=== PATIENT | male | born 1940 | race Asian ===

== ENCOUNTER 2016-03-17 10:21 | Outpatient (RCR) | payer OTHER ==
--- OUTSIDE RECORDS SUMMARY | 2015-12-19 08:51 | XMS REPORT | Continuity of Care Document ---
Author Author [facility] Organization [facility] Address Unknown Phone Unavailable Care Team Providers Care Senior Salesforce Developer Name Role Phone LYNDA BLANTON MD PCP Insurance Providers Payer Name Policy Number Subscriber Name Relationship [employer] [id number] Deonte Rangel 20 Self / Same As Patient Advance Directives Directive Response Recorded Date/Time Advance Directives No 06/22/14 11:30am Organ Donor No 06/22/14 11:30am Resuscitation Status Full Code 06/22/14 11:30am Problems No known problems or medical conditions. Medications Medication Dose Route Sig Days/Qty Instructions Order Date Discontinued Date Status Levothyroxine Sodium 1 Each PO DAILY 06/22/14 Active Fluconazole 100 Mg PO DAILY 31 Qty 06/22/14 Active Pantoprazole Sodium 40 Mg PO TWICE A DAY 90 Qty 06/22/14 Active Social History Social History Problem Response Recorded Date/Time Recent Foreign Travel No 06/22/2014 11:30am Smoking Status Former Smoker 06/22/2014 11:30am Query Response Start Date Stop Date Smoking Status Former Smoker Hospital Discharge Instructions No hospital discharge instructions. Plan of Care No plan of care. Functional Status No functional status results. Allergies, Adverse Reactions, Alerts Allergen Type Severity Reaction Status Last Updated No Known Drug Allergies Active 06/22/14 Immunizations No immunization records. Vital Signs Acute Vital Signs Vital Response Date/Time Temperature (Fahrenheit) 97.0 degrees F (97.6 - 99.5) Temperature (Calculated Celsius) 36.45343 degrees C (36.4 - 37.5) Temperature Source Tympanic Pulse Rate (adult) 69 bpm (60 - 90) Respiratory Rate 18 bpm (12 - 24) O2 Sat by Pulse Oximetry 96 % (88 - 100) Blood Pressure 102/70 mm Hg Pain Pain Intensity 0 Height (Feet) 5 feet Height (Inches) 10.00 inches Height (Calculated Centimeters) 177.197762 cm Weight (Pounds) 122 pounds Weight (Calculated Grams) 57840.270 gm Weight (Calculated Kilograms) 55.369149 kilograms Height 5 ft 10 in Weight 122 lb Body Mass Index 17.5 kg/m^2 Results Laboratory Results Test Name Result Units Flags Reference Collection Date/Time Result Date/ Time Comments White Blood Count 7.0 10^3/uL 4.3-11.0 06/11/2014 9:52am 06/11/2014 9: 57am Red Blood Count 4.45 10^6/uL 4.35-5.85 06/11/2014 9:52am 06/11/2014 9: 57am Hemoglobin 12.3 G/DL L 13.3-17.7 06/11/2014 9:52am 06/11/2014 9:57am Hematocrit 37 % L 40-54 06/11/2014 9:52am 06/11/2014 9:57am Mean Corpuscular Volume 83 FL 80-99 06/11/2014 9:52am 06/11/2014 9: 57am Mean Corpuscular Hemoglobin 28 PG 25-34 06/11/2014 9:52am 06/11/2014 9: 57am Mean Corpuscular Hemoglobin Concent 33 G/DL 32-36 06/11/2014 9:52am 9:57am Red Cell Distribution Width 13.9 % 10.0-14.5 06/11/2014 9:52am 2014 9:57am Platelet Count 298 10^3/uL 130-400 06/11/2014 9:52am 06/11/2014 9:57am Mean Platelet Volume 9.8 FL 7.4-10.4 06/11/2014 9:52am 06/11/2014 9: 57am Neutrophils (%) (Auto) 83 % H 42-75 06/11/2014 9:52am 06/11/2014 9:57am Lymphocytes (%) (Auto) 5 % L 12-44 06/11/2014 9:5206/11/2014 9:57am Monocytes (%) (Auto) 7 % 0-12 06/11/2014 9:5206/11/2014 9:57am Eosinophils (%) (Auto) 4 % 0-10 06/11/2014 9:52am 06/11/2014 9:57am Basophils (%) (Auto) 0 % 0-10 06/11/2014 9:5206/11/2014 9:57am Neutrophils # (Auto) 5.8 X 10^3 1.8-7.8 06/11/2014 9:5206/11/2014 9: 57am Lymphocytes # (Auto) 0.4 X 10^3 L 1.0-4.0 06/11/2014 9:5206/11/2014 9: 57am Monocytes # (Auto) 0.5 X 10^3 0.0-1.0 06/11/2014 9:5206/11/2014 9: 57am Eosinophils # (Auto) 0.3 10^3/uL 0.0-0.3 06/11/2014 9:5206/11/2014 9 :57am Basophils # (Auto) 0.0 10^3/uL 0.0-0.1 06/11/2014 9:5206/11/2014 9: 57am Sodium Level 133 MMOL/L L 135-145 06/11/2014 9:5206/11/2014 10:23am Potassium Level 4.6 MMOL/L 3.6-5.0 06/11/2014 9:5206/11/2014 10: 23am Chloride Level 95 MMOL/L L 98-107 06/11/2014 9:5206/11/2014 10:23am Carbon Dioxide Level 28 MMOL/L 21-32 06/11/2014 9:5206/11/2014 10: 23am Blood Urea Nitrogen 8 MG/DL 7-18 06/11/2014 9:5206/11/2014 10:23am Creatinine 0.70 MG/DL 0.60-1.30 06/11/2014 9:5206/11/2014 10:23am BUN/Creatinine Ratio 11 06/11/2014 9:52am 06/11/2014 10:23am Estimat Glomerular Filtration Rate > 60 06/11/2014 9:52am 2014 10:23am GFR INTERPRETIVE DATA UNITS FOR ESTIMATED GFR (eGFR): mL/min/1.73 M2 REFERENCE RANGE FOR ESTIMATED GFR (eGFR) eGFR NORMAL eGFR >60 MODERATELY DECREASED eGFR 30-59 SEVERLY DECREASED eGFR 15-29 KIDNEY FAILURE <15 (OR DIALYSIS) Glucose Level 97 MG/DL 70-105 06/11/2014 9:52am 06/11/2014 10:23am Calcium Level 9.8 MG/DL 8.5-10.1 06/11/2014 9:52am 06/11/2014 10:23am Total Bilirubin 0.7 MG/DL 0.1-1.0 06/11/2014 9:52am 06/11/2014 10:23am Alkaline Phosphatase 73 U/L 40-136 06/11/2014 9:52am 06/11/2014 10: 23am Aspartate Amino Transf (AST/SGOT) 15 U/L 5-34 06/11/2014 9:52am 2014 10:23am Alanine Aminotransferase (ALT/SGPT) 8 U/L 0-55 06/11/2014 9:52am 2014 10:23am Total Protein 6.8 G/DL 6.4-8.2 06/11/2014 9:52am 06/11/2014 10:23am Albumin 3.8 G/DL 3.2-4.5 06/11/2014 9:52am 06/11/2014 10:23am Thyroid Stimulating Hormone (TSH) 2.65 UIU/ML 0.35-4.94 06/11/2014 9: 52am 06/11/2014 10:44am Ferritin 209 NG/ML 25-300 06/11/2014 7:52am 06/12/2014 6:58am Iron Level 28 L UG/DL 40-180 06/11/2014 7:52am 06/12/2014 6:58am Transferrin % Saturation 11 L % 15-50 06/11/2014 7:52am 06/12/2014 6: 58am Total Iron Binding Capacity 249 L UG/DL 280-380 06/11/2014 7:52am 6:58am TESTING PERFORMED BY: [facility] [id number] [place] [address] Procedures Procedure Status Date Provider(s) Esophagogastroduodenoscopy (EGD) with dilation completed 06/22/14 GARRETT JOHNSON MD Encounters Encounter Location Date/Time Registered Surgical Day Care [facility] 06/22/14 11:17am Registered Clinic [facility] 06/20/14 6:08am Registered Clinic [facility] 06/11/14 9:27am Registered Recurring [facility] 06/01/14 1:00pm
[2015-12-19 08:58] LABS: BASOPHILS % (AUTO) 1 % (0-10); EOSINOPHILS # (AUTO) 0.1 10^3/uL (0.0-0.3); EOSINOPHILS % (AUTO) 2 % (0-10); LYMPHOCYTES # (AUTO) 0.6 X 10^3 (1.0-4.0); LYMPHOCYTES % (AUTO) 10 % (12-44); MEAN CORPUSCULAR HEMOGLOBIN 29 PG (25-34); MEAN CORPUSCULAR HGB CONC 34 G/DL (32-36); MEAN CORPUSCULAR VOLUME 86 FL (80-99); MONOCYTES # (AUTO) 0.7 X 10^3 (0.0-1.0); MONOCYTES % (AUTO) 10 % (0-12); NEUTROPHILS # (AUTO) 5.2 X 10^3 (1.8-7.8); NEUTROPHILS % (AUTO) 78 % (42-75); PLATELET COUNT 216 10^3/uL (130-400); RED BLOOD COUNT 4.09 10^6/uL (4.35-5.85); RED CELL DISTRIBUTION WIDTH 13.8 % (10.0-14.5); WHITE BLOOD COUNT 6.6 10^3/uL (4.3-11.0)
[2015-12-19 09:46] LABS: ALANINE AMINOTRANSFERASE 12 U/L (0-55); ALBUMIN 3.9 G/DL (3.2-4.5); ANION GAP 12 MMOL/L (5-14); ASPARTATE AMINO TRANSFERASE 16 U/L (5-34); BILIRUBIN,TOTAL 0.4 MG/DL (0.1-1.0); BLOOD UREA NITROGEN 24 MG/DL (7-18); BUN/CREATININE RATIO 30; CALCIUM 9.3 MG/DL (8.5-10.1); CARBON DIOXIDE 22 MMOL/L (21-32); CHLORIDE 99 MMOL/L (98-107); GFR ESTIMATED > 60; GLUCOSE 86 MG/DL (70-105); PHOSPHORUS 4.1 MG/DL (2.3-4.7); POTASSIUM 4.9 MMOL/L (3.6-5.0); SODIUM 133 MMOL/L (135-145); TOTAL PROTEIN 6.6 G/DL (6.4-8.2); TRIGLYCERIDES 37 MG/DL (<150)
[2016-01-02 10:12] LABS: BASOPHILS # (AUTO) 0.1 10^3/uL (0.0-0.1); BASOPHILS % (AUTO) 1 % (0-10); EOSINOPHILS # (AUTO) 0.3 10^3/uL (0.0-0.3); EOSINOPHILS % (AUTO) 5 % (0-10); LYMPHOCYTES # (AUTO) 0.6 X 10^3 (1.0-4.0); LYMPHOCYTES % (AUTO) 11 % (12-44); MEAN CORPUSCULAR HEMOGLOBIN 30 PG (25-34); MEAN CORPUSCULAR HGB CONC 34 G/DL (32-36); MEAN CORPUSCULAR VOLUME 87 FL (80-99); MEAN PLATELET VOLUME 11.7 FL (7.4-10.4); MONOCYTES # (AUTO) 0.7 X 10^3 (0.0-1.0); MONOCYTES % (AUTO) 12 % (0-12); NEUTROPHILS % (AUTO) 71 % (42-75); PLATELET COUNT 187 10^3/uL (130-400); RED BLOOD COUNT 4.07 10^6/uL (4.35-5.85); RED CELL DISTRIBUTION WIDTH 13.9 % (10.0-14.5); WHITE BLOOD COUNT 5.6 10^3/uL (4.3-11.0)
[2016-01-02 10:35] LABS: ALANINE AMINOTRANSFERASE 21 U/L (0-55); ANION GAP 9 MMOL/L (5-14); ASPARTATE AMINO TRANSFERASE 23 U/L (5-34); BILIRUBIN,TOTAL 0.5 MG/DL (0.1-1.0); BLOOD UREA NITROGEN 29 MG/DL (7-18); BUN/CREATININE RATIO 41; CALCIUM 9.4 MG/DL (8.5-10.1); CARBON DIOXIDE 30 MMOL/L (21-32); CHLORIDE 96 MMOL/L (98-107); GFR ESTIMATED > 60; GLUCOSE 99 MG/DL (70-105); MAGNESIUM 2.3 MG/DL (1.8-2.4); POTASSIUM 4.7 MMOL/L (3.6-5.0); SODIUM 135 MMOL/L (135-145); TOTAL PROTEIN 6.8 G/DL (6.4-8.2); TRIGLYCERIDES 40 MG/DL (<150)
[2016-01-02 10:55] LABS: THYROID STIMULATING HORMONE 2.14 UIU/ML (0.35-4.94)
[2016-01-02 23:54] LABS: CALCIUM IONIZED 1.18 mmol/L (1.16-1.32); CORRECTED IONIZED CALCIUM 1.12 mmol/L (1.16-1.32)
[2016-01-03 07:00] LABS: CALCIUM PH 7.31
[2016-01-15 10:01] LABS: BASOPHILS % (AUTO) 1 % (0-10); EOSINOPHILS # (AUTO) 0.3 10^3/uL (0.0-0.3); EOSINOPHILS % (AUTO) 5 % (0-10); LYMPHOCYTES # (AUTO) 0.7 X 10^3 (1.0-4.0); LYMPHOCYTES % (AUTO) 12 % (12-44); MEAN CORPUSCULAR HEMOGLOBIN 30 PG (25-34); MEAN CORPUSCULAR HGB CONC 34 G/DL (32-36); MEAN CORPUSCULAR VOLUME 87 FL (80-99); MONOCYTES # (AUTO) 0.7 X 10^3 (0.0-1.0); MONOCYTES % (AUTO) 12 % (0-12); NEUTROPHILS # (AUTO) 4.3 X 10^3 (1.8-7.8); NEUTROPHILS % (AUTO) 70 % (42-75); PLATELET COUNT 151 10^3/uL (130-400); RED CELL DISTRIBUTION WIDTH 14.3 % (10.0-14.5); WHITE BLOOD COUNT 6.1 10^3/uL (4.3-11.0)
[2016-01-15 10:41] LABS: ALANINE AMINOTRANSFERASE 36 U/L (0-55); ALBUMIN 4.1 G/DL (3.2-4.5); ANION GAP 6 MMOL/L (5-14); ASPARTATE AMINO TRANSFERASE 34 U/L (5-34); BILIRUBIN,TOTAL 0.7 MG/DL (0.1-1.0); BLOOD UREA NITROGEN 28 MG/DL (7-18); BUN/CREATININE RATIO 39; CALCIUM 9.1 MG/DL (8.5-10.1); CARBON DIOXIDE 30 MMOL/L (21-32); CHLORIDE 100 MMOL/L (98-107); CREATININE SERUM 0.71 MG/DL (0.60-1.30); GFR ESTIMATED > 60; GLUCOSE 100 MG/DL (70-105); MAGNESIUM 2.1 MG/DL (1.8-2.4); POTASSIUM 5.2 MMOL/L (3.6-5.0); SODIUM 136 MMOL/L (135-145); TOTAL PROTEIN 6.9 G/DL (6.4-8.2); TRIGLYCERIDES 41 MG/DL (<150)
[2016-01-16 02:06] LABS: CALCIUM IONIZED 1.14 mmol/L (1.16-1.32); CORRECTED IONIZED CALCIUM 1.17 mmol/L (1.16-1.32)
[2016-01-16 07:52] LABS: CALCIUM PH 7.44
[2016-02-04 09:50] LABS: BASOPHILS % (AUTO) 1 % (0-10); EOSINOPHILS # (AUTO) 0.2 10^3/uL (0.0-0.3); EOSINOPHILS % (AUTO) 4 % (0-10); LYMPHOCYTES # (AUTO) 0.7 X 10^3 (1.0-4.0); LYMPHOCYTES % (AUTO) 14 % (12-44); MEAN CORPUSCULAR HEMOGLOBIN 29 PG (25-34); MEAN CORPUSCULAR HGB CONC 34 G/DL (32-36); MEAN CORPUSCULAR VOLUME 87 FL (80-99); MEAN PLATELET VOLUME 12.3 FL (7.4-10.4); MONOCYTES # (AUTO) 0.6 X 10^3 (0.0-1.0); MONOCYTES % (AUTO) 12 % (0-12); NEUTROPHILS # (AUTO) 3.8 X 10^3 (1.8-7.8); NEUTROPHILS % (AUTO) 70 % (42-75); PLATELET COUNT 153 10^3/uL (130-400); RED BLOOD COUNT 3.94 10^6/uL (4.35-5.85); RED CELL DISTRIBUTION WIDTH 14.3 % (10.0-14.5); WHITE BLOOD COUNT 5.3 10^3/uL (4.3-11.0)
[2016-02-04 10:22] LABS: ALANINE AMINOTRANSFERASE 21 U/L (0-55); ANION GAP 9 MMOL/L (5-14); ASPARTATE AMINO TRANSFERASE 25 U/L (5-34); BILIRUBIN,TOTAL 0.7 MG/DL (0.1-1.0); BLOOD UREA NITROGEN 28 MG/DL (7-18); BUN/CREATININE RATIO 36; CALCIUM 9.3 MG/DL (8.5-10.1); CARBON DIOXIDE 26 MMOL/L (21-32); CHLORIDE 102 MMOL/L (98-107); CREATININE SERUM 0.78 MG/DL (0.60-1.30); GFR ESTIMATED > 60; GLUCOSE 95 MG/DL (70-105); PHOSPHORUS 3.9 MG/DL (2.3-4.7); POTASSIUM 4.7 MMOL/L (3.6-5.0); SODIUM 137 MMOL/L (135-145); TOTAL PROTEIN 6.4 G/DL (6.4-8.2); TRIGLYCERIDES 32 MG/DL (<150)
[2016-02-04 10:41] LABS: THYROID STIMULATING HORMONE 1.75 UIU/ML (0.35-4.94)
[2016-02-05 02:13] LABS: CALCIUM IONIZED 1.19 mmol/L (1.16-1.32); CORRECTED IONIZED CALCIUM 1.16 mmol/L (1.16-1.32)
[2016-02-05 06:46] LABS: CALCIUM PH 7.35
[2016-02-18 09:42] LABS: BASOPHILS % (AUTO) 0 % (0-10); EOSINOPHILS # (AUTO) 0.2 10^3/uL (0.0-0.3); EOSINOPHILS % (AUTO) 4 % (0-10); LYMPHOCYTES # (AUTO) 0.6 X 10^3 (1.0-4.0); LYMPHOCYTES % (AUTO) 11 % (12-44); MEAN CORPUSCULAR HEMOGLOBIN 29 PG (25-34); MEAN CORPUSCULAR HGB CONC 34 G/DL (32-36); MEAN CORPUSCULAR VOLUME 88 FL (80-99); MEAN PLATELET VOLUME 11.5 FL (7.4-10.4); MONOCYTES # (AUTO) 0.5 X 10^3 (0.0-1.0); MONOCYTES % (AUTO) 10 % (0-12); NEUTROPHILS % (AUTO) 75 % (42-75); PLATELET COUNT 152 10^3/uL (130-400); RED BLOOD COUNT 3.75 10^6/uL (4.35-5.85); RED CELL DISTRIBUTION WIDTH 14.9 % (10.0-14.5); WHITE BLOOD COUNT 5.3 10^3/uL (4.3-11.0)
[2016-02-18 10:50] LABS: ALANINE AMINOTRANSFERASE 21 U/L (0-55); ALBUMIN 3.9 G/DL (3.2-4.5); ANION GAP 8 MMOL/L (5-14); ASPARTATE AMINO TRANSFERASE 23 U/L (5-34); BILIRUBIN,TOTAL 0.6 MG/DL (0.1-1.0); BLOOD UREA NITROGEN 27 MG/DL (7-18); BUN/CREATININE RATIO 35; CARBON DIOXIDE 27 MMOL/L (21-32); CHLORIDE 103 MMOL/L (98-107); CREATININE SERUM 0.77 MG/DL (0.60-1.30); GFR ESTIMATED > 60; GLUCOSE 96 MG/DL (70-105); PHOSPHORUS 4.1 MG/DL (2.3-4.7); SODIUM 138 MMOL/L (135-145); TOTAL PROTEIN 6.4 G/DL (6.4-8.2); TRIGLYCERIDES 29 MG/DL (<150)
[2016-02-19 02:03] LABS: CALCIUM IONIZED 1.19 mmol/L (1.16-1.32); CORRECTED IONIZED CALCIUM 1.15 mmol/L (1.16-1.32)
[2016-02-19 08:30] LABS: CALCIUM PH 7.34
[2016-03-03 10:22] LABS: BASOPHILS % (AUTO) 1 % (0-10); EOSINOPHILS # (AUTO) 0.2 10^3/uL (0.0-0.3); EOSINOPHILS % (AUTO) 4 % (0-10); LYMPHOCYTES # (AUTO) 0.7 X 10^3 (1.0-4.0); LYMPHOCYTES % (AUTO) 12 % (12-44); MEAN CORPUSCULAR HEMOGLOBIN 29 PG (25-34); MEAN CORPUSCULAR HGB CONC 33 G/DL (32-36); MEAN CORPUSCULAR VOLUME 87 FL (80-99); MEAN PLATELET VOLUME 11.7 FL (7.4-10.4); MONOCYTES # (AUTO) 0.7 X 10^3 (0.0-1.0); MONOCYTES % (AUTO) 11 % (0-12); NEUTROPHILS # (AUTO) 4.5 X 10^3 (1.8-7.8); NEUTROPHILS % (AUTO) 73 % (42-75); PLATELET COUNT 173 10^3/uL (130-400); RED BLOOD COUNT 4.06 10^6/uL (4.35-5.85); RED CELL DISTRIBUTION WIDTH 14.8 % (10.0-14.5); WHITE BLOOD COUNT 6.2 10^3/uL (4.3-11.0)
[2016-03-03 11:32] LABS: ALANINE AMINOTRANSFERASE 23 U/L (0-55); ALBUMIN 4.3 G/DL (3.2-4.5); ANION GAP 8 MMOL/L (5-14); ASPARTATE AMINO TRANSFERASE 28 U/L (5-34); BILIRUBIN,TOTAL 0.6 MG/DL (0.1-1.0); BLOOD UREA NITROGEN 34 MG/DL (7-18); BUN/CREATININE RATIO 39; CALCIUM 9.5 MG/DL (8.5-10.1); CARBON DIOXIDE 27 MMOL/L (21-32); CHLORIDE 102 MMOL/L (98-107); CREATININE SERUM 0.88 MG/DL (0.60-1.30); GFR ESTIMATED > 60; GLUCOSE 99 MG/DL (70-105); MAGNESIUM 2.1 MG/DL (1.8-2.4); PHOSPHORUS 3.9 MG/DL (2.3-4.7); POTASSIUM 4.9 MMOL/L (3.6-5.0); SODIUM 137 MMOL/L (135-145); TRIGLYCERIDES 38 MG/DL (<150)
[2016-03-03 11:57] LABS: THYROID STIMULATING HORMONE 2.64 UIU/ML (0.35-4.94)
[2016-03-04 00:27] LABS: CALCIUM IONIZED 1.18 mmol/L (1.16-1.32); CORRECTED IONIZED CALCIUM 1.14 mmol/L (1.16-1.32)
[2016-03-04 08:37] LABS: CALCIUM PH 7.34
[~2016-03-17 10:21] MED LIST: FLUC100T PO; HYOS0.1217 PO; LEVO75TA57 PO; PANT20TA2 PO; [UNRECOGNIZED DRUG - OTHER] IV
[2016-03-17 10:57] LABS: BASOPHILS % (AUTO) 0 % (0-10); EOSINOPHILS % (AUTO) 0 % (0-10); LYMPHOCYTES # (AUTO) 0.6 X 10^3 (1.0-4.0); LYMPHOCYTES % (AUTO) 6 % (12-44); MEAN CORPUSCULAR HEMOGLOBIN 29 PG (25-34); MEAN CORPUSCULAR HGB CONC 33 G/DL (32-36); MEAN CORPUSCULAR VOLUME 87 FL (80-99); MEAN PLATELET VOLUME 11.7 FL (7.4-10.4); MONOCYTES # (AUTO) 0.7 X 10^3 (0.0-1.0); MONOCYTES % (AUTO) 7 % (0-12); NEUTROPHILS # (AUTO) 8.6 X 10^3 (1.8-7.8); NEUTROPHILS % (AUTO) 87 % (42-75); PLATELET COUNT 109 10^3/uL (130-400); RED BLOOD COUNT 3.83 10^6/uL (4.35-5.85); RED CELL DISTRIBUTION WIDTH 14.7 % (10.0-14.5); WHITE BLOOD COUNT 9.9 10^3/uL (4.3-11.0)
[2016-03-17 11:43] LABS: ALANINE AMINOTRANSFERASE 39 U/L (0-55); ALBUMIN 3.9 G/DL (3.2-4.5); ANION GAP 11 MMOL/L (5-14); ASPARTATE AMINO TRANSFERASE 48 U/L (5-34); BILIRUBIN,TOTAL 0.6 MG/DL (0.1-1.0); BLOOD UREA NITROGEN 33 MG/DL (7-18); BUN/CREATININE RATIO 43; CALCIUM 8.8 MG/DL (8.5-10.1); CARBON DIOXIDE 23 MMOL/L (21-32); CHLORIDE 101 MMOL/L (98-107); CREATININE SERUM 0.76 MG/DL (0.60-1.30); GFR ESTIMATED > 60; GLUCOSE 95 MG/DL (70-105); PHOSPHORUS 3.4 MG/DL (2.3-4.7); POTASSIUM 4.8 MMOL/L (3.6-5.0); SODIUM 135 MMOL/L (135-145); TOTAL PROTEIN 6.5 G/DL (6.4-8.2); TRIGLYCERIDES 39 MG/DL (<150)
[2016-03-18 00:19] LABS: CALCIUM IONIZED 1.18 mmol/L (1.16-1.32); CORRECTED IONIZED CALCIUM 1.15 mmol/L (1.16-1.32)
[2016-03-18 08:03] LABS: CALCIUM PH 7.35
== END 2016-03-18 | disposition home or self-care (01) ==
LOC: ONC 10:21
PROVIDERS: ATTEND Internal Medicine Hematology & Oncology
DX: K22.0 Achalasia of cardia (principal); R13.10 Dysphagia, unspecified; K21.9 Gastro-esophageal reflux disease without esophagitis; R63.4 Abnormal weight loss; Z85.72 Personal history of non-Hodgkin lymphomas; Z92.21 Personal history of antineoplastic chemotherapy; Z92.3 Personal history of irradiation
CPT/HCPCS: 36415; 80053; 82330; 83735; 84100; 84443; 84478; 85025; 87070; 87077; 87186; 87205

== ENCOUNTER → 2016-05-12 | Outpatient (CLI) | payer OTHER ==
--- OUTSIDE RECORDS SUMMARY | 2016-05-12 09:29 | XMS REPORT | Continuity of Care Document ---
Author Author [facility] Organization [facility] Address Unknown Phone Unavailable Care Team Providers Care Sales Project Engineer Name Role Phone LYNDA BLANTON MD PCP Insurance Providers Payer Name Policy Number Subscriber Name Relationship [employer] [id number] Deonte Rangel 20 Self / Same As [...] F (97.6 - 99.5) Temperature (Calculated Celsius) 36.24288 degrees C (36.4 - 37.5) Temperature Source Tympanic Pulse Rate (adult) 69 bpm (60 - 90) Respiratory Rate 18 bpm (12 - 24) O2 Sat by Pulse Oximetry 96 % (88 - 100) Blood Pressure 102/70 mm Hg Pain Pain Intensity 0 Height (Feet) 5 feet Height (Inches) 10.00 inches Height (Calculated Centimeters) 177.995350 cm Weight (Pounds) 122 pounds Weight (Calculated Grams) 22171.270 gm Weight (Calculated Kilograms) 55.480578 kilograms Height 5 ft 10 in Weight [...] 280-380 06/11/2014 7:52am 6:58am TESTING PERFORMED BY: [facility] [id number] [place] [address] Procedures Procedure Status Date Provider(s) Esophagogastroduodenoscopy (EGD) with dilation completed 06/22/14 GARRETT JOHSNON MD Encounters Encounter Location Date/Time Registered Surgical Day Care [facility] 06/22/14 11:17am Registered Clinic [facility] 06/20/14 6:08am Registered Clinic [facility] 06/11/14 9:27am Registered Recurring [facility] 06/01/14 1:00pm
--- NOTE | 2016-05-12 11:15 | Diagnostic Imaging Report ---
EXAMINATION: PA and lateral chest views of the chest. INDICATION: Cough. FINDINGS: There is thickening in the interstitial markings and elevation of the left hemidiaphragm similar to 04/15/2015. These findings appear to be chronic with no significant focal consolidation. The heart size is normal. No effusion or pneumothorax. The mediastinum and ninfa appear unremarkable. IMPRESSION: Chronic appearing interstitial thickening and elevation of the left hemidiaphragm. No focal consolidation. Dictated by: Dictated on workstation # [id number]
== END ==
LOC: RAD 09:26
PROVIDERS: ATTEND Internal Medicine Hematology & Oncology
DX: J18.9 Pneumonia, unspecified organism (principal)
CPT/HCPCS: 71020

== ENCOUNTER → 2016-06-12 | Outpatient (CLI) | payer OTHER ==
[~2016-06-12] VITALS: Ht 177.8 cm; Wt 53.5 kg
--- NOTE | 2016-06-12 10:18 | Diagnostic Imaging Report ---
Portable upright radiograph of the chest. COMPARISON: 05/12/2016. INDICATION: PICC line placement. FINDINGS: There is a PICC line placed with the tip in the mid SVC. The heart size is normal. There is elevation of the left hemidiaphragm similar to the prior exam with no focal airspace consolidation. There is, however, mild chronic-appearing interstitial prominence. No effusion or pneumothorax. IMPRESSION: Left PICC line placed with the tip at the SVC level. Unchanged prominent interstitial markings and elevation of the left hemidiaphragm. Dictated by: Dictated on workstation # [id number]
[2016-06-12 11:58] VITALS: BP 143/100
== END ==
LOC: SDC 08:54
PROVIDERS: ATTEND Internal Medicine Hematology & Oncology
DX: Z45.2 Encounter for adjustment and management of vascular access device (principal)
CPT/HCPCS: 36569; 71010; 76937

== ENCOUNTER 2016-06-23 09:23 | Outpatient (RCR) | payer OTHER ==
--- OUTSIDE RECORDS SUMMARY | 2016-03-26 09:02 | XMS REPORT | Continuity of Care Document ---
Author Author [facility] Organization [facility] Address Unknown Phone Unavailable Care Team Providers Care Vat Cleaner Name Role Phone LYNDA BLANTON MD PCP Insurance Providers Payer Name Policy Number Subscriber Name Relationship [employer] [id number] Deonte Rangel 20 Self / Same As [...] F (97.6 - 99.5) Temperature (Calculated Celsius) 36.66153 degrees C (36.4 - 37.5) Temperature Source Tympanic Pulse Rate (adult) 69 bpm (60 - 90) Respiratory Rate 18 bpm (12 - 24) O2 Sat by Pulse Oximetry 96 % (88 - 100) Blood Pressure 102/70 mm Hg Pain Pain Intensity 0 Height (Feet) 5 feet Height (Inches) 10.00 inches Height (Calculated Centimeters) 177.492867 cm Weight (Pounds) 122 pounds Weight (Calculated Grams) 72237.270 gm Weight (Calculated Kilograms) 55.740798 kilograms Height 5 ft 10 in Weight [...] 280-380 06/11/2014 7:52am 6:58am TESTING PERFORMED BY: [facility] [id number] [place] [address] Procedures Procedure Status Date Provider(s) Esophagogastroduodenoscopy (EGD) with dilation completed 06/22/14 GARRETT JOHNSON MD Encounters Encounter Location Date/Time Registered Surgical Day Care [facility] 06/22/14 11:17am Registered Clinic [facility] 06/20/14 6:08am Registered Clinic [facility] 06/11/14 9:27am Registered Recurring [facility] 06/01/14 1:00pm
[2016-03-30 09:59] LABS: BASOPHILS % (AUTO) 0 % (0-10); EOSINOPHILS # (AUTO) 0.2 10^3/uL (0.0-0.3); EOSINOPHILS % (AUTO) 2 % (0-10); LYMPHOCYTES # (AUTO) 0.7 X 10^3 (1.0-4.0); LYMPHOCYTES % (AUTO) 7 % (12-44); MEAN CORPUSCULAR HEMOGLOBIN 28 PG (25-34); MEAN CORPUSCULAR HGB CONC 33 G/DL (32-36); MEAN CORPUSCULAR VOLUME 87 FL (80-99); MEAN PLATELET VOLUME 11.6 FL (7.4-10.4); MONOCYTES % (AUTO) 10 % (0-12); NEUTROPHILS % (AUTO) 81 % (42-75); PLATELET COUNT 220 10^3/uL (130-400); RED BLOOD COUNT 3.85 10^6/uL (4.35-5.85); RED CELL DISTRIBUTION WIDTH 14.1 % (10.0-14.5); WHITE BLOOD COUNT 9.9 10^3/uL (4.3-11.0)
[2016-03-30 10:26] LABS: ALANINE AMINOTRANSFERASE 30 U/L (0-55); ALBUMIN 3.8 G/DL (3.2-4.5); ANION GAP 9 MMOL/L (5-14); ASPARTATE AMINO TRANSFERASE 31 U/L (5-34); BILIRUBIN,TOTAL 0.8 MG/DL (0.1-1.0); BLOOD UREA NITROGEN 31 MG/DL (7-18); BUN/CREATININE RATIO 40; CALCIUM 9.4 MG/DL (8.5-10.1); CARBON DIOXIDE 26 MMOL/L (21-32); CHLORIDE 104 MMOL/L (98-107); CHOLESTEROL 137 MG/DL (< 200); CREATININE SERUM 0.77 MG/DL (0.60-1.30); DIRECT LDL 85 MG/DL (1-129); GFR ESTIMATED > 60; GLUCOSE 101 MG/DL (70-105); SODIUM 139 MMOL/L (135-145); TOTAL PROTEIN 6.8 G/DL (6.4-8.2); TRIGLYCERIDES 47 MG/DL (<150); VLDL CHOLESTEROL 9 MG/DL (5-40)
[2016-03-30 10:36] LABS: RETICULOCYTE % 0.45 % (0.50-2.40)
[2016-03-30 10:47] LABS: THYROID STIMULATING HORMONE 3.12 UIU/ML (0.35-4.94)
[2016-03-30 11:43] LABS: %SAT TOTAL IRON BINDING CAPIC 11 % (15-50); TIBC 257 ug/dL (280-380)
[2016-03-30 15:36] LABS: UIBC 229 ug/dL (55-450)
[2016-03-31 09:04] LABS: FERRITIN 563 ng/mL (25-300)
[2016-04-07 10:50] LABS: BASOPHILS % (AUTO) 1 % (0-10); EOSINOPHILS # (AUTO) 0.1 10^3/uL (0.0-0.3); EOSINOPHILS % (AUTO) 2 % (0-10); LYMPHOCYTES # (AUTO) 0.6 X 10^3 (1.0-4.0); LYMPHOCYTES % (AUTO) 11 % (12-44); MEAN CORPUSCULAR HEMOGLOBIN 29 PG (25-34); MEAN CORPUSCULAR HGB CONC 33 G/DL (32-36); MEAN CORPUSCULAR VOLUME 87 FL (80-99); MEAN PLATELET VOLUME 12.7 FL (7.4-10.4); MONOCYTES # (AUTO) 0.6 X 10^3 (0.0-1.0); MONOCYTES % (AUTO) 11 % (0-12); NEUTROPHILS # (AUTO) 4.1 X 10^3 (1.8-7.8); NEUTROPHILS % (AUTO) 76 % (42-75); PLATELET COUNT 139 10^3/uL (130-400); RED BLOOD COUNT 3.81 10^6/uL (4.35-5.85); RED CELL DISTRIBUTION WIDTH 14.5 % (10.0-14.5); WHITE BLOOD COUNT 5.4 10^3/uL (4.3-11.0)
[2016-04-07 11:14] LABS: ALANINE AMINOTRANSFERASE 192 U/L (0-55); ALBUMIN 3.7 G/DL (3.2-4.5); ANION GAP 8 MMOL/L (5-14); ASPARTATE AMINO TRANSFERASE 116 U/L (5-34); BILIRUBIN,TOTAL 2.4 MG/DL (0.1-1.0); BLOOD UREA NITROGEN 26 MG/DL (7-18); BUN/CREATININE RATIO 37; CALCIUM 8.9 MG/DL (8.5-10.1); CARBON DIOXIDE 28 MMOL/L (21-32); CHLORIDE 103 MMOL/L (98-107); CHOLESTEROL 133 MG/DL (< 200); CREATININE SERUM 0.71 MG/DL (0.60-1.30); DIRECT LDL 94 MG/DL (1-129); GFR ESTIMATED > 60; GLUCOSE 93 MG/DL (70-105); MAGNESIUM 1.9 MG/DL (1.8-2.4); PHOSPHORUS 2.5 MG/DL (2.3-4.7); SODIUM 139 MMOL/L (135-145); TOTAL PROTEIN 6.3 G/DL (6.4-8.2); TRIGLYCERIDES 58 MG/DL (<150); VLDL CHOLESTEROL 12 MG/DL (5-40)
[2016-04-14 09:35] LABS: BASOPHILS % (AUTO) 0 % (0-10); EOSINOPHILS # (AUTO) 0.4 10^3/uL (0.0-0.3); EOSINOPHILS % (AUTO) 6 % (0-10); LYMPHOCYTES # (AUTO) 0.6 X 10^3 (1.0-4.0); LYMPHOCYTES % (AUTO) 9 % (12-44); MEAN CORPUSCULAR HEMOGLOBIN 30 PG (25-34); MEAN CORPUSCULAR HGB CONC 34 G/DL (32-36); MEAN CORPUSCULAR VOLUME 88 FL (80-99); MONOCYTES # (AUTO) 0.7 X 10^3 (0.0-1.0); MONOCYTES % (AUTO) 10 % (0-12); NEUTROPHILS # (AUTO) 5.1 X 10^3 (1.8-7.8); NEUTROPHILS % (AUTO) 75 % (42-75); PLATELET COUNT 112 10^3/uL (130-400); RED BLOOD COUNT 3.71 10^6/uL (4.35-5.85); RED CELL DISTRIBUTION WIDTH 15.5 % (10.0-14.5); WHITE BLOOD COUNT 6.8 10^3/uL (4.3-11.0)
[2016-04-14 10:25] LABS: ALANINE AMINOTRANSFERASE 222 U/L (0-55); ALBUMIN 3.7 G/DL (3.2-4.5); ANION GAP 10 MMOL/L (5-14); ASPARTATE AMINO TRANSFERASE 101 U/L (5-34); BILIRUBIN,TOTAL 2.2 MG/DL (0.1-1.0); BLOOD UREA NITROGEN 18 MG/DL (7-18); BUN/CREATININE RATIO 25; CALCIUM 9.1 MG/DL (8.5-10.1); CARBON DIOXIDE 30 MMOL/L (21-32); CHLORIDE 100 MMOL/L (98-107); CREATININE SERUM 0.71 MG/DL (0.60-1.30); GFR ESTIMATED > 60; GLUCOSE 90 MG/DL (70-105); MAGNESIUM 1.9 MG/DL (1.8-2.4); PHOSPHORUS 2.5 MG/DL (2.3-4.7); POTASSIUM 3.9 MMOL/L (3.6-5.0); SODIUM 140 MMOL/L (135-145); TOTAL PROTEIN 6.5 G/DL (6.4-8.2); TRIGLYCERIDES 73 MG/DL (<150)
[2016-04-14 23:51] LABS: CALCIUM IONIZED 1.14 mmol/L (1.16-1.32); CORRECTED IONIZED CALCIUM 1.15 mmol/L (1.16-1.32)
[2016-04-15 07:40] LABS: CALCIUM PH 7.42
[2016-04-21 09:14] LABS: BASOPHILS % (AUTO) 0 % (0-10); EOSINOPHILS # (AUTO) 0.4 10^3/uL (0.0-0.3); EOSINOPHILS % (AUTO) 4 % (0-10); LYMPHOCYTES # (AUTO) 0.7 X 10^3 (1.0-4.0); LYMPHOCYTES % (AUTO) 9 % (12-44); MEAN CORPUSCULAR HEMOGLOBIN 30 PG (25-34); MEAN CORPUSCULAR HGB CONC 33 G/DL (32-36); MEAN CORPUSCULAR VOLUME 90 FL (80-99); MONOCYTES # (AUTO) 0.8 X 10^3 (0.0-1.0); MONOCYTES % (AUTO) 10 % (0-12); NEUTROPHILS # (AUTO) 6.3 X 10^3 (1.8-7.8); NEUTROPHILS % (AUTO) 77 % (42-75); PLATELET COUNT 160 10^3/uL (130-400); RED BLOOD COUNT 3.56 10^6/uL (4.35-5.85); WHITE BLOOD COUNT 8.2 10^3/uL (4.3-11.0)
[2016-04-21 09:46] LABS: ALANINE AMINOTRANSFERASE 49 U/L (0-55); ALBUMIN 3.7 G/DL (3.2-4.5); ANION GAP 9 MMOL/L (5-14); ASPARTATE AMINO TRANSFERASE 24 U/L (5-34); BILIRUBIN,TOTAL 1.1 MG/DL (0.1-1.0); BLOOD UREA NITROGEN 35 MG/DL (7-18); BUN/CREATININE RATIO 47; CALCIUM 9.2 MG/DL (8.5-10.1); CARBON DIOXIDE 27 MMOL/L (21-32); CHLORIDE 102 MMOL/L (98-107); CHOLESTEROL 137 MG/DL (< 200); CREATININE SERUM 0.74 MG/DL (0.60-1.30); DIRECT LDL 82 MG/DL (1-129); GFR ESTIMATED > 60; GLUCOSE 90 MG/DL (70-105); MAGNESIUM 1.6 MG/DL (1.8-2.4); PHOSPHORUS 3.5 MG/DL (2.3-4.7); POTASSIUM 4.7 MMOL/L (3.6-5.0); SODIUM 138 MMOL/L (135-145); TOTAL PROTEIN 6.5 G/DL (6.4-8.2); TRIGLYCERIDES 63 MG/DL (<150); VLDL CHOLESTEROL 13 MG/DL (5-40)
[2016-04-22 00:20] LABS: CALCIUM IONIZED 1.19 mmol/L (1.16-1.32); CORRECTED IONIZED CALCIUM 1.16 mmol/L (1.16-1.32)
[2016-04-22 06:45] LABS: CALCIUM PH 7.35
[2016-04-28 09:40] LABS: BASOPHILS % (AUTO) 1 % (0-10); EOSINOPHILS # (AUTO) 0.3 10^3/uL (0.0-0.3); EOSINOPHILS % (AUTO) 4 % (0-10); LYMPHOCYTES # (AUTO) 0.7 X 10^3 (1.0-4.0); LYMPHOCYTES % (AUTO) 10 % (12-44); MEAN CORPUSCULAR HEMOGLOBIN 30 PG (25-34); MEAN CORPUSCULAR HGB CONC 34 G/DL (32-36); MEAN CORPUSCULAR VOLUME 88 FL (80-99); MEAN PLATELET VOLUME 12.5 FL (7.4-10.4); MONOCYTES # (AUTO) 0.9 X 10^3 (0.0-1.0); MONOCYTES % (AUTO) 13 % (0-12); NEUTROPHILS # (AUTO) 4.9 X 10^3 (1.8-7.8); NEUTROPHILS % (AUTO) 72 % (42-75); PLATELET COUNT 180 10^3/uL (130-400); RED BLOOD COUNT 3.87 10^6/uL (4.35-5.85); RED CELL DISTRIBUTION WIDTH 14.3 % (10.0-14.5); WHITE BLOOD COUNT 6.8 10^3/uL (4.3-11.0)
[2016-04-28 10:16] LABS: ALANINE AMINOTRANSFERASE 59 U/L (0-55); ALBUMIN 3.9 G/DL (3.2-4.5); ANION GAP 11 MMOL/L (5-14); ASPARTATE AMINO TRANSFERASE 33 U/L (5-34); BILIRUBIN,TOTAL 0.8 MG/DL (0.1-1.0); BLOOD UREA NITROGEN 32 MG/DL (7-18); BUN/CREATININE RATIO 44; CALCIUM 9.1 MG/DL (8.5-10.1); CARBON DIOXIDE 27 MMOL/L (21-32); CHLORIDE 102 MMOL/L (98-107); CREATININE SERUM 0.72 MG/DL (0.60-1.30); GFR ESTIMATED > 60; GLUCOSE 83 MG/DL (70-105); MAGNESIUM 1.9 MG/DL (1.8-2.4); PHOSPHORUS 3.3 MG/DL (2.3-4.7); POTASSIUM 3.8 MMOL/L (3.6-5.0); SODIUM 140 MMOL/L (135-145); TOTAL PROTEIN 6.9 G/DL (6.4-8.2); TRIGLYCERIDES 39 MG/DL (<150)
[2016-04-28 10:36] LABS: THYROID STIMULATING HORMONE 6.33 UIU/ML (0.35-4.94)
[2016-04-29 00:49] LABS: CALCIUM IONIZED 1.15 mmol/L (1.16-1.32); CORRECTED IONIZED CALCIUM 1.13 mmol/L (1.16-1.32)
[2016-04-29 06:55] LABS: CALCIUM PH 7.36
[2016-05-12 09:46] LABS: BASOPHILS % (AUTO) 1 % (0-10); EOSINOPHILS # (AUTO) 0.3 10^3/uL (0.0-0.3); EOSINOPHILS % (AUTO) 5 % (0-10); LYMPHOCYTES # (AUTO) 0.7 X 10^3 (1.0-4.0); LYMPHOCYTES % (AUTO) 14 % (12-44); MEAN CORPUSCULAR HEMOGLOBIN 29 PG (25-34); MEAN CORPUSCULAR HGB CONC 33 G/DL (32-36); MEAN CORPUSCULAR VOLUME 89 FL (80-99); MEAN PLATELET VOLUME 11.9 FL (7.4-10.4); MONOCYTES # (AUTO) 0.6 X 10^3 (0.0-1.0); MONOCYTES % (AUTO) 12 % (0-12); NEUTROPHILS # (AUTO) 3.8 X 10^3 (1.8-7.8); NEUTROPHILS % (AUTO) 69 % (42-75); PLATELET COUNT 160 10^3/uL (130-400); RED CELL DISTRIBUTION WIDTH 14.8 % (10.0-14.5); WHITE BLOOD COUNT 5.4 10^3/uL (4.3-11.0)
[2016-05-12 10:22] LABS: ALANINE AMINOTRANSFERASE 45 U/L (0-55); ANION GAP 11 MMOL/L (5-14); ASPARTATE AMINO TRANSFERASE 30 U/L (5-34); BILIRUBIN,TOTAL 0.7 MG/DL (0.1-1.0); BLOOD UREA NITROGEN 34 MG/DL (7-18); BUN/CREATININE RATIO 47; CALCIUM 9.2 MG/DL (8.5-10.1); CARBON DIOXIDE 28 MMOL/L (21-32); CHLORIDE 101 MMOL/L (98-107); CREATININE SERUM 0.72 MG/DL (0.60-1.30); GFR ESTIMATED > 60; GLUCOSE 84 MG/DL (70-105); MAGNESIUM 2.1 MG/DL (1.8-2.4); PHOSPHORUS 3.4 MG/DL (2.3-4.7); SODIUM 140 MMOL/L (135-145); TOTAL PROTEIN 6.8 G/DL (6.4-8.2); TRIGLYCERIDES 43 MG/DL (<150)
[2016-05-13 00:27] LABS: CALCIUM IONIZED 1.18 mmol/L (1.16-1.32); CORRECTED IONIZED CALCIUM 1.16 mmol/L (1.16-1.32)
[2016-05-13 07:05] LABS: CALCIUM PH 7.37
[2016-05-19 09:01] LABS: BASOPHILS % (AUTO) 1 % (0-10); EOSINOPHILS # (AUTO) 0.3 10^3/uL (0.0-0.3); EOSINOPHILS % (AUTO) 5 % (0-10); LYMPHOCYTES # (AUTO) 0.7 X 10^3 (1.0-4.0); LYMPHOCYTES % (AUTO) 12 % (12-44); MEAN CORPUSCULAR HEMOGLOBIN 29 PG (25-34); MEAN CORPUSCULAR HGB CONC 32 G/DL (32-36); MEAN CORPUSCULAR VOLUME 90 FL (80-99); MEAN PLATELET VOLUME 11.6 FL (7.4-10.4); MONOCYTES # (AUTO) 0.5 X 10^3 (0.0-1.0); MONOCYTES % (AUTO) 8 % (0-12); NEUTROPHILS # (AUTO) 4.6 X 10^3 (1.8-7.8); NEUTROPHILS % (AUTO) 74 % (42-75); PLATELET COUNT 151 10^3/uL (130-400); RED BLOOD COUNT 3.79 10^6/uL (4.35-5.85); RED CELL DISTRIBUTION WIDTH 14.9 % (10.0-14.5); WHITE BLOOD COUNT 6.2 10^3/uL (4.3-11.0)
[2016-05-19 09:30] LABS: ALANINE AMINOTRANSFERASE 34 U/L (0-55); ALBUMIN 3.7 G/DL (3.2-4.5); ANION GAP 9 MMOL/L (5-14); ASPARTATE AMINO TRANSFERASE 22 U/L (5-34); BILIRUBIN,TOTAL 0.7 MG/DL (0.1-1.0); BLOOD UREA NITROGEN 36 MG/DL (7-18); BUN/CREATININE RATIO 49; CALCIUM 9.1 MG/DL (8.5-10.1); CARBON DIOXIDE 30 MMOL/L (21-32); CHLORIDE 104 MMOL/L (98-107); CHOLESTEROL 115 MG/DL (< 200); CREATININE SERUM 0.74 MG/DL (0.60-1.30); DIRECT LDL 61 MG/DL (1-129); GFR ESTIMATED > 60; GLUCOSE 81 MG/DL (70-105); PHOSPHORUS 3.2 MG/DL (2.3-4.7); POTASSIUM 3.8 MMOL/L (3.6-5.0); SODIUM 143 MMOL/L (135-145); TOTAL PROTEIN 6.6 G/DL (6.4-8.2); TRIGLYCERIDES 33 MG/DL (<150); VLDL CHOLESTEROL 7 MG/DL (5-40)
[2016-05-20 00:45] LABS: CALCIUM IONIZED 1.17 mmol/L (1.16-1.32); CORRECTED IONIZED CALCIUM 1.15 mmol/L (1.16-1.32)
[2016-05-20 07:30] LABS: CALCIUM PH 7.36
[2016-05-27 09:13] LABS: BASOPHILS % (AUTO) 0 % (0-10); EOSINOPHILS # (AUTO) 0.2 10^3/uL (0.0-0.3); EOSINOPHILS % (AUTO) 4 % (0-10); LYMPHOCYTES # (AUTO) 0.6 X 10^3 (1.0-4.0); LYMPHOCYTES % (AUTO) 11 % (12-44); MEAN CORPUSCULAR HEMOGLOBIN 29 PG (25-34); MEAN CORPUSCULAR HGB CONC 33 G/DL (32-36); MEAN CORPUSCULAR VOLUME 90 FL (80-99); MEAN PLATELET VOLUME 12.1 FL (7.4-10.4); MONOCYTES # (AUTO) 0.5 X 10^3 (0.0-1.0); MONOCYTES % (AUTO) 9 % (0-12); NEUTROPHILS # (AUTO) 4.3 X 10^3 (1.8-7.8); NEUTROPHILS % (AUTO) 76 % (42-75); PLATELET COUNT 157 10^3/uL (130-400); RED BLOOD COUNT 3.94 10^6/uL (4.35-5.85); RED CELL DISTRIBUTION WIDTH 14.9 % (10.0-14.5); WHITE BLOOD COUNT 5.7 10^3/uL (4.3-11.0)
[2016-05-27 09:43] LABS: ALANINE AMINOTRANSFERASE 40 U/L (0-55); ALBUMIN 3.8 G/DL (3.2-4.5); ANION GAP 10 MMOL/L (5-14); ASPARTATE AMINO TRANSFERASE 27 U/L (5-34); BILIRUBIN,TOTAL 0.7 MG/DL (0.1-1.0); CALCIUM 9.2 MG/DL (8.5-10.1); CARBON DIOXIDE 29 MMOL/L (21-32); CHLORIDE 104 MMOL/L (98-107); CHOLESTEROL 122 MG/DL (< 200); CREATININE SERUM 0.78 MG/DL (0.60-1.30); DIRECT LDL 70 MG/DL (1-129); GFR ESTIMATED > 60; GLUCOSE 91 MG/DL (70-105); MAGNESIUM 2.1 MG/DL (1.8-2.4); PHOSPHORUS 3.4 MG/DL (2.3-4.7); POTASSIUM 4.3 MMOL/L (3.6-5.0); SODIUM 143 MMOL/L (135-145); TOTAL PROTEIN 6.7 G/DL (6.4-8.2); TRIGLYCERIDES 43 MG/DL (<150); VLDL CHOLESTEROL 9 MG/DL (5-40)
[2016-05-27 11:04] LABS: BLOOD UREA NITROGEN 43 MG/DL (7-18); BUN/CREATININE RATIO 55
[2016-05-28 00:19] LABS: CALCIUM IONIZED 1.19 mmol/L (1.16-1.32); CORRECTED IONIZED CALCIUM 1.14 mmol/L (1.16-1.32)
[2016-05-28 07:40] LABS: CALCIUM PH 7.32
[2016-06-09 09:41] LABS: BASOPHILS % (AUTO) 1 % (0-10); EOSINOPHILS # (AUTO) 0.2 10^3/uL (0.0-0.3); EOSINOPHILS % (AUTO) 5 % (0-10); LYMPHOCYTES # (AUTO) 0.7 X 10^3 (1.0-4.0); LYMPHOCYTES % (AUTO) 15 % (12-44); MEAN CORPUSCULAR HEMOGLOBIN 29 PG (25-34); MEAN CORPUSCULAR HGB CONC 32 G/DL (32-36); MEAN CORPUSCULAR VOLUME 91 FL (80-99); MEAN PLATELET VOLUME 11.7 FL (7.4-10.4); MONOCYTES # (AUTO) 0.5 X 10^3 (0.0-1.0); MONOCYTES % (AUTO) 10 % (0-12); NEUTROPHILS # (AUTO) 3.2 X 10^3 (1.8-7.8); NEUTROPHILS % (AUTO) 69 % (42-75); PLATELET COUNT 132 10^3/uL (130-400); RED CELL DISTRIBUTION WIDTH 14.9 % (10.0-14.5); WHITE BLOOD COUNT 4.7 10^3/uL (4.3-11.0)
[2016-06-09 10:22] LABS: ALANINE AMINOTRANSFERASE 30 U/L (0-55); ALBUMIN 3.5 G/DL (3.2-4.5); ANION GAP 10 MMOL/L (5-14); ASPARTATE AMINO TRANSFERASE 21 U/L (5-34); BILIRUBIN,TOTAL 0.8 MG/DL (0.1-1.0); BLOOD UREA NITROGEN 35 MG/DL (7-18); BUN/CREATININE RATIO 51; CALCIUM 8.9 MG/DL (8.5-10.1); CARBON DIOXIDE 30 MMOL/L (21-32); CHLORIDE 103 MMOL/L (98-107); CREATININE SERUM 0.68 MG/DL (0.60-1.30); GFR ESTIMATED > 60; GLUCOSE 75 MG/DL (70-105); MAGNESIUM 1.9 MG/DL (1.8-2.4); PHOSPHORUS 2.9 MG/DL (2.3-4.7); POTASSIUM 3.8 MMOL/L (3.6-5.0); SODIUM 143 MMOL/L (135-145); TOTAL PROTEIN 6.2 G/DL (6.4-8.2); TRIGLYCERIDES 42 MG/DL (<150)
[2016-06-09 23:43] LABS: CALCIUM IONIZED 1.14 mmol/L (1.16-1.32); CORRECTED IONIZED CALCIUM 1.13 mmol/L (1.16-1.32)
[2016-06-10 07:48] LABS: CALCIUM PH 7.38
[2016-06-23 10:19] LABS: BASOPHILS % (AUTO) 0 % (0-10); EOSINOPHILS # (AUTO) 0.2 10^3/uL (0.0-0.3); EOSINOPHILS % (AUTO) 2 % (0-10); LYMPHOCYTES # (AUTO) 0.8 X 10^3 (1.0-4.0); LYMPHOCYTES % (AUTO) 12 % (12-44); MEAN CORPUSCULAR HEMOGLOBIN 29 PG (25-34); MEAN CORPUSCULAR HGB CONC 32 G/DL (32-36); MEAN CORPUSCULAR VOLUME 91 FL (80-99); MEAN PLATELET VOLUME 11.8 FL (7.4-10.4); MONOCYTES # (AUTO) 0.5 X 10^3 (0.0-1.0); MONOCYTES % (AUTO) 7 % (0-12); NEUTROPHILS # (AUTO) 5.6 X 10^3 (1.8-7.8); NEUTROPHILS % (AUTO) 79 % (42-75); PLATELET COUNT 171 10^3/uL (130-400); RED BLOOD COUNT 3.62 10^6/uL (4.35-5.85); RED CELL DISTRIBUTION WIDTH 14.9 % (10.0-14.5); WHITE BLOOD COUNT 7.1 10^3/uL (4.3-11.0)
[2016-06-23 11:03] LABS: ALANINE AMINOTRANSFERASE 38 U/L (0-55); ALBUMIN 3.7 G/DL (3.2-4.5); ANION GAP 10 MMOL/L (5-14); ASPARTATE AMINO TRANSFERASE 27 U/L (5-34); BILIRUBIN,TOTAL 0.7 MG/DL (0.1-1.0); BLOOD UREA NITROGEN 39 MG/DL (7-18); BUN/CREATININE RATIO 51; CALCIUM 9.1 MG/DL (8.5-10.1); CARBON DIOXIDE 27 MMOL/L (21-32); CHLORIDE 103 MMOL/L (98-107); CREATININE SERUM 0.77 MG/DL (0.60-1.30); GFR ESTIMATED > 60; GLUCOSE 104 MG/DL (70-105); MAGNESIUM 2.1 MG/DL (1.8-2.4); PHOSPHORUS 3.6 MG/DL (2.3-4.7); POTASSIUM 4.9 MMOL/L (3.6-5.0); SODIUM 140 MMOL/L (135-145); TOTAL PROTEIN 6.5 G/DL (6.4-8.2); TRIGLYCERIDES 44 MG/DL (<150)
== END 2016-06-24 | disposition home or self-care (01) ==
LOC: ONC 09:23
PROVIDERS: ATTEND Internal Medicine Hematology & Oncology
DX: K22.0 Achalasia of cardia (principal); R13.10 Dysphagia, unspecified; K21.9 Gastro-esophageal reflux disease without esophagitis; R63.4 Abnormal weight loss; Z85.72 Personal history of non-Hodgkin lymphomas; Z92.21 Personal history of antineoplastic chemotherapy; Z92.3 Personal history of irradiation
CPT/HCPCS: 36415; 80053; 80061; 82330; 82728; 83540; 83735; 84100; 84134; 84443; 84478; 85025; 85045; 87070; 87077; 87186; 87205; 99213

== ENCOUNTER 2016-08-01 07:40 | Emergency (ER) | payer OTHER ==
[~2016-08-01] VITALS: Ht 177.8 cm; Wt 56.7 kg
[2016-08-01] MEDS ORDERED: PANT40TA3 (07:51)
[2016-08-01 08:06] LABS: BASOPHILS % (AUTO) 0 % (0-10); EOSINOPHILS # (AUTO) 0.4 10^3/uL (0.0-0.3); EOSINOPHILS % (AUTO) 3 % (0-10); LYMPHOCYTES # (AUTO) 0.9 X 10^3 (1.0-4.0); LYMPHOCYTES % (AUTO) 9 % (12-44); MEAN CORPUSCULAR HEMOGLOBIN 30 PG (25-34); MEAN CORPUSCULAR HGB CONC 33 G/DL (32-36); MEAN CORPUSCULAR VOLUME 90 FL (80-99); MEAN PLATELET VOLUME 12.8 FL (7.4-10.4); MONOCYTES # (AUTO) 0.8 X 10^3 (0.0-1.0); MONOCYTES % (AUTO) 8 % (0-12); NEUTROPHILS # (AUTO) 8.7 X 10^3 (1.8-7.8); NEUTROPHILS % (AUTO) 80 % (42-75); PLATELET COUNT 121 10^3/uL (130-400); RED BLOOD COUNT 3.83 10^6/uL (4.35-5.85); RED CELL DISTRIBUTION WIDTH 14.3 % (10.0-14.5); WHITE BLOOD COUNT 10.8 10^3/uL (4.3-11.0)
[2016-08-01] MEDS ORDERED: LORazepam 0.5 MG (ATIVAN) TABLET PO ONE (08:15)
[2016-08-01 08:25] LABS: ALANINE AMINOTRANSFERASE 58 U/L (0-55); ALBUMIN 3.8 G/DL (3.2-4.5); ANION GAP 12 MMOL/L (5-14); ASPARTATE AMINO TRANSFERASE 32 U/L (5-34); BILIRUBIN,TOTAL 0.5 MG/DL (0.1-1.0); BLOOD UREA NITROGEN 51 MG/DL (7-18); BUN/CREATININE RATIO 70; CALCIUM 9.4 MG/DL (8.5-10.1); CARBON DIOXIDE 24 MMOL/L (21-32); CHLORIDE 106 MMOL/L (98-107); CREATININE SERUM 0.73 MG/DL (0.60-1.30); GFR ESTIMATED > 60; GLUCOSE 130 MG/DL (70-105); POTASSIUM 3.2 MMOL/L (3.6-5.0); SODIUM 142 MMOL/L (135-145); TOTAL PROTEIN 6.8 G/DL (6.4-8.2)
--- NOTE | 2016-08-01 08:36 | Diagnostic Imaging Report ---
INDICATION: Shortness of air. TECHNIQUE: Single view chest 8:07 AM. CORRELATION STUDY: 06/12/2016 FINDINGS: Heart size borderline. Mediastinum is mildly prominent, somewhat accentuated by patient rotation. Vasculature is a mildly prominent. Asymmetric elevation of the left hemidiaphragm. No significant infiltrate with mildly prominent interstitial markings. IMPRESSION: 1. Vasculature slightly increased from prior study but without evidence for overt failure at this time. Dictated by: Dictated on workstation # [id number]
--- NOTE | 2016-08-01 08:48 | ED Respiratory ---
General Chief Complaint: Respiratory Problems Stated Complaint: SOB Nursing Triage Note: AMBULATED TO ROOM 03 WITH COMPLAINTS OF SORETHROAT LAST NIGHT ET WOKE UP WITH SOA. STATES HE FEELS LIKE HIS THROAT IS CONSTRICTING. Source: patient, family Exam Limitations: no limitations History of Present Illness Time seen by provider: 07:50 Initial Comments The patient is brought to the emergency room by his Dr. Blanton. He has exhibited increasing respiratory difficulty over the past 24 hours. He is a previous smoker but stopped 45 years ago. He has a past history of lymphoma and had radiation to the neck and chest as part of his treatment. He has had difficulty in swallowing for over a year. In addition he has had rather significant weight loss from his previous slender habitus. He had been exhibiting some hoarseness and is clearly more so at this time. Cosleep Allergies and Home Medications Allergies Coded Allergies: No Known Drug Allergies (Unverified , 06/22/14) Home Medications Levothyroxine Sodium 75 Mcg Tablet, 1 EACH PO DAILY, (Reported) Pantoprazole Sodium 20 Mg Tablet., 40 MG PO BID, #90 Prescribed by: GARRETT JOHNSON on 06/22/14 1234 Pantoprazole Sodium 40 Mg Tablet., #30 (Reported) Constitutional: see HPI EENTM: hoarseness, other (dysphagia) Respiratory: short of breath Cardiovascular: no symptoms reported Gastrointestinal: other (dysphagia and significant weight loss over the past year) Genitourinary: no symptoms reported Musculoskeletal: muscle weakness Skin: no symptoms reported Psychiatric/Neurological: No Symptoms Reported Hematologic/Lymphatic: No Symptoms Reported Immunological/Allergic: no symptoms reported Past Ugrwwss-Ywvfjy-Oosiel Hx Patient Social History Alcohol Use: Denies Use Recreational Drug Use: No Smoking Status: Former Smoker Former Smoker/When Quit: August 08, 1984 Recent Foreign Travel: No Contact w/Someone Who Travel: No Recent Infectious Disease Expo: No Recent Hopitalizations: No Immunizations Up To Date Date of Pneumonia Vaccine: August 08, 2009 Surgeries Surgeries: Appendectomy Respiratory Hx Respiratory Disorders: No Cardiovascular Hx Cardiac Disorders: Yes (IRREGULAR ) Neurological Hx Neurological Disorders: No Gastrointestinal Hx Gastrointestinal Disorders: Yes Musculoskeletal Hx Musculoskeletal Disorders: No Endocrine Hx Endocrine Disorders: No Cancer Cancer: Lymphoma Psychosocial Behavioral Health Disorders: Anxiety Physical Exam Vital Signs Vital Sign - Last 12Hours 08/01/16 08/01/16 07:43 07:56 Temp 97.9 Pulse 104 Resp 20 B/P (MAP) 182/107 Pulse Ox 98 O2 Delivery Venturi Mask O2 Flow Rate 2.00 Capillary Refill : Less Than 3 Seconds General Appearance: mild distress Eyes: Bilateral Eye Normal Inspection HEENT: normal ENT inspection Neck: other (very thin. There is a platelike induration from the mandible to the lower third of the neck on the right. 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, no motor/sensory deficits, alert, normal mood/affect, oriented x 3 Skin: normal color, warm/dry, cyanosis, cool, diaphoresis, damp Lymphatic: no adenopathy Progress/Results/Core Measures Results/Orders Lab Results Laboratory Tests Test 08/01/16 07:53 Range/Units White Blood Count 10.8 4.3-11.0 10^3/uL Red Blood Count 3.83 L 4.35-5.85 10^6/uL Hemoglobin 11.3 L 13.3-17.7 G/DL Hematocrit 34 L 40-54 % Mean Corpuscular Volume 90 80-99 FL Mean Corpuscular Hemoglobin 30 25-34 PG Mean Corpuscular Hemoglobin Concent 33 32-36 G/DL Red Cell Distribution Width 14.3 10.0-14.5 % Platelet Count 121 L 130-400 10^3/uL Mean Platelet Volume 12.8 H 7.4-10.4 FL Neutrophils (%) (Auto) 80 H 42-75 % Lymphocytes (%) (Auto) 9 L 12-44 % Monocytes (%) (Auto) 8 0-12 % Eosinophils (%) (Auto) 3 0-10 % Basophils (%) (Auto) 0 0-10 % Neutrophils # (Auto) 8.7 H 1.8-7.8 X 10^3 Lymphocytes # (Auto) 0.9 L 1.0-4.0 X 10^3 Monocytes # (Auto) 0.8 0.0-1.0 X 10^3 Eosinophils # (Auto) 0.4 H 0.0-0.3 10^3/uL Basophils # (Auto) 0.0 0.0-0.1 10^3/uL Sodium Level 142 135-145 MMOL/L Potassium Level 3.2 L 3.6-5.0 MMOL/L Chloride Level 106 98-107 MMOL/L Carbon Dioxide Level 24 21-32 MMOL/L Anion Gap 12 5-14 MMOL/L Blood Urea Nitrogen 51 H 7-18 MG/DL Creatinine 0.73 0.60-1.30 MG/DL Estimat Glomerular Filtration Rate > 60 BUN/Creatinine Ratio 70 Glucose Level 130 H 70-105 MG/DL Calcium Level 9.4 8.5-10.1 MG/DL Total Bilirubin 0.5 0.1-1.0 MG/DL Aspartate Amino Transf (AST/SGOT) 32 5-34 U/L Alanine Aminotransferase (ALT/SGPT) 58 H 0-55 U/L Alkaline Phosphatase 146 H 40-136 U/L Total Protein 6.8 6.4-8.2 G/DL Albumin 3.8 3.2-4.5 G/DL My Orders Orders - GINO ALVARADO MD Cbc With Automated Diff (08/01/16 07:57) Comprehensive Metabolic Panel (08/01/16 07:57) Chest 1 View, Ap/Pa Only (08/01/16 07:57) Ct Chest Wo (08/01/16 08:19) Ct Neck (Soft Tissue) Wo (08/01/16 08:19) Ns Iv 1000 Ml (Sodium Chloride 0.9%) (08/01/16 10:00) Methylprednisolone Sod Succ (Solu-Medrol (08/01/16 10:00) Medications Given in ED Current Medications Medications Dose Ordered Sig/Dalia Route Start Time Stop Time Status Last Admin Dose Admin Methylprednisolone Sodium Succinate 62.5 mg ONCE ONCE IVP 08/01/16 10:00 08/01/16 10:01 DC 08/01/16 09:54 62.5 MG Vital Signs/I&O Vital Sign - Last 12Hours 08/01/16 08/01/16 07:43 07:56 Temp 97.9 Pulse 104 Resp 20 B/P (MAP) 182/107 Pulse Ox 98 O2 Delivery Venturi Mask O2 Flow Rate 2.00 Blood Pressure Mean: 132 Departure Communication Progress Notes CT scan showed some degree of narrowing at the level of the cords. He previously had radiation targeted at the right neck and is known to have a right cord paralysis. It does not appear that there is imminent obstruction. In discussion with Dr. Pedersen it was agreed that we would give him a dose of steroids and a liter of IV fluids. She would like to get to Wednesday in order to have Dr. Osorio perform laryngoscopy as he has previously done so and would have records as to the relative degree of change. This appears to be reasonable Impression Impression: Primary Impression: focal cord dysfunction Disposition: HOME, SELF-CARE Condition: Improved Departure-Patient Inst. Decision time for Depature: 10:56 Referrals: LYNDA BLANTON MD (PCP) Primary Care Physician Add. Discharge Instructions: All discharge instructions reviewed with patient and/or family. Voiced understanding. Take prednisone 20 mg twice daily beginning this evening. Use a spoon to crush your 10 mg tablets and mix with a tablespoon of applesauce in order to aid swallowing. If stridor and therefore increasing respiratory difficulty or apparent return to the emergency room If you make it to Wednesday please see GINO Oleary MD August 01, 2016 08:48
--- NOTE | 2016-08-01 09:15 | Diagnostic Imaging Report ---
PROCEDURE: CT chest without contrast. TECHNIQUE: Multiple contiguous axial images were obtained through the chest without the use of intravenous contrast. INDICATION: Shortness of air. CORRELATION STUDY: CT chest 08/15/2014 FINDINGS: Evaluation of the mediastinum is limited given lack of intravenous contrast. A left-sided central line is present with tip over the high SVC. There is prominent appearance about the ascending aorta at 4.5 cm but generally stable. Heart size relatively stable with mild coronary artery calcification. A few mildly prominent mediastinal lymph nodes suggested. EG junction relatively unremarkable. There is rather pronounced asymmetric elevation of the left hemidiaphragm. This does result in some crowding of the left lung base. There is suggestion of minimal airspace disease of the right middle lobe as well as the bilateral lung bases. A few scattered micronodules are present bilaterally. The visualized portion of the upper abdomen appearing relatively unremarkable. IMPRESSION: Emphysematous changes about the lung parenchyma. Few areas of airspace disease are present, may reflect superimposed atypical type pneumonitis. However, findings are less severe than on the prior study. A few scattered micronodules present. Dictated by: Dictated on workstation # [id number]
--- NOTE | 2016-08-01 09:18 | Diagnostic Imaging Report ---
PROCEDURE: CT neck soft tissue without contrast. TECHNIQUE: Multiple contiguous axial images were obtained through the neck without the use of intravenous contrast. INDICATION: Woke up with sore throat. Feels like throat is constricting. Shortness of air. CORRELATION STUDY: 08/15/2014. FINDINGS: Biapical scarring appears to be present and unchanged. Oropharynx and hypopharynx are somewhat hyperinflated. Vallecula appears unremarkable. There is the suggestion of asymmetric soft tissue density at the level of the vocal cords, greatest on the left. This area and contour deformity measures approximately 16 x 10 mm. Additionally, there is distortion of the cord. Slight circumferential thickening is present. Subglottic airway appears to be hyperinflated, as well, but otherwise unremarkable/ There is the absence of a significant amount of fat within the neck. Parapharyngeal fat planes are not well-defined. Mild calcification of the carotid bifurcations. Definitive pathologically enlarged lymph nodes are not present. Thyroid gland is small. Submandibular glands appear to be atrophic, as well. Parotid glands are small. Visualized paranasal sinuses are relatively clear. IMPRESSION: Distortion at the level of the vocal cords. There is questionable soft tissue density just at or above the level of the vocal cords on the left. The possibility of a mass lesion is not completely excluded. Also, there appears to be circumferential narrowing at the level of the cords with distorted narrowing of the airway. Otherwise, the airway is somewhat hyperinflated. If further assessment is desired, direct visualization would be recommended. Dictated by: Dictated on workstation # [id number]
[2016-08-01] MEDS ORDERED: methylPREDNISolone 125 MG (Solu-MEDROL) VIAL IVP ONE (10:00)
[2016-08-01] MEDS ORDERED: NS IV 1000 ML 1,000 ML IV SCH (10:00)
[2016-08-01 11:11] VITALS: BP 153/110
== END 2016-08-01 11:11 | disposition home or self-care (01) ==
LOC: EDUNIT# 07:40 → ER 07:41
DX: J38.00 Paralysis of vocal cords and larynx, unspecified (principal); Z85.72 Personal history of non-Hodgkin lymphomas; Z92.3 Personal history of irradiation; Z87.891 Personal history of nicotine dependence
CPT/HCPCS: 36415; 70490; 71010; 71250; 80053; 85025; 96361; 96374

== ENCOUNTER 2016-09-22 08:41 | Outpatient (RCR) | payer OTHER ==
[2016-07-07 11:09] LABS: BASOPHILS % (AUTO) 0 % (0-10); EOSINOPHILS # (AUTO) 0.3 10^3/uL (0.0-0.3); EOSINOPHILS % (AUTO) 3 % (0-10); LYMPHOCYTES # (AUTO) 0.8 X 10^3 (1.0-4.0); LYMPHOCYTES % (AUTO) 9 % (12-44); MEAN CORPUSCULAR HEMOGLOBIN 30 PG (25-34); MEAN CORPUSCULAR HGB CONC 33 G/DL (32-36); MEAN CORPUSCULAR VOLUME 91 FL (80-99); MEAN PLATELET VOLUME 11.9 FL (7.4-10.4); MONOCYTES # (AUTO) 0.6 X 10^3 (0.0-1.0); MONOCYTES % (AUTO) 7 % (0-12); NEUTROPHILS # (AUTO) 7.3 X 10^3 (1.8-7.8); NEUTROPHILS % (AUTO) 80 % (42-75); PLATELET COUNT 150 10^3/uL (130-400); RED BLOOD COUNT 3.74 10^6/uL (4.35-5.85); RED CELL DISTRIBUTION WIDTH 14.6 % (10.0-14.5); WHITE BLOOD COUNT 9.1 10^3/uL (4.3-11.0)
[2016-07-07 11:29] LABS: ALANINE AMINOTRANSFERASE 43 U/L (0-55); ALBUMIN 3.9 G/DL (3.2-4.5); ANION GAP 10 MMOL/L (5-14); ASPARTATE AMINO TRANSFERASE 28 U/L (5-34); BILIRUBIN,TOTAL 0.7 MG/DL (0.1-1.0); BLOOD UREA NITROGEN 44 MG/DL (7-18); BUN/CREATININE RATIO 56; CALCIUM 9.4 MG/DL (8.5-10.1); CARBON DIOXIDE 29 MMOL/L (21-32); CHLORIDE 103 MMOL/L (98-107); CHOLESTEROL 123 MG/DL (< 200); CREATININE SERUM 0.78 MG/DL (0.60-1.30); DIRECT LDL 58 MG/DL (1-129); GFR ESTIMATED > 60; GLUCOSE 104 MG/DL (70-105); POTASSIUM 3.9 MMOL/L (3.6-5.0); SODIUM 142 MMOL/L (135-145); TRIGLYCERIDES 47 MG/DL (<150); VLDL CHOLESTEROL 9 MG/DL (5-40)
[2016-07-22 09:20] LABS: BASOPHILS % (AUTO) 0 % (0-10); EOSINOPHILS # (AUTO) 0.3 10^3/uL (0.0-0.3); EOSINOPHILS % (AUTO) 5 % (0-10); LYMPHOCYTES # (AUTO) 0.8 X 10^3 (1.0-4.0); LYMPHOCYTES % (AUTO) 12 % (12-44); MEAN CORPUSCULAR HEMOGLOBIN 29 PG (25-34); MEAN CORPUSCULAR HGB CONC 33 G/DL (32-36); MEAN CORPUSCULAR VOLUME 90 FL (80-99); MEAN PLATELET VOLUME 12.5 FL (7.4-10.4); MONOCYTES # (AUTO) 0.6 X 10^3 (0.0-1.0); MONOCYTES % (AUTO) 8 % (0-12); NEUTROPHILS # (AUTO) 5.1 X 10^3 (1.8-7.8); NEUTROPHILS % (AUTO) 75 % (42-75); PLATELET COUNT 162 10^3/uL (130-400); RED BLOOD COUNT 4.01 10^6/uL (4.35-5.85); RED CELL DISTRIBUTION WIDTH 14.2 % (10.0-14.5); WHITE BLOOD COUNT 6.8 10^3/uL (4.3-11.0)
[2016-07-22 09:46] LABS: ALANINE AMINOTRANSFERASE 32 U/L (0-55); ANION GAP 14 MMOL/L (5-14); ASPARTATE AMINO TRANSFERASE 22 U/L (5-34); BILIRUBIN,TOTAL 0.5 MG/DL (0.1-1.0); BLOOD UREA NITROGEN 50 MG/DL (7-18); BUN/CREATININE RATIO 57; CALCIUM 9.6 MG/DL (8.5-10.1); CARBON DIOXIDE 30 MMOL/L (21-32); CHLORIDE 103 MMOL/L (98-107); CHOLESTEROL 138 MG/DL (< 200); CREATININE SERUM 0.87 MG/DL (0.60-1.30); DIRECT LDL 68 MG/DL (1-129); GFR ESTIMATED > 60; GLUCOSE 73 MG/DL (70-105); MAGNESIUM 2.1 MG/DL (1.8-2.4); PHOSPHORUS 3.4 MG/DL (2.3-4.7); POTASSIUM 3.6 MMOL/L (3.6-5.0); SODIUM 147 MMOL/L (135-145); TOTAL PROTEIN 7.2 G/DL (6.4-8.2); TRIGLYCERIDES 51 MG/DL (<150); VLDL CHOLESTEROL 10 MG/DL (5-40)
[2016-08-11 09:48] LABS: BASOPHILS % (AUTO) 0 % (0-10); EOSINOPHILS # (AUTO) 0.3 10^3/uL (0.0-0.3); EOSINOPHILS % (AUTO) 5 % (0-10); LYMPHOCYTES # (AUTO) 0.7 X 10^3 (1.0-4.0); LYMPHOCYTES % (AUTO) 10 % (12-44); MEAN CORPUSCULAR HEMOGLOBIN 29 PG (25-34); MEAN CORPUSCULAR HGB CONC 33 G/DL (32-36); MEAN CORPUSCULAR VOLUME 89 FL (80-99); MEAN PLATELET VOLUME 12.2 FL (7.4-10.4); MONOCYTES # (AUTO) 0.7 X 10^3 (0.0-1.0); MONOCYTES % (AUTO) 10 % (0-12); NEUTROPHILS % (AUTO) 74 % (42-75); PLATELET COUNT 152 10^3/uL (130-400); RED BLOOD COUNT 3.72 10^6/uL (4.35-5.85); RED CELL DISTRIBUTION WIDTH 14.6 % (10.0-14.5); WHITE BLOOD COUNT 6.8 10^3/uL (4.3-11.0)
[2016-08-11 10:20] LABS: ALANINE AMINOTRANSFERASE 41 U/L (0-55); ALBUMIN 3.5 G/DL (3.2-4.5); ANION GAP 10 MMOL/L (5-14); ASPARTATE AMINO TRANSFERASE 30 U/L (5-34); BILIRUBIN,TOTAL 0.6 MG/DL (0.1-1.0); BLOOD UREA NITROGEN 46 MG/DL (7-18); BUN/CREATININE RATIO 61; CALCIUM 9.4 MG/DL (8.5-10.1); CARBON DIOXIDE 28 MMOL/L (21-32); CHLORIDE 100 MMOL/L (98-107); CREATININE SERUM 0.76 MG/DL (0.60-1.30); GFR ESTIMATED > 60; GLUCOSE 88 MG/DL (70-105); MAGNESIUM 1.9 MG/DL (1.8-2.4); PHOSPHORUS 3.5 MG/DL (2.3-4.7); POTASSIUM 4.3 MMOL/L (3.6-5.0); SODIUM 138 MMOL/L (135-145); TOTAL PROTEIN 6.6 G/DL (6.4-8.2)
[2016-08-26 09:25] LABS: BASOPHILS % (AUTO) 1 % (0-10); EOSINOPHILS # (AUTO) 0.2 10^3/uL (0.0-0.3); EOSINOPHILS % (AUTO) 3 % (0-10); LYMPHOCYTES # (AUTO) 0.7 X 10^3 (1.0-4.0); LYMPHOCYTES % (AUTO) 11 % (12-44); MEAN CORPUSCULAR HEMOGLOBIN 29 PG (25-34); MEAN CORPUSCULAR HGB CONC 32 G/DL (32-36); MEAN CORPUSCULAR VOLUME 90 FL (80-99); MEAN PLATELET VOLUME 12.8 FL (7.4-10.4); MONOCYTES # (AUTO) 0.7 X 10^3 (0.0-1.0); MONOCYTES % (AUTO) 11 % (0-12); NEUTROPHILS % (AUTO) 75 % (42-75); PLATELET COUNT 172 10^3/uL (130-400); RED BLOOD COUNT 3.86 10^6/uL (4.35-5.85); RED CELL DISTRIBUTION WIDTH 14.3 % (10.0-14.5); WHITE BLOOD COUNT 6.7 10^3/uL (4.3-11.0)
[2016-08-26 09:38] LABS: ALANINE AMINOTRANSFERASE 41 U/L (0-55); ALBUMIN 3.8 GM/DL (3.2-4.5); ANION GAP 12 MMOL/L (5-14); ASPARTATE AMINO TRANSFERASE 29 U/L (5-34); BILIRUBIN,TOTAL 0.6 MG/DL (0.1-1.0); BLOOD UREA NITROGEN 50 MG/DL (7-18); BUN/CREATININE RATIO 61 (0-20); CALCIUM 9.5 MG/DL (8.5-10.1); CARBON DIOXIDE 28 MMOL/L (21-32); CHLORIDE 99 MMOL/L (98-107); CHOLESTEROL 133 MG/DL (< 200); CREATININE SERUM 0.82 MG/DL (0.60-1.30); DIRECT LDL 64 MG/DL (1-129); GFR ESTIMATED > 60; GLUCOSE 72 MG/DL (70-105); MAGNESIUM 2.1 MG/DL (1.8-2.4); POTASSIUM 3.4 MMOL/L (3.6-5.0); SODIUM 139 MMOL/L (135-145); TOTAL PROTEIN 7.2 GM/DL (6.4-8.2); TRIGLYCERIDES 45 MG/DL (<150); VLDL CHOLESTEROL 9 MG/DL (5-40)
[2016-09-08 10:57] LABS: BASOPHILS % (AUTO) 1 % (0-10); EOSINOPHILS # (AUTO) 0.3 10^3/uL (0.0-0.3); EOSINOPHILS % (AUTO) 5 % (0-10); LYMPHOCYTES # (AUTO) 0.7 X 10^3 (1.0-4.0); LYMPHOCYTES % (AUTO) 12 % (12-44); MEAN CORPUSCULAR HEMOGLOBIN 29 PG (25-34); MEAN CORPUSCULAR HGB CONC 33 G/DL (32-36); MEAN CORPUSCULAR VOLUME 90 FL (80-99); MEAN PLATELET VOLUME 11.6 FL (7.4-10.4); MONOCYTES # (AUTO) 0.6 X 10^3 (0.0-1.0); MONOCYTES % (AUTO) 12 % (0-12); NEUTROPHILS # (AUTO) 3.8 X 10^3 (1.8-7.8); NEUTROPHILS % (AUTO) 71 % (42-75); PLATELET COUNT 166 10^3/uL (130-400); RED BLOOD COUNT 3.68 10^6/uL (4.35-5.85); RED CELL DISTRIBUTION WIDTH 14.8 % (10.0-14.5); RETICULOCYTE % 0.61 % (0.50-2.40); WHITE BLOOD COUNT 5.4 10^3/uL (4.3-11.0)
[2016-09-08 11:42] LABS: ALANINE AMINOTRANSFERASE 34 U/L (0-55); ALBUMIN 3.6 GM/DL (3.2-4.5); ANION GAP 12 MMOL/L (5-14); ASPARTATE AMINO TRANSFERASE 23 U/L (5-34); BILIRUBIN,TOTAL 0.6 MG/DL (0.1-1.0); BLOOD UREA NITROGEN 47 MG/DL (7-18); BUN/CREATININE RATIO 63; CALCIUM 9.3 MG/DL (8.5-10.1); CARBON DIOXIDE 27 MMOL/L (21-32); CHLORIDE 100 MMOL/L (98-107); CHOLESTEROL 124 MG/DL (< 200); CREATININE SERUM 0.75 MG/DL (0.60-1.30); DIRECT LDL 54 MG/DL (1-129); GFR ESTIMATED > 60; GLUCOSE 84 MG/DL (70-105); HEMOLYSIS 3 (-100-29); ICTERUS 0.5 (-100-1.9); LIPEMIA -4 (-100-49); SODIUM 139 MMOL/L (135-145); TOTAL PROTEIN 6.5 GM/DL (6.4-8.2); TRIGLYCERIDES 42 MG/DL (<150); VLDL CHOLESTEROL 8 MG/DL (5-40)
[2016-09-08 12:02] LABS: THYROID STIMULATING HORMONE 3.91 UIU/ML (0.35-4.94)
[~2016-09-22 08:41] MED LIST changes: +PANT40TA3
[2016-09-22 09:08] LABS: BASOPHILS % (AUTO) 1 % (0-10); EOSINOPHILS # (AUTO) 0.3 10^3/uL (0.0-0.3); EOSINOPHILS % (AUTO) 4 % (0-10); LYMPHOCYTES # (AUTO) 0.7 X 10^3 (1.0-4.0); LYMPHOCYTES % (AUTO) 10 % (12-44); MEAN CORPUSCULAR HEMOGLOBIN 29 PG (25-34); MEAN CORPUSCULAR HGB CONC 33 G/DL (32-36); MEAN CORPUSCULAR VOLUME 89 FL (80-99); MEAN PLATELET VOLUME 11.6 FL (7.4-10.4); MONOCYTES # (AUTO) 0.7 X 10^3 (0.0-1.0); MONOCYTES % (AUTO) 11 % (0-12); NEUTROPHILS # (AUTO) 4.9 X 10^3 (1.8-7.8); NEUTROPHILS % (AUTO) 74 % (42-75); PLATELET COUNT 193 10^3/uL (130-400); RED BLOOD COUNT 3.73 10^6/uL (4.35-5.85); RED CELL DISTRIBUTION WIDTH 14.7 % (10.0-14.5); WHITE BLOOD COUNT 6.7 10^3/uL (4.3-11.0)
[2016-09-22 09:38] LABS: ALANINE AMINOTRANSFERASE 88 U/L (0-55); ALBUMIN 3.7 GM/DL (3.2-4.5); ANION GAP 9 MMOL/L (5-14); ASPARTATE AMINO TRANSFERASE 64 U/L (5-34); BILIRUBIN,TOTAL 0.7 MG/DL (0.1-1.0); BLOOD UREA NITROGEN 55 MG/DL (7-18); BUN/CREATININE RATIO 69; CALCIUM 9.7 MG/DL (8.5-10.1); CARBON DIOXIDE 29 MMOL/L (21-32); CHLORIDE 99 MMOL/L (98-107); GFR ESTIMATED > 60; GLUCOSE 94 MG/DL (70-105); MAGNESIUM 2.3 MG/DL (1.8-2.4); PHOSPHORUS 2.3 MG/DL (2.3-4.7); SODIUM 137 MMOL/L (135-145); TOTAL PROTEIN 6.9 GM/DL (6.4-8.2); TRIGLYCERIDES 66 MG/DL (<150)
[2016-09-22 23:23] LABS: CALCIUM IONIZED 1.22 mmol/L (1.16-1.32); CORRECTED IONIZED CALCIUM 1.2 mmol/L (1.16-1.32)
[2016-09-23 08:18] LABS: CALCIUM PH 7.36
== END 2016-10-05 | disposition home or self-care (01) ==
LOC: ONC 08:41
PROVIDERS: ATTEND Internal Medicine Hematology & Oncology
DX: K22.0 Achalasia of cardia (principal); R13.10 Dysphagia, unspecified; K21.9 Gastro-esophageal reflux disease without esophagitis; R63.4 Abnormal weight loss; Z85.72 Personal history of non-Hodgkin lymphomas; Z92.21 Personal history of antineoplastic chemotherapy; Z92.3 Personal history of irradiation; Z79.899 Other long term (current) drug therapy
CPT/HCPCS: 36415; 80053; 80061; 82330; 83735; 84100; 84134; 84443; 84466; 84478; 84630; 85025; 85045; 87070; 87077; 87186; 87205

== ENCOUNTER → 2016-10-28 | Outpatient (CLI) | payer OTHER | LOC: LAB 12:49 | PROVIDERS: ATTEND Internal Medicine Hematology & Oncology | DX: Z53.9 Procedure and treatment not carried out, unspecified reason (principal) ==

== ENCOUNTER → 2016-11-19 | Outpatient (CLI) | payer OTHER | LOC: WOUNDCARE 09:36 | PROVIDERS: ATTEND Internal Medicine | DX: C85.91 Non-Hodgkin lymphoma, unspecified, lymph nodes of head, face, and neck (principal); K00.6 Disturbances in tooth eruption; K02.9 Dental caries, unspecified; R11.0 Nausea; I95.9 Hypotension, unspecified | CPT/HCPCS: 82962; 99213 ==

== ENCOUNTER → 2016-11-21 | Outpatient (CLI) | payer OTHER ==
--- NOTE | 2016-11-21 12:59 | Diagnostic Imaging Report ---
EXAM: CHEST PA/LAT (2 VIEW) INDICATION: SHORTNESS OF BREATH AND ABD PAIN COMPARISON: CT chest without contrast 08/01/2016. FINDINGS: Stable elevation of left hemidiaphragm. Normal heart size and pulmonary vascularity. No focal pulmonary opacity, pleural effusion or pneumothorax. Left PICC tip upper SVC. No acute osseous findings. IMPRESSION: No acute cardiopulmonary findings. Dictated by: Dictated on workstation # [id number]
--- NOTE | 2016-11-21 13:00 | Diagnostic Imaging Report ---
INDICATION: Abdominal pain. COMPARISON: None available. FINDINGS: Nonobstructive bowel gas pattern. No free intraperitoneal air, though evaluation is limited on supine imaging. No abnormal soft tissue mineralizations. Scattered pelvic phleboliths. Mild degenerative changes of right SI joint. IMPRESSION: 1. Nonobstructive bowel gas pattern. Dictated by: Dictated on workstation # [id number]
== END ==
LOC: RAD 12:27
PROVIDERS: ATTEND Internal Medicine Hematology & Oncology
DX: R10.9 Unspecified abdominal pain (principal); R06.02 Shortness of breath
CPT/HCPCS: 71020; 74000

== ENCOUNTER 2016-12-11 10:30 | Outpatient (RCR) | payer OTHER ==
[2016-10-06 08:57] LABS: BASOPHILS % (AUTO) 0 % (0-10); EOSINOPHILS # (AUTO) 0.2 10^3/uL (0.0-0.3); EOSINOPHILS % (AUTO) 3 % (0-10); LYMPHOCYTES # (AUTO) 0.9 X 10^3 (1.0-4.0); LYMPHOCYTES % (AUTO) 13 % (12-44); MEAN CORPUSCULAR HEMOGLOBIN 29 PG (25-34); MEAN CORPUSCULAR HGB CONC 33 G/DL (32-36); MEAN CORPUSCULAR VOLUME 89 FL (80-99); MONOCYTES # (AUTO) 0.8 X 10^3 (0.0-1.0); MONOCYTES % (AUTO) 11 % (0-12); NEUTROPHILS # (AUTO) 5.3 X 10^3 (1.8-7.8); NEUTROPHILS % (AUTO) 73 % (42-75); PLATELET COUNT 175 10^3/uL (130-400); RED CELL DISTRIBUTION WIDTH 14.6 % (10.0-14.5); WHITE BLOOD COUNT 7.3 10^3/uL (4.3-11.0)
[2016-10-06 09:27] LABS: RETICULOCYTE % 0.74 % (0.50-2.40)
[2016-10-06 09:43] LABS: ALANINE AMINOTRANSFERASE 95 U/L (0-55); ALBUMIN 3.8 GM/DL (3.2-4.5); ANION GAP 12 MMOL/L (5-14); ASPARTATE AMINO TRANSFERASE 45 U/L (5-34); BILIRUBIN,TOTAL 0.8 MG/DL (0.1-1.0); BLOOD UREA NITROGEN 58 MG/DL (7-18); BUN/CREATININE RATIO 70; CALCIUM 9.8 MG/DL (8.5-10.1); CARBON DIOXIDE 27 MMOL/L (21-32); CHLORIDE 97 MMOL/L (98-107); CREATININE SERUM 0.83 MG/DL (0.60-1.30); GFR ESTIMATED > 60; GLUCOSE 91 MG/DL (70-105); PHOSPHORUS 3.5 MG/DL (2.3-4.7); POTASSIUM 4.5 MMOL/L (3.6-5.0); SODIUM 136 MMOL/L (135-145); TRIGLYCERIDES 46 MG/DL (<150)
[2016-10-06 10:03] LABS: THYROID STIMULATING HORMONE 2.39 UIU/ML (0.35-4.94)
[2016-10-07 00:12] LABS: CALCIUM IONIZED 1.25 mmol/L (1.16-1.32); CORRECTED IONIZED CALCIUM 1.22 mmol/L (1.16-1.32)
[2016-10-07 07:31] LABS: CALCIUM PH 7.35
[2016-10-19 09:07] LABS: BASOPHILS % (AUTO) 0 % (0-10); EOSINOPHILS # (AUTO) 0.2 10^3/uL (0.0-0.3); EOSINOPHILS % (AUTO) 2 % (0-10); LYMPHOCYTES # (AUTO) 0.9 X 10^3 (1.0-4.0); LYMPHOCYTES % (AUTO) 10 % (12-44); MEAN CORPUSCULAR HGB CONC 33 G/DL (32-36); MEAN CORPUSCULAR VOLUME 90 FL (80-99); MEAN PLATELET VOLUME 11.5 FL (7.4-10.4); MONOCYTES # (AUTO) 0.7 X 10^3 (0.0-1.0); MONOCYTES % (AUTO) 7 % (0-12); NEUTROPHILS # (AUTO) 7.3 X 10^3 (1.8-7.8); NEUTROPHILS % (AUTO) 80 % (42-75); PLATELET COUNT 199 10^3/uL (130-400); RED BLOOD COUNT 3.73 10^6/uL (4.35-5.85); RED CELL DISTRIBUTION WIDTH 14.6 % (10.0-14.5); RETICULOCYTE % 0.76 % (0.50-2.40); WHITE BLOOD COUNT 9.1 10^3/uL (4.3-11.0)
[2016-10-19 09:16] LABS: MEAN CORPUSCULAR HEMOGLOBIN 29 PG (25-34)
[2016-10-19 09:41] LABS: ALANINE AMINOTRANSFERASE 66 U/L (0-55); ALBUMIN 3.8 GM/DL (3.2-4.5); ANION GAP 13 MMOL/L (5-14); ASPARTATE AMINO TRANSFERASE 51 U/L (5-34); BILIRUBIN,TOTAL 0.5 MG/DL (0.1-1.0); BLOOD UREA NITROGEN 37 MG/DL (7-18); BUN/CREATININE RATIO 43; CALCIUM 10.1 MG/DL (8.5-10.1); CARBON DIOXIDE 28 MMOL/L (21-32); CHLORIDE 98 MMOL/L (98-107); CREATININE SERUM 0.86 MG/DL (0.60-1.30); GFR ESTIMATED > 60; GLUCOSE 61 MG/DL (70-105); MAGNESIUM 2.2 MG/DL (1.8-2.4); PHOSPHORUS 3.7 MG/DL (2.3-4.7); POTASSIUM 3.6 MMOL/L (3.6-5.0); SODIUM 139 MMOL/L (135-145); TOTAL PROTEIN 7.1 GM/DL (6.4-8.2); TRIGLYCERIDES 50 MG/DL (<150)
[2016-10-19 23:41] LABS: CALCIUM IONIZED 1.24 mmol/L (1.16-1.32); CORRECTED IONIZED CALCIUM 1.22 mmol/L (1.16-1.32)
[2016-10-20 07:23] LABS: CALCIUM PH 7.37
[2016-10-28 13:14] LABS: BASOPHILS % (AUTO) 1 % (0-10); EOSINOPHILS # (AUTO) 0.1 10^3/uL (0.0-0.3); EOSINOPHILS % (AUTO) 2 % (0-10); LYMPHOCYTES # (AUTO) 0.8 X 10^3 (1.0-4.0); LYMPHOCYTES % (AUTO) 13 % (12-44); MEAN CORPUSCULAR HEMOGLOBIN 29 PG (25-34); MEAN CORPUSCULAR HGB CONC 32 G/DL (32-36); MEAN CORPUSCULAR VOLUME 90 FL (80-99); MEAN PLATELET VOLUME 11.6 FL (7.4-10.4); MONOCYTES # (AUTO) 0.7 X 10^3 (0.0-1.0); MONOCYTES % (AUTO) 12 % (0-12); NEUTROPHILS # (AUTO) 4.6 X 10^3 (1.8-7.8); NEUTROPHILS % (AUTO) 73 % (42-75); PLATELET COUNT 203 10^3/uL (130-400); RED BLOOD COUNT 3.75 10^6/uL (4.35-5.85); RED CELL DISTRIBUTION WIDTH 14.7 % (10.0-14.5); RETICULOCYTE % 0.64 % (0.50-2.40); WHITE BLOOD COUNT 6.2 10^3/uL (4.3-11.0)
[2016-10-28 13:41] LABS: ALANINE AMINOTRANSFERASE 125 U/L (0-55); ALBUMIN 3.9 GM/DL (3.2-4.5); ANION GAP 8 MMOL/L (5-14); ASPARTATE AMINO TRANSFERASE 96 U/L (5-34); BILIRUBIN,TOTAL 0.7 MG/DL (0.1-1.0); BLOOD UREA NITROGEN 34 MG/DL (7-18); BUN/CREATININE RATIO 41; CALCIUM 9.9 MG/DL (8.5-10.1); CARBON DIOXIDE 29 MMOL/L (21-32); CHLORIDE 100 MMOL/L (98-107); CREATININE SERUM 0.82 MG/DL (0.60-1.30); GFR ESTIMATED > 60; GLUCOSE 104 MG/DL (70-105); MAGNESIUM 1.8 MG/DL (1.8-2.4); PHOSPHORUS 3.5 MG/DL (2.3-4.7); POTASSIUM 5.1 MMOL/L (3.6-5.0); SODIUM 137 MMOL/L (135-145); TOTAL PROTEIN 7.1 GM/DL (6.4-8.2); TRIGLYCERIDES 51 MG/DL (<150)
[2016-10-28 21:51] LABS: CALCIUM IONIZED 1.24 mmol/L (1.16-1.32); CORRECTED IONIZED CALCIUM 1.19 mmol/L (1.16-1.32)
[2016-10-29 07:27] LABS: CALCIUM PH 7.32
[2016-11-02 09:46] LABS: BASOPHILS % (AUTO) 0 % (0-10); EOSINOPHILS # (AUTO) 0.2 10^3/uL (0.0-0.3); EOSINOPHILS % (AUTO) 2 % (0-10); LYMPHOCYTES # (AUTO) 0.7 X 10^3 (1.0-4.0); LYMPHOCYTES % (AUTO) 8 % (12-44); MEAN CORPUSCULAR HEMOGLOBIN 29 PG (25-34); MEAN CORPUSCULAR HGB CONC 33 G/DL (32-36); MEAN CORPUSCULAR VOLUME 90 FL (80-99); MEAN PLATELET VOLUME 12.1 FL (7.4-10.4); MONOCYTES # (AUTO) 0.6 X 10^3 (0.0-1.0); MONOCYTES % (AUTO) 6 % (0-12); NEUTROPHILS # (AUTO) 7.7 X 10^3 (1.8-7.8); NEUTROPHILS % (AUTO) 84 % (42-75); PLATELET COUNT 209 10^3/uL (130-400); RED CELL DISTRIBUTION WIDTH 14.5 % (10.0-14.5); RETICULOCYTE % 0.75 % (0.50-2.40); WHITE BLOOD COUNT 9.2 10^3/uL (4.3-11.0)
[2016-11-02 10:40] LABS: ALANINE AMINOTRANSFERASE 78 U/L (0-55); ALBUMIN 3.6 GM/DL (3.2-4.5); ANION GAP 7 MMOL/L (5-14); ASPARTATE AMINO TRANSFERASE 62 U/L (5-34); BILIRUBIN,TOTAL 0.6 MG/DL (0.1-1.0); BLOOD UREA NITROGEN 36 MG/DL (7-18); BUN/CREATININE RATIO 40; CALCIUM 9.5 MG/DL (8.5-10.1); CARBON DIOXIDE 31 MMOL/L (21-32); CHLORIDE 98 MMOL/L (98-107); GFR ESTIMATED > 60; GLUCOSE 100 MG/DL (70-105); MAGNESIUM 2.2 MG/DL (1.8-2.4); PHOSPHORUS 3.9 MG/DL (2.3-4.7); POTASSIUM 4.7 MMOL/L (3.6-5.0); SODIUM 136 MMOL/L (135-145); TOTAL PROTEIN 6.6 GM/DL (6.4-8.2); TRIGLYCERIDES 50 MG/DL (<150)
[2016-11-02 23:16] LABS: CALCIUM IONIZED 1.18 mmol/L (1.16-1.32); CORRECTED IONIZED CALCIUM 1.14 mmol/L (1.16-1.32)
[2016-11-03 10:44] LABS: CALCIUM PH 7.34
[2016-11-09 09:29] LABS: BASOPHILS % (AUTO) 0 % (0-10); EOSINOPHILS # (AUTO) 0.3 10^3/uL (0.0-0.3); EOSINOPHILS % (AUTO) 3 % (0-10); LYMPHOCYTES # (AUTO) 0.7 X 10^3 (1.0-4.0); LYMPHOCYTES % (AUTO) 7 % (12-44); MEAN CORPUSCULAR HEMOGLOBIN 30 PG (25-34); MEAN CORPUSCULAR HGB CONC 33 G/DL (32-36); MEAN CORPUSCULAR VOLUME 90 FL (80-99); MONOCYTES # (AUTO) 0.9 X 10^3 (0.0-1.0); MONOCYTES % (AUTO) 9 % (0-12); NEUTROPHILS # (AUTO) 7.5 X 10^3 (1.8-7.8); NEUTROPHILS % (AUTO) 80 % (42-75); PLATELET COUNT 180 10^3/uL (130-400); RED BLOOD COUNT 3.65 10^6/uL (4.35-5.85); WHITE BLOOD COUNT 9.4 10^3/uL (4.3-11.0)
[2016-11-09 09:51] LABS: ALANINE AMINOTRANSFERASE 149 U/L (0-55); ALBUMIN 3.6 GM/DL (3.2-4.5); ANION GAP 11 MMOL/L (5-14); ASPARTATE AMINO TRANSFERASE 106 U/L (5-34); BILIRUBIN,TOTAL 0.4 MG/DL (0.1-1.0); BLOOD UREA NITROGEN 39 MG/DL (7-18); BUN/CREATININE RATIO 45; CALCIUM 9.6 MG/DL (8.5-10.1); CARBON DIOXIDE 25 MMOL/L (21-32); CHLORIDE 99 MMOL/L (98-107); CHOLESTEROL 138 MG/DL (< 200); CREATININE SERUM 0.87 MG/DL (0.60-1.30); DIRECT LDL 67 MG/DL (1-129); GFR ESTIMATED > 60; GLUCOSE 80 MG/DL (70-105); POTASSIUM 4.2 MMOL/L (3.6-5.0); SODIUM 135 MMOL/L (135-145); TOTAL PROTEIN 6.8 GM/DL (6.4-8.2); TRIGLYCERIDES 37 MG/DL (<150); VLDL CHOLESTEROL 7 MG/DL (5-40)
[2016-11-11 09:19] LABS: BASOPHILS % (AUTO) 0 % (0-10); EOSINOPHILS # (AUTO) 0.3 10^3/uL (0.0-0.3); EOSINOPHILS % (AUTO) 3 % (0-10); LYMPHOCYTES # (AUTO) 0.9 X 10^3 (1.0-4.0); LYMPHOCYTES % (AUTO) 8 % (12-44); MEAN CORPUSCULAR HEMOGLOBIN 30 PG (25-34); MEAN CORPUSCULAR HGB CONC 33 G/DL (32-36); MEAN CORPUSCULAR VOLUME 91 FL (80-99); MEAN PLATELET VOLUME 12.1 FL (7.4-10.4); MONOCYTES # (AUTO) 1.2 X 10^3 (0.0-1.0); MONOCYTES % (AUTO) 11 % (0-12); NEUTROPHILS # (AUTO) 8.9 X 10^3 (1.8-7.8); NEUTROPHILS % (AUTO) 79 % (42-75); PLATELET COUNT 177 10^3/uL (130-400); RED BLOOD COUNT 3.62 10^6/uL (4.35-5.85); RED CELL DISTRIBUTION WIDTH 14.1 % (10.0-14.5); WHITE BLOOD COUNT 11.3 10^3/uL (4.3-11.0)
[2016-11-11 09:36] LABS: ALANINE AMINOTRANSFERASE 140 U/L (0-55); ALBUMIN 3.7 GM/DL (3.2-4.5); ANION GAP 8 MMOL/L (5-14); ASPARTATE AMINO TRANSFERASE 97 U/L (5-34); BILIRUBIN,TOTAL 0.5 MG/DL (0.1-1.0); BLOOD UREA NITROGEN 44 MG/DL (7-18); BUN/CREATININE RATIO 51; CALCIUM 9.6 MG/DL (8.5-10.1); CARBON DIOXIDE 26 MMOL/L (21-32); CHLORIDE 100 MMOL/L (98-107); CREATININE SERUM 0.87 MG/DL (0.60-1.30); GFR ESTIMATED > 60; GLUCOSE 117 MG/DL (70-105); POTASSIUM 4.8 MMOL/L (3.6-5.0); SODIUM 134 MMOL/L (135-145)
[2016-11-17 09:53] LABS: BASOPHILS % (AUTO) 1 % (0-10); EOSINOPHILS # (AUTO) 0.2 10^3/uL (0.0-0.3); EOSINOPHILS % (AUTO) 2 % (0-10); LYMPHOCYTES # (AUTO) 0.5 X 10^3 (1.0-4.0); LYMPHOCYTES % (AUTO) 6 % (12-44); MEAN CORPUSCULAR HEMOGLOBIN 30 PG (25-34); MEAN CORPUSCULAR HGB CONC 33 G/DL (32-36); MEAN CORPUSCULAR VOLUME 91 FL (80-99); MEAN PLATELET VOLUME 12.3 FL (7.4-10.4); MONOCYTES % (AUTO) 12 % (0-12); NEUTROPHILS # (AUTO) 7.1 X 10^3 (1.8-7.8); NEUTROPHILS % (AUTO) 80 % (42-75); PLATELET COUNT 151 10^3/uL (130-400); RED BLOOD COUNT 3.48 10^6/uL (4.35-5.85); RED CELL DISTRIBUTION WIDTH 13.9 % (10.0-14.5); WHITE BLOOD COUNT 8.8 10^3/uL (4.3-11.0)
[2016-11-17 10:14] LABS: ALBUMIN 3.6 GM/DL (3.2-4.5); BILIRUBIN,TOTAL 0.5 MG/DL (0.1-1.0); CREATININE SERUM 1.96 MG/DL (0.60-1.30); MAGNESIUM 2.9 MG/DL (1.8-2.4); PHOSPHORUS 2.9 MG/DL (2.3-4.7); POTASSIUM 3.9 MMOL/L (3.6-5.0); TOTAL PROTEIN 6.9 GM/DL (6.4-8.2)
[2016-11-19 11:14] LABS: BASOPHILS % (AUTO) 0 % (0-10); EOSINOPHILS % (AUTO) 0 % (0-10); LYMPHOCYTES # (AUTO) 0.6 X 10^3 (1.0-4.0); LYMPHOCYTES % (AUTO) 3 % (12-44); MEAN CORPUSCULAR HEMOGLOBIN 30 PG (25-34); MEAN CORPUSCULAR HGB CONC 34 G/DL (32-36); MEAN CORPUSCULAR VOLUME 88 FL (80-99); MEAN PLATELET VOLUME 12.5 FL (7.4-10.4); MONOCYTES # (AUTO) 2.3 X 10^3 (0.0-1.0); MONOCYTES % (AUTO) 9 % (0-12); NEUTROPHILS # (AUTO) 21.9 X 10^3 (1.8-7.8); NEUTROPHILS % (AUTO) 88 % (42-75); PLATELET COUNT 161 10^3/uL (130-400); RED BLOOD COUNT 3.41 10^6/uL (4.35-5.85); RED CELL DISTRIBUTION WIDTH 13.5 % (10.0-14.5); WHITE BLOOD COUNT 24.8 10^3/uL (4.3-11.0)
[2016-11-19 11:30] LABS: POTASSIUM 3.2 MMOL/L (3.6-5.0)
[2016-11-19 11:31] LABS: ALBUMIN 3.6 GM/DL (3.2-4.5); BILIRUBIN,TOTAL 0.5 MG/DL (0.1-1.0); CALCIUM 11.3 MG/DL (8.5-10.1); CREATININE SERUM 4.2 MG/DL (0.60-1.30); MAGNESIUM 3.5 MG/DL (1.8-2.4); PHOSPHORUS 3.6 MG/DL (2.3-4.7); TOTAL PROTEIN 6.8 GM/DL (6.4-8.2)
[2016-11-20 09:51] LABS: BASOPHILS % (AUTO) 0 % (0-10); EOSINOPHILS % (AUTO) 0 % (0-10); LYMPHOCYTES # (AUTO) 0.7 X 10^3 (1.0-4.0); LYMPHOCYTES % (AUTO) 3 % (12-44); MEAN CORPUSCULAR HEMOGLOBIN 30 PG (25-34); MEAN CORPUSCULAR HGB CONC 34 G/DL (32-36); MEAN CORPUSCULAR VOLUME 88 FL (80-99); MEAN PLATELET VOLUME 12.4 FL (7.4-10.4); MONOCYTES # (AUTO) 1.9 X 10^3 (0.0-1.0); MONOCYTES % (AUTO) 9 % (0-12); NEUTROPHILS # (AUTO) 19.4 X 10^3 (1.8-7.8); NEUTROPHILS % (AUTO) 89 % (42-75); PLATELET COUNT 138 10^3/uL (130-400); RED BLOOD COUNT 3.39 10^6/uL (4.35-5.85); RED CELL DISTRIBUTION WIDTH 13.6 % (10.0-14.5); WHITE BLOOD COUNT 21.9 10^3/uL (4.3-11.0)
[2016-11-20 10:22] LABS: ALBUMIN 3.4 GM/DL (3.2-4.5); BILIRUBIN,TOTAL 0.4 MG/DL (0.1-1.0); CALCIUM 10.4 MG/DL (8.5-10.1); CREATININE SERUM 5.07 MG/DL (0.60-1.30); MAGNESIUM 3.6 MG/DL (1.8-2.4); POTASSIUM 3.7 MMOL/L (3.6-5.0); TOTAL PROTEIN 6.6 GM/DL (6.4-8.2)
[2016-11-21 11:48] LABS: BASOPHILS % (AUTO) 0 % (0-10); EOSINOPHILS % (AUTO) 0 % (0-10); LYMPHOCYTES # (AUTO) 0.6 X 10^3 (1.0-4.0); LYMPHOCYTES % (AUTO) 3 % (12-44); MEAN CORPUSCULAR HEMOGLOBIN 30 PG (25-34); MEAN CORPUSCULAR HGB CONC 34 G/DL (32-36); MEAN CORPUSCULAR VOLUME 88 FL (80-99); MEAN PLATELET VOLUME 12.9 FL (7.4-10.4); MONOCYTES # (AUTO) 1.2 X 10^3 (0.0-1.0); MONOCYTES % (AUTO) 6 % (0-12); NEUTROPHILS # (AUTO) 16.7 X 10^3 (1.8-7.8); NEUTROPHILS % (AUTO) 91 % (42-75); PLATELET COUNT 172 10^3/uL (130-400); RED BLOOD COUNT 3.82 10^6/uL (4.35-5.85); RED CELL DISTRIBUTION WIDTH 13.8 % (10.0-14.5); WHITE BLOOD COUNT 18.4 10^3/uL (4.3-11.0)
[2016-11-21 12:15] LABS: BILIRUBIN,TOTAL 0.7 MG/DL (0.1-1.0); CALCIUM 9.2 MG/DL (8.5-10.1); CREATININE SERUM 6.39 MG/DL (0.60-1.30); POTASSIUM 3.9 MMOL/L (3.6-5.0); TOTAL PROTEIN 5.6 GM/DL (6.4-8.2)
[2016-11-22 10:24] LABS: BASOPHILS % (AUTO) 0 % (0-10); EOSINOPHILS % (AUTO) 0 % (0-10); LYMPHOCYTES # (AUTO) 0.4 X 10^3 (1.0-4.0); LYMPHOCYTES % (AUTO) 3 % (12-44); MEAN CORPUSCULAR HEMOGLOBIN 30 PG (25-34); MEAN CORPUSCULAR HGB CONC 34 G/DL (32-36); MEAN CORPUSCULAR VOLUME 89 FL (80-99); MEAN PLATELET VOLUME 13.2 FL (7.4-10.4); MONOCYTES % (AUTO) 7 % (0-12); NEUTROPHILS # (AUTO) 12.4 X 10^3 (1.8-7.8); NEUTROPHILS % (AUTO) 90 % (42-75); PLATELET COUNT 121 10^3/uL (130-400); RED BLOOD COUNT 3.25 10^6/uL (4.35-5.85); RED CELL DISTRIBUTION WIDTH 13.5 % (10.0-14.5); WHITE BLOOD COUNT 13.8 10^3/uL (4.3-11.0)
[2016-11-22 10:51] LABS: BILIRUBIN,TOTAL 0.4 MG/DL (0.1-1.0); CALCIUM 8.8 MG/DL (8.5-10.1); CREATININE SERUM 6.73 MG/DL (0.60-1.30); POTASSIUM 4.7 MMOL/L (3.6-5.0); TOTAL PROTEIN 5.6 GM/DL (6.4-8.2)
[2016-12-07 09:15] LABS: BASOPHILS % (AUTO) 1 % (0-10); EOSINOPHILS # (AUTO) 0.1 10^3/uL (0.0-0.3); EOSINOPHILS % (AUTO) 2 % (0-10); LYMPHOCYTES # (AUTO) 0.4 X 10^3 (1.0-4.0); LYMPHOCYTES % (AUTO) 7 % (12-44); MEAN CORPUSCULAR HEMOGLOBIN 32 PG (25-34); MEAN CORPUSCULAR HGB CONC 32 G/DL (32-36); MEAN CORPUSCULAR VOLUME 101 FL (80-99); MEAN PLATELET VOLUME 12.7 FL (7.4-10.4); MONOCYTES # (AUTO) 0.6 X 10^3 (0.0-1.0); MONOCYTES % (AUTO) 10 % (0-12); NEUTROPHILS # (AUTO) 5.1 X 10^3 (1.8-7.8); NEUTROPHILS % (AUTO) 80 % (42-75); PLATELET COUNT 117 10^3/uL (130-400); RED BLOOD COUNT 2.87 10^6/uL (4.35-5.85); RED CELL DISTRIBUTION WIDTH 15.9 % (10.0-14.5); WHITE BLOOD COUNT 6.3 10^3/uL (4.3-11.0)
[2016-12-07 09:39] LABS: ALBUMIN 3.5 GM/DL (3.2-4.5); ANION GAP 12 MMOL/L (5-14); BILIRUBIN,TOTAL 0.8 MG/DL (0.1-1.0); BLOOD UREA NITROGEN 30 MG/DL (7-18); BUN/CREATININE RATIO 9; CALCIUM 8.8 MG/DL (8.5-10.1); CARBON DIOXIDE 22 MMOL/L (21-32); CHLORIDE 90 MMOL/L (98-107); CREATININE SERUM 3.52 MG/DL (0.60-1.30); GFR ESTIMATED 17; MAGNESIUM 4.3 MG/DL (1.8-2.4); PHOSPHORUS 3.3 MG/DL (2.3-4.7); TOTAL PROTEIN 8.3 GM/DL (6.4-8.2)
[2016-12-07 10:24] LABS: SODIUM 124 MMOL/L (135-145)
[2016-12-07 10:26] LABS: ALANINE AMINOTRANSFERASE 12 U/L (0-55); ASPARTATE AMINO TRANSFERASE 26 U/L (5-34)
[2016-12-07 10:30] LABS: CHOLESTEROL 101 MG/DL (< 200); DIRECT LDL 45 MG/DL (1-129); TRIGLYCERIDES 1398 MG/DL (<150)
[2016-12-07 13:46] LABS: BASOPHILS % (AUTO) 0 % (0-10); EOSINOPHILS # (AUTO) 0.1 10^3/uL (0.0-0.3); EOSINOPHILS % (AUTO) 2 % (0-10); LYMPHOCYTES # (AUTO) 0.6 X 10^3 (1.0-4.0); LYMPHOCYTES % (AUTO) 8 % (12-44); MEAN CORPUSCULAR HEMOGLOBIN 29 PG (25-34); MEAN CORPUSCULAR HGB CONC 32 G/DL (32-36); MEAN CORPUSCULAR VOLUME 90 FL (80-99); MONOCYTES # (AUTO) 0.7 X 10^3 (0.0-1.0); MONOCYTES % (AUTO) 11 % (0-12); NEUTROPHILS # (AUTO) 5.4 X 10^3 (1.8-7.8); NEUTROPHILS % (AUTO) 79 % (42-75); PLATELET COUNT 136 10^3/uL (130-400); RED BLOOD COUNT 3.41 10^6/uL (4.35-5.85); RED CELL DISTRIBUTION WIDTH 14.9 % (10.0-14.5); WHITE BLOOD COUNT 6.8 10^3/uL (4.3-11.0)
[2016-12-07 14:11] LABS: ALBUMIN 4.3 GM/DL (3.2-4.5); BILIRUBIN,TOTAL 0.9 MG/DL (0.1-1.0); CALCIUM 8.9 MG/DL (8.5-10.1); CREATININE SERUM 3.34 MG/DL (0.60-1.30); MAGNESIUM 2.3 MG/DL (1.8-2.4); PHOSPHORUS 3.1 MG/DL (2.3-4.7); POTASSIUM 2.8 MMOL/L (3.6-5.0); TOTAL PROTEIN 6.9 GM/DL (6.4-8.2)
[2016-12-08 08:54] LABS: BASOPHILS % (AUTO) 0 % (0-10); EOSINOPHILS % (AUTO) 3 % (0-10); LYMPHOCYTES % (AUTO) 5 % (12-44); MEAN CORPUSCULAR HEMOGLOBIN 29 PG (25-34); MEAN CORPUSCULAR HGB CONC 32 G/DL (32-36); MEAN CORPUSCULAR VOLUME 91 FL (80-99); MEAN PLATELET VOLUME 12.1 FL (7.4-10.4); MONOCYTES % (AUTO) 9 % (0-12); NEUTROPHILS # (AUTO) 6.6 X 10^3 (1.8-7.8); NEUTROPHILS % (AUTO) 83 % (42-75); PLATELET COUNT 136 10^3/uL (130-400); RED BLOOD COUNT 3.16 10^6/uL (4.35-5.85); RED CELL DISTRIBUTION WIDTH 14.7 % (10.0-14.5)
[2016-12-08 08:55] LABS: EOSINOPHILS # (AUTO) 0.2 10^3/uL (0.0-0.3); LYMPHOCYTES # (AUTO) 0.4 X 10^3 (1.0-4.0); MONOCYTES # (AUTO) 0.7 X 10^3 (0.0-1.0)
[2016-12-08 09:11] LABS: CALCIUM 8.6 MG/DL (8.5-10.1); CREATININE SERUM 3.16 MG/DL (0.60-1.30)
[2016-12-08 09:16] LABS: POTASSIUM 2.5 MMOL/L (3.6-5.0)
[2016-12-09 11:33] LABS: BASOPHILS % (AUTO) 0 % (0-10); EOSINOPHILS # (AUTO) 0.2 10^3/uL (0.0-0.3); EOSINOPHILS % (AUTO) 2 % (0-10); LYMPHOCYTES # (AUTO) 0.5 X 10^3 (1.0-4.0); LYMPHOCYTES % (AUTO) 5 % (12-44); MEAN CORPUSCULAR HEMOGLOBIN 29 PG (25-34); MEAN CORPUSCULAR HGB CONC 32 G/DL (32-36); MEAN CORPUSCULAR VOLUME 91 FL (80-99); MEAN PLATELET VOLUME 11.8 FL (7.4-10.4); MONOCYTES # (AUTO) 0.6 X 10^3 (0.0-1.0); MONOCYTES % (AUTO) 7 % (0-12); NEUTROPHILS # (AUTO) 8.1 X 10^3 (1.8-7.8); NEUTROPHILS % (AUTO) 86 % (42-75); PLATELET COUNT 151 10^3/uL (130-400); RED BLOOD COUNT 3.44 10^6/uL (4.35-5.85); RED CELL DISTRIBUTION WIDTH 15.1 % (10.0-14.5); WHITE BLOOD COUNT 9.4 10^3/uL (4.3-11.0)
[2016-12-09 11:49] LABS: ALBUMIN 4.3 GM/DL (3.2-4.5); BILIRUBIN,TOTAL 0.9 MG/DL (0.1-1.0); CREATININE SERUM 2.83 MG/DL (0.60-1.30); MAGNESIUM 2.3 MG/DL (1.8-2.4); PHOSPHORUS 2.9 MG/DL (2.3-4.7); POTASSIUM 3.2 MMOL/L (3.6-5.0); TOTAL PROTEIN 6.9 GM/DL (6.4-8.2)
[~2016-12-11 10:30] MED LIST changes: +D5W IV SCH; +DEXAMETHASONE IV ONE; +FAMOTIDINE 20MG/2ML IV (CANCER CTR) IV ONE; +NS IV 500 ML (CANCER CENTER) 500 ML ONE; +ONDANSETRON IV ONE; +POTASSIUM CHL IV SCH; +[UNRECOGNIZED DRUG - OTHER] IV ONE
[2016-12-11] MEDS ORDERED: DARBEPOETIN 60 MCG/ML ARANESP (CANCER CTR) INJ NR (12:30)
== END 2016-12-12 | disposition home or self-care (01) ==
LOC: ONC 10:30
PROVIDERS: ATTEND Internal Medicine Hematology & Oncology
DX: K22.0 Achalasia of cardia (principal); R13.10 Dysphagia, unspecified; E03.9 Hypothyroidism, unspecified; K21.9 Gastro-esophageal reflux disease without esophagitis; R63.4 Abnormal weight loss; Z85.72 Personal history of non-Hodgkin lymphomas; Z92.21 Personal history of antineoplastic chemotherapy; Z92.3 Personal history of irradiation; Z79.899 Other long term (current) drug therapy
CPT/HCPCS: 36415; 80048; 80053; 80061; 80170; 82330; 82728; 83540; 83735; 84100; 84134; 84443; 84478; 85025; 85045; 87070; 87186; 87205; 96361; 96365; 96366; 96372; 96374; 96375

== ENCOUNTER → 2016-12-11 | Outpatient (CLI) | payer OTHER ==
[2016-12-11 09:29] LABS: MEAN PLATELET VOLUME 11.7 FL (7.4-10.4); RED BLOOD COUNT 3.27 10^6/uL (4.35-5.85); RED CELL DISTRIBUTION WIDTH 14.9 % (10.0-14.5); WHITE BLOOD COUNT 5.6 10^3/uL (4.3-11.0)
[2016-12-11 09:44] LABS: CALCIUM 9.2 MG/DL (8.5-10.1); CREATININE SERUM 2.39 MG/DL (0.60-1.30); PHOSPHORUS 3.2 MG/DL (2.3-4.7); POTASSIUM 3.3 MMOL/L (3.6-5.0)
== END ==
LOC: LAB 09:20
PROVIDERS: ATTEND Internal Medicine Nephrology
DX: R94.5 Abnormal results of liver function studies (principal); R13.10 Dysphagia, unspecified; R74.8 Abnormal levels of other serum enzymes; N17.9 Acute kidney failure, unspecified; C85.90 Non-Hodgkin lymphoma, unspecified, unspecified site
CPT/HCPCS: 36415; 80069; 85027

== ENCOUNTER 2016-12-30 22:15 | Inpatient (IN) | payer OTHER, MEDICARE ==
[~2016-12-30] VITALS: Ht 177.8 cm; Wt 58.2 kg
[~2016-12-30 22:15] MED LIST changes: -D5W IV SCH; -DEXAMETHASONE IV ONE; -FAMOTIDINE 20MG/2ML IV (CANCER CTR) IV ONE; -NS IV 500 ML (CANCER CENTER) 500 ML ONE; -ONDANSETRON IV ONE; -PANT40TA3; +PANT40TA3 PO; -POTASSIUM CHL IV SCH; -[UNRECOGNIZED DRUG - OTHER] IV ONE
[2016-12-30] MEDS ORDERED: HEParin (CENTRAL IV FLUSH) 500 UNIT/5 ML SYR ONE (22:24)
[2016-12-30 22:30] VITALS: BP 104/73
[2016-12-30] MEDS ORDERED: ADENOSINE 6 MG/2 ML (ADENOCARD) VIAL IV ONE (22:30)
[2016-12-30 22:42] LABS: BASOPHILS % (AUTO) 0 % (0-10); EOSINOPHILS # (AUTO) 0.1 10^3/uL (0.0-0.3); EOSINOPHILS % (AUTO) 1 % (0-10); LYMPHOCYTES # (AUTO) 0.7 X 10^3 (1.0-4.0); LYMPHOCYTES % (AUTO) 7 % (12-44); MEAN CORPUSCULAR HEMOGLOBIN 28 PG (25-34); MEAN CORPUSCULAR HGB CONC 32 G/DL (32-36); MEAN CORPUSCULAR VOLUME 89 FL (80-99); MEAN PLATELET VOLUME 12.7 FL (7.4-10.4); MONOCYTES % (AUTO) 11 % (0-12); NEUTROPHILS # (AUTO) 7.3 X 10^3 (1.8-7.8); NEUTROPHILS % (AUTO) 80 % (42-75); PLATELET COUNT 121 10^3/uL (130-400); RED BLOOD COUNT 3.44 10^6/uL (4.35-5.85); RED CELL DISTRIBUTION WIDTH 15.4 % (10.0-14.5); WHITE BLOOD COUNT 9.1 10^3/uL (4.3-11.0)
[2016-12-30] MEDS ORDERED: NS IV 1000 ML 1,000 ML ONE (22:49)
[2016-12-30 22:53] LABS: INR 1.1 (0.8-1.4); PROTHROMBIN TIME PATIENT 14.4 SEC (12.2-14.7)
[2016-12-30 22:59] LABS: ALANINE AMINOTRANSFERASE 232 U/L (0-55); ALBUMIN 3.5 GM/DL (3.2-4.5); ANION GAP 14 MMOL/L (5-14); ASPARTATE AMINO TRANSFERASE 120 U/L (5-34); BILIRUBIN,TOTAL 3.3 MG/DL (0.1-1.0); BLOOD UREA NITROGEN 27 MG/DL (7-18); BUN/CREATININE RATIO 23; CALCIUM 9.2 MG/DL (8.5-10.1); CARBON DIOXIDE 17 MMOL/L (21-32); CHLORIDE 106 MMOL/L (98-107); CREATININE SERUM 1.16 MG/DL (0.60-1.30); GFR ESTIMATED > 60; GLUCOSE 86 MG/DL (70-105); MAGNESIUM 1.4 MG/DL (1.8-2.4); POTASSIUM 3.4 MMOL/L (3.6-5.0); SODIUM 137 MMOL/L (135-145); TOTAL PROTEIN 6.1 GM/DL (6.4-8.2)
[2016-12-30] MEDS ORDERED: LIDOCAINE 2% VISCOUS 15 ML UDC PO ONE (23:00)
[2016-12-30] MEDS ORDERED: ANTACID SUSP 30 ML UDC (MYLANTA) PO ONE (23:00)
[2016-12-30 23:06] LABS: BAND NEUTROPHILS 0 %; BASOPHILS % (MANUAL) 1 %; EOSINOPHILS % (MANUAL) 0 %; LYMPHOCYTES % (MANUAL) 10 %; NEUTROPHILS % (MANUAL) 86 %
[2016-12-30 23:10] LABS: MYOGLOBIN SERUM 60.9 NG/ML (10.0-92.0)
[2016-12-30] MEDS ORDERED: LACTATED RINGERS 1,000 ML IV ONE (23:10)
[2016-12-30] MEDS ORDERED: MAGNESIUM 1 GM/100 ML IVPB 100 ML IV ONE ×2 (23:15)
[2016-12-30] MEDS ORDERED: PIPERACILLIN SODIUM/TAZOBACTAM 4.5 GM in NS (IVPB) 100 ML IV ONE (23:30)
[2016-12-30] MEDS ORDERED: DOPamine DRIP 250 ML IV SCH (23:30)
[2016-12-30] MEDS ORDERED: POTASSIUM CL 10MEQ/50ML IVPB 50 ML IV ONE ×2 (23:30)
--- NOTE | 2016-12-30 23:34 | ED Cardiac General ---
History of Present Illness General Chief Complaint: Dizziness/Syncope Stated Complaint: LOC Nursing Triage Note: PT BROUGHT IN BY [facility] EMS WITH C/O SYNCOPAL EPISODE. PT HAS HX OF HYPOTENSION. PT IS A&O X 4 UPON ARRIVAL TO ED. HE IS VERY PALE AND CLAMMY. IS AT BEDSIDE. Source: patient, family, old records Exam Limitations: no limitations History of Present Illness Time seen by provider: 22:17 Initial Comments This 76-year-old gentleman presents to the emergency room via EMS with hypotension and a brief syncopal episode at home. He has associated chest pain. He has no history of arrhythmia but appears to be in atrial fibrillation with RVR on the monitor and according to EMS. His reports that he had a recent admission to [facility] where he was treated for aspiration pneumonia and sepsis. He has a history of non-Hodgkin's lymphoma and has severe esophageal problems related to his lymphoma treatment. He has therefore had recurrent problems with aspiration pneumonia and dysphasia. He was treated for acute renal failure associated with gentamicin use as well. He cannot tolerate oral or tube feedings and is TPN dependent. Patient is receiving IV fluids as initiated by EMS. He remains hypotensive despite fluid resuscitation. He still complains of chest pain and lightheadedness. He is afebrile. Allergies and Home Medications Allergies Coded Allergies: No Known Drug Allergies (Unverified , 06/22/14) Home Medications Levothyroxine Sodium 75 Mcg Tablet, 1 EACH PO DAILY, (Reported) Pantoprazole Sodium 20 Mg Tablet., 40 MG PO BID, #90 Prescribed by: GARRETT JOHNSON on 06/22/14 1234 Pantoprazole Sodium 40 Mg Tablet., #30 (Reported) Review of Systems Constitutional: no symptoms reported EENTM: No Symptoms Reported Respiratory: See HPI Cardiovascular: See HPI Gastrointestinal: See HPI Genitourinary: No Symptoms Reported Musculoskeletal: no symptoms reported Skin: no symptoms reported Psychiatric/Neurological: No Symptoms Reported Endocrine: No Symptoms Reported Hematologic/Lymphatic: No Symptoms Reported Past Czokfdt-Eknjfs-Moctyj Hx Patient Social History Alcohol Use: Denies Use Recreational Drug Use: No Smoking Status: Never a Smoker 2nd Hand Smoke Exposure: No Recent Foreign Travel: No Contact w/Someone Who Travel: No Recent Infectious Disease Expo: No Recent Hopitalizations: No Physical Abuse: No Sexual Abuse: No Immunizations Up To Date Date of Pneumonia Vaccine: August 08, 2009 Seasonal Allergies Seasonal Allergies: No Surgeries History of Surgeries: Yes (PICC LINE, TRACH) Surgeries: Appendectomy Respiratory History of Respiratory Disorde: Yes (ASPIRATION PNEUMONIA) Respiratory Disorders: Pneumonia, COPD (diagnosed by imaging only) Cardiovascular History of Cardiac Disorders: Yes Neurological History of Neurological Disord: No Genitourinary History of Genitourinary Disor: Yes Genitourinary Disorders: Renal Failure (history of acute gentamicin-induced renal failure) Gastrointestinal History of Gastrointestinal Di: Yes (severe dysphagia and acid reflux. Does not tolerate oral or tube feeds) Gastrointestinal Disorders: Gastroesophageal Reflux Musculoskeletal History of Musculoskeletal Dis: No Endocrine History of Endocrine Disorders: No Cancer History of Cancer: Yes Cancer: Lymphoma (non-Hodgkin's) Psychosocial History of Psychiatric Problem: Yes Behavioral Health Disorders: Anxiety Suicide Risk Score: 0 Integumentary History of Skin or Integumenta: No Physical Exam Vital Signs Vital Sign - Last 12Hours 12/30/16 12/30/16 22:15 22:35 Temp 95.6 Pulse 134 Resp 27 B/P (MAP) 118/93 Pulse Ox 96 O2 Delivery Room Air O2 Flow Rate 2.00 Capillary Refill : Less Than 3 Seconds General Appearance: WD/WN, Thin, Other (pale, diaphoretic) HEENT: PERRL/EOMI, Normal ENT Inspection Neck: Normal Inspection Respiratory: Lungs Clear, Normal Breath Sounds, No Accessory Muscle Use, No Respiratory Distress Cardiovascular: No Edema, Systolic Murmur, Irregularly Irregular, Tachycardia Gastrointestinal: Normal Bowel Sounds, Non Tender, Soft Extremity: Normal Inspection, No Pedal Edema Neurologic/Psychiatric: Alert, Oriented x3, wool buyer II-XII Norm as Tested Skin: Warm/Dry, Diaphoresis, Pallor Focused Exam Evaluation Sepsis Stage: Septic Shock (presumptive but no source of infection identified) Possible Source: Unknown Lactate Level Laboratory Tests 12/30/16 22:38: Lactic Acid Level 0.87 Time of Focused Exam: 23:55 Respiratory: Normal Breath Sounds, No Respiratory Distress Cardiovascular: No Edema, Irregularly Irregular, Tachycardia Capillary Refill: Less Than 3 Seconds Skin: normal color, warm/dry Lactic Acid Level Laboratory Tests Test 12/30/16 22:38 Lactic Acid Level 0.87 MMOL/L (0.50-2.00) Progress/Results/Core Measures Results/Orders Lab Results Laboratory Tests Test 12/30/16 22:35 12/30/16 22:38 12/31/16 00:20 Range/Units White Blood Count 9.1 4.3-11.0 10^3/uL Red Blood Count 3.44 L 4.35-5.85 10^6/uL Hemoglobin 9.7 L 13.3-17.7 G/DL Hematocrit 31 L 40-54 % Mean Corpuscular Volume 89 80-99 FL Mean Corpuscular Hemoglobin 28 25-34 PG Mean Corpuscular Hemoglobin Concent 32 32-36 G/DL Red Cell Distribution Width 15.4 H 10.0-14.5 % Platelet Count 121 L 130-400 10^3/uL Mean Platelet Volume 12.7 H 7.4-10.4 FL Neutrophils (%) (Auto) 80 H 42-75 % Lymphocytes (%) (Auto) 7 L 12-44 % Monocytes (%) (Auto) 11 0-12 % Eosinophils (%) (Auto) 1 0-10 % Basophils (%) (Auto) 0 0-10 % Neutrophils # (Auto) 7.3 1.8-7.8 X 10^3 Lymphocytes # (Auto) 0.7 L 1.0-4.0 X 10^3 Monocytes # (Auto) 1.0 0.0-1.0 X 10^3 Eosinophils # (Auto) 0.1 0.0-0.3 10^3/uL Basophils # (Auto) 0.0 0.0-0.1 10^3/uL Neutrophils % (Manual) 86 % Lymphocytes % (Manual) 10 % Monocytes % (Manual) 3 % Eosinophils % (Manual) 0 % Basophils % (Manual) 1 % Band Neutrophils 0 % Blood Morphology Comment NORMAL Prothrombin Time 14.4 12.2-14.7 SEC INR Comment 1.1 0.8-1.4 Activated Partial Thromboplast Time 34 24-35 SEC Sodium Level 137 135-145 MMOL/L Potassium Level 3.4 L 3.6-5.0 MMOL/L Chloride Level 106 98-107 MMOL/L Carbon Dioxide Level 17 L 21-32 MMOL/L Anion Gap 14 5-14 MMOL/L Blood Urea Nitrogen 27 H 7-18 MG/DL Creatinine 1.16 0.60-1.30 MG/DL Estimat Glomerular Filtration Rate > 60 BUN/Creatinine Ratio 23 Glucose Level 86 70-105 MG/DL Calcium Level 9.2 8.5-10.1 MG/DL Magnesium Level 1.4 L 1.8-2.4 MG/DL Total Bilirubin 3.3 H 0.1-1.0 MG/DL Aspartate Amino Transf (AST/SGOT) 120 H 5-34 U/L Alanine Aminotransferase (ALT/SGPT) 232 H 0-55 U/L Alkaline Phosphatase 522 H 40-136 U/L Myoglobin 60.9 10.0-92.0 NG/ML Troponin I < 0.30 <0.30 NG/ML C-Reactive Protein High Sensitivity 2.16 H 0.00-0.50 MG/DL Total Protein 6.1 L 6.4-8.2 GM/DL Albumin 3.5 3.2-4.5 GM/DL Free Thyroxine 1.14 0.70-1.48 NG/DL TSH [place] Testing 3.05 0.35-4.94 UIU/ML Lactic Acid Level 0.87 0.50-2.00 MMOL/L Urine Color YELLOW Urine Clarity CLEAR Urine pH 7 5-9 Urine Specific [place] 1.005 L 1.016-1.022 Urine Protein NEGATIVE NEGATIVE Urine Glucose (UA) NEGATIVE NEGATIVE Urine Ketones NEGATIVE NEGATIVE Urine Nitrite NEGATIVE NEGATIVE Urine Bilirubin NEGATIVE NEGATIVE Urine Urobilinogen NORMAL NORMAL MG/DL Urine Leukocyte Esterase NEGATIVE NEGATIVE Urine RBC (Auto) NEGATIVE NEGATIVE Urine RBC NONE /HPF Urine WBC RARE /HPF Urine Squamous Epithelial Cells RARE /HPF Urine Crystals NONE /LPF Urine Bacteria TRACE /HPF Urine Casts PRESENT /LPF Urine Hyaline Casts 0-2 H /LPF Urine Mucus NEGATIVE /LPF Urine Culture Indicated NO My Orders Orders - MIKE JANE MD Cbc With Automated Diff (12/30/16 22:) Magnesium (12/30/16 22:27) Chest 1 View, Ap/Pa Only (12/30/16:) Ekg Tracing (12/30/16:) Cardiac Profile 1 (12/30/16:) Comprehensive Metabolic Panel (12/30/16:) Myoglobin Serum (12/30/16:) Protime With Inr (12/30/16:) Partial Thromboplastin Time (12/30/16:) O2 (12/30/16 22:27) Monitor-Rhythm Ecg Trace Only (12/30/16 22:27) Lipid Panel (12/31/16 06:00) Saline Lock/Iv-Start (12/30/16:27) Adenosine Injection (Adenocard Injection (12/30/16 22:30) Thyroid Analyzer (12/30/16 22:27) Heparin (Central Iv Flush) (Heparin (Richelle (12/30/16 22:24) Manual Differential (12/30/16 22:35) Ns Iv 1000 Ml (Sodium Chloride 0.9%) (12/30/16 22:49) Lidocaine 2% Viscous 15 Ml (Xylocaine Vi (12/30/16 23:00) Antacid Suspension (Mylanta Suspension (12/30/16 23:00) Free T4 (Free Thyroxine) (12/30/16 22:59) Ekg Tracing (12/30/16 23:00) Blood Culture (12/30/16 23:10) Lactic Acid Analyzer (12/30/16 23:10) Magnesium 1 Gm/100 Ml Ivpb (Magnesium Rose (12/30/16 23:15) Magnesium 1 Gm/100 Ml Ivpb (Magnesium Rose (12/30/16 23:15) Lactated Ringers (Lr 1000 Ml Iv Solution (12/30/16 23:10) Hs C Reactive Protein (12/30/16:17) Potassium Cl 10meq/50ml Ivpb (Kcl 10 Meq (12/30/16 23:30) Potassium Cl 10meq/50ml Ivpb (Kcl 10 Meq (12/30/16 23:30) Dopamine Drip (Dopamine Drip) (12/30/16 23:30) Piperacillin Sodium/Tazobactam (Zosyn Vi (12/30/16 23:30) Ua Culture If Indicated (12/30/16 23:30) Digoxin Injection (Lanoxin Injection) (12/30/16 23:45) Amiodarone Injection (Cordarone Injectio (12/31/16 00:00) Amiodarone Injection (Cordarone Injectio (12/31/16 00:00) Enoxaparin Injection (Lovenox Injection) (12/31/16 00:00) Cefepime Injection (Maxipime Injection) (12/31/16 00:15) Echo W Doppler/Color Flow (12/31/16 00:08) Medications Given in ED Current Medications Medications Dose Ordered Sig/Dalia Route Start Time Stop Time Status Last Admin Dose Admin Al Hydrox/Mg Hydrox/Simethicone 30 ml ONCE ONCE PO 12/30/16 23:00 12/30/16 23:01 DC 12/30/16 23:00 30 ML Digoxin 0.25 mg ONCE ONCE IV 12/30/16 23:45 12/30/16 23:46 DC 12/31/16 00:20 0.25 MG Heparin Sodium (Porcine) 500 unit STK-MED ONCE .ROUTE 12/30/16 22:24 12/30/16 22:32 DC 12/30/16 22:30 500 UNIT Lactated Ringer's 1,000 ml @ 0 mls/hr Q0M ONCE IV 12/30/16 23:10 12/30/16 23:12 DC 12/30/16 23:31 1,000 MLS/HR Lidocaine HCl 15 ml ONCE ONCE PO 12/30/16 23:00 12/30/16 23:01 DC 12/30/16 23:30 15 ML Magnesium Sulfate/ Dextrose 100 ml @ 100 mls/hr ONCE ONCE IV 12/30/16 23:15 12/31/16 00:14 DC 12/30/16 23:34 100 MLS/HR Potassium Chloride 50 ml @ 50 mls/hr ONCE ONCE IV 12/30/16 23:30 12/31/16 00:29 DC 12/31/16 00:36 50 MLS/HR Sodium Chloride 1,000 ml @ ud STK-MED ONCE .ROUTE 12/30/16 22:49 12/30/16 22:58 DC 12/30/16 22:50 0 MLS/HR Vital Signs/I&O Vital Sign - Last 12Hours 12/30/16 12/30/16 12/30/16 22:15 22:35 23:47 Temp 95.6 95.6 Pulse 134 123 Resp 27 25 B/P (MAP) 118/93 59/33 Pulse Ox 96 99 99 O2 Delivery Room Air Nasal Cannula Nasal Cannula O2 Flow Rate 2.00 2.00 Blood Pressure Mean: 101 Progress Note #1: Time: 23:33 Progress Note Patient remains hypotensive after 2 L of IV fluid resuscitation. Heart rate is in the 110s to 120s. Case has been discussed multiple times with Dr. Reinoso. He believes it is reasonable at this point to start vasopressors. The exact cause of the hypotension is uncertain. Sepsis is a consideration. Progress Note #2: Time: 00:00 Progress Note Patient has been personally assessed by Dr. Reinoso. I've discussed the case in conference with Dr. Reinoso and Dr. Shepherd from [facility]. Dopamine drip was initiated to support blood pressure. Digoxin 0.25 mg will be administered to help with heart rate. Amiodarone will be administered and attempt to chemically cardiovert patient. Stat echocardiogram will be obtained. Antibiotics were selected based on prior sputum culture. Cefepime was started in the emergency room. This will be changed to Zosyn and clindamycin in the ICU. A request for records from the last admission to [facility] was placed on the bridging orders. Antibiotics may be tailored to any culture results that exist from that admission. Although patient does not have any other evidence of sepsis based on workup, his hypotension and history of aspiration pneumonia make sepsis a suspicious cause for his hypertension. Patient did receive a full 3 L of IV fluid resuscitation in the ER. Admission to [facility] ICU versus transfer back to [facility] was discussed with the patient and his . They wish to remain at [facility] if possible. I also discussed code status with patient and his . He wishes to remain full code. Patient's blood pressure did recover on the dopamine drip and digoxin. The drip was actually titrated down and eventually off with systolic blood pressure remaining above 100 prior to admission despite discontinuing the drip. Patient was feeling much better at the time of admission. ECG EKG #1: EKG Time: 22:16 Rate: 134 Rhythm: V.Fib Comment Atrial fibrillation or flutter with RVR. No acute ST changes to suggest ischemia. EKG #2: EKG Time: 22:44 Rate: 123 Rhythm: V.Fib Comment Atrial fibrillation/flutter with RVR. Repolarization abnormality. Diagnostic Imaging Diagonstic Imaging: Xray Plain Films/CT/US/NM/MRI: chest Comments Single view chest x-ray viewed by me. Report not yet available. Compared with prior. No acute changes appreciated. Critical Care Note Critical Care Start Time: 22:17 Stop Time: 00:50 Departure Communication (Admissions) Time/Spoke to Admitting Phy: 00:[address] Wallace Time/Spoke to Consulting Phy: 22:46 Communication/Consulting Dr. Reinoso Impression Impression: Primary Impression: Atrial fibrillation with RVR Additional Impressions: Hypotension Qualified Codes: I95.9 - Hypotension, unspecified Chest pain Qualified Codes: R07.9 - Chest pain, unspecified Disposition: 09 ADMITTED INPATIENT Condition: Improved Admissions Decision to Admit Reason: Admit from ER (General) Decision to Admit/Date: Dec 31, 2016 Time/Decision to Admit Time: 22:20 Departure-Patient Inst. Referrals: LYNDA BLANTON MD (PCP/Family) Primary Care Physician MIKE JANE MD Dec 30, 2016 23:34
[2016-12-30] MEDS ORDERED: DIGOXIN 0.25 MG/ML (LANOXIN) 2 ML AMP IV ONE (23:45)
[2016-12-30 23:55] VITALS: BP 105/89
[2016-12-31] VITALS (30 sets, daily range): BP systolic 89–170; BP diastolic 60–100
[2016-12-31] MEDS ORDERED: AMIODARONE INJECTION 450 MG in D5W IV SOLUTION (EXCEL) 250 ML IV ONE ×2
[2016-12-31] MEDS ORDERED: AMIODARONE INJECTION 450 MG in D5W IV SOLUTION (EXCEL) 250 ML IV SCH ×2
[2016-12-31] MEDS ORDERED: ENOXAPARIN 60 MG/0.6 ML (LOVENOX) SYR SC ONE
--- NOTE | 2016-12-31 00:13 | Consultation-Cardiology ---
HPI-Cardiology Cardiology Consultation: Date of Consultation 12/31/16 Time Seen by Provider: 00:00 Date of Admission 12/31/16 (initially seen by me at 11:15 pm on 12/30/16) Attending Physician Admitting Physician Muriel Robledo MD Consulting Physician MYRIAM WOODSON MD, MA, FACP, FACC, FSCAI, CCDS HPI: Chief Complaint: Palpitations, near-syncope, diaphoresis 76 yo gentleman who has multiple comorbidities that are outlined below. He developed palp and weakness and near-syncope in the late hours of 12/30/16 (2-3 hours prior to this note). His who is a physician noted that the pulse that was regular yesterday was irregular today. In addition, his pulse was thready and he appeared somewhat diaphoretic. He reports a vague feeling of some chest discomfort but not any specific chest pain. He has some shortness of breath. He has recently been released from [facility] where he had been admitted with aspiration pneumonia that was then complicated by acute renal failure (apparently due to gentamicin toxicity) that then required temporary dialysis Review of Systems-Cardiology Review of Systems Constitutional: malaise, tiredness, No weight gain Eyes: No vision change Ears/Nose/Throat: No ear discharge, No nasal drainage, No recent hearing loss Respiratory: As described under HPI Cardiovascular: As described under HPI Gastrointestinal: No constipation, No diarrhea, No nausea, No vomiting Genitourinary: No dysuria, No hematuria Musculoskeletal: other (gen body discomfort) Skin: No rash, No ulcerations Psychiatric/Neurological: syncope, No seizure, No focal weakness Hematologic: No bleeding abnormalities GWV-Creomq-Ulkqkx Hx Patient Social History Alcohol Use: Denies Use Recreational Drug Use: No Smoking Status: Never a Smoker Former smoker/When Quit: August 08, 1984 2nd Hand Smoke Exposure: No Recent Foreign Travel: No Recent Infectious Disease Expo: No Hospitalization with Isolation: Airborne Immunizations Up To Date Date of Pneumonia Vaccine: August 08, 2009 Past Medical History PMH As described under Assessment. Family Medical History Family Medical History: No reported fam h/o of early CAD or SCD Allergies and Home Medications Allergies Coded Allergies: No Known Drug Allergies (Unverified , 06/22/14) Home Medications Levothyroxine Sodium 75 Mcg Tablet, 1 EACH PO DAILY, (Reported) Pantoprazole Sodium 20 Mg Tablet.dr, 40 MG PO BID, #90 Prescribed by: GARRETT JOHNSON on 06/22/14 1234 Pantoprazole Sodium 40 Mg Tablet., #30 (Reported) Physical Exam-Cardiology Physical Exam Vital Signs/I&O Vital Sign - Last 12Hours 12/30/16 12/30/16 12/30/16 22:15 22:35 23:47 Temp 95.6 95.6 Pulse 134 123 Resp 27 25 B/P (MAP) 118/93 59/33 Pulse Ox 96 99 99 O2 Delivery Room Air Nasal Cannula Nasal Cannula O2 Flow Rate 2.00 2.00 Capillary Refill : Less Than 3 Seconds Constitutional: other (thin appearing; appears under-nourished) HEENT: PERRL, EOMI, hearing is well preserved, No xanthelasmas are seen Neck: carotid pulses are 2 + bilaterally, with good upstrokes Respiratory: No accessory muscle use, other (good bilat air entry) Cardiovascular: irregularly irregular, tachycardia, S1 and S2, systolic murmur (faint ISIDRO at cardiac base) Gastrointestinal: No tender, soft, No guarding, No rebound, audible bowel sounds Extremities: No clubbing, No cyanosis, No significant edema Neurologic/Psychiatric: grossly intact (generally weak, but does not appear to have focal weakness) Skin: No rash, No ulcerations Data Review Labs Laboratory Tests 12/30/16 22:35: White Blood Count 9.1, Red Blood Count 3.44L, Hemoglobin 9.7L, Hematocrit 31L, Mean Corpuscular Volume 89, Mean Corpuscular Hemoglobin 28, Mean Corpuscular Hemoglobin Concent 32, Red Cell Distribution Width 15.4H, Platelet Count 121L, Mean Platelet Volume 12.7H, Neutrophils (%) (Auto) 80H, Lymphocytes (%) (Auto) 7L, Monocytes (%) (Auto) 11, Eosinophils (%) (Auto) 1, Basophils (%) (Auto) 0, Neutrophils # (Auto) 7.3, Lymphocytes # (Auto) 0.7L, Monocytes # (Auto) 1.0, Eosinophils # (Auto) 0.1, Basophils # (Auto) 0.0, Neutrophils % (Manual) 86, Lymphocytes % (Manual) 10, Monocytes % (Manual) 3, Eosinophils % (Manual) 0, Basophils % (Manual) 1, Band Neutrophils 0, Blood Morphology Comment NORMAL, Prothrombin Time 14.4, INR Comment 1.1, Activated Partial Thromboplast Time 34, Sodium Level 137, Potassium Level 3.4L, Chloride Level 106, Carbon Dioxide Level 17L, Anion Gap 14, Blood Urea Nitrogen 27H, Creatinine 1.16, Estimat Glomerular Filtration Rate > 60, BUN/Creatinine Ratio 23, Glucose Level 86, Calcium Level 9.2, Magnesium Level 1.4L, Total Bilirubin 3.3H, Aspartate Amino Transf (AST/SGOT) 120H, Alanine Aminotransferase (ALT/SGPT) 232H, Alkaline Phosphatase 522H, Myoglobin 60.9, Troponin I < 0.30, C-Reactive Protein High Sensitivity 2.16H, Total Protein 6.1L, Albumin 3.5, Free Thyroxine 1.14, TSH [place] Testing 3.05 12/30/16 22:38: Lactic Acid Level 0.87 Laboratory Tests 12/30/16 22:35 A/P-Cardiology Assessment/Admission Diagnosis New onset of atrial fib (2-3 hours prior to this presentation, going by history) Hypotension, probably due to septic shock due to septicemia Echo on Nov 24, 2016 at [facility] is reported to have shown LVEF 60% without any severe valvular lesions; some pulm htn was reported Anemia and mild thrombocytopenia, apparently chronic Hosp with aspiration pneumonia and acute renal failure requiring temporary dialysis at [place], [place] in Dec 2016 H/o of non-Hodgkin's lymphoma 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 Chronically on TPN Discussion and Recomendations * Complex mangement due to multiple comorbidities * I discussed his case in detail with Dr De Anda of the ER Svce and Dr Perez of the EICU Svce * I discussed his issues with him and his (Dr Robledo) * Given low bp to which his A Fib is probably contributing, we recommend efforts at NSR gnosticism because (going by history that is reliable) the A Fib is of onset within 2-3 hours prior to presentation. Not suitable for short- acting anesthesia for elec CV. Will proceed with amiodarone * Enoxaparin for stroke prophylaxis * Dig for vent rate control * iv fluids and antibiotic management is with the ICU and Med Svces * May use pressors cautiously for bp support if bp not responsive to fluids * Repeat echo to look for any interim change in cardiac function (compared to an echo of Nov 2016 done at [facility]) * He is very ill and prognosis is guarded * I advised transfer to a tertiary care facility, but they wish to remain and be treated at at this hospital MYRIAM WOODSON MD FACP FAC CCDS Dec 31, 2016 00:13
[2016-12-31] MEDS ORDERED: CEFEPIME INJECTION 2,000 MG in NS (IVPB) 50 ML IV ONE (00:15)
[2016-12-31 00:31] LABS: BILIRUBIN,URINE NEGATIVE (NEGATIVE); KETONES,URINE NEGATIVE (NEGATIVE); LEUKOCYTE ESTERASE ,URINE NEGATIVE (NEGATIVE); NITRITE,URINE NEGATIVE (NEGATIVE); PH,URINE 7 (5-9); PROTEIN,URINE NEGATIVE (NEGATIVE); UROBILINOGEN,URINE NORMAL (NORMAL)
[2016-12-31 00:38] LABS: HYALINE CASTS, URINE 0-2 /LPF; SQUAMOUS EPITHELIAL CELL,UR RARE /HPF; WBC,URINE RARE /HPF
[2016-12-31] MEDS ORDERED: PIPERACILLIN/TAZO 4.5 GM VIAL (ZOSYN) IV ONE (01:19)
[2016-12-31] MEDS ORDERED: NS (IVPB) 100 ML ONE (01:19)
[2016-12-31] MEDS ORDERED: NS IV 1000 ML 1,000 ML ONE (01:25)
[2016-12-31] MEDS ORDERED: DOPamine DRIP 400 MG/250 ML D5W (PRE-MIX) IV PRN (01:45)
[2016-12-31] MEDS ORDERED: CATHETER FLUSH 10 ML SYR IV PRN (02:00)
[2016-12-31] MEDS: NS IV 1000 ML 1,000 ML IV SCH ×4 (02:07→14:05)
[2016-12-31] MEDS: PANTOPRAZOLE 40 MG/10 ML (PROTONIX) VIAL IV SCH ×2 (02:18→09:26)
[2016-12-31 04:53] LABS: BASOPHILS % (AUTO) 0 % (0-10); EOSINOPHILS % (AUTO) 0 % (0-10); LYMPHOCYTES # (AUTO) 0.5 X 10^3 (1.0-4.0); LYMPHOCYTES % (AUTO) 4 % (12-44); MEAN CORPUSCULAR HEMOGLOBIN 29 PG (25-34); MEAN CORPUSCULAR HGB CONC 32 G/DL (32-36); MEAN CORPUSCULAR VOLUME 90 FL (80-99); MEAN PLATELET VOLUME 12.7 FL (7.4-10.4); MONOCYTES # (AUTO) 1.1 X 10^3 (0.0-1.0); MONOCYTES % (AUTO) 7 % (0-12); NEUTROPHILS # (AUTO) 12.8 X 10^3 (1.8-7.8); NEUTROPHILS % (AUTO) 89 % (42-75); PLATELET COUNT 137 10^3/uL (130-400); RED BLOOD COUNT 3.38 10^6/uL (4.35-5.85); RED CELL DISTRIBUTION WIDTH 15.4 % (10.0-14.5); WHITE BLOOD COUNT 14.4 10^3/uL (4.3-11.0)
[2016-12-31 05:02] LABS: INR 1.1 (0.8-1.4); PROTHROMBIN TIME PATIENT 14.1 SEC (12.2-14.7)
[2016-12-31 05:13] LABS: ANISOCYTOSIS SLIGHT; BAND NEUTROPHILS 1 %; BASOPHILS % (MANUAL) 0 %; CHOLESTEROL 119 MG/DL (< 200); DIRECT LDL 66 MG/DL (1-129); EOSINOPHILS % (MANUAL) 0 %; HYPOCHROMASIA SLIGHT; LYMPHOCYTES % (MANUAL) 2 %; MICROCYTOSIS SLIGHT; NEUTROPHILS % (MANUAL) 89 %; TRIGLYCERIDES 56 MG/DL (<150); VLDL CHOLESTEROL 11 MG/DL (5-40)
[2016-12-31 05:17] LABS: ALANINE AMINOTRANSFERASE 226 U/L (0-55); ALBUMIN 3.4 GM/DL (3.2-4.5); ANION GAP 11 MMOL/L (5-14); ASPARTATE AMINO TRANSFERASE 115 U/L (5-34); BILIRUBIN,TOTAL 3.8 MG/DL (0.1-1.0); BLOOD UREA NITROGEN 24 MG/DL (7-18); BUN/CREATININE RATIO 23; CALCIUM 8.8 MG/DL (8.5-10.1); CARBON DIOXIDE 19 MMOL/L (21-32); CHLORIDE 108 MMOL/L (98-107); CREATININE SERUM 1.06 MG/DL (0.60-1.30); GFR ESTIMATED > 60; GLUCOSE 88 MG/DL (70-105); MAGNESIUM 1.8 MG/DL (1.8-2.4); POTASSIUM 3.9 MMOL/L (3.6-5.0); SODIUM 138 MMOL/L (135-145); TOTAL PROTEIN 5.9 GM/DL (6.4-8.2)
[2016-12-31 05:38] LABS: TROPONIN I 0.67 NG/ML (<0.30)
[2016-12-31] MEDS: PIPERACILLIN/TAZOBACTAM 4.5 GM/NS 100 ML IVPB IV SCH ×6 (05:49→20:54)
[2016-12-31] MEDS: CLINDAMYCIN 900 MG/NS 50 ML IVPB IV SCH ×6 (05:52→22:11)
--- NOTE | 2016-12-31 06:26 | Diagnostic Imaging Report ---
INDICATION: Decreased level of consciousness. Hypotension. COMPARISON: 11/21/2016 FINDINGS: Single frontal radiographic view of the chest was obtained and demonstrates persistent asymmetric elevation of left hemidiaphragm. Interstitium is slightly prominent on today's exam. There is no focal consolidation, large effusion, nor pneumothorax. Right upper extremity PICC line tip terminates in the high SVC. Cardiac silhouette and pulmonary vasculature are unremarkable. Bony structures show no gross acute abnormalities. IMPRESSION: 1. Slight prominence of the pulmonary interstitium, greatest in the lung bases. Findings could be on the basis of underlying interstitial edema or infiltrate. Dictated by: Dictated on workstation # [id number]
--- NOTE | 2016-12-31 06:33 | Pulmonary Consultation ---
History of Present Illness History of Present Illness Date of Consultation 12/31/16 06:28 Time Seen by Provider: 06:28 Date of Admission History of Present Illness 76 yo presented after syncope episode at home witnessed. Did not hit his head. Found to by hypotensive and Afib RVR. Chest pressure prior to admission which has resolved. Pt was on a Dopamine gtt in the ED secondary to hypotension. Pt received 4liters of IVF and hypotension resolved. Afib converted to sinus after admission to ICU. Pt was recently at [facility] in [place] secondary to pneumonia and acute renal failure. Pt did require temporary dialysis while at [facility]. Pt has been on TPN for 2 years. I am consulted for ICU management. Allergies and Home Medications Allergies Coded Allergies: No Known Drug Allergies (Unverified , 06/22/14) Home Medications Calcium Carbonate 200 Mg Tab.chew, 200 MG PO TID PRN for INDIGESTION, (Reported) Levothyroxine Sodium 75 Mcg Tablet, 75 MCG PO DAILY, (Reported) Pantoprazole Sodium 40 Mg Tablet.dr, 40 MG PO DAILY, (Reported) Past Kcgxsdm-Vksyea-Eukyuz Hx Patient Social History Alcohol Use: Denies Use Recreational Drug Use: No Smoking Status: Never a Smoker 2nd Hand Smoke Exposure: No Recent Foreign Travel: No Contact w/Someone Who Travel: No Recent Infectious Disease Expo: No Recent Hopitalizations: No Physical Abuse: No Sexual Abuse: No Immunizations Up To Date Date of Pneumonia Vaccine: August 08, 2009 Seasonal Allergies Seasonal Allergies: No Surgeries History of Surgeries: Yes (PICC LINE, TRACH) Surgeries: Appendectomy Respiratory History of Respiratory Disorde: Yes (ASPIRATION PNEUMONIA) Respiratory Disorders: Pneumonia Cardiovascular History of Cardiac Disorders: Yes Neurological History of Neurological Disord: No Genitourinary History of Genitourinary Disor: Yes Genitourinary Disorders: Renal Failure Gastrointestinal History of Gastrointestinal Di: Yes (severe dysphagia and acid reflux. Does not tolerate oral or tube feeds) Gastrointestinal Disorders: Gastroesophageal Reflux Musculoskeletal History of Musculoskeletal Dis: No Endocrine History of Endocrine Disorders: No Cancer History of Cancer: Yes Cancer: Lymphoma Psychosocial History of Psychiatric Problem: Yes Behavioral Health Disorders: Anxiety Suicide Risk Score: 0 Integumentary History of Skin or Integumenta: No Review of Systems Time Seen by Provider: 07:17 Exam Exam Vital Signs Date Time Temp Pulse Resp B/P (MAP) Pulse Ox O2 Delivery O2 Flow Rate FiO2 10/19/17 06:00 89 19 157/100 99 Nasal Cannula 2.00 12/31/16 05:00 70 23 122/81 96 Nasal Cannula 2.00 12/31/16 04:00 96 Nasal Cannula 2.00 12/31/16 04:00 97.2 12/31/16 04:00 81 17 131/85 90 Nasal Cannula 2.00 12/31/16 03:30 96 Nasal Cannula 2.00 12/31/16 03:00 87 20 128/88 99 Nasal Cannula 2.00 12/31/16 02:45 70 15 103/73 99 Nasal Cannula 2.00 12/31/16 02:30 106 14 170/99 99 Nasal Cannula 2.00 12/31/16 02:15 70 16 97/65 100 Nasal Cannula 2.00 12/31/16 02:00 77 19 89/64 99 Nasal Cannula 2.00 12/31/16 01:45 77 20 94/70 97 Nasal Cannula 2.00 12/31/16 01:18 128 12/31/16 01:10 96.6 90 21 124/88 95 Nasal Cannula 2.00 12/31/16 01:04 95.6 128 22 99 Nasal Cannula 2.00 12/30/16 23:47 95.6 123 25 59/33 99 Nasal Cannula 2.00 12/30/16 22:35 99 Nasal Cannula 2.00 12/30/16 22:15 95.6 134 27 118/93 96 Room Air General Appearance: WD/WN, Thin HEENT: PERRL/EOMI, Normal ENT Inspection Neck: Normal Inspection Respiratory: Normal Breath Sounds, No Respiratory Distress Cardiovascular: No Edema, Irregularly Irregular, Tachycardia Capillary Refill: Less Than 3 Seconds Extremity: Normal Inspection, No Pedal Edema Neurologic/Psychiatric: Alert, Oriented x3, skid adzer II-XII Norm as Tested Skin: Warm/Dry, Diaphoresis, Pallor Results Lab Laboratory Tests 12/30/16 22:35 12/31/16 04:35 Assessment/Plan Assessment/Plan Pneumonia with hx of pseudomonas - previous cultures have been reviewed -Continue Zosyn -Await ham cultures -If pt starts to spike fever or if WBC increases will add zyvox (pt recently had ARF and required HD) Hypotension secondary to dehydration vs AFib RVR - resolved with IVF -Monitor and continue IVF -Pt is on 5 liter of IVF now Elevated LFT -Check hepatitis panel -Check ammonia level, and RUQ US Metabolic acidosis -Monitor Anemia - monitor Afib RVR - now sinus -Cardiology is following Hx of fungal esophagitis, Radiation esophagitis -Will consult Dr. Tirado (he has treated pt in past) for EGD r/o fungal esophagitis -Pt has been on TPN for 2 yrs Recent ARF requiring temporary HD at [facility] -monitor Hx of COPD - pt does have oxygen at home that he uses PRN -Start SVN TID and PRN 255 Clinical Quality Measures DVT/VTE Risk/Contraindication: Risk Factor Score Per Nursin RFS Level Per Nursing on Admit: 3=High ROSA HEBERT DO Dec 31, 2016 06:33
[2016-12-31] MEDS ORDERED: PHARMACY TO DOSE IV SCH (06:45)
[2016-12-31] MEDS: POTASSIUM CL 10MEQ/50ML IVPB 50 ML IV SCH (06:48)
[2016-12-31] MEDS: CATHETER FLUSH 10 ML SYR IV SCH ×3 (06:48→22:11)
[2016-12-31] MEDS: MAGNESIUM 1 GM/100 ML IVPB 100 ML IV SCH (06:49)
[2016-12-31] MEDS: KCL 20 MEQ TAB (K-DUR) PO SCH (06:49)
[2016-12-31] MEDS ORDERED: INFLUENZA TRIvalent 2017-2018 0.5 ML/45 MCG SYR IM ONE (07:00)
[2016-12-31] MEDS ORDERED: RT-ALBUTEROL/IPRATROPIUM 3 ML (DUONEB) VIAL INH PRN (07:30)
[2016-12-31 07:47] LABS: ALBUMIN 3.1 GM/DL (3.2-4.5); BILIRUBIN,DIRECT 2.7 MG/DL (0.0-0.3); BILIRUBIN,TOTAL 3.7 MG/DL (0.1-1.0); TOTAL PROTEIN 5.3 GM/DL (6.4-8.2)
[2016-12-31] MEDS ORDERED: CALC500T7 PO (08:43)
[2016-12-31] MEDS ORDERED: LEVO75TA6 PO (08:43)
--- NOTE | 2016-12-31 09:12 | Diagnostic Imaging Report ---
INDICATION: Followup. Sepsis management. COMPARISON: 12/30/2016. FINDINGS: A single frontal radiographic view of the chest was obtained and demonstrates persistent prominence of the interstitium within the bilateral lower lung vazquez, right greater than left. Overall, aeration is largely stable. There is no large effusion or pneumothorax. The cardiac silhouette and pulmonary vasculature within normal limits. The right upper extremity PICC line tip terminates in the SVC. The bony structures show no gross acute abnormalities. IMPRESSION: Stable aeration showing findings concerning for interstitial infiltrate. Dictated by: Dictated on workstation # [id number]
[2016-12-31] MEDS: ENOXAPARIN 60 MG/0.6 ML (LOVENOX) SYR SC SCH ×2 (09:29→20:54)
[2016-12-31] MEDS: RT-ALBUTEROL/IPRATROPIUM 3 ML (DUONEB) VIAL INH SCH ×3 (09:49→20:36)
--- NOTE | 2016-12-31 09:54 | Diagnostic Imaging Report ---
PROCEDURE: US abdomen complete. TECHNIQUE: Multiple Real-time grayscale images were obtained over the abdomen in various projections. INDICATION: Elevated LFTs. FINDINGS: The visualized portions of the pancreas appear unremarkable. The liver shows slight heterogeneity in the parenchyma with hyperechogenicity, particularly around the portal triads seen. This is probably related to foci of fatty infiltration in these areas which demonstrate no mass effect on the adjacent parenchyma. The patient's CT from 2014 showed a heterogenous degree of fatty infiltration. There is hepatopetal flow in the portal vein. The gallbladder demonstrates debris and sludge mildly distending the gallbladder with no stones seen. No pericholecystic fluid or wall thickening. The sonographic Benson sign is reportedly negative. The spleen is 10 cm in length, normal. The right kidney is 9.7 and the left kidney is 9.2 cm in length. There is a small simple cyst measuring 1.3 cm in the right kidney without solid mass identified. No hydronephrosis. No ascites. The abdominal aorta demonstrates mild atherosclerotic plaque, especially distally, without aneurysm. The visualized portions of the IVC appear unremarkable. IMPRESSION: Gallbladder sludge and mild distention without evidence of stones or cholecystitis. Dictated by: Dictated on workstation # [id number]
--- NOTE | 2016-12-31 10:44 | Physical Therapy Progress Note ---
Therapy Progress Note Orders received for speech therapy for dysphagia. Speech therapist not available this date. Notified nursing to complete a bedside swallow assessment this date and plan for pt to be seen by STRAINER TENDER 01/01/17. DAVEY VALENTINE PT Dec 31, 2016 10:44
[2016-12-31] MEDS ORDERED: CALCIUM CARBONATE 500 MG (TUMS) TAB.CHEW PO PRN (10:45)
--- NOTE | 2016-12-31 11:08 | History & Physical-Hospitalist ---
HPI History of Present Illness: HPI/Chief Complaint CC: AF with RVR HPI: This is a 76 yoWM pt of oncology and Dr. Tirado's with hx of non-Hodgkin's lymphoma 1996 in remission but on TPN for 2 yrs for severe dysphasia from previous radiation treatment. Multiple episodes of aspiration pneumonia. Pt has recent hx of [facility] admission for renal failure of creat 6.0 needing temporary dialysis thought to be caused by Gentamicin. Presented to ER due to hypotension and syncope with chest pain found to have AF with RVR. Dr. 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 Pedersen's . Pt confirms living by Dr. Johnston When asked how he was feeling pt stated he can feel his fingers. Pt's heart looks to be doing better. Pt was informed that he will stay in ICU for a while longer to keep eye on his heart rhythm Labs discussed. BP and O2 are good Physical exam stable. Pt denies experiencing pain. Pt confirms seeing Dr. Begum and Dr. Reinoso Abx discussed Scribed by Amy Rivera under the direct supervision of Dr. Myers. Source: patient, RN/MD Exam Limitations: no limitations Date Seen 12/31/16 Time Seen by Provider: 11:00 Attending Physician Deja Myers DO PCP Muriel Robledo MD Referring Physician Date of Admission Dec 31, 2016 at 00:38 Home Medications & Allergies Home Medications Reviewed patient Home Medication Reconciliation Form Allergies Allergies Coded Allergies No Known Drug Allergies (Unverified06/22/14) Past Cppeusa-Enppxp-Rgaqth Hx Patient Social History Marrital Status: Employed/Student: retired Alcohol Use: Denies Use Recreational Drug Use: No Smoking Status: Never a Smoker 2nd Hand Smoke Exposure: No Physical Abuse Screen: No Sexual Abuse: No Recent Foreign Travel: No Contact w/other who traveled: No Recent Hopitalizations: No Recent Infectious Disease Expo: No Immunizations Up To Date Date of Pneumonia Vaccine: August 08, 2009 Seasonal Allergies Seasonal Allergies: No Surgeries Yes (PICC LINE, TRACH) Appendectomy Respiratory Yes (ASPIRATION PNEUMONIA) Pneumonia Cardiovascular Yes Atrial Fibrillation (this episode) Neurological No Genitourinary Yes Renal Failure Gastrointestinal Yes (severe dysphagia and acid reflux. Does not tolerate oral or tube feeds) Gastroesophageal Reflux Musculoskeletal No Endocrine History of Endocrine Disorders: Yes Endocrine Disorders: Hypothyroidsim HEENT History of HEENT Disorders: No Loss of Vision: Denies Hearing Impairment: Hard of Hearing Cancer Yes Lymphoma Psychosocial History of Psychiatric Problem: Yes Behavioral Health Disorders: Anxiety Integumentary History of Skin or Integumenta: No Review of Systems Constitutional: see HPI, dizziness, weakness EENTM: no symptoms reported Respiratory: short of breath Cardiovascular: chest pain, palpitations Gastrointestinal: no symptoms reported Genitourinary: no symptoms reported Musculoskeletal: no symptoms reported Skin: no symptoms reported Psychiatric/Neurological: Anxiety, Depressed All Other Systems Reviewed Negative Unless Noted: Yes Physical Exam Physical Exam Vital Signs Vital Sign - Last 12Hours 12/30/16 12/30/16 22:15 22:30 Temp 95.6 Pulse 134 Resp 27 B/P (MAP) 118/93 Pulse Ox 96 O2 Delivery Room Air O2 Flow Rate 2.00 Capillary Refill : Less Than 3 Seconds General Appearance: No Apparent Distress, WD/WN, Chronically ill, Cachetic, Other (difficulty speaking) Eyes: Bilateral Eye Normal Inspection, Bilateral Eye PERRL HEENT: PERRL/EOMI, Normal ENT Inspection, Pharynx Normal Neck: Full Range of Motion, Normal Inspection, Non Tender, Supple, Carotid Bruit Respiratory: Chest Non Tender, Lungs Clear, Normal Breath Sounds, No Accessory Muscle Use, No Respiratory Distress Cardiovascular: Regular Rate, Rhythm, No Edema, No Gallop, No JVD, No Murmur, Normal Peripheral Pulses Gastrointestinal: Normal Bowel Sounds, No Organomegaly, No Pulsatile Mass, Non Tender, Soft Back: Normal Inspection, No CVA Tenderness, No Vertebral Tenderness Extremity: Normal Capillary Refill, Normal Inspection, Normal Range of Motion, Non Tender, No Calf Tenderness, No Pedal Edema Neurologic/Psychiatric: Alert, Oriented x3, No Motor/Sensory Deficits, Normal Mood/Affect Skin: Normal Color, Warm/Dry Lymphatic: No Adenopathy Results Results/Procedures Lab Laboratory Tests 12/30/16 22:35 12/31/16 04:35 Assessment/Plan Admission Diagnosis Assessment: Atrial fibrillation with rapid ventricular response requiring cardiology consultation Severe volume depletion resolved after aggressive IV fluids in ER History of chronic severe dysphagia precluding nutrition by mouth requiring TPN for the past 2 years 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
[2016-12-31] MEDS: ASPIRIN 81 MG CHEW (CHILDREN'S ASA) PO SCH (12:30)
[2016-12-31 23:35] LABS: CALCIUM IONIZED 1.21 mmol/L (1.16-1.32); CORRECTED IONIZED CALCIUM 1.16 mmol/L (1.16-1.32)
[2017-01-01] VITALS (12 sets, daily range): BP systolic 94–139; BP diastolic 57–86
[2017-01-01 04:41] LABS: BASOPHILS % (AUTO) 0 % (0-10); EOSINOPHILS # (AUTO) 0.1 10^3/uL (0.0-0.3); EOSINOPHILS % (AUTO) 1 % (0-10); LYMPHOCYTES # (AUTO) 0.4 X 10^3 (1.0-4.0); LYMPHOCYTES % (AUTO) 4 % (12-44); MEAN CORPUSCULAR HEMOGLOBIN 29 PG (25-34); MEAN CORPUSCULAR HGB CONC 32 G/DL (32-36); MEAN CORPUSCULAR VOLUME 90 FL (80-99); MEAN PLATELET VOLUME 12.7 FL (7.4-10.4); MONOCYTES # (AUTO) 1.4 X 10^3 (0.0-1.0); MONOCYTES % (AUTO) 14 % (0-12); NEUTROPHILS % (AUTO) 81 % (42-75); PLATELET COUNT 124 10^3/uL (130-400); RED BLOOD COUNT 3.09 10^6/uL (4.35-5.85); RED CELL DISTRIBUTION WIDTH 15.7 % (10.0-14.5); WHITE BLOOD COUNT 9.9 10^3/uL (4.3-11.0)
[2017-01-01 04:53] LABS: INR 1.2 (0.8-1.4); PROTHROMBIN TIME PATIENT 15.4 SEC (12.2-14.7)
[2017-01-01 04:59] LABS: ALANINE AMINOTRANSFERASE 179 U/L (0-55); ALBUMIN 3.2 GM/DL (3.2-4.5); ANION GAP 11 MMOL/L (5-14); ASPARTATE AMINO TRANSFERASE 76 U/L (5-34); BILIRUBIN,TOTAL 3.8 MG/DL (0.1-1.0); BLOOD UREA NITROGEN 19 MG/DL (7-18); BUN/CREATININE RATIO 17; CALCIUM 8.4 MG/DL (8.5-10.1); CARBON DIOXIDE 20 MMOL/L (21-32); CHLORIDE 106 MMOL/L (98-107); CREATININE SERUM 1.15 MG/DL (0.60-1.30); GFR ESTIMATED > 60; GLUCOSE 72 MG/DL (70-105); MAGNESIUM 1.4 MG/DL (1.8-2.4); POTASSIUM 3.3 MMOL/L (3.6-5.0); SODIUM 137 MMOL/L (135-145); TOTAL PROTEIN 5.5 GM/DL (6.4-8.2); TRIGLYCERIDES 105 MG/DL (<150)
[2017-01-01] MEDS: PIPERACILLIN/TAZOBACTAM 4.5 GM/NS 100 ML IVPB IV SCH ×6 (05:00→20:39)
[2017-01-01 05:02] LABS: EOSINOPHILS % (MANUAL) 1 %; LYMPHOCYTES % (MANUAL) 5 %; NEUTROPHILS % (MANUAL) 84 %
[2017-01-01 05:03] LABS: HYPOCHROMASIA SLIGHT
[2017-01-01] MEDS: MAGNESIUM 1 GM/100 ML IVPB 100 ML IV SCH ×3 (05:22→07:10)
[2017-01-01] MEDS: POTASSIUM CL 10MEQ/50ML IVPB 50 ML IV SCH ×5 (05:22→09:52)
[2017-01-01] MEDS: KCL 20 MEQ TAB (K-DUR) PO SCH (05:22)
[2017-01-01] MEDS: CATHETER FLUSH 10 ML SYR IV SCH ×3 (05:44→21:55)
[2017-01-01] MEDS: CLINDAMYCIN 900 MG/NS 50 ML IVPB IV SCH ×6 (05:44→21:55)
[2017-01-01] MEDS: LEVOTHYROXINE 75 MCG (LEVOTHROID) TABLET PO SCH (06:20)
[2017-01-01] MEDS: RT-ALBUTEROL/IPRATROPIUM 3 ML (DUONEB) VIAL INH SCH ×3 (06:49→19:12)
--- NOTE | 2017-01-01 07:09 | Pulmonary Progress Note ---
Subjective Time Seen by Provider: 07:09 Subjective/Events-last exam pt feels improved. No complications noted. Exam Exam Vital Signs Date Time Temp Pulse Resp B/P (MAP) Pulse Ox O2 Delivery O2 Flow Rate FiO2 01/01/17 06:49 98 Nasal Cannula 1.00 01/01/17 06:00 80 19 133/86 97 Nasal Cannula 2.00 01/01/17 05:00 86 18 139/79 98 Nasal Cannula 2.00 01/01/17 04:00 77 18 135/82 97 Nasal Cannula 2.00 01/01/17 04:00 Nasal Cannula 2.00 01/01/17 04:00 98.4 Nasal Cannula 2.00 01/01/17 03:00 77 19 136/81 96 Nasal Cannula 2.00 01/01/17 02:00 77 12 132/82 96 Nasal Cannula 2.00 01/01/17 01:00 80 01/01/17 01:00 80 18 115/71 96 Nasal Cannula 2.00 01/01/17 00:00 Nasal Cannula 2.00 01/01/17 00:00 73 20 117/67 96 Nasal Cannula 2.00 01/01/17 00:00 98.9 Nasal Cannula 2.00 12/31/16 23:00 78 24 97/62 98 Nasal Cannula 2.00 12/31/16 22:00 82 24 108/71 96 Nasal Cannula 2.00 12/31/16 21:00 80 27 110/73 97 Nasal Cannula 2.00 12/31/16 20:36 98 Nasal Cannula 1.00 12/31/16 20:00 82 31 127/80 95 Nasal Cannula 2.00 12/31/16 20:00 Nasal Cannula 2.00 12/31/16 19:49 98.0 Nasal Cannula 2.00 12/31/16 19:00 78 16 104/69 99 Nasal Cannula 2.00 12/31/16 19:00 77 12/31/16 18:00 79 13 116/82 93 Nasal Cannula 2.00 12/31/16 17:00 71 23 131/84 100 Nasal Cannula 2.00 12/31/16 16:50 98.7 Nasal Cannula 2.00 12/31/16 16:50 Nasal Cannula 2.00 12/31/16 16:00 71 13 96/60 98 Nasal Cannula 2.00 12/31/16 15:00 80 16 114/75 100 Nasal Cannula 2.00 12/31/16 14:01 100 Nasal Cannula 2.00 12/31/16 14:00 81 22 134/80 100 Nasal Cannula 2.00 12/31/16 13:00 73 12/31/16 13:00 71 24 113/77 99 Nasal Cannula 2.00 12/31/16 12:30 98.1 Nasal Cannula 2.00 12/31/16 12:30 Nasal Cannula 2.00 12/31/16 12:00 87 19 150/87 100 Nasal Cannula 2.00 12/31/16 11:00 82 19 139/81 100 Nasal Cannula 2.00 12/31/16 10:00 72 17 125/83 100 Nasal Cannula 2.00 12/31/16 09:51 100 Nasal Cannula 2.00 12/31/16 09:00 77 18 130/82 100 Nasal Cannula 2.00 12/31/16 08:59 Nasal Cannula 2.00 12/31/16 08:00 78 23 92/61 94 Nasal Cannula 2.00 General Appearance: No Apparent Distress, WD/WN, Chronically ill, Cachetic, Other (difficulty speaking) HEENT: PERRL/EOMI, Normal ENT Inspection, Pharynx Normal Neck: Full Range of Motion, Normal Inspection, Non Tender, Supple, Carotid Bruit Respiratory: Chest Non Tender, Lungs Clear, Normal Breath Sounds, No Accessory Muscle Use, No Respiratory Distress Cardiovascular: Regular Rate, Rhythm, No Edema, No Gallop, No JVD, No Murmur, Normal Peripheral Pulses Capillary Refill: Less Than 3 Seconds Extremity: Normal Capillary Refill, Normal Inspection, Normal Range of Motion, Non Tender, No Calf Tenderness, No Pedal Edema Neurologic/Psychiatric: Alert, Oriented x3, No Motor/Sensory Deficits, Normal Mood/Affect Skin: Normal Color, Warm/Dry Lymphatic: No Adenopathy Results Lab Laboratory Tests 12/30/16 22:35 12/31/16 04:35 01/01/17 04:30 Assessment/Plan Assessment/Plan Pneumonia with hx of pseudomonas - previous cultures have been reviewed -Continue Zosyn -Await ham cultures Hypotension secondary to dehydration vs AFib RVR - resolved with IVF -Monitor and continue IVF -Pt is on 5 liter of IVF now Elevated LFT -Check hepatitis panel -Check ammonia level, and RUQ US Metabolic acidosis -Monitor Anemia - monitor Afib RVR - now sinus -Cardiology is following Hx of fungal esophagitis, Radiation esophagitis Recent ARF requiring temporary HD at [facility] -monitor Hx of COPD - pt does have oxygen at home that he uses PRN - SVN TID and PRN pt is doing better will transfer to 4th floor. 232 Clinical Quality Measures DVT/VTE Risk/Contraindication: Risk Factor Score Per Nursin RFS Level Per Nursing on Admit: 3=High ROSA HEBERT DO Jan 01, 2017 07:09
--- NOTE | 2017-01-01 07:37 | Diagnostic Imaging Report ---
INDICATION: Sepsis management. EXAM: Portable chest at 5:07 AM FINDINGS: Heart size and pulmonary vascularity are normal. The lungs are clear. There are no effusions or pneumothoraces. Right upper extremity PICC line tip projects over the SVC. IMPRESSION: No acute abnormalities of the chest. Dictated by: Dictated on workstation # [id number]
[2017-01-01 08:03] LABS: CALCIUM PH 7.32
[2017-01-01] MEDS ORDERED: POTASSIUM CL 10MEQ/50ML IVPB 50 ML IV SCH (08:45)
[2017-01-01] MEDS ORDERED: MAGNESIUM 1 GM/100 ML IVPB 100 ML IV SCH (08:45)
[2017-01-01] MEDS: ASPIRIN 81 MG CHEW (CHILDREN'S ASA) PO SCH (09:47)
[2017-01-01] MEDS: PANTOPRAZOLE 40 MG (PROTONIX) TAB PO SCH (09:48)
[2017-01-01] MEDS: ENOXAPARIN 60 MG/0.6 ML (LOVENOX) SYR SC SCH ×2 (09:51→09:54)
--- NOTE | 2017-01-01 11:51 | ST Dysphagia Evaluation ---
Speech Evaluation-General Medical Diagnosis AF with RVR, Chest Pain, Syncope Onset Date: Dec 30, 2016 Therapy Diagnosis Therapy Diagnosis: Severe Pharyngeal Dysphagia Precautions Precautions: Aspiration Precautions/Isolations: Standard Precautions Referral Referring Physician: Dr. Deja Wallace Reason for Referral: Evaluation/Treatment Clinical Bedside Swallowing Evaluation Medical History Pertinent Medical History: Atrial Fib, GERD Hypothyroidism, Non-Hodgkin's Lymphoma (treated with radiation therapy) Speech PLF/Current-Dysphagia Prior Level of Function Per patient, he has received TPN for the past two years due to his difficulty consuming adequate nutrition via PO intake. Additionally, the patient states he has experienced several occasions of aspiration pneumonia. The patient states he consumes all consistencies at home, however, denied several bolus consistencies once the swallowing evaluation begins (more information listed below). Subjective The patient was recently admitted to [facility] with a diagnosis of atrial fibrillation with RVR. The patient greeted the clinician appropriately and was agreeable to participation in the dysphagia evaluation. The patient was positioned upright in bed prior to bolus trials. CXR 01/01/2017: No acute abnormalities of the chest. Cognitive Status Patient Orientation: Person, Place, Time, Situation Oral Motor Skills Dentition: Natural Ability to Follow Directions: Good The patient is NPO pending results of clinical bedside swallowing evaluation. Oral Expression Ability: No Impairment Other Contributing Factors: Radiation Therapy Voice Voice Phonatory-Based Quality: Breathy (The patient displays moderate dysphonia (hypofunctional) throughout conversations with the clinician.), Weak Voice Pitch: Normal Voice Loudness: Moderately Soft/Quiet Face Facial Symmetry: Symmetrical Oral-Facial Assessment Oral-Facial Dentition: Normal Labial Seal Description: Normal Smile: Normal Puff Cheeks: Normal Lingual Protrusion: Normal Lingual ROM: Normal Lingual Strength: Normal Pharynx Velopharyngeal Move.: Hyponasality, reduced range of motion secondary to previous radiation therapy. Volitional Dry Swallow: Yes Voluntary Cough: Yes (Weak, unproductive.) Dysphagia Evaluation Consistencies Presented: Thin Liquid (The patient agreed to consume cup drinks of thin liquid. The patient refused teaspoon trials, stating, "I have a system down. It has to be a large amount or I can't swallow it." Regardless of requests by the clinician, the patient continued to refuse all trials of teaspoon size thin liquids or any additional trials of puree (stating the consistency was "too thick" and would need to be added to water), solid ( stating the consistency would need to be dissolved in water), or honey-thick liquid ("oh no, that will never work.")) - No oral impairments were noted throughout the evaluation with thin liquid via cup drink. Pharyngeal Phase: Multiple Swallow Attempts, Clears Throat, Reduced Laryngeal Elevation - The patient elicited multiple swallows per single bolus (cup drink) of thin liquid. Additionally, the patient displayed an intermittent throat clear, as well as, a "wet" vocal quality. Funct. Velo/Pharyngeal Symptom: Clears Throat, Wet Voice Thin Liquid (via cup drink): The patient displayed an intermittent throat clear , as well as, a "wet" vocal quality with three cup drinks of thin liquid. The patient refused all additional trials (honey-thick liquid, puree, or solid) stating all consistencies were "too thick" and would need to be "watered down." The consistencies cannot be "watered down" as they are thickened to improve swallow safety. Dietary Recommendations: NPO Liquid Recommendations: NPO Due to the patient's limited participation with the evaluation, limited PO intake throughout the past two years, and the signs/symptoms of aspiration displayed with the consistency he would consume, a modified barium swallow is recommended to rule out aspiration with PO intake. The patient should remain NPO pending results of the swallowing evaluation. Dysphagia Evaluation Summary Suspected moderate to severe pharyngeal dysphagia characterized by reduced laryngeal elevation and decreased hyo-laryngeal excursion. Speech Short Term Goals Short Term Goals Short Term Goals 1. The patient will complete a modified barium swallow evaluation to definitively rule out aspiration with PO intake. Time Frame-STG: Three Days Speech Dental Laboratory Assistant Goals Dental Laboratory Assistant Goals 1. The patient will tolerate the least restrictive diet without signs/symptoms of aspiration or laryngeal penetration. Time Frame: Two Weeks Speech-Plan Treatment Plan Speech Therapy Treatment Plan: Continue Plan of Care The patient is scheduled to undergo a modified barium swallow on Wednesday, January 04, 2017 at 11:00am. Frequency: 3 times per week Estimated Hrs Per Day: .25 hour per day Rehab Potential: Guarded Safety Risks/Education Teaching Recipient: Patient Teaching Methods: Discussion Response to Teaching: Verbalize Understanding Education Topics Provided: Results, Recommendations, Plan of Care Time Speech Therapy Time In: 10:00 Speech Therapy Time Out: 10:20 Total Billed Time: 20 Billed Treatment Time 1, CARMEN FABIAN Jan 01, 2017 11:51
--- NOTE | 2017-01-01 12:16 | Progress Note (SOAP) ---
Subjective Date Seen by Provider: Jan 01, 2017 Time Seen by Provider: 12:00 Subjective/Events-last exam doing well. still unable to tolerate much PO. Objective Exam Vital Signs Date Time Temp Pulse Resp B/P (MAP) Pulse Ox O2 Delivery O2 Flow Rate FiO2 01/01/17 07:00 82 01/01/17 06:49 98 Nasal Cannula 1.00 01/01/17 06:00 80 19 133/86 97 Nasal Cannula 2.00 01/01/17 05:00 86 18 139/79 98 Nasal Cannula 2.00 01/01/17 04:00 77 18 135/82 97 Nasal Cannula 2.00 01/01/17 04:00 Nasal Cannula 2.00 01/01/17 04:00 98.4 Nasal Cannula 2.00 01/01/17 03:00 77 19 136/81 96 Nasal Cannula 2.00 01/01/17 02:00 77 12 132/82 96 Nasal Cannula 2.00 01/01/17 01:00 80 01/01/17 01:00 80 18 115/71 96 Nasal Cannula 2.00 01/01/17 00:00 Nasal Cannula 2.00 01/01/17 00:00 73 20 117/67 96 Nasal Cannula 2.00 01/01/17 00:00 98.9 Nasal Cannula 2.00 12/31/16 23:00 78 24 97/62 98 Nasal Cannula 2.00 12/31/16 22:00 82 24 108/71 96 Nasal Cannula 2.00 12/31/16 21:00 80 27 110/73 97 Nasal Cannula 2.00 12/31/16 20:36 98 Nasal Cannula 1.00 12/31/16 20:00 82 31 127/80 95 Nasal Cannula 2.00 12/31/16 20:00 Nasal Cannula 2.00 12/31/16 19:49 98.0 Nasal Cannula 2.00 12/31/16 19:00 78 16 104/69 99 Nasal Cannula 2.00 12/31/16 19:00 77 12/31/16 18:00 79 13 116/82 93 Nasal Cannula 2.00 12/31/16 17:00 71 23 131/84 100 Nasal Cannula 2.00 12/31/16 16:50 98.7 Nasal Cannula 2.00 12/31/16 16:50 Nasal Cannula 2.00 12/31/16 16:00 71 13 96/60 98 Nasal Cannula 2.00 12/31/16 15:00 80 16 114/75 100 Nasal Cannula 2.00 12/31/16 14:01 100 Nasal Cannula 2.00 12/31/16 14:00 81 22 134/80 100 Nasal Cannula 2.00 12/31/16 13:00 73 12/31/16 13:00 71 24 113/77 99 Nasal Cannula 2.00 12/31/16 12:30 98.1 Nasal Cannula 2.00 12/31/16 12:30 Nasal Cannula 2.00 I & O 01/02/17 07:00 Intake Total 350 ml Balance 350 ml Capillary Refill : Less Than 3 Seconds General Appearance: No Apparent Distress HEENT: PERRL/EOMI Neck: Full Range of Motion, Normal Inspection Respiratory: Chest Non Tender, Lungs Clear, Normal Breath Sounds Cardiovascular: Regular Rate, Rhythm Gastrointestinal: normal bowel sounds, non tender, soft Extremity: Normal Capillary Refill Neurologic/Psychiatric: Alert, Oriented x3 Skin: Normal Color Lymphatic: No Adenopathy Results Lab Laboratory Tests 12/31/16 17:09: Troponin I 1.05*H 01/01/17 04:30: White Blood Count 9.9, Red Blood Count 3.09L, Hemoglobin 8.8L, Hematocrit 28L, Mean Corpuscular Volume 90, Mean Corpuscular Hemoglobin 29, Mean Corpuscular Hemoglobin Concent 32, Red Cell Distribution Width 15.7H, Platelet Count 124L, Mean Platelet Volume 12.7H, Neutrophils (%) (Auto) 81H, Lymphocytes (%) (Auto) 4L, Monocytes (%) (Auto) 14H, Eosinophils (%) (Auto) 1, Basophils (%) (Auto) 0, Neutrophils # (Auto) 8.0H, Lymphocytes # (Auto) 0.4L, Monocytes # (Auto) 1.4H, Eosinophils # (Auto) 0.1, Basophils # (Auto) 0.0, Neutrophils % (Manual) 84, Lymphocytes % (Manual) 5, Monocytes % (Manual) 10, Eosinophils % (Manual) 1, Hypochromasia SLIGHT, Prothrombin Time 15.4H, INR Comment 1.2, Sodium Level 137 , Potassium Level 3.3L, Chloride Level 106, Carbon Dioxide Level 20L, Anion Gap 11, Blood Urea Nitrogen 19H, Creatinine 1.15, Estimat Glomerular Filtration Rate > 60, BUN/Creatinine Ratio 17, Glucose Level 72, Lactic Acid Level 0.68, Calcium Level 8.4L, Phosphorus Level 3.0, Magnesium Level 1.4L, Total Bilirubin 3.8H, Aspartate Amino Transf (AST/SGOT) 76H, Alanine Aminotransferase (ALT/SGPT ) 179H, Alkaline Phosphatase 401H, Total Protein 5.5L, Albumin 3.2, Prealbumin 11.8L, Triglycerides Level 105 Microbiology 12/30/16 Blood Culture - Preliminary, Resulted No growth Assessment/Plan Assessment/Plan Assess & Plan/Chief Complaint upper cervical esophageal dysmotility and dysphagia. will plan for PEG wednesday. Clinical Quality Measures DVT/VTE Risk/Contraindication: Risk Factor Score Per Nursin RFS Level Per Nursing on Admit: 3=High GARRETT JOHNSNO MD Jan 01, 2017 12:16 pm
--- NOTE | 2017-01-01 12:33 | Progress Note-Hospitalist ---
Progress Note HPI/CC on Admission CC: AF with RVR HPI: This is a 76 yoWM pt of oncology and Dr. Tirado's with hx of non-Hodgkin's lymphoma 1996 in remission but on TPN for 2 yrs for severe dysphasia from previous radiation treatment. Multiple episodes of aspiration pneumonia. Pt has recent hx of [facility] admission for renal failure of creat 6.0 needing temporary dialysis thought to be caused by Gentamicin. Presented to ER due to hypotension and syncope with chest pain found to have AF with RVR. Dr. 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 Pedersen's . Pt confirms living by Dr. Johnston When asked how he was feeling pt stated he can feel his fingers. Pt's heart looks to be doing better. Pt was informed that he will stay in ICU for a while longer to keep eye on his heart rhythm Labs discussed. BP and O2 are good Physical exam stable. Pt denies experiencing pain. Pt confirms seeing Dr. Begum and Dr. Kemar Sherman discussed Scribed by Amy Rivera under the direct supervision of Dr. Myers. 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 Labs look good. Transfer to 4th floor was discussed. Pt denies experiencing pain. Pt denies having BMs and denies eating. Pt states he will have a PEG tube placed soon? Physical exam stable. Abx were discussed and will continue. 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 Hypothyroidism GERD History of fungal esophagitis Elevated troponin consistent with non-ST elevation [place] Severe debility with cachexia Hypokalemia Plan: AM labs Confer with pulmonology and cardiology Monitor pt in ICU Therapy consulted along with speech due to aspiration risk OT Continue abx PEG? Scribed by Amy Rivera under the direct supervision of Dr. Myers. MACY MYERS DO Jan 01, 2017 12:33
[2017-01-01] MEDS: D5 LR IV SOLUTION 1,000 ML IV SCH ×2 (13:02→20:39)
--- NOTE | 2017-01-01 13:31 | Physical Therapy Evaluation ---
PT Evaluation-General Medical Diagnosis Admission Date Dec 31, 2016 at 00:38 Medical Diagnosis: AF with RVR, Chest Pain, Syncope Onset Date: Dec 30, 2016 Therapy Diagnosis Therapy Diagnosis: decreased strength Height/Weight Height (Feet): 5 Height (Inches): 10.00 Weight (Pounds): 124 Weight (Ounces): 0.0 Precautions Precautions/Isolations: Standard Precautions Referral Physician: Deja Wallace DO Reason for Referral: Evaluation/Treatment Medical History Pertinent Medical History: Atrial Fib, GERD, Hypothroidism Additional Medical History renal failure, [place], lymphoma, anxiety, surg (PICC line, trach, appendectomy) Current History went to the ER with hypotension and syncope and chest pain Reviewed History: Yes Social History Current Living Status: Spouse Entry Into Home: Stairs With Railing PT Steps Into Home: 3 Prior/Core FIM Prior Level of Function Functional Vaughn Measure 0=Not Assessed/NA 4=Minimal Assistance 1=Total Assistance 5=Supervision or Setup 2=Maximal Assistance 6=Modified Vaughn 3=Moderate Assistance 7=Complete Vaughn Bed Mobility: 7 Transfers (B,C,W/C) (FIM): 7 Gait: 7 PT Evaluation-Current Subjective Patient in bed pre tx, agrees to PT, no complaints of pain. Pt/Family Goals to be independent at home Objective Patient Orientation: Normal For Age Attachments: IV ROM/Strength ROM Lower Extremities WNL Strength Lower Extremities 4+/5 gross bilateral lower extremities Neuromuscular (Tone, Coordination, Reflexes) WNL Sensory Vision: Functional Hearing: Impaired Sensation Right Lower Extremit: Intact Sensation Left Lower Extremity: Intact Sensation Lower Extremities no complaints of numbness or tingling in LE's Transfers Functional Vaughn Measure 0=Not Assessed/NA 4=Minimal Assistance 1=Total Assistance 5=Supervision or Setup 2=Maximal Assistance 6=Modified Vaughn 3=Moderate Assistance 7=Complete Vaughn Transfers (B, C, W/C) (FIM): 7 Scootin Rollin Supine to/from Sit: 7 Sit to/from Stand: 7 totally independent with bed mobility and transfers Gait Mode of Locomotion: Walk Anticipated Mode of Locomotion: Walk Gait (FIM): 7 Distance: 400' Gait Assistive Device: None Comments/Gait Description Patient ambulated 400' without an assistive device with total independence, no LOB or unsteadiness, brisk ambulation Balance Sitting Static: Normal Sitting Dynamic: Normal Standing Static: Normal Standing Dynamic: Normal Assessment/Needs Patient is totally independent with mobility, just slight strength impairments, recommended to patient that he ambulate in the ricks several times a day by himself pushing his IV pole. Rehab Potential: Good PT Plan Treatment/Plan Treatment Plan: Discontinue PT Treatment Plan: Other Treatment Duration: Jan 01, 2017 Frequency: Estimated Hrs Per Day: Other Patient and/or Family Agrees t: Yes Safety Risks/Education Patient Education: Gait Training, Transfer Techniques, Safety Issues Teaching Recipient: Patient Teaching Methods: Demonstration, Discussion Response to Teaching: Reinforcement Needed Discharge Recommendations Plan DC at this time due to patient being totally independent with mobility. Therapy D/C Recommendations: Home w/ Family Support Time/GCodes Time In: 1310 Time Out: 1325 Total Billed Treatment Time: 15 Total Billed Treatment 1 visit ANABELA Edge' RACHAEL DIALLO PT Jan 01, 2017 13:31
--- NOTE | 2017-01-01 16:13 | Occ Therapy Progress Note ---
Therapy Progress Note 1509 to 1511 Pt seen in room, with . Pt and agreed that he does not need OT at this time. He is taking himself to the bathroom and able to manage his self care needs. per PT evaluation, pt is indep with ambulation. DC OT per pt request. ANN-MARIE LOPEZ OT Jan 01, 2017 16:13
[2017-01-01] MEDS ORDERED: POTASSIUM CHLORIDE IV SCH ×9 (17:00)
[2017-01-01] MEDS ORDERED: SODIUM PHOSPHATE IV SCH ×9 (17:00)
[2017-01-01] MEDS ORDERED: SODIUM ACETATE IV SCH ×9 (17:00)
[2017-01-01] MEDS ORDERED: [UNRECOGNIZED DRUG - OTHER] IV SCH ×9 (17:00)
--- NOTE | 2017-01-01 17:26 | Progress Note-Cardiology ---
Cardiology SOAP Progress Note Subjective: No cp or palp or syncope. Feels better. Malaise has improved Objective: I&O/Vital Signs Vital Sign - Last 12Hours 01/01/17 01/01/17 01/01/17 01/01/17 06:00 06:49 07:00 08:00 Pulse 80 82 81 Resp 19 17 B/P (MAP) 133/86 128/77 Pulse Ox 97 98 97 O2 Delivery Nasal Cannula Nasal Cannula Room Air O2 Flow Rate 2.00 1.00 01/01/17 01/01/17 01/01/17 01/01/17 08:45 09:00 11:00 12:57 Temp 98.2 98.6 Pulse 76 70 89 Resp 29 20 B/P (MAP) 111/74 117/78 Pulse Ox 95 95 O2 Delivery Room Air Room Air Room Air O2 Flow Rate 2.00 01/01/17 15:50 Temp 98.7 Pulse 79 Resp 22 B/P (MAP) 112/64 Pulse Ox 98 O2 Delivery Room Air Intake and Output 01/02/17 00:00 Output Total 500 ml Balance -500 ml Weight (Pounds): 124 Weight (Ounces): 0.0 Weight (Calculated Kilograms): 56.250473 Constitutional: other (thin appearing; appears under-nourished) Respiratory: No accessory muscle use, other (good bilat air entry) Cardiovascular: irregularly irregular, tachycardia, S1 and S2, systolic murmur (faint ISIDRO at cardiac base) Gastrointestional: No tender, soft, No guarding, No rebound, audible bowel sounds Extremities: No clubbing, No cyanosis, No significant edema Neurologic/Psychiatric: grossly intact (generally weak, but does not appear to have focal weakness) Skin: normal color, warm/dry Results/Procedures: Labs Laboratory Tests 01/01/17 04:30: White Blood Count 9.9, Red Blood Count 3.09L, Hemoglobin 8.8L, Hematocrit 28L, Mean Corpuscular Volume 90, Mean Corpuscular Hemoglobin 29, Mean Corpuscular Hemoglobin Concent 32, Red Cell Distribution Width 15.7H, Platelet Count 124L, Mean Platelet Volume 12.7H, Neutrophils (%) (Auto) 81H, Lymphocytes (%) (Auto) 4L, Monocytes (%) (Auto) 14H, Eosinophils (%) (Auto) 1, Basophils (%) (Auto) 0, Neutrophils # (Auto) 8.0H, Lymphocytes # (Auto) 0.4L, Monocytes # (Auto) 1.4H, Eosinophils # (Auto) 0.1, Basophils # (Auto) 0.0, Neutrophils % (Manual) 84, Lymphocytes % (Manual) 5, Monocytes % (Manual) 10, Eosinophils % (Manual) 1, Hypochromasia SLIGHT, Prothrombin Time 15.4H, INR Comment 1.2, Sodium Level 137 , Potassium Level 3.3L, Chloride Level 106, Carbon Dioxide Level 20L, Anion Gap 11, Blood Urea Nitrogen 19H, Creatinine 1.15, Estimat Glomerular Filtration Rate > 60, BUN/Creatinine Ratio 17, Glucose Level 72, Lactic Acid Level 0.68, Calcium Level 8.4L, Phosphorus Level 3.0, Magnesium Level 1.4L, Total Bilirubin 3.8H, Aspartate Amino Transf (AST/SGOT) 76H, Alanine Aminotransferase (ALT/SGPT ) 179H, Alkaline Phosphatase 401H, Total Protein 5.5L, Albumin 3.2, Prealbumin 11.8L, Triglycerides Level 105 Microbiology 12/30/16 Blood Culture - Preliminary, Resulted No growth Laboratory Tests 12/30/16 22:35 12/31/16 04:35 01/01/17 04:30 A/P: Assessment: Hypotension, probably due to septic shock due to septicemia PAF, currently NSR Mildly elevated troponin due to a long episode of hypotension on 12/30/16. No evidence of acute coronary syndrome/NE Echo of 12/31/16: LVEF 60-65%, no pericard eff, PASP 30-35 mmHg Anemia and mild thrombocytopenia, apparently chronic Hosp with aspiration pneumonia and acute renal failure requiring temporary dialysis at [place], [place] in Dec 2016 H/o of non-Hodgkin's lymphoma 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 Chronically on TPN Plan: * Complex mangement due to multiple comorbidities * I again discussed his issues with him and his (Dr Robledo) * There is no clinical evidence of acute cor syndrome/NE. Conservative therapy appears appropriate. He and Dr Robledo concur * Correct lytes * Monitor labs MYRIAM WOODSON MD FACP FACC CCDS Jan 01, 2017 17:26
[2017-01-01] MEDS ORDERED: CALCIUM CARBONATE 500 MG (TUMS) TAB.CHEW PO PRN ×2 (17:30→17:45)
[2017-01-02] VITALS: BP 95/61
[2017-01-02 04:00] VITALS: BP 132/82
[2017-01-02] MEDS: D5 LR IV SOLUTION 1,000 ML IV SCH (04:57)
[2017-01-02] MEDS: PIPERACILLIN/TAZOBACTAM 4.5 GM/NS 100 ML IVPB IV SCH ×6 (04:57→20:24)
[2017-01-02] MEDS: CATHETER FLUSH 10 ML SYR IV SCH ×3 (05:31→21:01)
[2017-01-02] MEDS: CLINDAMYCIN 900 MG/NS 50 ML IVPB IV SCH ×6 (05:31→22:20)
[2017-01-02] MEDS: LEVOTHYROXINE 75 MCG (LEVOTHROID) TABLET PO SCH (05:31)
[2017-01-02 05:40] LABS: BASOPHILS % (AUTO) 1 % (0-10); EOSINOPHILS # (AUTO) 0.1 10^3/uL (0.0-0.3); EOSINOPHILS % (AUTO) 2 % (0-10); LYMPHOCYTES # (AUTO) 0.5 X 10^3 (1.0-4.0); LYMPHOCYTES % (AUTO) 8 % (12-44); MEAN CORPUSCULAR HEMOGLOBIN 29 PG (25-34); MEAN CORPUSCULAR HGB CONC 32 G/DL (32-36); MEAN CORPUSCULAR VOLUME 89 FL (80-99); MEAN PLATELET VOLUME 12.2 FL (7.4-10.4); MONOCYTES # (AUTO) 1.2 X 10^3 (0.0-1.0); MONOCYTES % (AUTO) 21 % (0-12); NEUTROPHILS # (AUTO) 4.1 X 10^3 (1.8-7.8); NEUTROPHILS % (AUTO) 69 % (42-75); PLATELET COUNT 118 10^3/uL (130-400); RED BLOOD COUNT 3.02 10^6/uL (4.35-5.85); RED CELL DISTRIBUTION WIDTH 15.6 % (10.0-14.5); WHITE BLOOD COUNT 5.9 10^3/uL (4.3-11.0)
[2017-01-02 05:53] LABS: INR 1.1 (0.8-1.4); PROTHROMBIN TIME PATIENT 14.7 SEC (12.2-14.7)
[2017-01-02 06:07] LABS: ALANINE AMINOTRANSFERASE 135 U/L (0-55); ALBUMIN 3.1 GM/DL (3.2-4.5); ANION GAP 7 MMOL/L (5-14); ASPARTATE AMINO TRANSFERASE 50 U/L (5-34); BILIRUBIN,TOTAL 3.3 MG/DL (0.1-1.0); BLOOD UREA NITROGEN 17 MG/DL (7-18); BUN/CREATININE RATIO 15; CALCIUM 8.2 MG/DL (8.5-10.1); CARBON DIOXIDE 30 MMOL/L (21-32); CHLORIDE 100 MMOL/L (98-107); CREATININE SERUM 1.16 MG/DL (0.60-1.30); GFR ESTIMATED > 60; GLUCOSE 90 MG/DL (70-105); MAGNESIUM 1.5 MG/DL (1.8-2.4); PHOSPHORUS 2.8 MG/DL (2.3-4.7); POTASSIUM 3.7 MMOL/L (3.6-5.0); SODIUM 137 MMOL/L (135-145); TOTAL PROTEIN 5.5 GM/DL (6.4-8.2)
[2017-01-02 06:16] LABS: BAND NEUTROPHILS 3 %; EOSINOPHILS % (MANUAL) 1 %; LYMPHOCYTES % (MANUAL) 9 %; NEUTROPHILS % (MANUAL) 75 %
[2017-01-02 06:17] LABS: ANISOCYTOSIS MARKED; MICROCYTOSIS SLIGHT
[2017-01-02 06:18] LABS: HYPOCHROMASIA SLIGHT
[2017-01-02] MEDS: RT-ALBUTEROL/IPRATROPIUM 3 ML (DUONEB) VIAL INH SCH ×3 (07:29→19:19)
[2017-01-02 08:00] VITALS: BP 126/76
[2017-01-02] MEDS: MAGNESIUM 1 GM/100 ML IVPB 100 ML IV SCH ×4 (08:46→12:25)
[2017-01-02] MEDS: LACTATED RINGERS 1,000 ML IV SCH ×3 (08:48→21:01)
[2017-01-02] MEDS: ENOXAPARIN 60 MG/0.6 ML (LOVENOX) SYR SC SCH ×2 (08:49→08:54)
[2017-01-02] MEDS: ASPIRIN 81 MG CHEW (CHILDREN'S ASA) PO SCH (08:49)
[2017-01-02] MEDS: PANTOPRAZOLE 40 MG (PROTONIX) TAB PO SCH (08:49)
--- NOTE | 2017-01-02 10:29 | Diagnostic Imaging Report ---
INDICATION: Sepsis. Dysphasia. COMPARISON: 01/01/2017 FINDINGS: Upright portable view of the chest is obtained. Right PICC line is unchanged. Heart size and pulmonary vasculature appear unremarkable. Chronic elevation of the left hemidiaphragm is unchanged. There is no pneumothorax or pleural fluid suspected. There are chronic findings of COPD and mild interstitial changes similar to the prior study. No focal pneumonia is suspected. IMPRESSION: No significant interval change or acute abnormality is seen when compared to the recent prior study. Dictated by: Dictated on workstation # [id number]
--- NOTE | 2017-01-02 11:23 | CONSULTATION REPORT ---
DATE OF SERVICE: 12/31/2016 ADMITTING PHYSICIAN: Dr. Wallace HISTORY OF PRESENT ILLNESS: The patient is a 76-year-old male known to us. We have seen him in 2014 for dysphagia. He was diagnosed with non-Hodgkin's lymphoma in 1996 and underwent chemotherapy as well as radiation. He reports taking two cycles of radiation on a daily basis for approximately several week intervals. Since his treatment, his lymphoma has seemed to be in remission; however, over the years, has had progressive obliterative small vessel arteriosclerosis and the development of soft palate and pharyngeal hardening and dysphagia. He states that the majority of the musculature of his throat has become severely atrophic. He also had developed dysphagia, which became more significant over time. On 08/08/2014, he underwent EGD with findings of an esophageal candidiasis. He was treated appropriately with antifungals and this did improve over time. His dysphagia has been progressive again and continues to be progressive. He states that for the past three years he was only able to take in very small amount of liquids including clear liquids as well as broth based soups and thickened consistency liquids. He states that he was also to able to take in very small amounts of soft foods. Due to this dysphagia, he has developed a severe malnutrition requiring long-term central IV placement and hyperalimentation with the TPN at night. Last night, he developed chest pain and he was found to be in atrial fibrillation with rapid ventricular rate, which has been controlled with Cardizem. Again, he reports the same type of symptoms with dysphagia. We are unsure if this is the recurrence of esophageal candidiasis; however, we feel that his condition will not likely improve from a swallowing perspective. The option was given to treat him empirically with antifungal versus EGD for diagnostic purposes versus placement of a gastrostomy tube. He states that he does have some mild reflux and regurgitation and that if he does want to pursue a jejunostomy tube, we can offer him an open or laparoscopic procedure; however, he wants to done percutaneously. We will refer him to gastroenterology or interventional radiology that does do this procedure. PAST MEDICAL HISTORY: Non-Hodgkin's lymphoma, hypothyroid, severe dysphagia and reflux. PAST SURGICAL HISTORY: Appendectomy. ALLERGIES: No known drug allergies. MEDICATIONS: Levothyroxine 75 mcg daily, Protonix 20 mg daily, and calcium daily. SOCIAL HISTORY: Negative smoke, negative alcohol. FAMILY HISTORY: Noncontributory. VITAL SIGNS: Temperature 98.1, blood pressure 96/60, pulse 91, respirations 30, pulse ox 98% on 2 liters nasal cannula. REVIEW OF SYSTEMS: This is a thin appearing male currently in no acute distress. He is not experiencing shortness of breath or difficulty of breathing. No chest pain, palpitations, diaphoresis. Severe dysphagia and only able to take in very small amount of liquids, at times he does have some reflux type of symptoms as well. No diarrhea, constipation, no red blood per rectum, no dark tarry stools. No fever or chills. He has progressive weight loss over the years. PHYSICAL EXAMINATION: CHEST: Clear. Good breath sounds bilaterally. HEART: Regular, no murmurs. EXTREMITIES: No lower extremity edema. Negative Homans sign. HEENT: No scleral icterus. No cervical lymphadenopathy. ABDOMEN: Soft, nontender, nondistended. ASSESSMENT AND PLAN: A 76-year-old male with severe dysphagia. Most likely, we feel that his symptoms are related to his disease process including small vessel obliterative arteriosclerosis and scarring of the soft tissue and the resultant dysphagia. He has had a history of a fungal candidiasis and has been treated successfully in the past and this may also be part of the differential. The option was given to proceed with empiric treatment for this with antifungals versus a diagnostic EGD; however, we feel that this may be unnecessary. The option for placement of a percutaneous gastrostomy tube was also given to the patient for alimentation, less hypoalimentation, as well as augmentation of water intake as well as medications as needed. It was explained to him that this can be as temporary as needed. The option for feeding jejunostomy tube was also given to the patient; however, the only modalities that I offer include laparoscopic versus an open technique. If he would like to have one done percutaneously, we will refer him to a licensed nuclear control room operator, interventional radiologist,or another institution that has these medical devices. Job ID: [id number] DocumentID: [id number] Dictated Date: 12/31/2016 17:09:00 Glass Curvature Gauger Date: 12/31/2016 19:30:59 Dictated By: GARRETT JOHNSON MD [facility]
[2017-01-02 12:00] VITALS: BP 102/60
--- NOTE | 2017-01-02 13:10 | Progress Note-Hospitalist ---
Progress Note HPI/CC on Admission CC: AF with RVR HPI: This is a 76 yoWM pt of oncology and Dr. Kabas with hx of non-Hodgkin's lymphoma 1996 in remission but on TPN for 2 yrs for severe dysphasia from previous radiation treatment. Multiple episodes of aspiration pneumonia. Pt has recent hx of [facility] admission for renal failure of creat 6.0 needing temporary dialysis thought to be caused by Gentamicin. Presented to ER due to hypotension and syncope with chest pain found to have AF with RVR. Dr. 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 Pedersen's . Pt confirms living by Dr. Johnston When asked how he was feeling pt stated he can feel his fingers. Pt's heart looks to be doing better. Pt was informed that he will stay in ICU for a while longer to keep eye on his heart rhythm Labs discussed. BP and O2 are good Physical exam stable. Pt denies experiencing pain. Pt confirms seeing Dr. Begum and Dr. Kemar Sherman discussed Scribed by Amy Rivera under the direct supervision of Dr. Myers. 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 Hypothyroidism GERD History of fungal esophagitis Elevated troponin consistent with non-ST elevation [place] Severe debility with cachexia Diagonsis/Assessment & Plan Pt doing much better No BM yet but just restarted TPN PEG tube placement next week Talked about Neb treatments AFVSS, thin, O x 3, sitting in bed RRR, CTAB No edema Assessment: Atrial fibrillation with rapid ventricular response requiring cardiology consultation Severe volume depletion resolved after aggressive IV fluids in ER now HL History of chronic severe dysphagia precluding nutrition by mouth requiring TPN for the past 2 years 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
[2017-01-02 16:00] VITALS: BP 113/63
--- NOTE | 2017-01-02 16:29 | Progress Note-Cardiology ---
Cardiology SOAP Progress Note Subjective: No cp or palp or syncope. Malaise and weakness gradually improving Objective: I&O/Vital Signs Vital Sign - Last 12Hours 01/02/17 01/02/17 01/02/17 01/02/17 07:00 07:31 08:00 08:00 Temp 99.2 Pulse 71 76 Resp 22 B/P (MAP) 126/76 Pulse Ox 95 96 O2 Delivery Room Air Room Air Room Air 01/02/17 01/02/17 01/02/17 12:00 13:00 15:02 Temp 99.0 Pulse 71 73 Resp 20 B/P (MAP) 102/60 Pulse Ox 95 95 O2 Delivery Room Air Room Air Intake and Output 01/03/17 00:00 Intake Total 256 ml Output Total 1150 ml Balance -894 ml Weight (Pounds): 127 Weight (Ounces): 1.0 Weight (Calculated Kilograms): 57.430492 Constitutional: other (thin appearing; appears under-nourished) Respiratory: No accessory muscle use, other (good bilat air entry) Cardiovascular: irregularly irregular, tachycardia, S1 and S2, systolic murmur (faint ISIDRO at cardiac base) Gastrointestional: No tender, soft, No guarding, No rebound, audible bowel sounds Extremities: No clubbing, No cyanosis, No significant edema Neurologic/Psychiatric: grossly intact (generally weak, but does not appear to have focal weakness) Skin: normal color, warm/dry Results/Procedures: Labs Laboratory Tests 01/02/17 05:25: White Blood Count 5.9, Red Blood Count 3.02L, Hemoglobin 8.6L, Hematocrit 27L, Mean Corpuscular Volume 89, Mean Corpuscular Hemoglobin 29, Mean Corpuscular Hemoglobin Concent 32, Red Cell Distribution Width 15.6H, Platelet Count 118L, Mean Platelet Volume 12.2H, Neutrophils (%) (Auto) 69, Lymphocytes (%) (Auto) 8L , Monocytes (%) (Auto) 21H, Eosinophils (%) (Auto) 2, Basophils (%) (Auto) 1, Neutrophils # (Auto) 4.1, Lymphocytes # (Auto) 0.5L, Monocytes # (Auto) 1.2H, Eosinophils # (Auto) 0.1, Basophils # (Auto) 0.0, Neutrophils % (Manual) 75, Lymphocytes % (Manual) 9, Monocytes % (Manual) 12, Eosinophils % (Manual) 1, Band Neutrophils 3, Hypochromasia SLIGHT, Anisocytosis MARKED, Microcytosis SLIGHT, Macrocytosis SLIGHT, Prothrombin Time 14.7, INR Comment 1.1, Activated Partial Thromboplast Time 29, Sodium Level 137, Potassium Level 3.7, Chloride Level 100, Carbon Dioxide Level 30, Anion Gap 7, Blood Urea Nitrogen 17, Creatinine 1.16, Estimat Glomerular Filtration Rate > 60, BUN/Creatinine Ratio 15, Glucose Level 90, Lactic Acid Level 0.90, Calcium Level 8.2L, Phosphorus Level 2.8, Magnesium Level 1.5L, Total Bilirubin 3.3H, Aspartate Amino Transf ( AST/SGOT) 50H, Alanine Aminotransferase (ALT/SGPT) 135H, Alkaline Phosphatase 368H, Total Protein 5.5L, Albumin 3.1L Microbiology 12/30/16 Blood Culture - Preliminary, Resulted No growth A/P: Assessment: Hypotension, probably due to septic shock due to septicemia PAF, currently NSR Mildly elevated troponin due to a long episode of hypotension on 12/30/16. 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 Chronically on TPN Plan: * Complex mangement due to multiple comorbidities * I had a detailed discussion with him and with his (Dr Robledo) regarding the potential etiologies of A Fib and treatment of A Fib. We also discussed that OAC is indicated for stroke prophylaxis. However, they have not agreed, given his propensity to bleed and due to his anemia. They have agreed only to low dose aspirin * Given that he has not agreed to anticoag for stroke prophylaxis, we feel it is reasonable now to reduce enoxaparin from stroke prophylaxis dose to DVT prophylaxis dose * Per his request, we are holding aspirin in anticipation of PEG tube placement on 01/04/17 * Replenish Mg * Monitor labs MYRIAM WOODSON MD FACP [facility] CCDS Jan 02, 2017 16:29
[2017-01-02] MEDS ORDERED: [UNRECOGNIZED DRUG - OTHER] IV SCH ×9 (17:00)
[2017-01-02] MEDS ORDERED: SODIUM CHLORIDE IV SCH ×9 (17:00)
[2017-01-02] MEDS ORDERED: POTASSIUM CHLORIDE IV SCH ×9 (17:00)
[2017-01-02 20:00] VITALS: BP 106/63
[2017-01-03] VITALS: BP 132/84
[2017-01-03 04:00] VITALS: BP 116/71
[2017-01-03] MEDS: PIPERACILLIN/TAZOBACTAM 4.5 GM/NS 100 ML IVPB IV SCH ×2 (05:13)
[2017-01-03] MEDS: LACTATED RINGERS 1,000 ML IV SCH (05:13)
[2017-01-03] MEDS: CLINDAMYCIN 900 MG/NS 50 ML IVPB IV SCH ×2 (05:14)
[2017-01-03] MEDS: LEVOTHYROXINE 75 MCG (LEVOTHROID) TABLET PO SCH (05:14)
[2017-01-03] MEDS: CATHETER FLUSH 10 ML SYR IV SCH ×3 (05:14→20:29)
[2017-01-03 05:23] LABS: INR 1.2 (0.8-1.4); PROTHROMBIN TIME PATIENT 15.5 SEC (12.2-14.7)
[2017-01-03 05:31] LABS: ALANINE AMINOTRANSFERASE 97 U/L (0-55); ALBUMIN 2.8 GM/DL (3.2-4.5); ANION GAP 10 MMOL/L (5-14); ASPARTATE AMINO TRANSFERASE 31 U/L (5-34); BASOPHILS % (AUTO) 1 % (0-10); BILIRUBIN,TOTAL 2.1 MG/DL (0.1-1.0); BLOOD UREA NITROGEN 17 MG/DL (7-18); BUN/CREATININE RATIO 17; CALCIUM 7.5 MG/DL (8.5-10.1); CARBON DIOXIDE 28 MMOL/L (21-32); CHLORIDE 102 MMOL/L (98-107); CREATININE SERUM 0.98 MG/DL (0.60-1.30); EOSINOPHILS # (AUTO) 0.2 10^3/uL (0.0-0.3); EOSINOPHILS % (AUTO) 5 % (0-10); GFR ESTIMATED > 60; GLUCOSE 88 MG/DL (70-105); LYMPHOCYTES # (AUTO) 0.5 X 10^3 (1.0-4.0); LYMPHOCYTES % (AUTO) 10 % (12-44); MEAN CORPUSCULAR HEMOGLOBIN 29 PG (25-34); MEAN CORPUSCULAR HGB CONC 32 G/DL (32-36); MEAN CORPUSCULAR VOLUME 89 FL (80-99); MEAN PLATELET VOLUME 13.3 FL (7.4-10.4); MONOCYTES # (AUTO) 1.1 X 10^3 (0.0-1.0); MONOCYTES % (AUTO) 22 % (0-12); NEUTROPHILS # (AUTO) 3.1 X 10^3 (1.8-7.8); NEUTROPHILS % (AUTO) 63 % (42-75); PHOSPHORUS 3.6 MG/DL (2.3-4.7); PLATELET COUNT 115 10^3/uL (130-400); POTASSIUM 3.5 MMOL/L (3.6-5.0); RED BLOOD COUNT 2.75 10^6/uL (4.35-5.85); SODIUM 140 MMOL/L (135-145); TOTAL PROTEIN 4.9 GM/DL (6.4-8.2); TRIGLYCERIDES 45 MG/DL (<150); WHITE BLOOD COUNT 4.9 10^3/uL (4.3-11.0)
[2017-01-03 06:05] LABS: EOSINOPHILS % (MANUAL) 3 %; HYPOCHROMASIA MARKED; LYMPHOCYTES % (MANUAL) 8 %; NEUTROPHILS % (MANUAL) 76 %
[2017-01-03] MEDS: POTASSIUM CL 10MEQ/50ML IVPB 50 ML IV SCH ×4 (07:54→11:06)
[2017-01-03 08:00] VITALS: BP 108/69
[2017-01-03] MEDS: PANTOPRAZOLE 40 MG (PROTONIX) TAB PO SCH (09:03)
[2017-01-03] MEDS: RT-ALBUTEROL/IPRATROPIUM 3 ML (DUONEB) VIAL INH SCH ×3 (09:11→19:49)
[2017-01-03] MEDS: ENOXAPARIN 40 MG/0.4 ML (LOVENOX) SYR SC SCH (09:51)
--- NOTE | 2017-01-03 10:38 | Diagnostic Imaging Report ---
INDICATION: Sepsis. COMPARISON: 01/02/17. FINDINGS: A single view of the chest demonstrates chronic elevation of the left hemidiaphragm. The heart is enlarged without pulmonary edema. There is no pneumothorax, effusion or focal infiltrate. The PICC line is in good position. IMPRESSION: Unchanged aeration of the lungs. Dictated by: Dictated on workstation # [id number]
[2017-01-03 12:00] VITALS: BP 127/77
[2017-01-03] MEDS: POTASSIUM CHLORIDE INJ 20 MEQ in LACTATED RINGERS 1,000 ML IV SCH (13:02)
--- NOTE | 2017-01-03 13:12 | Progress Note-Hospitalist ---
Progress Note HPI/CC on Admission CC: AF with RVR HPI: This is a 76 yoWM pt of oncology and Dr. Kabas with hx of non-Hodgkin's lymphoma 1996 in remission but on TPN for 2 yrs for severe dysphasia from previous radiation treatment. Multiple episodes of aspiration pneumonia. Pt has recent hx of [facility] admission for renal failure of creat 6.0 needing temporary dialysis thought to be caused by Gentamicin. Presented to ER due to hypotension and syncope with chest pain found to have AF with RVR. Dr. Reinoso managed the pt in ER and overall he has stabilized pain coordinator: Pt seems to be doing okay Pt is only on normal saline at 250, not Cardizem Troponin was positive this am Patient Interview: Pt states he goes by 'Yony' and confirms that he is Dr. Pedersen's . Pt confirms living by Dr. Johnston When asked how he was feeling pt stated he can feel his fingers. Pt's heart looks to be doing better. Pt was informed that he will stay in ICU for a while longer to keep eye on his heart rhythm Labs discussed. BP and O2 are good Physical exam stable. Pt denies experiencing pain. Pt confirms seeing Dr. Begum and Dr. Reinoso Abx discussed Scribed by Amy Rivera under the direct supervision of Dr. Myers. 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 in 1996 Hypothyroidism GERD History of fungal esophagitis Elevated troponin consistent with non-ST elevation [place] Severe debility with cachexia Diagonsis/Assessment & Plan Pt doing much better No BM yet since such poor intake PEG tube placement this week Talked about Neb treatments Will stop abx since no pneumonia or other source of bacterial infection Potassium is low at 3.5 AFVSS, thin, O x 3, sitting in bed RRR, CTAB No edema Assessment: Atrial fibrillation with rapid ventricular response requiring cardiology consultation Severe volume depletion resolved after aggressive IV fluids in ER History of chronic severe dysphagia precluding nutrition by mouth requiring TPN for the past 2 years due to 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
[2017-01-03 16:00] VITALS: BP 138/72
--- NOTE | 2017-01-03 16:12 | Progress Note-Cardiology ---
Cardiology SOAP Progress Note Subjective: No cp or palp or syncope Objective: I&O/Vital Signs Vital Sign - Last 12Hours 01/03/17 01/03/17 01/03/17 01/03/17 07:00 08:00 08:00 09:14 Temp 98.0 Pulse 73 66 Resp 20 B/P (MAP) 108/69 Pulse Ox 97 94 O2 Delivery Room Air Room Air Room Air 01/03/17 01/03/17 01/03/17 01/03/17 12:00 13:00 13:33 14:48 Temp 98.3 Pulse 67 77 77 Resp 20 B/P (MAP) 127/77 Pulse Ox 98 95 O2 Delivery Room Air Room Air Intake and Output 01/04/17 00:00 Intake Total 1050 ml Output Total 1150 ml Balance -100 ml Weight (Pounds): 127 Weight (Ounces): 3.0 Weight (Calculated Kilograms): 57.163757 Constitutional: other (thin appearing; appears under-nourished) Respiratory: No accessory muscle use, other (good bilat air entry) Cardiovascular: irregularly irregular, tachycardia, S1 and S2, systolic murmur (faint ISIDRO at cardiac base) Gastrointestional: No tender, soft, No guarding, No rebound, audible bowel sounds Extremities: No clubbing, No cyanosis, No significant edema Neurologic/Psychiatric: grossly intact (generally weak, but does not appear to have focal weakness) Skin: normal color, warm/dry Results/Procedures: Labs Laboratory Tests 01/03/17 04:50: White Blood Count 4.9, Red Blood Count 2.75L, Hemoglobin 7.9L, Hematocrit 24L, Mean Corpuscular Volume 89, Mean Corpuscular Hemoglobin 29, Mean Corpuscular Hemoglobin Concent 32, Red Cell Distribution Width 16.0H, Platelet Count 115L, Mean Platelet Volume 13.3H, Neutrophils (%) (Auto) 63, Lymphocytes (%) (Auto) 10L, Monocytes (%) (Auto) 22H, Eosinophils (%) (Auto) 5, Basophils (%) (Auto) 1 , Neutrophils # (Auto) 3.1, Lymphocytes # (Auto) 0.5L, Monocytes # (Auto) 1.1H, Eosinophils # (Auto) 0.2, Basophils # (Auto) 0.0, Neutrophils % (Manual) 76, Lymphocytes % (Manual) 8, Monocytes % (Manual) 13, Eosinophils % (Manual) 3, Hypochromasia MARKED, Prothrombin Time 15.5H, INR Comment 1.2, Activated Partial Thromboplast Time 39H, Sodium Level 140, Potassium Level 3.5L, Chloride Level 102, Carbon Dioxide Level 28, Anion Gap 10, Blood Urea Nitrogen 17, Creatinine 0.98, Estimat Glomerular Filtration Rate > 60, BUN/Creatinine Ratio 17, Glucose Level 88, Lactic Acid Level 0.61, Calcium Level 7.5L, Phosphorus Level 3.6, Magnesium Level 2.0, Total Bilirubin 2.1H, Aspartate Amino Transf ( AST/SGOT) 31, Alanine Aminotransferase (ALT/SGPT) 97H, Alkaline Phosphatase 316H , Total Protein 4.9L, Albumin 2.8L, Prealbumin 10.9L, Triglycerides Level 45 Microbiology 12/30/16 Blood Culture - Preliminary, Resulted No growth Laboratory Tests 01/02/17 05:25 01/03/17 04:50 A/P: Assessment: Hypotension, probably due to septic shock due to septicemia PAF, currently NSR Mildly elevated troponin due to a long episode of hypotension on 12/30/16. No evidence of acute coronary syndrome/[place] Echo of 12/31/16: LVEF 60-65%, no pericard eff, PASP 30-35 mmHg Anemia and mild thrombocytopenia, apparently chronic. 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 Chronically on TPN Hypokalemia Plan: * Replenish K * Given that he has not agreed to anticoag for stroke prophylaxis, we feel it is reasonable now to reduce enoxaparin from stroke prophylaxis dose to DVT prophylaxis dose * Per his request, we are holding aspirin in anticipation of PEG tube placement on 01/04/17 * Monitor labs MYRIAM WOODSON MD FACP [facility] CCDS Jan 03, 2017 16:12
[2017-01-03] MEDS ORDERED: [UNRECOGNIZED DRUG - OTHER] IV SCH ×9 (17:00)
[2017-01-03] MEDS ORDERED: POTASSIUM CHLORIDE IV SCH ×9 (17:00)
[2017-01-03] MEDS ORDERED: SODIUM CHLORIDE IV SCH ×9 (17:00)
[2017-01-03 20:00] VITALS: BP 123/68
[2017-01-04 00:58] VITALS: BP 122/86
[2017-01-04] MEDS: POTASSIUM CHLORIDE INJ 20 MEQ in LACTATED RINGERS 1,000 ML IV SCH (01:35)
[2017-01-04 04:38] VITALS: BP 127/90
[2017-01-04 05:34] LABS: BASOPHILS % (AUTO) 1 % (0-10); EOSINOPHILS # (AUTO) 0.4 10^3/uL (0.0-0.3); EOSINOPHILS % (AUTO) 5 % (0-10); LYMPHOCYTES # (AUTO) 0.7 X 10^3 (1.0-4.0); LYMPHOCYTES % (AUTO) 8 % (12-44); MEAN CORPUSCULAR HEMOGLOBIN 28 PG (25-34); MEAN CORPUSCULAR HGB CONC 32 G/DL (32-36); MEAN CORPUSCULAR VOLUME 89 FL (80-99); MONOCYTES # (AUTO) 1.1 X 10^3 (0.0-1.0); MONOCYTES % (AUTO) 13 % (0-12); NEUTROPHILS # (AUTO) 6.3 X 10^3 (1.8-7.8); NEUTROPHILS % (AUTO) 74 % (42-75); PLATELET COUNT 132 10^3/uL (130-400); RED BLOOD COUNT 3.33 10^6/uL (4.35-5.85); RED CELL DISTRIBUTION WIDTH 16.6 % (10.0-14.5); WHITE BLOOD COUNT 8.6 10^3/uL (4.3-11.0)
[2017-01-04 05:47] LABS: PROTHROMBIN TIME PATIENT 13.6 SEC (12.2-14.7)
[2017-01-04 05:57] LABS: ALANINE AMINOTRANSFERASE 91 U/L (0-55); ALBUMIN 3.4 GM/DL (3.2-4.5); ANION GAP 5 MMOL/L (5-14); ASPARTATE AMINO TRANSFERASE 36 U/L (5-34); BLOOD UREA NITROGEN 17 MG/DL (7-18); BUN/CREATININE RATIO 19; CALCIUM 8.8 MG/DL (8.5-10.1); CARBON DIOXIDE 31 MMOL/L (21-32); CHLORIDE 100 MMOL/L (98-107); CREATININE SERUM 0.91 MG/DL (0.60-1.30); GFR ESTIMATED > 60; GLUCOSE 87 MG/DL (70-105); POTASSIUM 6.4 MMOL/L (3.6-5.0); SODIUM 136 MMOL/L (135-145)
[2017-01-04 05:58] LABS: BAND NEUTROPHILS 4 %; EOSINOPHILS % (MANUAL) 4 %; HYPOCHROMASIA SLIGHT; LYMPHOCYTES % (MANUAL) 6 %; NEUTROPHILS % (MANUAL) 72 %
[2017-01-04] MEDS: LEVOTHYROXINE 75 MCG (LEVOTHROID) TABLET PO SCH (06:09)
[2017-01-04] MEDS: CATHETER FLUSH 10 ML SYR IV SCH ×3 (06:09→20:53)
[2017-01-04 08:00] VITALS: BP 122/84
[2017-01-04] MEDS ORDERED: NS IV 1000 ML 1,000 ML IV SCH ×2 (08:15)
[2017-01-04] MEDS: RT-ALBUTEROL/IPRATROPIUM 3 ML (DUONEB) VIAL INH SCH ×3 (08:17→19:32)
--- NOTE | 2017-01-04 08:24 | Progress Note-Hospitalist ---
Subjective HPI/CC On Admission Date Seen by Provider: Jan 04, 2017 Time Seen by Provider: 08:05 CC: AF with RVR HPI: This is a 76 yoWM pt of oncology and Dr. Tirado's with hx of non-Hodgkin's lymphoma 1996 in remission but on TPN for 2 yrs for severe dysphasia from previous radiation treatment. Multiple episodes of aspiration pneumonia. Pt has recent hx of [facility] admission for renal failure of creat 6.0 needing temporary dialysis thought to be caused by Gentamicin. Presented to ER due to hypotension and syncope with chest pain found to have AF with RVR. Dr. Reinoso managed the pt in ER and overall he has stabilized. Subjective/Events-last exam Pt is in bed without complaints. at bedside (Dr. Robledo). We discussed lab results with K of 6.4. Pt on LR with 20KCl and received supplemental K yesterday. TPN also has K in it. Discussed plan to stop K loaded agents, treat with albuterol and obtain EKG. Dr Robledo requests bolus as well. Objective Exam Vital Signs Vital Sign - Last 12Hours 12/30/16 12/30/16 22:15 22:30 Temp 95.6 Pulse 134 Resp 27 B/P (MAP) 118/93 Pulse Ox 96 O2 Delivery Room Air O2 Flow Rate 2.00 Capillary Refill : Less Than 3 Seconds General Appearance: No Apparent Distress, Chronically ill, Cachetic Respiratory: Lungs Clear, Normal Breath Sounds, No Accessory Muscle Use, No Respiratory Distress Cardiovascular: Regular Rate, Rhythm, No Edema, No Murmur Gastrointestinal: Non Tender, Soft Neurologic/Psychiatric: Alert, Oriented x3 Results/Procedures Lab Laboratory Tests 01/04/17 05:30 01/04/17 09:15 Assessment/Plan Assessment and Plan Assess & Plan/Chief Complaint Hyperkalemia Diagnosis/Problems Diagnosis/Problems (1) Hyperkalemia Status: Acute Assessment & Plan: Likely iatrogenic from LR with K, TPN, and replacement yesterday EKG shows normal QTC with PACs Albuterol ordered- being given Lasix ordered, declined for the time being Will DC TPN and LR for now 1L NS bolus for now Will start D5/NS at 100ml/hr following Recheck K in 1 hour (2) Dysphagia Status: Chronic Assessment & Plan: From radiation esophagitis On TPN Barium swallow at 11 today Will likely need PEG, Dr Tirado consulted- appreciate recs (3) Atrial fibrillation with RVR Status: Resolved Assessment & Plan: Parozsymal A-fib EKG shows sinus rhythm Dr Reinoso consulted appreciate recs Not currently on anticoagulation- will clarify reason (4) Prophylactic measure Assessment & Plan: Lovenox for dvt ppx JORGE FERGUSON MD Jan 04, 2017 08:24
[2017-01-04] MEDS ORDERED: FUROSEMIDE 40 MG/4 ML INJ (LASIX) IVP ONE (08:30)
--- NOTE | 2017-01-04 09:29 | Progress Note-Cardiology ---
Cardiology SOAP Progress Note Subjective: No cp or palp or syncope Objective: I&O/Vital Signs Vital Sign - Last 12Hours 01/04/17 01/04/17 01/04/17 00:58 04:38 08:18 Temp 97.9 98.2 Pulse 80 77 Resp 18 20 B/P (MAP) 122/86 127/90 Pulse Ox 98 99 95 O2 Delivery Room Air Room Air Room Air Weight (Pounds): 124 Weight (Ounces): 2.0 Weight (Calculated Kilograms): 56.427113 Constitutional: other (thin appearing; appears under-nourished) Respiratory: No accessory muscle use, other (good bilat air entry) Cardiovascular: irregularly irregular, tachycardia, S1 and S2, systolic murmur (faint ISIDRO at cardiac base) Gastrointestional: No tender, soft, No guarding, No rebound, audible bowel sounds Extremities: No clubbing, No cyanosis, No significant edema Neurologic/Psychiatric: grossly intact (generally weak, but does not appear to have focal weakness) Skin: normal color, warm/dry Results/Procedures: Labs Laboratory Tests 01/04/17 05:30: White Blood Count 8.6, Red Blood Count 3.33L, Hemoglobin 9.4L, Hematocrit 30L, Mean Corpuscular Volume 89, Mean Corpuscular Hemoglobin 28, Mean Corpuscular Hemoglobin Concent 32, Red Cell Distribution Width 16.6H, Platelet Count 132, Mean Platelet Volume 13.0H, Neutrophils (%) (Auto) 74, Lymphocytes (%) (Auto) 8L , Monocytes (%) (Auto) 13H, Eosinophils (%) (Auto) 5, Basophils (%) (Auto) 1, Neutrophils # (Auto) 6.3, Lymphocytes # (Auto) 0.7L, Monocytes # (Auto) 1.1H, Eosinophils # (Auto) 0.4H, Basophils # (Auto) 0.0, Neutrophils % (Manual) 72, Lymphocytes % (Manual) 6, Monocytes % (Manual) 14, Eosinophils % (Manual) 4, Band Neutrophils 4, Hypochromasia SLIGHT, Prothrombin Time 13.6, INR Comment 1.0 , Activated Partial Thromboplast Time 37H, Sodium Level 136, Potassium Level 6.4H, Chloride Level 100, Carbon Dioxide Level 31, Anion Gap 5, Blood Urea Nitrogen 17, Creatinine 0.91, Estimat Glomerular Filtration Rate > 60, BUN/ Creatinine Ratio 19, Glucose Level 87, Lactic Acid Level 0.78, Calcium Level 8.8 , Phosphorus Level 4.0, Magnesium Level 2.0, Total Bilirubin 2.0H, Aspartate Amino Transf (AST/SGOT) 36H, Alanine Aminotransferase (ALT/SGPT) 91H, Alkaline Phosphatase 340H, Total Protein 6.0L, Albumin 3.4 01/04/17 09:15: Microbiology 12/30/16 Blood Culture - Preliminary, Resulted No growth Laboratory Tests 01/03/17 04:50 01/04/17 05:30 A/P: Assessment: Hypotension, probably due to septic shock due to septicemia PAF, currently NSR Mildly elevated troponin due to a long episode of hypotension on 12/30/16. No evidence of acute coronary syndrome/[place] Echo of 12/31/16: LVEF 60-65%, no pericard eff, PASP 30-35 mmHg Anemia and mild thrombocytopenia, apparently chronic. 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 Chronically on TPN Hyperkalemia on 01/04/17, likely due to iv K Plan: * Stop all K in iv * Given that he has not agreed to anticoag for stroke prophylaxis, we feel it is reasonable now to reduce enoxaparin from stroke prophylaxis dose to DVT prophylaxis dose * Per his request, we are holding aspirin in anticipation of PEG tube placement on 01/04/17 * Monitor labs MYRIAM WOODSON MD FACP [facility] CCDS Jan 04, 2017 09:29
[2017-01-04] MEDS: D5 NS 1000 ML IV SOLUTION 1,000 ML IV SCH ×3 (09:58→16:48)
[2017-01-04] MEDS: ENOXAPARIN 40 MG/0.4 ML (LOVENOX) SYR SC SCH (09:58)
[2017-01-04] MEDS: PANTOPRAZOLE 40 MG (PROTONIX) TAB PO SCH (09:58)
--- NOTE | 2017-01-04 11:38 | Diagnostic Imaging Report ---
EXAMINATION: Modified barium swallow. Indication: Dysphagia Different consistencies of fluid and food was given mixed with barium and swallowing was visualized under fluoroscopy. FLUOROSCOPY TIME: 34 seconds FINDINGS: There is aspiration seen with thin liquids. IMPRESSION: Aspiration is seen. Please refer to speech therapist's report for additional details . Dictated by: Dictated on workstation # [id number]
[2017-01-04 12:00] VITALS: BP 108/70
--- NOTE | 2017-01-04 14:13 | ST Mod Barium Swallow ---
Speech Evaluation-General Medical Diagnosis AF with RVR, Chest Pain, Syncope Onset Date: Dec 30, 2016 Therapy Diagnosis Therapy Diagnosis: Severe Oropharyngeal Dysphagia Precautions Precautions: Aspiration Precautions/Isolations: Standard Precautions Referral Referring Physician: Dr. Deja Wallace Reason for Referral: Evaluation/Treatment Modified Barium Swallow Evaluation Medical History Pertinent Medical History: Atrial Fib, GERD, Hypothroidism Non-Hodgkin's Lymphoma (treated with radiation therapy) Reviewed History: Yes Social History Current Living Status: Spouse Speech Mod Barium Swallow Prior Level of Function Per patient, he consumes all consistencies at home. The patient stated he follows all solid consistencies with a subsequent thin liquid bolus to aid in clearance. In addition, the patient reports frequent occurrences of aspiration pneumonia. The patient is specific regarding his "technique" for swallowing. The patient refuses trials of barium via teaspoon, stating the consistency is "too small" and it will "slip right back." The patient requires a large cup sip of barium. Additionally, the patient stated he requires all consistencies to be warm. As the barium is unable to be warmed, it is provided at room temperature. Oral Motor Skills Lingual Protrusion: Normal Lingual ROM: Normal Lingual Strength: Abnormal (The patient displays mildly reduced lingual strength, bilaterally.) Velum: Abnormal (Due to past radiation treatment, the patient does not demonstrate full elevation/closure of the velum.) Volitional Dry Swallow: Yes Voluntary Cough: Yes (Weak, breathy.) Textures-Lateral View Lateral View Food Presentation: Thin Liquid via Cup Oral Phase Labial Closure: No Impairment (WFL) Bolus Formation Pooling L/R: Mild Impairment Bolus Formation Placement: No Impairment (WFL) Mastication did not occur throughout the study. A/P Lingual Propulsion: Moderate Impairment (The patient displayed three "tongue pumps" in an effort to move the bolus material posterior in the oral cavity.) Lingual Movement: Mild Impairment Oral Phase Residue: Mild Impairment (Oral residue was noted on the lingual surface, as well as, the bilateral buccal cavities.) Pharyngeal Phase Swallow Response: Severe Impairment (Bolus material reached the pyriform sinuses, as well as, the true vocal cords prior to pharyngeal swallow initiation.) Base of Tongue: Severe Impairment Epiglottic Movement: Mild Impairment (Complete epiglottic inversion was noted, however, delayed. Additionally, the epiglottic structure appeared mildly edematous which may be secondary to the patient's past radiation treatment.) Laryngeal Elevation: Moderate Impairment Vallecular Residue: Moderate Pharyngeal Wall Residue: Mild Piriform Sinus Residue: Severe Aspiration Observations: Severe (Gross, marietta aspiration occurred with thin liquids during the swallow. The patient displayed a delayed cough which was inefficient at clearing the material from his trachea.) Other Pharyngeal Observations: - Due to the marietta aspiration demonstrated, the Radiologist terminated the study. Additionally, the patient refused trials of "thicker" liquids stating it would "get stuck" in his pharynx. Per patient, the aspiration occurred due to the reduced temperature of the barium. To note, evidence reveals pharyngeal swallows tend to improve with temperature variances of consistencies (i.e., cold), as it aids in sensory identification of bolus material. Performed-A/P View Not Applicable/Performed Summary/Impressions The patient demonstrates severe oropharyngeal dysphagia characterized by reduced lingual coordination, decreased base of tongue retraction, absent nasopharyngeal closure, reduced pharyngeal contractions, and decreased laryngeal elevation. Recommendations: - The patient should continue his strict NPO status due to the marietta amount of aspiration displayed. This information was shared with the patient's RN. - Consider alternative sources for nutrition, hydration, and medication (i.e., PEG tube). - Frequent oral care to reduce the transfer of bacteria from the oral cavity should aspiration of secretions occur. - Initiate skilled dysphagia therapy. Speech Short Term Goals Short Term Goals Short Term Goals 1. The patient will complete a modified barium swallow evaluation to definitively rule out aspiration with PO intake. MET. 2. The patient will display 90% accuracy with oropharyngeal strengthening exercises. Time Frame-STG: One Week Speech Mcfp Goals Ui Developer Goals 1. The patient will tolerate the least restrictive diet without signs/symptoms of aspiration or laryngeal penetration. Time Frame: Two Weeks Speech-Plan Treatment Plan Speech Therapy Treatment Plan: Continue Plan of Care Continue skilled speech pathology to target oropharyngeal strengthening exercises and reduce aspiration risks. Treatment Duration: Jan 18, 2017 Frequency: 3 times per week Estimated Hrs Per Day: .25 hour per day Rehab Potential: Good Safety Risks/Education Teaching Recipient: Patient, Significant Other Teaching Methods: Discussion, Audiovisual Response to Teaching: Reinforcement Needed Education Topics Provided: Results, Recommendations, Plan of Care Time Speech Therapy Time In: 11:00 Speech Therapy Time Out: 11:25 Total Billed Time: 25 Billed Treatment Time LYNNE Lezama ELIZABEKARYNA MOON Jan 04, 2017 14:13
[2017-01-04 16:45] VITALS: BP 92/63
[2017-01-04] MEDS ORDERED: SODIUM CHLORIDE IV SCH ×8 (17:00)
[2017-01-04] MEDS ORDERED: SODIUM PHOSPHATE IV SCH ×8 (17:00)
[2017-01-04] MEDS ORDERED: [UNRECOGNIZED DRUG - OTHER] IV SCH ×8 (17:00)
--- NOTE | 2017-01-04 18:04 | Progress Note (SOAP) ---
Subjective Date Seen by Provider: Jan 04, 2017 Time Seen by Provider: 17:00 Subjective/Events-last exam doing ok, no change in clinical status. aspiration risk per speech swallow eval. Objective Exam Vital Signs Date Time Temp Pulse Resp B/P (MAP) Pulse Ox O2 Delivery O2 Flow Rate FiO2 01/04/17 16:45 98.9 73 18 92/63 97 Room Air 01/04/17 15:12 97 Room Air 01/04/17 12:00 98.4 72 18 108/70 98 Room Air 01/04/17 08:18 95 Room Air 01/04/17 08:00 97.8 78 22 122/84 95 Room Air 01/04/17 08:00 Room Air 01/04/17 04:38 98.2 77 20 127/90 99 Room Air 01/04/17 00:58 97.9 80 18 122/86 98 Room Air 01/03/17 20:00 98.4 75 20 123/68 98 Room Air 01/03/17 20:00 Room Air 01/03/17 19:49 94 Room Air I & O 01/05/17 07:00 Intake Total 2470 ml Output Total 2325 ml Balance 145 ml Capillary Refill : Less Than 3 Seconds General Appearance: No Apparent Distress HEENT: PERRL/EOMI Neck: Full Range of Motion Respiratory: Chest Non Tender, Lungs Clear, Normal Breath Sounds Cardiovascular: Regular Rate, Rhythm Gastrointestinal: normal bowel sounds, non tender, soft Extremity: Normal Capillary Refill Neurologic/Psychiatric: Alert, Oriented x3 Skin: Normal Color Lymphatic: No Adenopathy Results Lab Laboratory Tests 01/04/17 05:30: White Blood Count 8.6, Red Blood Count 3.33L, Hemoglobin 9.4L, Hematocrit 30L, Mean Corpuscular Volume 89, Mean Corpuscular Hemoglobin 28, Mean Corpuscular Hemoglobin Concent 32, Red Cell Distribution Width 16.6H, Platelet Count 132, Mean Platelet Volume 13.0H, Neutrophils (%) (Auto) 74, Lymphocytes (%) (Auto) 8L , Monocytes (%) (Auto) 13H, Eosinophils (%) (Auto) 5, Basophils (%) (Auto) 1, Neutrophils # (Auto) 6.3, Lymphocytes # (Auto) 0.7L, Monocytes # (Auto) 1.1H, Eosinophils # (Auto) 0.4H, Basophils # (Auto) 0.0, Neutrophils % (Manual) 72, Lymphocytes % (Manual) 6, Monocytes % (Manual) 14, Eosinophils % (Manual) 4, Band Neutrophils 4, Hypochromasia SLIGHT, Prothrombin Time 13.6, INR Comment 1.0 , Activated Partial Thromboplast Time 37H, Sodium Level 136, Potassium Level 6.4H, Chloride Level 100, Carbon Dioxide Level 31, Anion Gap 5, Blood Urea Nitrogen 17, Creatinine 0.91, Estimat Glomerular Filtration Rate > 60, BUN/ Creatinine Ratio 19, Glucose Level 87, Lactic Acid Level 0.78, Calcium Level 8.8 , Phosphorus Level 4.0, Magnesium Level 2.0, Total Bilirubin 2.0H, Aspartate Amino Transf (AST/SGOT) 36H, Alanine Aminotransferase (ALT/SGPT) 91H, Alkaline Phosphatase 340H, Total Protein 6.0L, Albumin 3.4 01/04/17 09:15: Potassium Level 5.5H Microbiology 12/30/16 Blood Culture - Preliminary, Resulted No growth Assessment/Plan Assessment/Plan Assess & Plan/Chief Complaint upper cervical esophageal dysmotility and dysphagia. aspiration risk per videographic swallow eval per speech. will plan for PEG wednesday( around 11am) Clinical Quality Measures DVT/VTE Risk/Contraindication: Risk Factor Score Per Nursin RFS Level Per Nursing on Admit: 3=High GARRETT JOHNSON MD Jan 04, 2017 18:04
[2017-01-04 19:07] VITALS: BP 118/64
[2017-01-05 00:40] VITALS: BP 90/59
[2017-01-05] MEDS: D5 NS 1000 ML IV SOLUTION 1,000 ML IV SCH ×2 (02:50→12:58)
[2017-01-05 05:49] LABS: BASOPHILS # (AUTO) 0.1 10^3/uL (0.0-0.1); BASOPHILS % (AUTO) 1 % (0-10); EOSINOPHILS # (AUTO) 0.4 10^3/uL (0.0-0.3); EOSINOPHILS % (AUTO) 7 % (0-10); LYMPHOCYTES # (AUTO) 0.6 X 10^3 (1.0-4.0); LYMPHOCYTES % (AUTO) 9 % (12-44); MEAN CORPUSCULAR HEMOGLOBIN 29 PG (25-34); MEAN CORPUSCULAR HGB CONC 32 G/DL (32-36); MEAN CORPUSCULAR VOLUME 90 FL (80-99); MEAN PLATELET VOLUME 13.2 FL (7.4-10.4); MONOCYTES % (AUTO) 15 % (0-12); NEUTROPHILS # (AUTO) 4.4 X 10^3 (1.8-7.8); NEUTROPHILS % (AUTO) 68 % (42-75); PLATELET COUNT 137 10^3/uL (130-400); RED BLOOD COUNT 3.12 10^6/uL (4.35-5.85); RED CELL DISTRIBUTION WIDTH 16.7 % (10.0-14.5); WHITE BLOOD COUNT 6.4 10^3/uL (4.3-11.0)
[2017-01-05 05:57] LABS: INR 1.1 (0.8-1.4); PROTHROMBIN TIME PATIENT 14.1 SEC (12.2-14.7)
[2017-01-05] MEDS ORDERED: 0.9% SODIUM CHLORIDE PF INJ 20 ML VIAL IJ SCH (06:00)
[2017-01-05] MEDS ORDERED: 0.9% SODIUM CHLORIDE PF INJ 10 ML VIAL IJ SCH (06:00)
[2017-01-05] MEDS ORDERED: LEVOTHYROXINE 100 MCG INJ (SYNTHROID) VIAL IV SCH ×2 (06:00)
[2017-01-05 06:06] LABS: ALANINE AMINOTRANSFERASE 68 U/L (0-55); ALBUMIN 3.1 GM/DL (3.2-4.5); ANION GAP 7 MMOL/L (5-14); ASPARTATE AMINO TRANSFERASE 27 U/L (5-34); BILIRUBIN,TOTAL 1.7 MG/DL (0.1-1.0); BLOOD UREA NITROGEN 17 MG/DL (7-18); BUN/CREATININE RATIO 20; CALCIUM 8.4 MG/DL (8.5-10.1); CARBON DIOXIDE 28 MMOL/L (21-32); CHLORIDE 103 MMOL/L (98-107); CREATININE SERUM 0.86 MG/DL (0.60-1.30); GFR ESTIMATED > 60; GLUCOSE 83 MG/DL (70-105); MAGNESIUM 1.8 MG/DL (1.8-2.4); PHOSPHORUS 4.3 MG/DL (2.3-4.7); POTASSIUM 4.6 MMOL/L (3.6-5.0); SODIUM 138 MMOL/L (135-145); TOTAL PROTEIN 5.5 GM/DL (6.4-8.2)
[2017-01-05] MEDS: CATHETER FLUSH 10 ML SYR IV SCH ×3 (07:00→20:22)
--- NOTE | 2017-01-05 07:52 | Pulmonary Progress Note ---
Subjective Time Seen by Provider: 07:51 Subjective/Events-last exam pt is doing much better. Exam Exam Vital Signs Date Time Temp Pulse Resp B/P (MAP) Pulse Ox O2 Delivery O2 Flow Rate FiO2 01/05/17 00:40 96.8 68 18 90/59 97 Room Air 01/04/17 20:00 Room Air 01/04/17 19:32 96 Room Air 01/04/17 19:07 98.9 74 22 118/64 98 Room Air 01/04/17 16:45 98.9 73 18 92/63 97 Room Air 01/04/17 15:12 97 Room Air 01/04/17 12:00 98.4 72 18 108/70 98 Room Air 01/04/17 08:18 95 Room Air 01/04/17 08:00 97.8 78 22 122/84 95 Room Air 01/04/17 08:00 Room Air General Appearance: No Apparent Distress, WD/WN, Chronically ill, Cachetic, Other (difficulty speaking) HEENT: PERRL/EOMI, Normal ENT Inspection, Pharynx Normal Neck: Full Range of Motion, Normal Inspection, Non Tender, Supple, Carotid Bruit Respiratory: Chest Non Tender, Lungs Clear, Normal Breath Sounds, No Accessory Muscle Use, No Respiratory Distress Cardiovascular: Regular Rate, Rhythm, No Edema, No Gallop, No JVD, No Murmur, Normal Peripheral Pulses Capillary Refill: Less Than 3 Seconds Gastrointestinal: normal bowel sounds, non tender, soft Extremity: Normal Capillary Refill, Normal Inspection, Normal Range of Motion, Non Tender, No Calf Tenderness, No Pedal Edema Neurologic/Psychiatric: Alert, Oriented x3, No Motor/Sensory Deficits, Normal Mood/Affect Skin: Normal Color, Warm/Dry Lymphatic: No Adenopathy Results Lab Laboratory Tests 01/04/17 05:30 01/04/17 09:15 01/05/17 05:35 Assessment/Plan Assessment/Plan Hx of COPD - pt does have oxygen at home that he uses PRN - SVN TID and PRN Anemia - monitor Afib RVR - now sinus -Cardiology is following Hx of fungal esophagitis, Radiation esophagitis Recent ARF requiring temporary HD at [facility] -monitor pt appears to be doing well pulmonary macias. I am going to sign off please call with any questions or concerns. 232 Clinical Quality Measures DVT/VTE Risk/Contraindication: Risk Factor Score Per Nursin RFS Level Per Nursing on Admit: 3=High ROSA HEBERT DO Jan 05, 2017 07:52
[2017-01-05 08:00] VITALS: BP 115/65
--- NOTE | 2017-01-05 08:23 | Progress Note-Hospitalist ---
Subjective HPI/CC On Admission Date Seen by Provider: Jan 05, 2017 Time Seen by Provider: 08:10 CC: AF with RVR HPI: This is a 76 yoWM pt of oncology and Dr. Tirado's with hx of non-Hodgkin's lymphoma 1996 in remission but on TPN for 2 yrs for severe dysphasia from previous radiation treatment. Multiple episodes of aspiration pneumonia. Pt has recent hx of [facility] admission for renal failure of creat 6.0 needing temporary dialysis thought to be caused by Gentamicin. Presented to ER due to hypotension and syncope with chest pain found to have AF with RVR. Dr. Reinoso managed the pt in ER and overall he has stabilized. Subjective/Events-last exam Pt reports doing well. No complaints. Ready for PEG placement. Objective Exam Vital Signs Vital Sign - Last 12Hours 12/30/16 12/30/16 22:15 22:30 Temp 95.6 Pulse 134 Resp 27 B/P (MAP) 118/93 Pulse Ox 96 O2 Delivery Room Air O2 Flow Rate 2.00 Capillary Refill : Less Than 3 Seconds General Appearance: No Apparent Distress, Cachetic Respiratory: Lungs Clear, No Respiratory Distress Cardiovascular: Regular Rate, Rhythm, No Murmur Gastrointestinal: Normal Bowel Sounds, Non Tender, Soft Extremity: Non Tender, No Calf Tenderness, No Pedal Edema Neurologic/Psychiatric: Alert, Oriented x3 Results/Procedures Lab Laboratory Tests 01/05/17 05:35 Assessment/Plan Assessment and Plan Assess & Plan/Chief Complaint Dysphagia Diagnosis/Problems Diagnosis/Problems (1) Dysphagia Status: Chronic Assessment & Plan: From radiation esophagitis Barium Swallow yesterday showed mariteta aspiration, strict NPO recommendations On TPN PEG for today per Dr Tirado Continue PPI Dietary consulted for transition to PEG feeds (2) Hyperkalemia Status: Resolved Assessment & Plan: Resolved this AM Will continue current TPN Resume K supplementation in TPN this evening (3) Atrial fibrillation with RVR Status: Resolved Assessment & Plan: Parozsymal A-fib EKG shows sinus rhythm Dr Reinoso consulted appreciate recs Per review of records patient has declined therapeutic anticoagulation (4) Hypothyroidism Status: Chronic Assessment & Plan: Transition to IV synthroid today, will likely resume oral tomorrow (5) Prophylactic measure Assessment & Plan: Lovenox for dvt ppx D5NS at 100ml/hr JORGE FERGUSON MD Jan 05, 2017 8:22 am
[2017-01-05] MEDS: RT-ALBUTEROL/IPRATROPIUM 3 ML (DUONEB) VIAL INH SCH ×3 (08:32→21:51)
--- NOTE | 2017-01-05 08:34 | Diagnostic Imaging Report ---
INDICATION: Sepsis. Study compared 01/03 FINDINGS: Right PICC at the upper SVC. Elevated left diaphragm chronic. No focal alveolar consolidation, effusion or pneumothorax. No change. IMPRESSION: Stable chest Dictated by: Dictated on workstation # [id number]
[2017-01-05] MEDS ORDERED: PANTOPRAZOLE 40 MG/10 ML (PROTONIX) VIAL IV SCH (09:00)
[2017-01-05] MEDS: ENOXAPARIN 40 MG/0.4 ML (LOVENOX) SYR SC SCH (09:26)
--- NOTE | 2017-01-05 09:37 | Speech Therapy Progress Note ---
Therapy Progress Note The patient is scheduled to undergo PEG placement on this date. Speech pathology will follow up with the patient post placement on 01/06/2017. Thank you. CARMEN FOGN Jan 05, 2017 09:37
[2017-01-05] MEDS ORDERED: LIDOCAINE JELLY 2% (XYLOCAINE) 5 ML TUBE ONE (09:59)
[2017-01-05] MEDS ORDERED: MIDAZOLAM 2 MG/2 ML (VERSED) VIAL ONE ×4 (10:00)
[2017-01-05] MEDS ORDERED: HURRICAINE EXT TUBE (BENZOCAINE) ONE (10:00)
[2017-01-05] MEDS ORDERED: fentaNYL INJECTION 100 MCG/2 ML AMP ONE ×2 (10:00)
[2017-01-05] MEDS ORDERED: PROPOFOL INJECTION 50 ML IV ONE (10:55)
[2017-01-05] MEDS ORDERED: fentaNYL INJECTION 100 MCG/2 ML AMP IVP PRN (11:00)
[2017-01-05] MEDS ORDERED: HURRICAINE EXT TUBE (BENZOCAINE) XX PRN (11:00)
[2017-01-05] MEDS ORDERED: LIDOCAINE JELLY 2% (XYLOCAINE) 5 ML TUBE MM PRN (11:00)
[2017-01-05] MEDS ORDERED: MIDAZOLAM 2 MG/2 ML (VERSED) VIAL IVP PRN (11:00)
--- NOTE | 2017-01-05 12:06 | Progress Note-Pre Operative ---
Pre-Operative Progress Note H&P Reviewed The H&P was reviewed, patient examined and no changes noted. Date Seen by Provider: Jan 05, 2017 Time Seen by Provider: 10:00 Date H&P Reviewed: Jan 05, 2017 Time H&P Reviewed: 10:00 Pre-Operative Diagnosis: non-hodgkins lymphoma and dysphagia. GARRETT JOHNSON MD Jan 05, 2017 12:06 pm
--- NOTE | 2017-01-05 12:10 | Progress Note-Post Operative ---
Post-Operative Progess Note Surgeon (s)/Assembly Instructions Writer (s) Surgeon GARRETT JOHNSON MD Assembly Instructions Writer: none Pre-Operative Diagnosis non-hodgkins lymphoma and dysphagia. Post-Operative Diagnosis same Procedure & Operative Findings Date of Procedure 01/05/17 Procedure Performed/Findings EGD with PEG Anesthesia Type MAC Estimated Blood Loss Estimated blood loss (mL): minimal Specimens/Packing Specimens Removed none GARRETT JOHNSON MD Jan 05, 2017 12:10 pm
[2017-01-05 12:30] VITALS: BP_SYST 103; BP_SYST 160; BP_DIAS 66; BP_DIAS 89
--- NOTE | 2017-01-05 13:56 | Progress Note-Cardiology ---
Cardiology SOAP Progress Note Subjective: Drowsy post PEG placement. No cp or shortness of breath or palp Objective: I&O/Vital Signs Vital Sign - Last 12Hours 01/05/17 01/05/17 01/05/17 08:00 08:32 12:30 Temp 96.8 98.2 Pulse 74 76 Resp 22 20 B/P (MAP) 115/65 160/89 Pulse Ox 96 94 99 O2 Delivery Room Air Room Air Room Air Weight (Pounds): 124 Weight (Ounces): 9.6 Weight (Calculated Kilograms): 56.691075 Constitutional: other (thin appearing; appears under-nourished) Respiratory: No accessory muscle use, other (good bilat air entry) Cardiovascular: irregularly irregular, tachycardia, S1 and S2, systolic murmur (faint ISIDRO at cardiac base) Gastrointestional: No tender, soft, No guarding, No rebound, audible bowel sounds Extremities: No clubbing, No cyanosis, No significant edema Neurologic/Psychiatric: grossly intact (generally weak, but does not appear to have focal weakness) Skin: normal color, warm/dry Results/Procedures: Labs Laboratory Tests 01/05/17 05:35: White Blood Count 6.4, Red Blood Count 3.12L, Hemoglobin 8.9L, Hematocrit 28L, Mean Corpuscular Volume 90, Mean Corpuscular Hemoglobin 29, Mean Corpuscular Hemoglobin Concent 32, Red Cell Distribution Width 16.7H, Platelet Count 137, Mean Platelet Volume 13.2H, Neutrophils (%) (Auto) 68, Lymphocytes (%) (Auto) 9L , Monocytes (%) (Auto) 15H, Eosinophils (%) (Auto) 7, Basophils (%) (Auto) 1, Neutrophils # (Auto) 4.4, Lymphocytes # (Auto) 0.6L, Monocytes # (Auto) 1.0, Eosinophils # (Auto) 0.4H, Basophils # (Auto) 0.1, Prothrombin Time 14.1, INR Comment 1.1, Activated Partial Thromboplast Time 34, Sodium Level 138, Potassium Level 4.6, Chloride Level 103, Carbon Dioxide Level 28, Anion Gap 7, Blood Urea Nitrogen 17, Creatinine 0.86, Estimat Glomerular Filtration Rate > 60 , BUN/Creatinine Ratio 20, Glucose Level 83, Lactic Acid Level 0.61, Calcium Level 8.4L, Phosphorus Level 4.3, Magnesium Level 1.8, Total Bilirubin 1.7H, Aspartate Amino Transf (AST/SGOT) 27, Alanine Aminotransferase (ALT/SGPT) 68H, Alkaline Phosphatase 332H, Total Protein 5.5L, Albumin 3.1L Microbiology 12/30/16 Blood Culture - Preliminary, Resulted No growth Laboratory Tests 01/04/17 05:30 01/04/17 09:15 01/05/17 05:35 A/P: Assessment: Hypotension, probably due to septic shock due to septicemia, resolved PAF, currently NSR. He has not agreed to oral anticoagulation Mildly elevated troponin due to a long episode of hypotension on 12/30/16. No evidence of acute coronary syndrome/UT Echo of 12/31/16: LVEF 60-65%, no pericard eff, PASP 30-35 mmHg Anemia and mild thrombocytopenia, apparently chronic, managed by the [facility] with aspiration pneumonia and acute renal failure requiring temporary dialysis at [place], [place] in Dec 2016 H/o of non-Hodgkin's lymphoma 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 Chronically on TPN S/p PEG placement on 01/05/17 Hyperkalemia on 01/04/17, likely due to iv K, now resolved Plan: * Resume aspirin when oral intake allowed post PEG * Outpatient cardiac f/u advised MYRIAM WOODSON MD FACP FAC CCDS Jan 05, 2017 13:56
[2017-01-05 16:05] VITALS: BP 90/55
[2017-01-05] MEDS ORDERED: NS IV 1000 ML 1,000 ML IV SCH (17:00)
[2017-01-05] MEDS: SODIUM CHLORIDE IV SCH ×10 (18:03)
[2017-01-05] MEDS: [UNRECOGNIZED DRUG - OTHER] IV SCH ×10 (18:03)
[2017-01-05] MEDS: POTASSIUM CHLORIDE IV SCH ×10 (18:03)
[2017-01-05] MEDS: APAP 325 MG/10.15 ML LIQ (TYLENOL) UDC PO PRN (21:00)
[2017-01-05 22:00] VITALS: BP 106/63
--- NOTE | 2017-01-05 23:49 | OPERATIVE REPORT ---
DATE OF SERVICE: 01/05/2017 ADMITTING PHYSICIAN: Dr. Wallace. PREOPERATIVE DIAGNOSES: Non-Hodgkin's lymphoma, radiation-induced dysphagia and esophageal dysmotility. POSTOPERATIVE DIAGNOSES: Non-Hodgkin's lymphoma, radiation-induced dysphagia and esophageal dysmotility. PROCEDURE PERFORMED: EGD and percutaneous endoscopic gastrostomy tube placement. SURGEON: Dr. Johnson. ANESTHESIA: Monitored anesthesia care. ESTIMATED BLOOD LOSS: Minimal. FINDINGS: Mild distal esophageal stricture, mild gastritis. Pylorus and duodenum appeared normal with no distal obstructions. DISPOSITION: The patient tolerated the procedure well. INDICATIONS FOR PROCEDURE: The patient is a 77-year-old male known to us. We had seen him in 2015 for dysphagia. He was diagnosed with non-Hodgkin's lymphoma in 1996 and underwent chemotherapy as well as radiation. He reports taking 2 cycles of radiation on a daily basis for approximately 7 weeks. 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 The motility study did show normal motility of the stomach. He also did have a history of candidal esophagitis and treated appropriately. His dysphagia has been progressive and continues to worsen. In the past 3 years, he has only been able to take in very small amounts of liquids including clear liquids and broth-based soups as well as the thickened consistency liquids. He is able to take in very small amounts of soft foods. Due to his dysphagia, he developed severe malnutrition requiring long-term IV alimentation and central IV access placement. He was admitted for chest pain and atrial fibrillation as well as rapid ventricular rate on this admission. This was controlled with medication. Due to his malnourished state and dehydration, the option for percutaneous endoscopic gastrostomy tube was given the patient. He and his , who is a physician, are in full understanding of this and would like to proceed with this. DESCRIPTION OF PROCEDURE: The patient was brought to the endoscopy suite, laid supine on the table with the head slightly elevated. After adequate IV pain and sedative medications and monitored anesthesia care, the mouthpiece was applied. The endoscope was placed in the mouth, visualizing the pharynx and hypopharyngeal region. Vocal cords, epiglottis and vallecula identified. There was minimal excursion of the vocal cords and vallecula as well as the epiglottis consistent with the disease process. The endoscope was then gently intubated at the esophageal opening and esophagus insufflated. The endoscope was then advanced to the first, second and third portions of the esophagus. At the level of the GE junction, a mild stricture was identified. There was a reflux esophagitis class B identified as well. With gentle pressure, the endoscope was easily placed through the GE junction. The endoscope was then retroflexed, visualizing no hiatal hernia. There was a mild-severity gastritis. There were no formal ulcers, polyps or any neoplasms identified. The endoscope was then advanced to the pylorus and the first and second portions of the duodenum, which appeared normal with no distal obstructions. We then proceeded with the endoscopic gastrostomy tube placement. An area in the left upper abdominal quadrant was then palpated after the abdomen was prepped and draped in a standard surgical fashion. This area was then anesthetized and a small gauge needle was visualized going through the stomach through the endoscope. A small transverse skin incision was then made using an 11-blade and the catheter and sheath were then introduced into the stomach under direct visualization. The introducer was then removed and the guidewire was then placed and looped through the endoscope and pulled through the stomach. The gastrostomy tube was then placed onto this wire and pulled through with minimal resistance. The endoscope was then placed back into the stomach visualizing the bolster abutted firmly against the anterior body of the stomach. The rubber bolster was then firmly placed on the tube, bacitracin ointment was placed on the skin and a drain sponge was placed. The tube was then cut down to size and a rubber stop placed on the end. The endoscope was then slowly withdrawn taking a second look and suctioning residual air with no additional findings. The patient tolerated the procedure well. We will consult dietary for tube feeding choices and directions as well as instruct staff to teach cleaning instructions, which encompasses drain sponges on a b.i.d. basis until no drainage. The gastrostomy tube may be accessed and used at any time. Job ID: [id number] DocumentID: [id number] Dictated Date: 01/05/2017 12:20:55 [facility] Physician Date: 01/05/2017 22:57:54 Dictated By: GARRETT JOHNSON MD
[2017-01-06] VITALS: BP 93/57
[2017-01-06 05:30] LABS: BASOPHILS % (AUTO) 0 % (0-10); EOSINOPHILS # (AUTO) 0.4 10^3/uL (0.0-0.3); EOSINOPHILS % (AUTO) 3 % (0-10); LYMPHOCYTES # (AUTO) 0.5 X 10^3 (1.0-4.0); LYMPHOCYTES % (AUTO) 4 % (12-44); MEAN CORPUSCULAR HEMOGLOBIN 29 PG (25-34); MEAN CORPUSCULAR HGB CONC 31 G/DL (32-36); MEAN CORPUSCULAR VOLUME 91 FL (80-99); MEAN PLATELET VOLUME 12.9 FL (7.4-10.4); MONOCYTES # (AUTO) 1.3 X 10^3 (0.0-1.0); MONOCYTES % (AUTO) 11 % (0-12); NEUTROPHILS # (AUTO) 9.1 X 10^3 (1.8-7.8); NEUTROPHILS % (AUTO) 81 % (42-75); PLATELET COUNT 137 10^3/uL (130-400); RED BLOOD COUNT 3.25 10^6/uL (4.35-5.85); RED CELL DISTRIBUTION WIDTH 16.7 % (10.0-14.5); WHITE BLOOD COUNT 11.2 10^3/uL (4.3-11.0)
[2017-01-06 05:39] LABS: PROTHROMBIN TIME PATIENT 13.5 SEC (12.2-14.7)
[2017-01-06 05:48] LABS: ALANINE AMINOTRANSFERASE 54 U/L (0-55); ALBUMIN 3.2 GM/DL (3.2-4.5); ANION GAP 7 MMOL/L (5-14); ASPARTATE AMINO TRANSFERASE 22 U/L (5-34); BILIRUBIN,TOTAL 1.5 MG/DL (0.1-1.0); BLOOD UREA NITROGEN 20 MG/DL (7-18); BUN/CREATININE RATIO 23; CALCIUM 8.4 MG/DL (8.5-10.1); CARBON DIOXIDE 29 MMOL/L (21-32); CHLORIDE 103 MMOL/L (98-107); CREATININE SERUM 0.86 MG/DL (0.60-1.30); GFR ESTIMATED > 60; GLUCOSE 88 MG/DL (70-105); MAGNESIUM 1.9 MG/DL (1.8-2.4); PHOSPHORUS 3.7 MG/DL (2.3-4.7); POTASSIUM 4.5 MMOL/L (3.6-5.0); SODIUM 139 MMOL/L (135-145); TOTAL PROTEIN 5.7 GM/DL (6.4-8.2)
[2017-01-06 05:54] LABS: BAND NEUTROPHILS 4 %; EOSINOPHILS % (MANUAL) 4 %; HYPOCHROMASIA MODERATE; LYMPHOCYTES % (MANUAL) 7 %; NEUTROPHILS % (MANUAL) 75 %
[2017-01-06] MEDS: PANTOPRAZOLE 40 MG (PROTONIX) TAB PO SCH (05:55)
[2017-01-06] MEDS: CATHETER FLUSH 10 ML SYR IV SCH ×2 (05:55→14:50)
[2017-01-06] MEDS: LEVOTHYROXINE 75 MCG (LEVOTHROID) TABLET PEG SCH (05:55)
[2017-01-06] MEDS: RT-ALBUTEROL/IPRATROPIUM 3 ML (DUONEB) VIAL INH SCH ×3 (07:07→19:45)
[2017-01-06 08:00] VITALS: BP 102/69
--- NOTE | 2017-01-06 09:46 | Discharge Summary-Hospitalist ---
Diagnosis/Chief Complaint Date of Admission Dec 31, 2016 at 12:38 am Date of Discharge Admission Diagnosis Assessment: Atrial fibrillation with rapid ventricular response requiring cardiology consultation Severe volume depletion resolved after aggressive IV fluids in ER History of chronic severe dysphagia precluding nutrition by mouth requiring TPN for the past 2 years due to radiation esophagitis from prior non-Hodgkin's lymphoma treatment in 1996 Hypothyroidism GERD History of fungal esophagitis Elevated troponin consistent with non-ST elevation LA Severe debility with cachexia Discharge Diagnosis Dysphagia (1) Dysphagia Status: Chronic Assessment & Plan: From radiation esophagitis Barium Swallow showed [place] aspiration, strict NPO recommendations On TPN PEG placed 01/05 Continue PPI Dietary consulted for transition to PEG feeds Started on Jevity 1.5 with goal of 50cc/hr with addition 1500ml FWF Will attempt to get dual pump to run Jevity and Free Water simultaneously (2) Atrial fibrillation with RVR Status: Resolved Assessment & Plan: Paroxysmal A-fib EKG shows sinus rhythm Dr Reinoso consulted appreciate recs Per review of records patient has declined therapeutic anticoagulation (3) Hyperkalemia Status: Resolved Assessment & Plan: Resolved this AM Will continue current TPN Resume K supplementation in TPN this evening (4) Hypothyroidism Status: Chronic Assessment & Plan: Resume Synthroid Will need outpatient follow up as now on continuous feeds, will likely need increased dose (5) Prophylactic measure Assessment & Plan: Lovenox for dvt ppx- patient declining D5NS at 100ml/hr- will transition to free water flushes Discharge Summary Discharge Physical Examination Allergies: Coded Allergies: No Known Drug Allergies (Unverified , 06/22/14) Vitals & I&Os Vital Signs Date Time Temp Pulse Resp B/P (MAP) Pulse Ox O2 Delivery O2 Flow Rate FiO2 01/06/17 16:15 98.5 87 18 121/78 98 Room Air 01/01/17 08:45 2.00 Hospital Course Pt is a 77yoCM with a history of radiation esophagitis. He was admitted for volume depletion from poor PO intake. He was continued on his TPN and a PEG was placed on 01/05. He was started on tube feeds (Jevity 1.5 at 50cc/hr goal). He tolerated this well and was DC-ed home to transition off TPN per the care of his PCP. Greater than 30m of time spent coordinating discharge plan. Labs (last 24 hrs) Laboratory Tests 01/06/17 05:20: White Blood Count 11.2H, Red Blood Count 3.25L, Hemoglobin 9.3L, Hematocrit 30L , Mean Corpuscular Volume 91, Mean Corpuscular Hemoglobin 29, Mean Corpuscular Hemoglobin Concent 31L, Red Cell Distribution Width 16.7H, Platelet Count 137, Mean Platelet Volume 12.9H, Neutrophils (%) (Auto) 81H, Lymphocytes (%) (Auto) 4L, Monocytes (%) (Auto) 11, Eosinophils (%) (Auto) 3, Basophils (%) (Auto) 0, Neutrophils # (Auto) 9.1H, Lymphocytes # (Auto) 0.5L, Monocytes # (Auto) 1.3H, Eosinophils # (Auto) 0.4H, Basophils # (Auto) 0.0, Neutrophils % (Manual) 75, Lymphocytes % (Manual) 7, Monocytes % (Manual) 10, Eosinophils % (Manual) 4, Band Neutrophils 4, Hypochromasia MODERATE, Prothrombin Time 13.5, INR Comment 1.0, Activated Partial Thromboplast Time 33, Sodium Level 139, Potassium Level 4.5, Chloride Level 103, Carbon Dioxide Level 29, Anion Gap 7, Blood Urea Nitrogen 20H, Creatinine 0.86, Estimat Glomerular Filtration Rate > 60, BUN/ Creatinine Ratio 23, Glucose Level 88, Lactic Acid Level 0.63, Calcium Level 8.4L, Phosphorus Level 3.7, Magnesium Level 1.9, Total Bilirubin 1.5H, Aspartate Amino Transf (AST/SGOT) 22, Alanine Aminotransferase (ALT/SGPT) 54, Alkaline Phosphatase 338H, Total Protein 5.7L, Albumin 3.2 Microbiology 12/30/16 Blood Culture - Final, Complete No growth 01/04/17 MRSA Screen - Final, Complete MRSA not isolated Pending Labs Discharge Home Medications: Active Scripts Active Kangaroo Epump Set (Feeder Container with Pump Set) 1 Each Each Each DAILY DAILY FEEDINGS Kangaroo Deluxe Pump Set (Feeder Container with Pump Set) 1 Each Each Each DAILY 50cc/hr Jevity 1.5 Jevity 1.5 Robert Liquid (Lactose-Reduced Food/Fiber) 237 Ml Liquid 237 Ml PO DAILY 30 Days 50cc/hr Reported Tums (Calcium Carbonate) 200 Mg Tab.chew 200 Mg PO TID PRN Levothyroxine Sodium 75 Mcg Tablet 75 Mcg PO DAILY Pantoprazole Sodium 40 Mg Tablet.dr 40 Mg PO DAILY Instructions to patient/family Please see electronic discharge instructions given to patient. Clinical Quality Measures DVT/VTE Risk/Contraindication: Risk Factor Score Per Nursin RFS Level Per Nursing on Admit: 3=High JORGE FERGUSON MD Jan 06, 2017 09:46
[2017-01-06] MEDS ORDERED: LACT-72 PO (09:49)
[2017-01-06] MEDS ORDERED: [UNRECOGNIZED DRUG - CODE] MC (09:52)
--- NOTE | 2017-01-06 10:00 | Speech Therapy Daily Note ---
Speech Daily Progress Note Subjective Date Seen by Provider: Jan 06, 2017 Time Seen by Provider: 09:10 The patient was laying in bed upon entrance. The patient greeted the clinician and was agreeable to participation in the dysphagia treatment session. Objective Review and Education of Modified Barium Swallow: The clinician and patient extensively discussed his most recent video swallow, as well as, the results and recommendations. The patient verbalized comprehension of the anatomy and the presence/visualization of aspiration. The patient denied any questions at this time. Dysphagia Therapy/Exercises: The process of dysphagia therapy, as well as, the exercises were introduced to the patient. Per patient, he underwent dysphagia therapy "two years ago" and "nothing worked." At this time, the patient is undecided as to whether he would like to pursue dysphagia therapy. The patient stated he would "think on it" and follow up with the clinician regarding his decision. Assessment Assessment Current Status: Good Progress Treatment Plan Continue Plan of Care Speech Short Term Goals Short Term Goals Short Term Goals 1. The patient will complete a modified barium swallow evaluation to definitively rule out aspiration with PO intake. MET. 2. The patient will display 90% accuracy with oropharyngeal strengthening exercises. Time Frame-STG: One Week Speech Group Home Goals Mail Order Sorter Goals 1. The patient will tolerate the least restrictive diet without signs/symptoms of aspiration or laryngeal penetration. Time Frame: Two Weeks Speech-Plan Treatment Plan Speech Therapy Treatment Plan: Continue Plan of Care Continue skilled speech pathology to target improved oropharyngeal strengthening and swallowing safety. Treatment Duration: Jan 18, 2017 Frequency: 3 times per week Estimated Hrs Per Day: .25 hour per day Rehab Potential: Good Safety Risks/Education Teaching Recipient: Patient Teaching Methods: Discussion Response to Teaching: Verbalize Understanding Education Topics Provided: Modified Barium Results, Recommendations Time Speech Therapy Time In: 09:10 Speech Therapy Time Out: 09:25 Total Billed Time: 15 Billed Treatment Time LEEANNA LezamaCARMEN ST Jan 06, 2017 10:00
[2017-01-06 12:00] VITALS: BP 94/58
[2017-01-06] MEDS ORDERED: [UNRECOGNIZED DRUG - CODE] MC (14:19)
[2017-01-06] MEDS ORDERED: NS IV 500 ML 500 ML ONE ×2 (14:31→21:26)
[2017-01-06] MEDS ORDERED: NS IV 500 ML 500 ML IV ONE (15:00)
[2017-01-06] MEDS: APAP 325 MG/10.15 ML LIQ (TYLENOL) UDC PO PRN (15:38)
[2017-01-06 16:15] VITALS: BP 121/78
[2017-01-06] MEDS: SODIUM CHLORIDE IV SCH ×10 (18:06)
[2017-01-06] MEDS: POTASSIUM CHLORIDE IV SCH ×10 (18:06)
[2017-01-06] MEDS: [UNRECOGNIZED DRUG - OTHER] IV SCH ×10 (18:06)
[2017-01-06 19:44] VITALS: BP 93/62
[2017-01-06] MEDS ORDERED: NS IV 1000 ML 1,000 ML ONE (23:34)
[2017-01-07 00:40] VITALS: BP 127/68
[2017-01-07] MEDS: CATHETER FLUSH 10 ML SYR IV SCH ×3 (00:51→14:00)
[2017-01-07 05:42] LABS: RED BLOOD COUNT 3.1 10^6/uL (4.35-5.85); RED CELL DISTRIBUTION WIDTH 16.6 % (10.0-14.5); WHITE BLOOD COUNT 11.9 10^3/uL (4.3-11.0)
[2017-01-07 05:50] LABS: INR 1.1 (0.8-1.4)
[2017-01-07 06:00] LABS: ALANINE AMINOTRANSFERASE 43 U/L (0-55); ALBUMIN 3.1 GM/DL (3.2-4.5); ANION GAP 8 MMOL/L (5-14); ASPARTATE AMINO TRANSFERASE 19 U/L (5-34); BILIRUBIN,TOTAL 1.4 MG/DL (0.1-1.0); BLOOD UREA NITROGEN 26 MG/DL (7-18); BUN/CREATININE RATIO 28; CALCIUM 8.5 MG/DL (8.5-10.1); CARBON DIOXIDE 28 MMOL/L (21-32); CHLORIDE 104 MMOL/L (98-107); CREATININE SERUM 0.92 MG/DL (0.60-1.30); GFR ESTIMATED > 60; GLUCOSE 116 MG/DL (70-105); PHOSPHORUS 3.6 MG/DL (2.3-4.7); POTASSIUM 4.5 MMOL/L (3.6-5.0); SODIUM 140 MMOL/L (135-145); TOTAL PROTEIN 5.5 GM/DL (6.4-8.2); TRIGLYCERIDES 51 MG/DL (<150)
[2017-01-07] MEDS ORDERED: 0.9% SODIUM CHLORIDE PF INJ 10 ML VIAL IJ SCH (06:00)
[2017-01-07] MEDS ORDERED: LEVOTHYROXINE 100 MCG INJ (SYNTHROID) VIAL IV SCH (06:00)
[2017-01-07] MEDS: PANTOPRAZOLE 40 MG (PROTONIX) TAB PO SCH (06:04)
[2017-01-07] MEDS: LEVOTHYROXINE 75 MCG (LEVOTHROID) TABLET PEG SCH (06:04)
[2017-01-07] MEDS: RT-ALBUTEROL/IPRATROPIUM 3 ML (DUONEB) VIAL INH SCH ×2 (07:28→15:04)
[2017-01-07 08:00] VITALS: BP 155/78
[2017-01-07] MEDS: NS IV 1000 ML 1,000 ML IV SCH ×2 (09:47)
[2017-01-07 11:55] VITALS: BP 109/62
--- NOTE | 2017-01-07 13:28 | Progress Note-Hospitalist ---
Subjective HPI/CC On Admission Date Seen by Provider: Jan 07, 2017 Time Seen by Provider: 08:30 CC: AF with RVR HPI: This is a 76 yoWM pt of oncology and Dr. Kabas with hx of non-Hodgkin's lymphoma 1996 in remission but on TPN for 2 yrs for severe dysphasia from previous radiation treatment. Multiple episodes of aspiration pneumonia. Pt has recent hx of [facility] admission for renal failure of creat 6.0 needing temporary dialysis thought to be caused by Gentamicin. Presented to ER due to hypotension and syncope with chest pain found to have AF with RVR. Dr. Reinoso managed the pt in ER and overall he has stabilized. Subjective/Events-last exam Pt reports doing well. Had some residuals overnight but asymptomatic. Continued feeds with no symptoms. Objective Exam Vital Signs Vital Sign - Last 12Hours Capillary Refill : Less Than 3 Seconds General Appearance: No Apparent Distress, Cachetic Respiratory: Lungs Clear, No Respiratory Distress Cardiovascular: Regular Rate, Rhythm, No Murmur Gastrointestinal: Normal Bowel Sounds, Non Tender, Soft Extremity: Non Tender, No Calf Tenderness Neurologic/Psychiatric: Alert, Oriented x3 Results/Procedures Lab Laboratory Tests 01/07/17 05:23 Assessment/Plan Assessment and Plan Assess & Plan/Chief Complaint Dysphagia Diagnosis/Problems Diagnosis/Problems (1) Dysphagia Status: Chronic Assessment & Plan: From radiation esophagitis Barium Swallow showed marietta aspiration, strict NPO recommendations On TPN PEG placed 01/05 Continue PPI Dietary consulted for transition to PEG feeds Con Jevity 1.5 with goal of 50cc/hr with addition 1500ml FWF Will attempt to get dual pump to run Jevity and Free Water simultaneously Goal will be to run 50cc/hr of Jevity and hourly 60cc free water boluses Tolerated over night- will DC and Dr. Robledo to manage transition from TPN to PEG feeds DC held up yesterday at pump was not available for use at home (2) Atrial fibrillation with RVR Status: Resolved Assessment & Plan: Paroxysmal A-fib EKG shows sinus rhythm Dr Reinoso consulted appreciate recs Per review of records patient has declined therapeutic anticoagulation (3) Hyperkalemia Status: Resolved Assessment & Plan: Resolved this AM Will continue current TPN Resume K supplementation in TPN this evening (4) Hypothyroidism Status: Chronic Assessment & Plan: Resume Synthroid Will need outpatient follow up as now on continuous feeds, will likely need increased dose (5) Prophylactic measure Assessment & Plan: Lovenox for dvt ppx- patient declining Free water flushes JORGE FERGUSON MD Jan 07, 2017 1:28 pm
[2017-01-07 16:40] VITALS: BP 149/76
[2017-01-07] MEDS: POTASSIUM CHLORIDE IV SCH ×10 (17:00)
[2017-01-07] MEDS: [UNRECOGNIZED DRUG - OTHER] IV SCH ×10 (17:00)
[2017-01-07] MEDS: SODIUM CHLORIDE IV SCH ×10 (17:00)
== END 2017-01-07 18:45 | disposition home health service (06) | DRG 391 ==
LOC: EDUNIT# 22:15 → ER 22:17 → ICU 12-31 00:38 → 4TH 01-01 10:40
PROVIDERS: ADMIT Internal Medicine; ATTEND Internal Medicine
PROC: 0DJ08ZZ Inspection of Upper Intestinal Tract, Via Natural or Artificial Opening Endoscopic (ICD-10-PCS; 2017-01-05)
PROC: 0DH63UZ Insertion of Feeding Device into Stomach, Percutaneous Approach (ICD-10-PCS; principal; 2017-01-05 10:25)
DX: K20.8 Other esophagitis (principal); R13.10 Dysphagia, unspecified; I48.0 Paroxysmal atrial fibrillation; J18.9 Pneumonia, unspecified organism; R64 Cachexia; K22.2 Esophageal obstruction; K29.70 Gastritis, unspecified, without bleeding; I95.9 Hypotension, unspecified; E86.0 Dehydration; E87.5 Hyperkalemia; D64.9 Anemia, unspecified; D69.6 Thrombocytopenia, unspecified; E03.9 Hypothyroidism, unspecified; E87.6 Hypokalemia; K21.9 Gastro-esophageal reflux disease without esophagitis; F41.9 Anxiety disorder, unspecified; J44.9 Chronic obstructive pulmonary disease, unspecified; R79.89 Other specified abnormal findings of blood chemistry; R53.81 Other malaise; Z85.72 Personal history of non-Hodgkin lymphomas; Z92.21 Personal history of antineoplastic chemotherapy; Z92.3 Personal history of irradiation
CPT/HCPCS: 36415; 71010; 74230; 76700; 80053; 80061; 80076; 81000; 82140; 82330; 82533; 83605; 83735; 83874; 84100; 84132; 84134; 84439; 84443; 84478; 84484; 85007; 85025; 85027; 85610; 85730; 86141; 87040; 87081; 93005; 93041; 93306; 94640; 94760; 96361; 96365; 96367

== ENCOUNTER 2017-02-22 09:02 | Outpatient (RCR) | payer OTHER ==
[2016-12-16 10:36] LABS: BASOPHILS % (AUTO) 0 % (0-10); EOSINOPHILS # (AUTO) 0.2 10^3/uL (0.0-0.3); EOSINOPHILS % (AUTO) 2 % (0-10); HEMATOCRIT 32 % (40-54); HEMOGLOBIN 10.2 G/DL (13.3-17.7); LYMPHOCYTES # (AUTO) 0.6 X 10^3 (1.0-4.0); LYMPHOCYTES % (AUTO) 8 % (12-44); MEAN CORPUSCULAR HEMOGLOBIN 28 PG (25-34); MEAN CORPUSCULAR HGB CONC 32 G/DL (32-36); MEAN CORPUSCULAR VOLUME 88 FL (80-99); MEAN PLATELET VOLUME 12.3 FL (7.4-10.4); MONOCYTES % (AUTO) 12 % (0-12); NEUTROPHILS # (AUTO) 6.6 X 10^3 (1.8-7.8); NEUTROPHILS % (AUTO) 78 % (42-75); PLATELET COUNT 177 10^3/uL (130-400); RED BLOOD COUNT 3.63 10^6/uL (4.35-5.85); RED CELL DISTRIBUTION WIDTH 14.9 % (10.0-14.5); WHITE BLOOD COUNT 8.4 10^3/uL (4.3-11.0)
[2016-12-16 10:55] LABS: ALBUMIN 3.9 GM/DL (3.2-4.5); BILIRUBIN,TOTAL 0.8 MG/DL (0.1-1.0); CALCIUM 9.7 MG/DL (8.5-10.1); CREATININE SERUM 1.85 MG/DL (0.60-1.30); MAGNESIUM 2.4 MG/DL (1.8-2.4); PHOSPHORUS 3.9 MG/DL (2.3-4.7); POTASSIUM 3.7 MMOL/L (3.6-5.0); TOTAL PROTEIN 6.3 GM/DL (6.4-8.2)
[2016-12-21 09:03] LABS: BASOPHILS % (AUTO) 0 % (0-10); EOSINOPHILS # (AUTO) 0.2 10^3/uL (0.0-0.3); EOSINOPHILS % (AUTO) 2 % (0-10); HEMATOCRIT 35 % (40-54); LYMPHOCYTES # (AUTO) 0.4 X 10^3 (1.0-4.0); LYMPHOCYTES % (AUTO) 4 % (12-44); MEAN CORPUSCULAR HEMOGLOBIN 28 PG (25-34); MEAN CORPUSCULAR HGB CONC 32 G/DL (32-36); MEAN CORPUSCULAR VOLUME 88 FL (80-99); MEAN PLATELET VOLUME 12.2 FL (7.4-10.4); MONOCYTES # (AUTO) 0.9 X 10^3 (0.0-1.0); MONOCYTES % (AUTO) 9 % (0-12); NEUTROPHILS # (AUTO) 8.7 X 10^3 (1.8-7.8); NEUTROPHILS % (AUTO) 85 % (42-75); PLATELET COUNT 176 10^3/uL (130-400); RED BLOOD COUNT 3.93 10^6/uL (4.35-5.85); WHITE BLOOD COUNT 10.2 10^3/uL (4.3-11.0)
[2016-12-21 09:23] LABS: BILIRUBIN,TOTAL 0.8 MG/DL (0.1-1.0); CALCIUM 9.6 MG/DL (8.5-10.1); CREATININE SERUM 1.83 MG/DL (0.60-1.30); MAGNESIUM 2.6 MG/DL (1.8-2.4); PHOSPHORUS 4.8 MG/DL (2.3-4.7); POTASSIUM 5.5 MMOL/L (3.6-5.0)
[2016-12-24 09:11] LABS: BASOPHILS % (AUTO) 0 % (0-10); EOSINOPHILS # (AUTO) 0.1 10^3/uL (0.0-0.3); EOSINOPHILS % (AUTO) 1 % (0-10); HEMATOCRIT 34 % (40-54); HEMOGLOBIN 10.7 G/DL (13.3-17.7); LYMPHOCYTES # (AUTO) 0.6 X 10^3 (1.0-4.0); LYMPHOCYTES % (AUTO) 5 % (12-44); MEAN CORPUSCULAR HEMOGLOBIN 28 PG (25-34); MEAN CORPUSCULAR HGB CONC 32 G/DL (32-36); MEAN CORPUSCULAR VOLUME 88 FL (80-99); MEAN PLATELET VOLUME 12.7 FL (7.4-10.4); MONOCYTES # (AUTO) 0.7 X 10^3 (0.0-1.0); MONOCYTES % (AUTO) 7 % (0-12); NEUTROPHILS # (AUTO) 8.9 X 10^3 (1.8-7.8); NEUTROPHILS % (AUTO) 86 % (42-75); PLATELET COUNT 164 10^3/uL (130-400); WHITE BLOOD COUNT 10.3 10^3/uL (4.3-11.0)
[2016-12-24 09:25] LABS: ALBUMIN 3.8 GM/DL (3.2-4.5); BILIRUBIN,TOTAL 0.9 MG/DL (0.1-1.0); CALCIUM 9.4 MG/DL (8.5-10.1); CREATININE SERUM 1.64 MG/DL (0.60-1.30); MAGNESIUM 2.6 MG/DL (1.8-2.4); PHOSPHORUS 4.7 MG/DL (2.3-4.7); POTASSIUM 4.7 MMOL/L (3.6-5.0); TOTAL PROTEIN 6.4 GM/DL (6.4-8.2)
[2016-12-24 09:32] LABS: ANISOCYTOSIS SLIGHT; BAND NEUTROPHILS 0 %; BASOPHILS % (MANUAL) 0 %; EOSINOPHILS % (MANUAL) 0 %; LYMPHOCYTES % (MANUAL) 5 %; MONOCYTES % (MANUAL) 3 %; NEUTROPHILS % (MANUAL) 92 %
[2016-12-28 09:10] LABS: BASOPHILS % (AUTO) 1 % (0-10); EOSINOPHILS # (AUTO) 0.1 10^3/uL (0.0-0.3); EOSINOPHILS % (AUTO) 2 % (0-10); HEMATOCRIT 33 % (40-54); HEMOGLOBIN 10.3 G/DL (13.3-17.7); LYMPHOCYTES # (AUTO) 0.5 X 10^3 (1.0-4.0); LYMPHOCYTES % (AUTO) 7 % (12-44); MEAN CORPUSCULAR HEMOGLOBIN 28 PG (25-34); MEAN CORPUSCULAR HGB CONC 31 G/DL (32-36); MEAN CORPUSCULAR VOLUME 89 FL (80-99); MEAN PLATELET VOLUME 13.2 FL (7.4-10.4); MONOCYTES # (AUTO) 0.8 X 10^3 (0.0-1.0); MONOCYTES % (AUTO) 11 % (0-12); NEUTROPHILS # (AUTO) 6.1 X 10^3 (1.8-7.8); NEUTROPHILS % (AUTO) 81 % (42-75); PLATELET COUNT 151 10^3/uL (130-400); RED BLOOD COUNT 3.72 10^6/uL (4.35-5.85); RED CELL DISTRIBUTION WIDTH 15.1 % (10.0-14.5); WHITE BLOOD COUNT 7.6 10^3/uL (4.3-11.0)
[2016-12-28 09:31] LABS: ALANINE AMINOTRANSFERASE 233 U/L (0-55); ALBUMIN 3.7 GM/DL (3.2-4.5); ALKALINE PHOSPHATASE 496 U/L (40-136); BILIRUBIN,TOTAL 2.1 MG/DL (0.1-1.0); BUN/CREATININE RATIO 25; CALCIUM 9.8 MG/DL (8.5-10.1); CARBON DIOXIDE 21 MMOL/L (21-32); CHLORIDE 106 MMOL/L (98-107); CHOLESTEROL 120 MG/DL (< 200); CREATININE SERUM 1.12 MG/DL (0.60-1.30); GFR ESTIMATED > 60; GLUCOSE 90 MG/DL (70-105); HDL CHOLESTEROL 45 MG/DL (40-60); MAGNESIUM 1.9 MG/DL (1.8-2.4); PHOSPHORUS 3.4 MG/DL (2.3-4.7); POTASSIUM 4.2 MMOL/L (3.6-5.0); SODIUM 136 MMOL/L (135-145); TOTAL PROTEIN 6.3 GM/DL (6.4-8.2); TRIGLYCERIDES 52 MG/DL (<150); VLDL CHOLESTEROL 10 MG/DL (5-40)
[2017-01-11 09:35] LABS: BASOPHILS # (AUTO) 0.1 10^3/uL (0.0-0.1); BASOPHILS % (AUTO) 2 % (0-10); EOSINOPHILS # (AUTO) 0.3 10^3/uL (0.0-0.3); EOSINOPHILS % (AUTO) 6 % (0-10); HEMATOCRIT 29 % (40-54); LYMPHOCYTES # (AUTO) 0.6 X 10^3 (1.0-4.0); LYMPHOCYTES % (AUTO) 12 % (12-44); MEAN CORPUSCULAR HEMOGLOBIN 29 PG (25-34); MEAN CORPUSCULAR HGB CONC 32 G/DL (32-36); MEAN CORPUSCULAR VOLUME 91 FL (80-99); MONOCYTES # (AUTO) 0.6 X 10^3 (0.0-1.0); MONOCYTES % (AUTO) 11 % (0-12); NEUTROPHILS # (AUTO) 3.8 X 10^3 (1.8-7.8); NEUTROPHILS % (AUTO) 70 % (42-75); PLATELET COUNT 132 10^3/uL (130-400); RED BLOOD COUNT 3.13 10^6/uL (4.35-5.85); RED CELL DISTRIBUTION WIDTH 15.9 % (10.0-14.5); WHITE BLOOD COUNT 5.4 10^3/uL (4.3-11.0)
[2017-01-11 10:00] LABS: ALANINE AMINOTRANSFERASE 197 U/L (0-55); ALBUMIN 3.1 GM/DL (3.2-4.5); ALKALINE PHOSPHATASE 566 U/L (40-136); BILIRUBIN,TOTAL 1.5 MG/DL (0.1-1.0); BUN/CREATININE RATIO 39; CALCIUM 8.4 MG/DL (8.5-10.1); CARBON DIOXIDE 23 MMOL/L (21-32); CHLORIDE 104 MMOL/L (98-107); CHOLESTEROL 124 MG/DL (< 200); CREATININE SERUM 0.72 MG/DL (0.60-1.30); GFR ESTIMATED > 60; GLUCOSE 86 MG/DL (70-105); HDL CHOLESTEROL 40 MG/DL (40-60); POTASSIUM 4.2 MMOL/L (3.6-5.0); SODIUM 137 MMOL/L (135-145); TOTAL PROTEIN 5.6 GM/DL (6.4-8.2); TRIGLYCERIDES 40 MG/DL (<150); VLDL CHOLESTEROL 8 MG/DL (5-40)
[2017-01-14 10:42] LABS: BASOPHILS # (AUTO) 0.1 10^3/uL (0.0-0.1); BASOPHILS % (AUTO) 2 % (0-10); EOSINOPHILS # (AUTO) 0.3 10^3/uL (0.0-0.3); EOSINOPHILS % (AUTO) 4 % (0-10); HEMATOCRIT 27 % (40-54); HEMOGLOBIN 8.7 G/DL (13.3-17.7); LYMPHOCYTES # (AUTO) 0.6 X 10^3 (1.0-4.0); LYMPHOCYTES % (AUTO) 11 % (12-44); MEAN CORPUSCULAR HEMOGLOBIN 29 PG (25-34); MEAN CORPUSCULAR HGB CONC 32 G/DL (32-36); MEAN CORPUSCULAR VOLUME 91 FL (80-99); MONOCYTES # (AUTO) 0.6 X 10^3 (0.0-1.0); MONOCYTES % (AUTO) 10 % (0-12); NEUTROPHILS # (AUTO) 4.1 X 10^3 (1.8-7.8); NEUTROPHILS % (AUTO) 73 % (42-75); PLATELET COUNT 140 10^3/uL (130-400); RED BLOOD COUNT 3.01 10^6/uL (4.35-5.85); RED CELL DISTRIBUTION WIDTH 16.3 % (10.0-14.5); WHITE BLOOD COUNT 5.6 10^3/uL (4.3-11.0)
[2017-01-14 10:59] LABS: ALANINE AMINOTRANSFERASE 308 U/L (0-55); ALBUMIN 3.1 GM/DL (3.2-4.5); ALKALINE PHOSPHATASE 744 U/L (40-136); BILIRUBIN,TOTAL 1.5 MG/DL (0.1-1.0); BUN/CREATININE RATIO 38; CALCIUM 8.7 MG/DL (8.5-10.1); CARBON DIOXIDE 22 MMOL/L (21-32); CHLORIDE 105 MMOL/L (98-107); CHOLESTEROL 136 MG/DL (< 200); GFR ESTIMATED > 60; GLUCOSE 85 MG/DL (70-105); HDL CHOLESTEROL 52 MG/DL (40-60); POTASSIUM 6.1 MMOL/L (3.6-5.0); SODIUM 136 MMOL/L (135-145); TOTAL PROTEIN 5.8 GM/DL (6.4-8.2); TRIGLYCERIDES 45 MG/DL (<150); VLDL CHOLESTEROL 9 MG/DL (5-40)
[2017-01-14 13:41] LABS: ALANINE AMINOTRANSFERASE 352 U/L (0-55); ALBUMIN 3.7 GM/DL (3.2-4.5); ALKALINE PHOSPHATASE 848 U/L (40-136); BILIRUBIN,TOTAL 1.7 MG/DL (0.1-1.0); BUN/CREATININE RATIO 36; CALCIUM 9.5 MG/DL (8.5-10.1); CARBON DIOXIDE 28 MMOL/L (21-32); CHLORIDE 102 MMOL/L (98-107); CREATININE SERUM 0.83 MG/DL (0.60-1.30); GFR ESTIMATED > 60; GLUCOSE 92 MG/DL (70-105); MAGNESIUM 1.9 MG/DL (1.8-2.4); PHOSPHORUS 3.5 MG/DL (2.3-4.7); POTASSIUM 5.1 MMOL/L (3.6-5.0); SODIUM 139 MMOL/L (135-145); TOTAL PROTEIN 6.5 GM/DL (6.4-8.2)
[2017-01-15 12:35] LABS: ALANINE AMINOTRANSFERASE 407 U/L (0-55); ALBUMIN 3.7 GM/DL (3.2-4.5); ALKALINE PHOSPHATASE 872 U/L (40-136); BILIRUBIN,TOTAL 1.7 MG/DL (0.1-1.0); BUN/CREATININE RATIO 33; CALCIUM 9.4 MG/DL (8.5-10.1); CARBON DIOXIDE 27 MMOL/L (21-32); CHLORIDE 103 MMOL/L (98-107); GFR ESTIMATED > 60; GLUCOSE 67 MG/DL (70-105); POTASSIUM 4.5 MMOL/L (3.6-5.0); SODIUM 139 MMOL/L (135-145); TOTAL PROTEIN 6.8 GM/DL (6.4-8.2)
[2017-01-18 09:14] LABS: BASOPHILS # (AUTO) 0.1 10^3/uL (0.0-0.1); BASOPHILS % (AUTO) 1 % (0-10); EOSINOPHILS # (AUTO) 0.2 10^3/uL (0.0-0.3); EOSINOPHILS % (AUTO) 2 % (0-10); HEMATOCRIT 29 % (40-54); HEMOGLOBIN 9.1 G/DL (13.3-17.7); LYMPHOCYTES # (AUTO) 0.6 X 10^3 (1.0-4.0); LYMPHOCYTES % (AUTO) 8 % (12-44); MEAN CORPUSCULAR HEMOGLOBIN 29 PG (25-34); MEAN CORPUSCULAR HGB CONC 31 G/DL (32-36); MEAN CORPUSCULAR VOLUME 92 FL (80-99); MONOCYTES # (AUTO) 0.5 X 10^3 (0.0-1.0); MONOCYTES % (AUTO) 8 % (0-12); NEUTROPHILS # (AUTO) 5.6 X 10^3 (1.8-7.8); NEUTROPHILS % (AUTO) 81 % (42-75); PLATELET COUNT 140 10^3/uL (130-400); RED BLOOD COUNT 3.17 10^6/uL (4.35-5.85); RED CELL DISTRIBUTION WIDTH 16.4 % (10.0-14.5); WHITE BLOOD COUNT 6.9 10^3/uL (4.3-11.0)
[2017-01-18 09:28] LABS: ALANINE AMINOTRANSFERASE 352 U/L (0-55); ALBUMIN 3.5 GM/DL (3.2-4.5); ALKALINE PHOSPHATASE 799 U/L (40-136); BILIRUBIN,TOTAL 1.3 MG/DL (0.1-1.0); BUN/CREATININE RATIO 34; CALCIUM 9.1 MG/DL (8.5-10.1); CARBON DIOXIDE 29 MMOL/L (21-32); CHLORIDE 102 MMOL/L (98-107); CREATININE SERUM 0.93 MG/DL (0.60-1.30); GFR ESTIMATED > 60; GLUCOSE 97 MG/DL (70-105); MAGNESIUM 1.7 MG/DL (1.8-2.4); PHOSPHORUS 3.6 MG/DL (2.3-4.7); SODIUM 139 MMOL/L (135-145); TOTAL PROTEIN 5.8 GM/DL (6.4-8.2)
[2017-01-21 09:36] LABS: ABSOLUTE RETIC # 20 10e9/L (24-90); BASOPHILS % (AUTO) 0 % (0-10); EOSINOPHILS # (AUTO) 0.1 10^3/uL (0.0-0.3); EOSINOPHILS % (AUTO) 1 % (0-10); HEMATOCRIT 30 % (40-54); HEMOGLOBIN 9.5 G/DL (13.3-17.7); LYMPHOCYTES # (AUTO) 0.9 X 10^3 (1.0-4.0); LYMPHOCYTES % (AUTO) 9 % (12-44); MEAN CORPUSCULAR HEMOGLOBIN 29 PG (25-34); MEAN CORPUSCULAR HGB CONC 31 G/DL (32-36); MEAN CORPUSCULAR VOLUME 92 FL (80-99); MONOCYTES # (AUTO) 0.7 X 10^3 (0.0-1.0); MONOCYTES % (AUTO) 7 % (0-12); NEUTROPHILS # (AUTO) 8.2 X 10^3 (1.8-7.8); NEUTROPHILS % (AUTO) 82 % (42-75); PLATELET COUNT 132 10^3/uL (130-400); RED BLOOD COUNT 3.31 10^6/uL (4.35-5.85); RED CELL DISTRIBUTION WIDTH 16.7 % (10.0-14.5)
[2017-01-21 10:04] LABS: ALBUMIN 3.7 GM/DL (3.2-4.5); BILIRUBIN,TOTAL 1.1 MG/DL (0.1-1.0); CALCIUM 9.1 MG/DL (8.5-10.1); CREATININE SERUM 1.26 MG/DL (0.60-1.30); MAGNESIUM 2.2 MG/DL (1.8-2.4); PHOSPHORUS 4.2 MG/DL (2.3-4.7); POTASSIUM 5.1 MMOL/L (3.6-5.0); TOTAL PROTEIN 5.8 GM/DL (6.4-8.2)
[2017-01-25 09:20] LABS: BASOPHILS % (AUTO) 1 % (0-10); EOSINOPHILS # (AUTO) 0.2 10^3/uL (0.0-0.3); EOSINOPHILS % (AUTO) 4 % (0-10); HEMATOCRIT 31 % (40-54); LYMPHOCYTES # (AUTO) 0.6 X 10^3 (1.0-4.0); LYMPHOCYTES % (AUTO) 10 % (12-44); MEAN CORPUSCULAR HEMOGLOBIN 29 PG (25-34); MEAN CORPUSCULAR HGB CONC 32 G/DL (32-36); MEAN CORPUSCULAR VOLUME 92 FL (80-99); MONOCYTES # (AUTO) 0.8 X 10^3 (0.0-1.0); MONOCYTES % (AUTO) 13 % (0-12); NEUTROPHILS # (AUTO) 4.4 X 10^3 (1.8-7.8); NEUTROPHILS % (AUTO) 74 % (42-75); PLATELET COUNT 120 10^3/uL (130-400); RED BLOOD COUNT 3.43 10^6/uL (4.35-5.85); RED CELL DISTRIBUTION WIDTH 15.9 % (10.0-14.5)
[2017-01-25 09:40] LABS: ALBUMIN 3.8 GM/DL (3.2-4.5); BILIRUBIN,TOTAL 0.9 MG/DL (0.1-1.0); CALCIUM 9.3 MG/DL (8.5-10.1); CREATININE SERUM 1.35 MG/DL (0.60-1.30); PHOSPHORUS 4.7 MG/DL (2.3-4.7); POTASSIUM 5.8 MMOL/L (3.6-5.0)
[2017-01-26 09:44] LABS: ALBUMIN 3.5 GM/DL (3.2-4.5); BILIRUBIN,TOTAL 0.8 MG/DL (0.1-1.0); CALCIUM 9.2 MG/DL (8.5-10.1); CREATININE SERUM 1.43 MG/DL (0.60-1.30); POTASSIUM 4.6 MMOL/L (3.6-5.0); TOTAL PROTEIN 5.9 GM/DL (6.4-8.2)
[2017-01-27 12:56] LABS: ALANINE AMINOTRANSFERASE 91 U/L (0-55); ALBUMIN 3.6 GM/DL (3.2-4.5); ALKALINE PHOSPHATASE 525 U/L (40-136); BILIRUBIN,TOTAL 0.8 MG/DL (0.1-1.0); BUN/CREATININE RATIO 28; CARBON DIOXIDE 30 MMOL/L (21-32); CHLORIDE 103 MMOL/L (98-107); CREATININE SERUM 1.13 MG/DL (0.60-1.30); GFR ESTIMATED > 60; GLUCOSE 82 MG/DL (70-105); SODIUM 140 MMOL/L (135-145); TOTAL PROTEIN 6.2 GM/DL (6.4-8.2)
[2017-01-29 09:39] LABS: HEMATOCRIT 33 % (40-54); HEMOGLOBIN 10.4 G/DL (13.3-17.7); MEAN CORPUSCULAR HEMOGLOBIN 29 PG (25-34); MEAN CORPUSCULAR HGB CONC 32 G/DL (32-36); MEAN CORPUSCULAR VOLUME 92 FL (80-99); PLATELET COUNT 133 10^3/uL (130-400); RED BLOOD COUNT 3.58 10^6/uL (4.35-5.85); WHITE BLOOD COUNT 6.8 10^3/uL (4.3-11.0)
[2017-01-29 10:09] LABS: ALANINE AMINOTRANSFERASE 82 U/L (0-55); ALBUMIN 3.9 GM/DL (3.2-4.5); ALKALINE PHOSPHATASE 507 U/L (40-136); BILIRUBIN,TOTAL 0.8 MG/DL (0.1-1.0); BUN/CREATININE RATIO 29; CALCIUM 9.6 MG/DL (8.5-10.1); CARBON DIOXIDE 30 MMOL/L (21-32); CHLORIDE 101 MMOL/L (98-107); CREATININE SERUM 1.13 MG/DL (0.60-1.30); GFR ESTIMATED > 60; GLUCOSE 112 MG/DL (70-105); MAGNESIUM 2.1 MG/DL (1.8-2.4); POTASSIUM 5.9 MMOL/L (3.6-5.0); SODIUM 141 MMOL/L (135-145); TOTAL PROTEIN 6.5 GM/DL (6.4-8.2)
[2017-02-08 09:15] LABS: BASOPHILS % (AUTO) 0 % (0-10); EOSINOPHILS # (AUTO) 0.2 10^3/uL (0.0-0.3); EOSINOPHILS % (AUTO) 3 % (0-10); HEMATOCRIT 31 % (40-54); HEMOGLOBIN 9.7 G/DL (13.3-17.7); LYMPHOCYTES # (AUTO) 0.7 X 10^3 (1.0-4.0); LYMPHOCYTES % (AUTO) 11 % (12-44); MEAN CORPUSCULAR HEMOGLOBIN 29 PG (25-34); MEAN CORPUSCULAR HGB CONC 32 G/DL (32-36); MEAN CORPUSCULAR VOLUME 92 FL (80-99); MONOCYTES # (AUTO) 0.6 X 10^3 (0.0-1.0); MONOCYTES % (AUTO) 9 % (0-12); NEUTROPHILS # (AUTO) 5.4 X 10^3 (1.8-7.8); NEUTROPHILS % (AUTO) 77 % (42-75); PLATELET COUNT 106 10^3/uL (130-400); RED BLOOD COUNT 3.34 10^6/uL (4.35-5.85); RED CELL DISTRIBUTION WIDTH 16.1 % (10.0-14.5)
[2017-02-08 09:33] LABS: ALANINE AMINOTRANSFERASE 68 U/L (0-55); ALBUMIN 3.9 GM/DL (3.2-4.5); ALKALINE PHOSPHATASE 344 U/L (40-136); BILIRUBIN,TOTAL 0.7 MG/DL (0.1-1.0); BUN/CREATININE RATIO 40; CALCIUM 9.4 MG/DL (8.5-10.1); CARBON DIOXIDE 30 MMOL/L (21-32); CHLORIDE 100 MMOL/L (98-107); CREATININE SERUM 1.02 MG/DL (0.60-1.30); GFR ESTIMATED > 60; GLUCOSE 119 MG/DL (70-105); PHOSPHORUS 4.7 MG/DL (2.3-4.7); POTASSIUM 5.7 MMOL/L (3.6-5.0); SODIUM 138 MMOL/L (135-145); TOTAL PROTEIN 6.4 GM/DL (6.4-8.2)
[2017-02-11 13:25] LABS: BASOPHILS # (AUTO) 0.1 10^3/uL (0.0-0.1); BASOPHILS % (AUTO) 1 % (0-10); EOSINOPHILS # (AUTO) 0.2 10^3/uL (0.0-0.3); EOSINOPHILS % (AUTO) 3 % (0-10); HEMATOCRIT 31 % (40-54); HEMOGLOBIN 9.9 G/DL (13.3-17.7); LYMPHOCYTES # (AUTO) 0.6 X 10^3 (1.0-4.0); LYMPHOCYTES % (AUTO) 10 % (12-44); MEAN CORPUSCULAR HEMOGLOBIN 29 PG (25-34); MEAN CORPUSCULAR HGB CONC 32 G/DL (32-36); MEAN CORPUSCULAR VOLUME 92 FL (80-99); MEAN PLATELET VOLUME 13.1 FL (7.4-10.4); MONOCYTES # (AUTO) 0.8 X 10^3 (0.0-1.0); MONOCYTES % (AUTO) 14 % (0-12); NEUTROPHILS # (AUTO) 4.1 X 10^3 (1.8-7.8); NEUTROPHILS % (AUTO) 72 % (42-75); PLATELET COUNT 117 10^3/uL (130-400); RED CELL DISTRIBUTION WIDTH 15.9 % (10.0-14.5); WHITE BLOOD COUNT 5.8 10^3/uL (4.3-11.0)
[2017-02-11 13:48] LABS: BILIRUBIN,TOTAL 0.8 MG/DL (0.1-1.0); CALCIUM 9.4 MG/DL (8.5-10.1); CREATININE SERUM 1.31 MG/DL (0.60-1.30); POTASSIUM 5.3 MMOL/L (3.6-5.0)
[2017-02-12 11:54] LABS: BASOPHILS % (AUTO) 1 % (0-10); EOSINOPHILS # (AUTO) 0.2 10^3/uL (0.0-0.3); EOSINOPHILS % (AUTO) 5 % (0-10); HEMATOCRIT 30 % (40-54); HEMOGLOBIN 9.6 G/DL (13.3-17.7); LYMPHOCYTES # (AUTO) 0.6 X 10^3 (1.0-4.0); LYMPHOCYTES % (AUTO) 14 % (12-44); MEAN CORPUSCULAR HEMOGLOBIN 29 PG (25-34); MEAN CORPUSCULAR HGB CONC 32 G/DL (32-36); MEAN CORPUSCULAR VOLUME 92 FL (80-99); MEAN PLATELET VOLUME 13.4 FL (7.4-10.4); MONOCYTES # (AUTO) 0.7 X 10^3 (0.0-1.0); MONOCYTES % (AUTO) 15 % (0-12); NEUTROPHILS # (AUTO) 2.9 X 10^3 (1.8-7.8); NEUTROPHILS % (AUTO) 65 % (42-75); PLATELET COUNT 108 10^3/uL (130-400); RED BLOOD COUNT 3.27 10^6/uL (4.35-5.85); RED CELL DISTRIBUTION WIDTH 15.8 % (10.0-14.5); WHITE BLOOD COUNT 4.5 10^3/uL (4.3-11.0)
[2017-02-12 12:18] LABS: ALANINE AMINOTRANSFERASE 51 U/L (0-55); ALBUMIN 3.9 GM/DL (3.2-4.5); ALKALINE PHOSPHATASE 307 U/L (40-136); BILIRUBIN,TOTAL 0.7 MG/DL (0.1-1.0); BUN/CREATININE RATIO 33; CALCIUM 9.5 MG/DL (8.5-10.1); CARBON DIOXIDE 29 MMOL/L (21-32); CHLORIDE 102 MMOL/L (98-107); CREATININE SERUM 1.07 MG/DL (0.60-1.30); GFR ESTIMATED > 60; GLUCOSE 93 MG/DL (70-105); MAGNESIUM 1.9 MG/DL (1.8-2.4); PHOSPHORUS 3.5 MG/DL (2.3-4.7); POTASSIUM 5.6 MMOL/L (3.6-5.0); SODIUM 140 MMOL/L (135-145); TOTAL PROTEIN 6.6 GM/DL (6.4-8.2)
[2017-02-16 09:28] LABS: BASOPHILS % (AUTO) 0 % (0-10); EOSINOPHILS # (AUTO) 0.2 10^3/uL (0.0-0.3); EOSINOPHILS % (AUTO) 3 % (0-10); HEMATOCRIT 29 % (40-54); HEMOGLOBIN 9.1 G/DL (13.3-17.7); LYMPHOCYTES # (AUTO) 0.7 X 10^3 (1.0-4.0); LYMPHOCYTES % (AUTO) 11 % (12-44); MEAN CORPUSCULAR HEMOGLOBIN 29 PG (25-34); MEAN CORPUSCULAR HGB CONC 32 G/DL (32-36); MEAN CORPUSCULAR VOLUME 92 FL (80-99); MEAN PLATELET VOLUME 12.8 FL (7.4-10.4); MONOCYTES # (AUTO) 0.8 X 10^3 (0.0-1.0); MONOCYTES % (AUTO) 12 % (0-12); NEUTROPHILS # (AUTO) 4.9 X 10^3 (1.8-7.8); NEUTROPHILS % (AUTO) 74 % (42-75); PLATELET COUNT 102 10^3/uL (130-400); RED CELL DISTRIBUTION WIDTH 15.5 % (10.0-14.5); WHITE BLOOD COUNT 6.6 10^3/uL (4.3-11.0)
[2017-02-16 09:46] LABS: ALANINE AMINOTRANSFERASE 42 U/L (0-55); ALBUMIN 3.5 GM/DL (3.2-4.5); ALKALINE PHOSPHATASE 230 U/L (40-136); BILIRUBIN,TOTAL 0.7 MG/DL (0.1-1.0); BUN/CREATININE RATIO 21; CALCIUM 9.1 MG/DL (8.5-10.1); CARBON DIOXIDE 32 MMOL/L (21-32); CHLORIDE 102 MMOL/L (98-107); CREATININE SERUM 1.17 MG/DL (0.60-1.30); GFR ESTIMATED > 60; POTASSIUM 4.4 MMOL/L (3.6-5.0); SODIUM 140 MMOL/L (135-145); TOTAL PROTEIN 5.8 GM/DL (6.4-8.2)
[2017-02-16 10:09] LABS: GLUCOSE 49 MG/DL (70-105)
[2017-02-18 09:19] LABS: BASOPHILS % (AUTO) 0 % (0-10); EOSINOPHILS # (AUTO) 0.2 10^3/uL (0.0-0.3); EOSINOPHILS % (AUTO) 3 % (0-10); HEMATOCRIT 32 % (40-54); HEMOGLOBIN 10.3 G/DL (13.3-17.7); LYMPHOCYTES # (AUTO) 0.9 X 10^3 (1.0-4.0); LYMPHOCYTES % (AUTO) 12 % (12-44); MEAN CORPUSCULAR HEMOGLOBIN 29 PG (25-34); MEAN CORPUSCULAR HGB CONC 32 G/DL (32-36); MEAN CORPUSCULAR VOLUME 92 FL (80-99); MEAN PLATELET VOLUME 13.2 FL (7.4-10.4); MONOCYTES # (AUTO) 0.9 X 10^3 (0.0-1.0); MONOCYTES % (AUTO) 11 % (0-12); NEUTROPHILS # (AUTO) 5.6 X 10^3 (1.8-7.8); NEUTROPHILS % (AUTO) 73 % (42-75); PLATELET COUNT 113 10^3/uL (130-400); RED CELL DISTRIBUTION WIDTH 15.5 % (10.0-14.5); WHITE BLOOD COUNT 7.7 10^3/uL (4.3-11.0)
[2017-02-18 09:41] LABS: ALANINE AMINOTRANSFERASE 39 U/L (0-55); ALKALINE PHOSPHATASE 273 U/L (40-136); BILIRUBIN,TOTAL 0.7 MG/DL (0.1-1.0); BUN/CREATININE RATIO 29; CALCIUM 9.3 MG/DL (8.5-10.1); CARBON DIOXIDE 30 MMOL/L (21-32); CHLORIDE 99 MMOL/L (98-107); CREATININE SERUM 1.08 MG/DL (0.60-1.30); GFR ESTIMATED > 60; GLUCOSE 92 MG/DL (70-105); POTASSIUM 4.6 MMOL/L (3.6-5.0); SODIUM 137 MMOL/L (135-145); TOTAL PROTEIN 6.5 GM/DL (6.4-8.2)
[2017-02-22 09:02] LABS: BASOPHILS % (AUTO) 1 % (0-10); EOSINOPHILS # (AUTO) 0.1 10^3/uL (0.0-0.3); EOSINOPHILS % (AUTO) 3 % (0-10); HEMATOCRIT 31 % (40-54); LYMPHOCYTES # (AUTO) 0.7 X 10^3 (1.0-4.0); LYMPHOCYTES % (AUTO) 16 % (12-44); MEAN CORPUSCULAR HEMOGLOBIN 30 PG (25-34); MEAN CORPUSCULAR HGB CONC 32 G/DL (32-36); MEAN CORPUSCULAR VOLUME 92 FL (80-99); MEAN PLATELET VOLUME 13.2 FL (7.4-10.4); MONOCYTES # (AUTO) 0.6 X 10^3 (0.0-1.0); MONOCYTES % (AUTO) 14 % (0-12); NEUTROPHILS # (AUTO) 2.9 X 10^3 (1.8-7.8); NEUTROPHILS % (AUTO) 67 % (42-75); PLATELET COUNT 106 10^3/uL (130-400); RED BLOOD COUNT 3.35 10^6/uL (4.35-5.85); RED CELL DISTRIBUTION WIDTH 15.3 % (10.0-14.5); WHITE BLOOD COUNT 4.4 10^3/uL (4.3-11.0)
[~2017-02-22 09:02] MED LIST changes: +CALC500T7 PO; +DARBEPOETIN 60 MCG/ML ARANESP (CANCER CTR) INJ SCH; +LACT-72 PO; +LEVO75TA6 PO; +[UNRECOGNIZED DRUG - CODE] MC; +[UNRECOGNIZED DRUG - CODE] MC
[2017-02-22 09:28] LABS: ALANINE AMINOTRANSFERASE 40 U/L (0-55); ALKALINE PHOSPHATASE 225 U/L (40-136); BILIRUBIN,TOTAL 0.6 MG/DL (0.1-1.0); BUN/CREATININE RATIO 30; CALCIUM 9.2 MG/DL (8.5-10.1); CARBON DIOXIDE 33 MMOL/L (21-32); CHLORIDE 97 MMOL/L (98-107); CHOLESTEROL 168 MG/DL (< 200); GFR ESTIMATED > 60; GLUCOSE 100 MG/DL (70-105); HDL CHOLESTEROL 72 MG/DL (40-60); MAGNESIUM 2.3 MG/DL (1.8-2.4); PHOSPHORUS 4.3 MG/DL (2.3-4.7); POTASSIUM 5.4 MMOL/L (3.6-5.0); SODIUM 137 MMOL/L (135-145); TOTAL PROTEIN 6.2 GM/DL (6.4-8.2); TRIGLYCERIDES 57 MG/DL (<150); VLDL CHOLESTEROL 11 MG/DL (5-40)
[2017-03-02 13:42] LABS: BASOPHILS % (AUTO) 1 % (0-10); EOSINOPHILS # (AUTO) 0.2 10^3/uL (0.0-0.3); EOSINOPHILS % (AUTO) 3 % (0-10); HEMATOCRIT 31 % (40-54); LYMPHOCYTES # (AUTO) 1.1 X 10^3 (1.0-4.0); LYMPHOCYTES % (AUTO) 17 % (12-44); MEAN CORPUSCULAR HEMOGLOBIN 30 PG (25-34); MEAN CORPUSCULAR HGB CONC 32 G/DL (32-36); MEAN CORPUSCULAR VOLUME 92 FL (80-99); MEAN PLATELET VOLUME 13.5 FL (7.4-10.4); MONOCYTES # (AUTO) 0.8 X 10^3 (0.0-1.0); MONOCYTES % (AUTO) 13 % (0-12); NEUTROPHILS # (AUTO) 4.1 X 10^3 (1.8-7.8); NEUTROPHILS % (AUTO) 66 % (42-75); PLATELET COUNT 106 10^3/uL (130-400); RED BLOOD COUNT 3.37 10^6/uL (4.35-5.85); RED CELL DISTRIBUTION WIDTH 14.9 % (10.0-14.5); WHITE BLOOD COUNT 6.2 10^3/uL (4.3-11.0)
[2017-03-02 14:08] LABS: ALANINE AMINOTRANSFERASE 49 U/L (0-55); ALBUMIN 3.8 GM/DL (3.2-4.5); ALKALINE PHOSPHATASE 188 U/L (40-136); BILIRUBIN,TOTAL 0.5 MG/DL (0.1-1.0); BUN/CREATININE RATIO 32; CALCIUM 9.1 MG/DL (8.5-10.1); CARBON DIOXIDE 29 MMOL/L (21-32); CHLORIDE 99 MMOL/L (98-107); GFR ESTIMATED > 60; GLUCOSE 98 MG/DL (70-105); POTASSIUM 5.1 MMOL/L (3.6-5.0); SODIUM 136 MMOL/L (135-145)
[2017-03-04 10:00] LABS: BASOPHILS % (AUTO) 1 % (0-10); EOSINOPHILS # (AUTO) 0.2 10^3/uL (0.0-0.3); EOSINOPHILS % (AUTO) 2 % (0-10); HEMATOCRIT 30 % (40-54); HEMOGLOBIN 9.9 G/DL (13.3-17.7); LYMPHOCYTES # (AUTO) 0.7 X 10^3 (1.0-4.0); LYMPHOCYTES % (AUTO) 11 % (12-44); MEAN CORPUSCULAR HEMOGLOBIN 30 PG (25-34); MEAN CORPUSCULAR HGB CONC 33 G/DL (32-36); MEAN CORPUSCULAR VOLUME 92 FL (80-99); MEAN PLATELET VOLUME 12.7 FL (7.4-10.4); MONOCYTES # (AUTO) 0.7 X 10^3 (0.0-1.0); MONOCYTES % (AUTO) 11 % (0-12); NEUTROPHILS # (AUTO) 5.2 X 10^3 (1.8-7.8); NEUTROPHILS % (AUTO) 76 % (42-75); PLATELET COUNT 100 10^3/uL (130-400); RED BLOOD COUNT 3.29 10^6/uL (4.35-5.85); RED CELL DISTRIBUTION WIDTH 14.8 % (10.0-14.5); WHITE BLOOD COUNT 6.9 10^3/uL (4.3-11.0)
[2017-03-04 10:24] LABS: URINE CREATININE FOR RATIO 19 MG/DL (30-125); URINE PROTEIN FOR RATIO ONLY < 6 MG/DL (6-12)
[2017-03-04 10:26] LABS: ALBUMIN 3.7 GM/DL (3.2-4.5); BUN/CREATININE RATIO 40; CALCIUM 9.3 MG/DL (8.5-10.1); CARBON DIOXIDE 31 MMOL/L (21-32); CHLORIDE 101 MMOL/L (98-107); CHOLESTEROL 150 MG/DL (< 200); CREATININE SERUM 0.78 MG/DL (0.60-1.30); GFR ESTIMATED > 60; GLUCOSE 93 MG/DL (70-105); HDL CHOLESTEROL 75 MG/DL (40-60); POTASSIUM 5.5 MMOL/L (3.6-5.0); SODIUM 138 MMOL/L (135-145); TRIGLYCERIDES 42 MG/DL (<150); VLDL CHOLESTEROL 8 MG/DL (5-40)
== END 2017-03-13 | disposition home or self-care (01) ==
LOC: ONC 09:02
PROVIDERS: ATTEND Internal Medicine Hematology & Oncology
DX: Z08 Encounter for follow-up examination after completed treatment for malignant neoplasm (principal); Z85.72 Personal history of non-Hodgkin lymphomas; D63.1 Anemia in chronic kidney disease; N18.4 Chronic kidney disease, stage 4 (severe); K22.0 Achalasia of cardia; R13.10 Dysphagia, unspecified; E46 Unspecified protein-calorie malnutrition; E03.9 Hypothyroidism, unspecified; K21.9 Gastro-esophageal reflux disease without esophagitis; R63.4 Abnormal weight loss; Z92.21 Personal history of antineoplastic chemotherapy; Z92.3 Personal history of irradiation; Z79.899 Other long term (current) drug therapy; Z87.01 Personal history of pneumonia (recurrent)
CPT/HCPCS: 80053; 80061; 80069; 82306; 82533; 82570; 82728; 83540; 83735; 83970; 84100; 84134; 84156; 84443; 85007; 85025; 85027; 85045; 96372

== ENCOUNTER → 2017-03-04 | Outpatient (CLI) | payer OTHER ==
[2016-12-13 13:54] LABS: BASOPHILS % (AUTO) 0 % (0-10); EOSINOPHILS # (AUTO) 0.1 10^3/uL (0.0-0.3); EOSINOPHILS % (AUTO) 2 % (0-10); LYMPHOCYTES # (AUTO) 0.5 X 10^3 (1.0-4.0); LYMPHOCYTES % (AUTO) 7 % (12-44); MEAN CORPUSCULAR HEMOGLOBIN 29 PG (25-34); MEAN CORPUSCULAR HGB CONC 32 G/DL (32-36); MEAN CORPUSCULAR VOLUME 90 FL (80-99); MEAN PLATELET VOLUME 11.8 FL (7.4-10.4); MONOCYTES # (AUTO) 1.2 X 10^3 (0.0-1.0); MONOCYTES % (AUTO) 18 % (0-12); NEUTROPHILS % (AUTO) 73 % (42-75); PLATELET COUNT 156 10^3/uL (130-400); RED BLOOD COUNT 3.39 10^6/uL (4.35-5.85); WHITE BLOOD COUNT 6.9 10^3/uL (4.3-11.0)
[2016-12-13 14:02] LABS: ALBUMIN 4.2 GM/DL (3.2-4.5); CALCIUM 9.5 MG/DL (8.5-10.1); CREATININE SERUM 2.22 MG/DL (0.60-1.30); MAGNESIUM 2.3 MG/DL (1.8-2.4); POTASSIUM 3.9 MMOL/L (3.6-5.0); TOTAL PROTEIN 6.4 GM/DL (6.4-8.2)
[2016-12-13 15:16] LABS: LYMPHOCYTES % (MANUAL) 7 %; NEUTROPHILS % (MANUAL) 77 %
[~2017-03-04] MED LIST changes: -DARBEPOETIN 60 MCG/ML ARANESP (CANCER CTR) INJ SCH
== END ==
LOC: EDSTATUS 12-13 13:42 → LAB 09:50
PROVIDERS: ATTEND Internal Medicine Hematology & Oncology
DX: J18.9 Pneumonia, unspecified organism (principal); N18.9 Chronic kidney disease, unspecified; E03.9 Hypothyroidism, unspecified
CPT/HCPCS: 36415; 80053; 83690; 83735; 84134; 85007; 85027

== ENCOUNTER → 2017-03-19 | Outpatient (CLI) | payer OTHER ==
[2017-03-19 11:27] LABS: BASOPHILS % (AUTO) 0 % (0-10); EOSINOPHILS # (AUTO) 0.1 10^3/uL (0.0-0.3); EOSINOPHILS % (AUTO) 1 % (0-10); HEMATOCRIT 30 % (40-54); HEMOGLOBIN 10.9 G/DL (13.3-17.7); LYMPHOCYTES # (AUTO) 0.6 X 10^3 (1.0-4.0); LYMPHOCYTES % (AUTO) 5 % (12-44); MEAN CORPUSCULAR HEMOGLOBIN 30 PG (25-34); MEAN CORPUSCULAR HGB CONC 37 G/DL (32-36); MEAN CORPUSCULAR VOLUME 82 FL (80-99); MEAN PLATELET VOLUME 12.6 FL (7.4-10.4); MONOCYTES # (AUTO) 1.5 X 10^3 (0.0-1.0); MONOCYTES % (AUTO) 13 % (0-12); NEUTROPHILS # (AUTO) 9.7 X 10^3 (1.8-7.8); NEUTROPHILS % (AUTO) 81 % (42-75); PLATELET COUNT 128 10^3/uL (130-400); RED BLOOD COUNT 3.62 10^6/uL (4.35-5.85); RED CELL DISTRIBUTION WIDTH 14.3 % (10.0-14.5); WHITE BLOOD COUNT 11.9 10^3/uL (4.3-11.0)
[2017-03-19 11:55] LABS: ALANINE AMINOTRANSFERASE 43 U/L (0-55); ALBUMIN 4.1 GM/DL (3.2-4.5); ALKALINE PHOSPHATASE 182 U/L (40-136); BILIRUBIN,TOTAL 0.8 MG/DL (0.1-1.0); BUN/CREATININE RATIO 32; CALCIUM 9.3 MG/DL (8.5-10.1); CARBON DIOXIDE 28 MMOL/L (21-32); CHLORIDE 95 MMOL/L (98-107); CHOLESTEROL 172 MG/DL (< 200); CREATININE SERUM 1.11 MG/DL (0.60-1.30); GFR ESTIMATED > 60; GLUCOSE 103 MG/DL (70-105); HDL CHOLESTEROL 80 MG/DL (40-60); PHOSPHORUS 4.2 MG/DL (2.3-4.7); POTASSIUM 5.1 MMOL/L (3.6-5.0); SODIUM 134 MMOL/L (135-145); TOTAL PROTEIN 6.4 GM/DL (6.4-8.2); TRIGLYCERIDES 46 MG/DL (<150); VLDL CHOLESTEROL 9 MG/DL (5-40)
== END ==
LOC: LAB 11:18
PROVIDERS: ATTEND Internal Medicine Nephrology
DX: N18.4 Chronic kidney disease, stage 4 (severe) (principal); D64.9 Anemia, unspecified; E03.9 Hypothyroidism, unspecified; K22.0 Achalasia of cardia
CPT/HCPCS: 36415; 80053; 80061; 83735; 83930; 83935; 84100; 84134; 85025

== ENCOUNTER → 2017-04-14 | Outpatient (CLI) | payer OTHER ==
[2017-04-14 10:15] VITALS: BP 162/91
--- NOTE | 2017-04-14 10:43 | Diagnostic Imaging Report ---
Indication: Evaluate PICC line. TIME OF EXAM: 10:20 AM COMPARISON: Correlation is made with prior study from 01/05/2017. FINDINGS: The right upper extremity PICC line has retracted somewhat since prior chest radiograph. The tip appears to be located in the upper portion of the SVC. No kinking is identified. Left hemidiaphragm is chronically elevated. The lungs appear to be clear. No effusion or pneumothorax is seen. IMPRESSION: The tip of the right upper extremity PICC line is located in the upper portion of the SVC, retracted somewhat since the chest radiograph from 01/05/2017. Dictated by: Dictated on workstation # [id number]
[2017-04-14 11:26] LABS: HEMOGLOBIN 10.7 G/DL (13.3-17.7); MEAN PLATELET VOLUME 12.3 FL (7.4-10.4); RED BLOOD COUNT 3.57 10^6/uL (4.35-5.85); RED CELL DISTRIBUTION WIDTH 13.5 % (10.0-14.5); WHITE BLOOD COUNT 7.2 10^3/uL (4.3-11.0)
[2017-04-14 11:35] VITALS: BP 162/91
[2017-04-14 11:59] LABS: ALANINE AMINOTRANSFERASE 74 U/L (0-55); ALBUMIN 3.8 GM/DL (3.2-4.5); ALKALINE PHOSPHATASE 204 U/L (40-136); BILIRUBIN,TOTAL 0.8 MG/DL (0.1-1.0); BUN/CREATININE RATIO 26; CALCIUM 9.1 MG/DL (8.5-10.1); CARBON DIOXIDE 29 MMOL/L (21-32); CHLORIDE 96 MMOL/L (98-107); CREATININE SERUM 1.08 MG/DL (0.60-1.30); GFR ESTIMATED > 60; GLUCOSE 89 MG/DL (70-105); MAGNESIUM 1.9 MG/DL (1.8-2.4); PHOSPHORUS 3.4 MG/DL (2.3-4.7); POTASSIUM 4.7 MMOL/L (3.6-5.0); SODIUM 134 MMOL/L (135-145); TOTAL PROTEIN 6.9 GM/DL (6.4-8.2)
== END ==
LOC: SDC 09:54
PROVIDERS: ATTEND Internal Medicine Hematology & Oncology
DX: Z45.2 Encounter for adjustment and management of vascular access device (principal)
CPT/HCPCS: 36415; 36592; 71045; 76937; 80053; 83735; 84100; 84443; 85027; 87070

== ENCOUNTER 2017-05-24 14:46 | Outpatient (RCR) | payer OTHER ==
[2017-03-30 14:00] LABS: BASOPHILS % (AUTO) 1 % (0-10); EOSINOPHILS # (AUTO) 0.1 10^3/uL (0.0-0.3); EOSINOPHILS % (AUTO) 3 % (0-10); HEMATOCRIT 33 % (40-54); HEMOGLOBIN 10.8 G/DL (13.3-17.7); LYMPHOCYTES # (AUTO) 0.3 X 10^3 (1.0-4.0); LYMPHOCYTES % (AUTO) 9 % (12-44); MEAN CORPUSCULAR HEMOGLOBIN 30 PG (25-34); MEAN CORPUSCULAR HGB CONC 33 G/DL (32-36); MEAN CORPUSCULAR VOLUME 91 FL (80-99); MONOCYTES # (AUTO) 0.1 X 10^3 (0.0-1.0); MONOCYTES % (AUTO) 2 % (0-12); NEUTROPHILS # (AUTO) 3.4 X 10^3 (1.8-7.8); NEUTROPHILS % (AUTO) 86 % (42-75); PLATELET COUNT 111 10^3/uL (130-400); RED BLOOD COUNT 3.58 10^6/uL (4.35-5.85); RED CELL DISTRIBUTION WIDTH 13.9 % (10.0-14.5); WHITE BLOOD COUNT 3.9 10^3/uL (4.3-11.0)
[2017-03-30 14:19] LABS: ALBUMIN 3.9 GM/DL (3.2-4.5); BILIRUBIN,TOTAL 0.6 MG/DL (0.1-1.0); CALCIUM 9.3 MG/DL (8.5-10.1); CREATININE SERUM 1.27 MG/DL (0.60-1.30); PHOSPHORUS 3.8 MG/DL (2.3-4.7); POTASSIUM 5.6 MMOL/L (3.6-5.0); TOTAL PROTEIN 6.2 GM/DL (6.4-8.2)
[2017-04-01 09:11] LABS: BASOPHILS % (AUTO) 0 % (0-10); EOSINOPHILS # (AUTO) 0.2 10^3/uL (0.0-0.3); EOSINOPHILS % (AUTO) 3 % (0-10); HEMATOCRIT 31 % (40-54); HEMOGLOBIN 9.9 G/DL (13.3-17.7); LYMPHOCYTES # (AUTO) 0.5 X 10^3 (1.0-4.0); LYMPHOCYTES % (AUTO) 9 % (12-44); MEAN CORPUSCULAR HEMOGLOBIN 30 PG (25-34); MEAN CORPUSCULAR HGB CONC 33 G/DL (32-36); MEAN CORPUSCULAR VOLUME 92 FL (80-99); MEAN PLATELET VOLUME 12.6 FL (7.4-10.4); MONOCYTES # (AUTO) 0.8 X 10^3 (0.0-1.0); MONOCYTES % (AUTO) 13 % (0-12); NEUTROPHILS # (AUTO) 4.5 X 10^3 (1.8-7.8); NEUTROPHILS % (AUTO) 75 % (42-75); PLATELET COUNT 109 10^3/uL (130-400); RED BLOOD COUNT 3.31 10^6/uL (4.35-5.85); RED CELL DISTRIBUTION WIDTH 13.9 % (10.0-14.5)
[2017-04-01 09:32] LABS: ALANINE AMINOTRANSFERASE 71 U/L (0-55); ALBUMIN 3.7 GM/DL (3.2-4.5); ALKALINE PHOSPHATASE 176 U/L (40-136); BILIRUBIN,TOTAL 0.6 MG/DL (0.1-1.0); BUN/CREATININE RATIO 28; CALCIUM 9.3 MG/DL (8.5-10.1); CARBON DIOXIDE 31 MMOL/L (21-32); CHLORIDE 100 MMOL/L (98-107); CREATININE SERUM 1.14 MG/DL (0.60-1.30); GFR ESTIMATED > 60; GLUCOSE 85 MG/DL (70-105); MAGNESIUM 2.2 MG/DL (1.8-2.4); POTASSIUM 5.4 MMOL/L (3.6-5.0); SODIUM 140 MMOL/L (135-145)
[2017-04-07 09:21] LABS: BASOPHILS % (AUTO) 1 % (0-10); EOSINOPHILS # (AUTO) 0.2 10^3/uL (0.0-0.3); EOSINOPHILS % (AUTO) 6 % (0-10); HEMATOCRIT 32 % (40-54); HEMOGLOBIN 10.6 G/DL (13.3-17.7); LYMPHOCYTES # (AUTO) 0.6 X 10^3 (1.0-4.0); LYMPHOCYTES % (AUTO) 15 % (12-44); MEAN CORPUSCULAR HEMOGLOBIN 30 PG (25-34); MEAN CORPUSCULAR HGB CONC 33 G/DL (32-36); MEAN CORPUSCULAR VOLUME 91 FL (80-99); MEAN PLATELET VOLUME 12.3 FL (7.4-10.4); MONOCYTES # (AUTO) 0.5 X 10^3 (0.0-1.0); MONOCYTES % (AUTO) 12 % (0-12); NEUTROPHILS # (AUTO) 2.9 X 10^3 (1.8-7.8); NEUTROPHILS % (AUTO) 67 % (42-75); PLATELET COUNT 145 10^3/uL (130-400); RED BLOOD COUNT 3.53 10^6/uL (4.35-5.85); RED CELL DISTRIBUTION WIDTH 13.6 % (10.0-14.5); WHITE BLOOD COUNT 4.3 10^3/uL (4.3-11.0)
[2017-04-07 09:40] LABS: ALBUMIN 3.7 GM/DL (3.2-4.5); BILIRUBIN,TOTAL 0.6 MG/DL (0.1-1.0); CALCIUM 8.9 MG/DL (8.5-10.1); CREATININE SERUM 1.23 MG/DL (0.60-1.30); MAGNESIUM 2.3 MG/DL (1.8-2.4); PHOSPHORUS 3.7 MG/DL (2.3-4.7); TOTAL PROTEIN 5.9 GM/DL (6.4-8.2)
[2017-04-21 12:22] LABS: BASOPHILS # (AUTO) 0.1 10^3/uL (0.0-0.1); BASOPHILS % (AUTO) 1 % (0-10); EOSINOPHILS # (AUTO) 0.4 10^3/uL (0.0-0.3); EOSINOPHILS % (AUTO) 6 % (0-10); HEMATOCRIT 33 % (40-54); LYMPHOCYTES # (AUTO) 0.7 X 10^3 (1.0-4.0); LYMPHOCYTES % (AUTO) 11 % (12-44); MEAN CORPUSCULAR HEMOGLOBIN 30 PG (25-34); MEAN CORPUSCULAR HGB CONC 33 G/DL (32-36); MEAN CORPUSCULAR VOLUME 90 FL (80-99); MEAN PLATELET VOLUME 12.2 FL (7.4-10.4); MONOCYTES # (AUTO) 0.9 X 10^3 (0.0-1.0); MONOCYTES % (AUTO) 14 % (0-12); NEUTROPHILS # (AUTO) 4.5 X 10^3 (1.8-7.8); NEUTROPHILS % (AUTO) 69 % (42-75); PLATELET COUNT 216 10^3/uL (130-400); RED BLOOD COUNT 3.72 10^6/uL (4.35-5.85); RED CELL DISTRIBUTION WIDTH 12.7 % (10.0-14.5); WHITE BLOOD COUNT 6.6 10^3/uL (4.3-11.0)
[2017-04-21 12:52] LABS: ALBUMIN 4.1 GM/DL (3.2-4.5); BILIRUBIN,TOTAL 0.7 MG/DL (0.1-1.0); CALCIUM 9.6 MG/DL (8.5-10.1); CREATININE SERUM 1.27 MG/DL (0.60-1.30); PHOSPHORUS 3.4 MG/DL (2.3-4.7); POTASSIUM 6.4 MMOL/L (3.6-5.0); TOTAL PROTEIN 6.8 GM/DL (6.4-8.2)
[2017-04-26 09:19] LABS: BASOPHILS # (AUTO) 0.1 10^3/uL (0.0-0.1); BASOPHILS % (AUTO) 1 % (0-10); EOSINOPHILS # (AUTO) 0.3 10^3/uL (0.0-0.3); EOSINOPHILS % (AUTO) 6 % (0-10); HEMATOCRIT 31 % (40-54); HEMOGLOBIN 10.2 G/DL (13.3-17.7); LYMPHOCYTES # (AUTO) 0.6 X 10^3 (1.0-4.0); LYMPHOCYTES % (AUTO) 12 % (12-44); MEAN CORPUSCULAR HEMOGLOBIN 30 PG (25-34); MEAN CORPUSCULAR HGB CONC 33 G/DL (32-36); MEAN CORPUSCULAR VOLUME 90 FL (80-99); MEAN PLATELET VOLUME 12.1 FL (7.4-10.4); MONOCYTES # (AUTO) 0.7 X 10^3 (0.0-1.0); MONOCYTES % (AUTO) 13 % (0-12); NEUTROPHILS # (AUTO) 3.5 X 10^3 (1.8-7.8); NEUTROPHILS % (AUTO) 68 % (42-75); PLATELET COUNT 179 10^3/uL (130-400); RED BLOOD COUNT 3.43 10^6/uL (4.35-5.85); RED CELL DISTRIBUTION WIDTH 12.7 % (10.0-14.5); WHITE BLOOD COUNT 5.1 10^3/uL (4.3-11.0)
[2017-04-26 09:37] LABS: ALANINE AMINOTRANSFERASE 35 U/L (0-55); ALBUMIN 3.6 GM/DL (3.2-4.5); ALKALINE PHOSPHATASE 153 U/L (40-136); BILIRUBIN,TOTAL 0.5 MG/DL (0.1-1.0); BUN/CREATININE RATIO 25; CALCIUM 9.7 MG/DL (8.5-10.1); CARBON DIOXIDE 32 MMOL/L (21-32); CHLORIDE 97 MMOL/L (98-107); CREATININE SERUM 1.05 MG/DL (0.60-1.30); GFR ESTIMATED > 60; GLUCOSE 71 MG/DL (70-105); PHOSPHORUS 3.9 MG/DL (2.3-4.7); POTASSIUM 5.1 MMOL/L (3.6-5.0); SODIUM 135 MMOL/L (135-145); TOTAL PROTEIN 6.1 GM/DL (6.4-8.2)
[2017-05-06 09:43] LABS: BASOPHILS % (AUTO) 1 % (0-10); EOSINOPHILS # (AUTO) 0.3 10^3/uL (0.0-0.3); EOSINOPHILS % (AUTO) 8 % (0-10); HEMATOCRIT 32 % (40-54); HEMOGLOBIN 10.4 G/DL (13.3-17.7); LYMPHOCYTES # (AUTO) 0.5 X 10^3 (1.0-4.0); LYMPHOCYTES % (AUTO) 12 % (12-44); MEAN CORPUSCULAR HEMOGLOBIN 30 PG (25-34); MEAN CORPUSCULAR HGB CONC 33 G/DL (32-36); MEAN CORPUSCULAR VOLUME 91 FL (80-99); MEAN PLATELET VOLUME 13.1 FL (7.4-10.4); MONOCYTES # (AUTO) 0.7 X 10^3 (0.0-1.0); MONOCYTES % (AUTO) 15 % (0-12); NEUTROPHILS # (AUTO) 2.8 X 10^3 (1.8-7.8); NEUTROPHILS % (AUTO) 65 % (42-75); PLATELET COUNT 122 10^3/uL (130-400); RED BLOOD COUNT 3.49 10^6/uL (4.35-5.85); RED CELL DISTRIBUTION WIDTH 12.6 % (10.0-14.5); WHITE BLOOD COUNT 4.3 10^3/uL (4.3-11.0)
[2017-05-06 10:14] LABS: ALANINE AMINOTRANSFERASE 46 U/L (0-55); ALBUMIN 3.8 GM/DL (3.2-4.5); ALKALINE PHOSPHATASE 149 U/L (40-136); BILIRUBIN,TOTAL 0.5 MG/DL (0.1-1.0); BUN/CREATININE RATIO 26; CARBON DIOXIDE 29 MMOL/L (21-32); CHLORIDE 96 MMOL/L (98-107); GFR ESTIMATED > 60; GLUCOSE 89 MG/DL (70-105); MAGNESIUM 2.2 MG/DL (1.8-2.4); PHOSPHORUS 3.5 MG/DL (2.3-4.7); POTASSIUM 5.3 MMOL/L (3.6-5.0); SODIUM 134 MMOL/L (135-145); TOTAL PROTEIN 5.9 GM/DL (6.4-8.2)
[2017-05-11 11:56] LABS: BASOPHILS % (AUTO) 1 % (0-10); EOSINOPHILS # (AUTO) 0.3 10^3/uL (0.0-0.3); EOSINOPHILS % (AUTO) 7 % (0-10); HEMATOCRIT 30 % (40-54); HEMOGLOBIN 9.9 G/DL (13.3-17.7); LYMPHOCYTES # (AUTO) 0.5 X 10^3 (1.0-4.0); LYMPHOCYTES % (AUTO) 12 % (12-44); MEAN CORPUSCULAR HEMOGLOBIN 30 PG (25-34); MEAN CORPUSCULAR HGB CONC 33 G/DL (32-36); MEAN CORPUSCULAR VOLUME 91 FL (80-99); MONOCYTES # (AUTO) 0.6 X 10^3 (0.0-1.0); MONOCYTES % (AUTO) 15 % (0-12); NEUTROPHILS # (AUTO) 2.7 X 10^3 (1.8-7.8); NEUTROPHILS % (AUTO) 65 % (42-75); PLATELET COUNT 102 10^3/uL (130-400); RED BLOOD COUNT 3.32 10^6/uL (4.35-5.85); WHITE BLOOD COUNT 4.1 10^3/uL (4.3-11.0)
[2017-05-11 12:05] LABS: ALANINE AMINOTRANSFERASE 47 U/L (0-55); ALBUMIN 3.7 GM/DL (3.2-4.5); ALKALINE PHOSPHATASE 127 U/L (40-136); BILIRUBIN,TOTAL 0.5 MG/DL (0.1-1.0); BUN/CREATININE RATIO 34; CARBON DIOXIDE 30 MMOL/L (21-32); CHLORIDE 97 MMOL/L (98-107); CREATININE SERUM 0.98 MG/DL (0.60-1.30); GFR ESTIMATED > 60; GLUCOSE 86 MG/DL (70-105); POTASSIUM 4.6 MMOL/L (3.6-5.0); SODIUM 134 MMOL/L (135-145)
[2017-05-18 13:28] LABS: BASOPHILS % (AUTO) 1 % (0-10); EOSINOPHILS # (AUTO) 0.1 10^3/uL (0.0-0.3); EOSINOPHILS % (AUTO) 1 % (0-10); HEMATOCRIT 35 % (40-54); HEMOGLOBIN 11.7 G/DL (13.3-17.7); LYMPHOCYTES # (AUTO) 0.6 X 10^3 (1.0-4.0); LYMPHOCYTES % (AUTO) 8 % (12-44); MEAN CORPUSCULAR HEMOGLOBIN 30 PG (25-34); MEAN CORPUSCULAR HGB CONC 34 G/DL (32-36); MEAN CORPUSCULAR VOLUME 90 FL (80-99); MEAN PLATELET VOLUME 13.3 FL (7.4-10.4); MONOCYTES # (AUTO) 0.7 X 10^3 (0.0-1.0); MONOCYTES % (AUTO) 11 % (0-12); NEUTROPHILS # (AUTO) 5.5 X 10^3 (1.8-7.8); NEUTROPHILS % (AUTO) 79 % (42-75); PLATELET COUNT 120 10^3/uL (130-400); RED BLOOD COUNT 3.89 10^6/uL (4.35-5.85); RED CELL DISTRIBUTION WIDTH 13.1 % (10.0-14.5); WHITE BLOOD COUNT 6.9 10^3/uL (4.3-11.0)
[2017-05-18 13:54] LABS: ALANINE AMINOTRANSFERASE 48 U/L (0-55); ALBUMIN 4.4 GM/DL (3.2-4.5); ALKALINE PHOSPHATASE 156 U/L (40-136); BILIRUBIN,TOTAL 0.8 MG/DL (0.1-1.0); BUN/CREATININE RATIO 31; CALCIUM 9.7 MG/DL (8.5-10.1); CARBON DIOXIDE 28 MMOL/L (21-32); CHLORIDE 94 MMOL/L (98-107); CREATININE SERUM 1.02 MG/DL (0.60-1.30); GFR ESTIMATED > 60; GLUCOSE 85 MG/DL (70-105); MAGNESIUM 2.3 MG/DL (1.8-2.4); PHOSPHORUS 3.6 MG/DL (2.3-4.7); POTASSIUM 6.2 MMOL/L (3.6-5.0); SODIUM 131 MMOL/L (135-145); TOTAL PROTEIN 7.3 GM/DL (6.4-8.2)
[2017-05-24 15:08] LABS: BASOPHILS % (AUTO) 1 % (0-10); EOSINOPHILS # (AUTO) 0.1 10^3/uL (0.0-0.3); EOSINOPHILS % (AUTO) 2 % (0-10); HEMATOCRIT 36 % (40-54); HEMOGLOBIN 11.9 G/DL (13.3-17.7); LYMPHOCYTES # (AUTO) 0.7 X 10^3 (1.0-4.0); LYMPHOCYTES % (AUTO) 11 % (12-44); MEAN CORPUSCULAR HEMOGLOBIN 30 PG (25-34); MEAN CORPUSCULAR HGB CONC 33 G/DL (32-36); MEAN CORPUSCULAR VOLUME 90 FL (80-99); MEAN PLATELET VOLUME 12.9 FL (7.4-10.4); MONOCYTES # (AUTO) 0.8 X 10^3 (0.0-1.0); MONOCYTES % (AUTO) 13 % (0-12); NEUTROPHILS # (AUTO) 4.7 X 10^3 (1.8-7.8); NEUTROPHILS % (AUTO) 74 % (42-75); PLATELET COUNT 126 10^3/uL (130-400); RED CELL DISTRIBUTION WIDTH 13.5 % (10.0-14.5); WHITE BLOOD COUNT 6.3 10^3/uL (4.3-11.0)
[2017-05-24 15:36] LABS: ALANINE AMINOTRANSFERASE 55 U/L (0-55); ALBUMIN 4.6 GM/DL (3.2-4.5); ALKALINE PHOSPHATASE 151 U/L (40-136); BILIRUBIN,TOTAL 0.7 MG/DL (0.1-1.0); BUN/CREATININE RATIO 34; CALCIUM 9.9 MG/DL (8.5-10.1); CARBON DIOXIDE 29 MMOL/L (21-32); CHLORIDE 99 MMOL/L (98-107); CREATININE SERUM 0.92 MG/DL (0.60-1.30); GFR ESTIMATED > 60; GLUCOSE 93 MG/DL (70-105); POTASSIUM 5.8 MMOL/L (3.6-5.0); SODIUM 135 MMOL/L (135-145); TOTAL PROTEIN 7.4 GM/DL (6.4-8.2)
[2017-06-07 13:56] LABS: BASOPHILS % (AUTO) 0 % (0-10); EOSINOPHILS # (AUTO) 0.1 10^3/uL (0.0-0.3); EOSINOPHILS % (AUTO) 1 % (0-10); HEMATOCRIT 35 % (40-54); HEMOGLOBIN 11.6 G/DL (13.3-17.7); LYMPHOCYTES # (AUTO) 0.6 X 10^3 (1.0-4.0); LYMPHOCYTES % (AUTO) 7 % (12-44); MEAN CORPUSCULAR HEMOGLOBIN 30 PG (25-34); MEAN CORPUSCULAR HGB CONC 33 G/DL (32-36); MEAN CORPUSCULAR VOLUME 91 FL (80-99); MEAN PLATELET VOLUME 12.7 FL (7.4-10.4); MONOCYTES # (AUTO) 1.3 X 10^3 (0.0-1.0); MONOCYTES % (AUTO) 13 % (0-12); NEUTROPHILS # (AUTO) 7.7 X 10^3 (1.8-7.8); NEUTROPHILS % (AUTO) 79 % (42-75); PLATELET COUNT 152 10^3/uL (130-400); RED BLOOD COUNT 3.88 10^6/uL (4.35-5.85); RED CELL DISTRIBUTION WIDTH 13.7 % (10.0-14.5); WHITE BLOOD COUNT 9.7 10^3/uL (4.3-11.0)
[2017-06-07 14:21] LABS: ALANINE AMINOTRANSFERASE 48 U/L (0-55); ALBUMIN 4.4 GM/DL (3.2-4.5); ALKALINE PHOSPHATASE 148 U/L (40-136); BILIRUBIN,TOTAL 0.8 MG/DL (0.1-1.0); BUN/CREATININE RATIO 30; CALCIUM 10.1 MG/DL (8.5-10.1); CARBON DIOXIDE 34 MMOL/L (21-32); CHLORIDE 94 MMOL/L (98-107); CREATININE SERUM 1.03 MG/DL (0.60-1.30); GFR ESTIMATED > 60; GLUCOSE 93 MG/DL (70-105); SODIUM 134 MMOL/L (135-145); TOTAL PROTEIN 7.1 GM/DL (6.4-8.2)
[2017-06-07 14:26] LABS: POTASSIUM 5.8 MMOL/L (3.6-5.0)
== END 2017-06-17 | disposition home or self-care (01) ==
LOC: ONC 14:46
PROVIDERS: ATTEND Internal Medicine Hematology & Oncology
DX: Z08 Encounter for follow-up examination after completed treatment for malignant neoplasm (principal); Z85.72 Personal history of non-Hodgkin lymphomas; K22.0 Achalasia of cardia; R13.10 Dysphagia, unspecified; E03.9 Hypothyroidism, unspecified; K21.9 Gastro-esophageal reflux disease without esophagitis; R63.4 Abnormal weight loss; Z92.21 Personal history of antineoplastic chemotherapy; Z92.3 Personal history of irradiation; Z79.899 Other long term (current) drug therapy
CPT/HCPCS: 36415; 80053; 82728; 83540; 83735; 84100; 84134; 84443; 85025; 87040; 87070; 87077; 87186; 87205

== ENCOUNTER → 2017-08-11 | Outpatient (CLI) | payer OTHER | LOC: WOUNDCARE 10:18 | PROVIDERS: ATTEND Surgery | DX: M27.2 Inflammatory conditions of jaws (principal); W88.0XXA Exposure to X-rays, initial encounter; K04.6 Periapical abscess with sinus; C85.11 Unspecified B-cell lymphoma, lymph nodes of head, face, and neck; K22.4 Dyskinesia of esophagus | CPT/HCPCS: 99211 ==

== ENCOUNTER → 2017-08-25 | Outpatient (CLI) | payer OTHER | LOC: WOUNDCARE 09:57 | PROVIDERS: ATTEND Surgery | DX: M27.2 Inflammatory conditions of jaws (principal); K04.6 Periapical abscess with sinus; C85.11 Unspecified B-cell lymphoma, lymph nodes of head, face, and neck; K22.4 Dyskinesia of esophagus | CPT/HCPCS: 99212 ==

== ENCOUNTER 2017-09-10 13:05 | Outpatient (RCR) | payer OTHER ==
[2017-06-25 10:13] LABS: BASOPHILS % (AUTO) 1 % (0-10); EOSINOPHILS # (AUTO) 0.1 10^3/uL (0.0-0.3); EOSINOPHILS % (AUTO) 2 % (0-10); HEMATOCRIT 34 % (40-54); HEMOGLOBIN 10.9 G/DL (13.3-17.7); LYMPHOCYTES # (AUTO) 0.7 X 10^3 (1.0-4.0); LYMPHOCYTES % (AUTO) 10 % (12-44); MEAN CORPUSCULAR HEMOGLOBIN 29 PG (25-34); MEAN CORPUSCULAR HGB CONC 32 G/DL (32-36); MEAN CORPUSCULAR VOLUME 91 FL (80-99); MONOCYTES # (AUTO) 0.8 X 10^3 (0.0-1.0); MONOCYTES % (AUTO) 12 % (0-12); NEUTROPHILS # (AUTO) 4.9 X 10^3 (1.8-7.8); NEUTROPHILS % (AUTO) 76 % (42-75); PLATELET COUNT 133 10^3/uL (130-400); RED BLOOD COUNT 3.74 10^6/uL (4.35-5.85); RED CELL DISTRIBUTION WIDTH 13.9 % (10.0-14.5); WHITE BLOOD COUNT 6.5 10^3/uL (4.3-11.0)
[2017-06-25 10:27] LABS: ALANINE AMINOTRANSFERASE 41 U/L (0-55); ALKALINE PHOSPHATASE 127 U/L (40-136); BILIRUBIN,TOTAL 0.5 MG/DL (0.1-1.0); BUN/CREATININE RATIO 34; CALCIUM 9.5 MG/DL (8.5-10.1); CARBON DIOXIDE 31 MMOL/L (21-32); CHLORIDE 99 MMOL/L (98-107); CREATININE SERUM 0.97 MG/DL (0.60-1.30); GFR ESTIMATED > 60; GLUCOSE 74 MG/DL (70-105); MAGNESIUM 2.3 MG/DL (1.8-2.4); POTASSIUM 5.7 MMOL/L (3.6-5.0); SODIUM 137 MMOL/L (135-145); TOTAL PROTEIN 6.4 GM/DL (6.4-8.2)
[2017-07-15 13:30] LABS: BASOPHILS # (AUTO) 0.1 10^3/uL (0.0-0.1); BASOPHILS % (AUTO) 1 % (0-10); EOSINOPHILS # (AUTO) 0.1 10^3/uL (0.0-0.3); EOSINOPHILS % (AUTO) 2 % (0-10); HEMATOCRIT 37 % (40-54); HEMOGLOBIN 11.9 G/DL (13.3-17.7); LYMPHOCYTES # (AUTO) 0.8 X 10^3 (1.0-4.0); LYMPHOCYTES % (AUTO) 12 % (12-44); MEAN CORPUSCULAR HEMOGLOBIN 30 PG (25-34); MEAN CORPUSCULAR HGB CONC 33 G/DL (32-36); MEAN CORPUSCULAR VOLUME 91 FL (80-99); MEAN PLATELET VOLUME 13.3 FL (7.4-10.4); MONOCYTES # (AUTO) 0.8 X 10^3 (0.0-1.0); MONOCYTES % (AUTO) 12 % (0-12); NEUTROPHILS # (AUTO) 4.7 X 10^3 (1.8-7.8); NEUTROPHILS % (AUTO) 74 % (42-75); PLATELET COUNT 121 10^3/uL (130-400); RED BLOOD COUNT 4.04 10^6/uL (4.35-5.85); RED CELL DISTRIBUTION WIDTH 14.2 % (10.0-14.5); WHITE BLOOD COUNT 6.4 10^3/uL (4.3-11.0)
[2017-07-15 13:51] LABS: ALANINE AMINOTRANSFERASE 48 U/L (0-55); ALBUMIN 4.5 GM/DL (3.2-4.5); ALKALINE PHOSPHATASE 107 U/L (40-136); BILIRUBIN,TOTAL 0.7 MG/DL (0.1-1.0); BUN/CREATININE RATIO 34; CALCIUM 9.7 MG/DL (8.5-10.1); CARBON DIOXIDE 30 MMOL/L (21-32); CHLORIDE 97 MMOL/L (98-107); GFR ESTIMATED > 60; GLUCOSE 90 MG/DL (70-105); MAGNESIUM 2.6 MG/DL (1.8-2.4); POTASSIUM 5.6 MMOL/L (3.6-5.0); SODIUM 136 MMOL/L (135-145); TOTAL PROTEIN 6.9 GM/DL (6.4-8.2)
[2017-07-27 09:25] LABS: BASOPHILS % (AUTO) 1 % (0-10); EOSINOPHILS # (AUTO) 0.2 10^3/uL (0.0-0.3); EOSINOPHILS % (AUTO) 4 % (0-10); HEMATOCRIT 36 % (40-54); HEMOGLOBIN 11.6 G/DL (13.3-17.7); LYMPHOCYTES # (AUTO) 0.6 X 10^3 (1.0-4.0); LYMPHOCYTES % (AUTO) 13 % (12-44); MEAN CORPUSCULAR HEMOGLOBIN 30 PG (25-34); MEAN CORPUSCULAR HGB CONC 33 G/DL (32-36); MEAN CORPUSCULAR VOLUME 91 FL (80-99); MEAN PLATELET VOLUME 13.4 FL (7.4-10.4); MONOCYTES # (AUTO) 0.8 X 10^3 (0.0-1.0); MONOCYTES % (AUTO) 17 % (0-12); NEUTROPHILS % (AUTO) 65 % (42-75); PLATELET COUNT 105 10^3/uL (130-400); RED BLOOD COUNT 3.91 10^6/uL (4.35-5.85); RED CELL DISTRIBUTION WIDTH 14.3 % (10.0-14.5); WHITE BLOOD COUNT 4.6 10^3/uL (4.3-11.0)
[2017-07-27 09:45] LABS: ALANINE AMINOTRANSFERASE 36 U/L (0-55); ALBUMIN 4.2 GM/DL (3.2-4.5); ALKALINE PHOSPHATASE 103 U/L (40-136); BILIRUBIN,TOTAL 0.7 MG/DL (0.1-1.0); BUN/CREATININE RATIO 39; CALCIUM 9.7 MG/DL (8.5-10.1); CARBON DIOXIDE 29 MMOL/L (21-32); CHLORIDE 101 MMOL/L (98-107); CREATININE SERUM 0.99 MG/DL (0.60-1.30); GFR ESTIMATED > 60; GLUCOSE 83 MG/DL (70-105); MAGNESIUM 2.1 MG/DL (1.8-2.4); POTASSIUM 4.9 MMOL/L (3.6-5.0); SODIUM 139 MMOL/L (135-145); TOTAL PROTEIN 6.5 GM/DL (6.4-8.2)
[2017-08-17 13:25] LABS: BASOPHILS % (AUTO) 1 % (0-10); EOSINOPHILS # (AUTO) 0.1 10^3/uL (0.0-0.3); EOSINOPHILS % (AUTO) 1 % (0-10); HEMATOCRIT 37 % (40-54); HEMOGLOBIN 12.3 G/DL (13.3-17.7); LYMPHOCYTES # (AUTO) 0.6 X 10^3 (1.0-4.0); LYMPHOCYTES % (AUTO) 11 % (12-44); MEAN CORPUSCULAR HEMOGLOBIN 30 PG (25-34); MEAN CORPUSCULAR HGB CONC 33 G/DL (32-36); MEAN CORPUSCULAR VOLUME 91 FL (80-99); MEAN PLATELET VOLUME 12.8 FL (7.4-10.4); MONOCYTES # (AUTO) 0.6 X 10^3 (0.0-1.0); MONOCYTES % (AUTO) 12 % (0-12); NEUTROPHILS # (AUTO) 3.8 X 10^3 (1.8-7.8); NEUTROPHILS % (AUTO) 75 % (42-75); PLATELET COUNT 102 10^3/uL (130-400); RED BLOOD COUNT 4.12 10^6/uL (4.35-5.85); RED CELL DISTRIBUTION WIDTH 14.2 % (10.0-14.5); WHITE BLOOD COUNT 5.1 10^3/uL (4.3-11.0)
[2017-08-17 13:48] LABS: ALANINE AMINOTRANSFERASE 41 U/L (0-55); ALBUMIN 4.5 GM/DL (3.2-4.5); ALKALINE PHOSPHATASE 102 U/L (40-136); BILIRUBIN,TOTAL 0.9 MG/DL (0.1-1.0); BUN/CREATININE RATIO 34; CARBON DIOXIDE 29 MMOL/L (21-32); CHLORIDE 100 MMOL/L (98-107); CREATININE SERUM 1.17 MG/DL (0.60-1.30); GFR ESTIMATED > 60; GLUCOSE 81 MG/DL (70-105); MAGNESIUM 2.6 MG/DL (1.8-2.4); PHOSPHORUS 3.7 MG/DL (2.3-4.7); POTASSIUM 4.7 MMOL/L (3.6-5.0); SODIUM 140 MMOL/L (135-145); TOTAL PROTEIN 7.3 GM/DL (6.4-8.2)
[2017-08-24 09:16] LABS: BASOPHILS % (AUTO) 1 % (0-10); EOSINOPHILS # (AUTO) 0.2 10^3/uL (0.0-0.3); EOSINOPHILS % (AUTO) 4 % (0-10); HEMATOCRIT 36 % (40-54); LYMPHOCYTES # (AUTO) 0.6 X 10^3 (1.0-4.0); LYMPHOCYTES % (AUTO) 12 % (12-44); MEAN CORPUSCULAR HEMOGLOBIN 30 PG (25-34); MEAN CORPUSCULAR HGB CONC 33 G/DL (32-36); MEAN CORPUSCULAR VOLUME 91 FL (80-99); MEAN PLATELET VOLUME 12.4 FL (7.4-10.4); MONOCYTES # (AUTO) 0.7 X 10^3 (0.0-1.0); MONOCYTES % (AUTO) 14 % (0-12); NEUTROPHILS # (AUTO) 3.6 X 10^3 (1.8-7.8); NEUTROPHILS % (AUTO) 69 % (42-75); PLATELET COUNT 101 10^3/uL (130-400); RED BLOOD COUNT 3.99 10^6/uL (4.35-5.85); RED CELL DISTRIBUTION WIDTH 14.1 % (10.0-14.5); WHITE BLOOD COUNT 5.1 10^3/uL (4.3-11.0)
[2017-08-24 09:36] LABS: ALANINE AMINOTRANSFERASE 36 U/L (0-55); ALBUMIN 4.1 GM/DL (3.2-4.5); ALKALINE PHOSPHATASE 95 U/L (40-136); BILIRUBIN,TOTAL 0.6 MG/DL (0.1-1.0); BUN/CREATININE RATIO 29; CALCIUM 9.6 MG/DL (8.5-10.1); CARBON DIOXIDE 28 MMOL/L (21-32); CHLORIDE 100 MMOL/L (98-107); CREATININE SERUM 1.01 MG/DL (0.60-1.30); GFR ESTIMATED > 60; GLUCOSE 71 MG/DL (70-105); POTASSIUM 5.3 MMOL/L (3.6-5.0); SODIUM 138 MMOL/L (135-145); TOTAL PROTEIN 6.7 GM/DL (6.4-8.2)
[2017-09-10 13:21] LABS: BASOPHILS % (AUTO) 1 % (0-10); EOSINOPHILS # (AUTO) 0.1 10^3/uL (0.0-0.3); EOSINOPHILS % (AUTO) 1 % (0-10); HEMATOCRIT 39 % (40-54); HEMOGLOBIN 12.7 G/DL (13.3-17.7); LYMPHOCYTES # (AUTO) 0.8 X 10^3 (1.0-4.0); LYMPHOCYTES % (AUTO) 16 % (12-44); MEAN CORPUSCULAR HEMOGLOBIN 29 PG (25-34); MEAN CORPUSCULAR HGB CONC 33 G/DL (32-36); MEAN CORPUSCULAR VOLUME 91 FL (80-99); MONOCYTES # (AUTO) 0.6 X 10^3 (0.0-1.0); MONOCYTES % (AUTO) 12 % (0-12); NEUTROPHILS # (AUTO) 3.5 X 10^3 (1.8-7.8); NEUTROPHILS % (AUTO) 70 % (42-75); PLATELET COUNT 128 10^3/uL (130-400); RED BLOOD COUNT 4.32 10^6/uL (4.35-5.85); RED CELL DISTRIBUTION WIDTH 13.8 % (10.0-14.5); WHITE BLOOD COUNT 5.1 10^3/uL (4.3-11.0)
[2017-09-10 13:41] LABS: ALANINE AMINOTRANSFERASE 34 U/L (0-55); ALBUMIN 4.7 GM/DL (3.2-4.5); ALKALINE PHOSPHATASE 99 U/L (40-136); BILIRUBIN,TOTAL 0.8 MG/DL (0.1-1.0); BUN/CREATININE RATIO 27; CALCIUM 10.4 MG/DL (8.5-10.1); CARBON DIOXIDE 29 MMOL/L (21-32); CHLORIDE 100 MMOL/L (98-107); CREATININE SERUM 1.03 MG/DL (0.60-1.30); GFR ESTIMATED > 60; GLUCOSE 97 MG/DL (70-105); SODIUM 139 MMOL/L (135-145); TOTAL PROTEIN 7.4 GM/DL (6.4-8.2)
[2017-09-10 13:56] LABS: POTASSIUM 6.6 MMOL/L (3.6-5.0)
== END 2017-09-30 | disposition home or self-care (01) ==
LOC: ONC 13:05
PROVIDERS: ATTEND Internal Medicine Hematology & Oncology
DX: Z08 Encounter for follow-up examination after completed treatment for malignant neoplasm (principal); Z85.72 Personal history of non-Hodgkin lymphomas; K22.0 Achalasia of cardia; R13.10 Dysphagia, unspecified; E03.9 Hypothyroidism, unspecified; K21.9 Gastro-esophageal reflux disease without esophagitis; R63.4 Abnormal weight loss; Z92.21 Personal history of antineoplastic chemotherapy; Z92.3 Personal history of irradiation; Z79.899 Other long term (current) drug therapy
CPT/HCPCS: 36415; 80053; 83735; 84100; 84443; 85025; 87070; 87077; 87186; 87205

== ENCOUNTER → 2017-09-10 | Outpatient (CLI) | payer OTHER | LOC: WOUNDCARE 09:25 | PROVIDERS: ATTEND Surgery | DX: M27.2 Inflammatory conditions of jaws (principal); K22.4 Dyskinesia of esophagus; C85.11 Unspecified B-cell lymphoma, lymph nodes of head, face, and neck; H68.102 Unspecified obstruction of Eustachian tube, left ear; K04.6 Periapical abscess with sinus; W88.0XXA Exposure to X-rays, initial encounter | CPT/HCPCS: 99212 ==

== ENCOUNTER → 2017-09-17 | Outpatient (CLI) | payer OTHER | LOC: WOUNDCARE 09:29 | PROVIDERS: ATTEND Surgery | DX: M27.2 Inflammatory conditions of jaws (principal); W88.0XXA Exposure to X-rays, initial encounter; C85.11 Unspecified B-cell lymphoma, lymph nodes of head, face, and neck; K04.6 Periapical abscess with sinus; K22.4 Dyskinesia of esophagus; H68.102 Unspecified obstruction of Eustachian tube, left ear | CPT/HCPCS: 99212 ==

== ENCOUNTER → 2017-09-24 | Outpatient (CLI) | payer OTHER | LOC: WOUNDCARE 09:25 | PROVIDERS: ATTEND Surgery | DX: M27.2 Inflammatory conditions of jaws (principal); K04.6 Periapical abscess with sinus; C85.11 Unspecified B-cell lymphoma, lymph nodes of head, face, and neck; W88.0XXA Exposure to X-rays, initial encounter | CPT/HCPCS: 99183; 99212 ==

== ENCOUNTER → 2017-10-01 | Outpatient (CLI) | payer OTHER | LOC: WOUNDCARE 09:25 | PROVIDERS: ATTEND Surgery | DX: M27.2 Inflammatory conditions of jaws (principal); K04.6 Periapical abscess with sinus; C85.11 Unspecified B-cell lymphoma, lymph nodes of head, face, and neck; W88.0XXA Exposure to X-rays, initial encounter | CPT/HCPCS: 99212 ==

== ENCOUNTER → 2017-10-08 | Outpatient (CLI) | payer OTHER | LOC: WOUNDCARE 09:26 | PROVIDERS: ATTEND Surgery | DX: M27.2 Inflammatory conditions of jaws (principal); K04.6 Periapical abscess with sinus; C85.11 Unspecified B-cell lymphoma, lymph nodes of head, face, and neck; W88.0XXA Exposure to X-rays, initial encounter | CPT/HCPCS: 99212 ==

== ENCOUNTER → 2017-10-11 | Outpatient (CLI) | payer OTHER | LOC: LAB 12:15 | PROVIDERS: ATTEND Internal Medicine Hematology & Oncology | DX: Z08 Encounter for follow-up examination after completed treatment for malignant neoplasm (principal); Z85.72 Personal history of non-Hodgkin lymphomas; D63.1 Anemia in chronic kidney disease; N18.4 Chronic kidney disease, stage 4 (severe); K22.0 Achalasia of cardia; R13.10 Dysphagia, unspecified; E46 Unspecified protein-calorie malnutrition; E03.9 Hypothyroidism, unspecified; K21.9 Gastro-esophageal reflux disease without esophagitis; R63.4 Abnormal weight loss; Z92.21 Personal history of antineoplastic chemotherapy; Z92.3 Personal history of irradiation; Z79.899 Other long term (current) drug therapy; Z87.01 Personal history of pneumonia (recurrent) ==

== ENCOUNTER → 2017-10-22 | Outpatient (CLI) | payer OTHER | LOC: WOUNDCARE 09:29 | PROVIDERS: ATTEND Surgery | DX: M27.2 Inflammatory conditions of jaws (principal); W88.0XXA Exposure to X-rays, initial encounter; K04.6 Periapical abscess with sinus; C85.11 Unspecified B-cell lymphoma, lymph nodes of head, face, and neck | CPT/HCPCS: 99212 ==

== ENCOUNTER 2017-10-27 09:30 | Outpatient (RCR) | payer OTHER | END 2017-10-27 12:00 | disposition home or self-care (01) | LOC: WOUNDCARE 09:30 | PROVIDERS: ATTEND Surgery | DX: M27.2 Inflammatory conditions of jaws (principal) | CPT/HCPCS: 99183 ==

== ENCOUNTER 2017-11-18 15:15 | Outpatient (CLI) | payer OTHER ==
[~2017-11-18] VITALS: Ht 177.8 cm; Wt 58.2 kg
[2017-11-18] MEDS ORDERED: WATER (STERILE) FOR INJECTION 20 ML ONE (15:18)
[2017-11-18] MEDS ORDERED: LIDOCAINE 1% INJ 20 ML 20 ML VIAL ONE (15:19)
[2017-11-18 15:20] VITALS: BP 165/105
--- NOTE | 2017-11-18 16:11 | Progress Note-Post Operative ---
Post-Operative Progess Note Surgeon (s)/Crab Butcher (s) Surgeon GARRETT JOHNSON MD Crab Butcher: NONE Pre-Operative Diagnosis non-hodgkins lymphoma and dysphagia. Post-Operative Diagnosis same, non-functioning gastrostostomy tube. Procedure & Operative Findings Date of Procedure 11/18/17 Procedure Performed/Findings removal and replacement gastrostomy tube. Anesthesia Type local Estimated Blood Loss Estimated blood loss (mL): minimal Specimens/Packing Specimens Removed none GARRETT JOHNSON MD Nov 18, 2017 4:11 pm
[2017-11-18] MEDS ORDERED: WATER (STERILE) FOR INJ 10 ML BTL IV PRN (16:30)
[2017-11-18] MEDS ORDERED: LIDOCAINE 1% INJ 20 ML 20 ML VIAL INJ ONE (16:30)
--- NOTE | 2017-11-18 21:07 | OPERATIVE REPORT ---
DATE OF SERVICE: 11/18/2017 ATTENDING PHYSICIAN: Dr. Robledo. PREPROCEDURE DIAGNOSES: Non-Hodgkin's lymphoma, dysphagia, nonfunctioning percutaneous gastrostomy tube. POSTPROCEDURE DIAGNOSES: Non-Hodgkin's lymphoma, dysphagia, nonfunctioning percutaneous gastrostomy tube. PROCEDURE: Removal and replacement of gastrostomy tube. SURGEON: Garrett Johnson MD ANESTHESIA: Local. ESTIMATED BLOOD LOSS: Minimal. DISPOSITION: The patient tolerated the procedure well. INDICATIONS: The patient is a 77-year-old male with a history of non-Hodgkin's lymphoma. After treatment, he did develop a significant dysphagia as well as protein calorie malnutrition. Eventually, he reached the threshold where he was unable to take in adequate amounts of liquids and a gastrostomy tube was placed. Since that time, the original gastrostomy tube, which is over 1 year old has been nonfunctional and not much can be pushed through and there is no withdrawal of any residual. He will need removal and replacement of the gastrostomy tube. DESCRIPTION OF PROCEDURE: The patient was left on the gurney, supine. The abdomen was then prepped with alcohol pad. Local anesthesia was used to anesthetize the skin around the exit site of the gastrostomy tube. With firm continuous pressure, the gastrostomy tube was completely pulled out intact. Immediately, a NISHA gastrostomy tube 22-Cymro was placed into the previous tract in the balloon inflated to 10 mL with sterile water without any resistance and pulled back until the balloon was abutting the gastric wall. Good hemostasis was observed and a few drain sponges were placed and the external rubber bolster firmly placed over the skin. The patient tolerated the procedure well. The gastrostomy tube may be accessed and used at any time. Job ID: [id number] DocumentID: [id number] Dictated Date: 11/18/2017 16:16:29 Stamping Die Maker Date: 11/18/2017 21:06:36 Dictated By: GARRETT JOHNSON MD
== END 2017-11-18 16:00 | disposition home or self-care (01) ==
LOC: SDC 15:15
PROVIDERS: ATTEND Surgery
DX: C85.90 Non-Hodgkin lymphoma, unspecified, unspecified site (principal); R13.10 Dysphagia, unspecified

== ENCOUNTER → 2017-11-23 | Outpatient (CLI) | payer OTHER ==
[2017-11-23 10:19] LABS: BILIRUBIN,URINE NEGATIVE (NEGATIVE); CLARITY,URINE SLIGHTLY CLOUDY; COLOR,URINE YELLOW; GLUCOSE, URINE (UA) NEGATIVE (NEGATIVE); KETONES,URINE NEGATIVE (NEGATIVE); LEUKOCYTE ESTERASE ,URINE NEGATIVE (NEGATIVE); NITRITE,URINE NEGATIVE (NEGATIVE); PH,URINE 8 (5-9); PROTEIN,URINE NEGATIVE (NEGATIVE); UROBILINOGEN,URINE NORMAL (NORMAL)
[2017-11-23 10:31] LABS: AMORPHOUS SEDIMENT,UR LARGE AMOR PHOSPHATE /LPF; BACTERIA,URINE NEGATIVE /HPF; SQUAMOUS EPITHELIAL CELL,UR RARE /HPF
[2017-11-23 12:39] LABS: ALBUMIN 4.1 GM/DL (3.2-4.5); BUN/CREATININE RATIO 40; CALCIUM 9.6 MG/DL (8.5-10.1); CARBON DIOXIDE 26 MMOL/L (21-32); CHLORIDE 100 MMOL/L (98-107); CREATININE SERUM 0.86 MG/DL (0.60-1.30); GFR ESTIMATED > 60; GLUCOSE 102 MG/DL (70-105); PHOSPHORUS 3.2 MG/DL (2.3-4.7); POTASSIUM 5.7 MMOL/L (3.6-5.0); SODIUM 136 MMOL/L (135-145)
== END ==
LOC: LAB 09:37
PROVIDERS: ATTEND Internal Medicine Nephrology
DX: R94.5 Abnormal results of liver function studies (principal); N17.9 Acute kidney failure, unspecified; R74.8 Abnormal levels of other serum enzymes; C85.90 Non-Hodgkin lymphoma, unspecified, unspecified site; R13.10 Dysphagia, unspecified; N18.4 Chronic kidney disease, stage 4 (severe); D64.9 Anemia, unspecified; E78.5 Hyperlipidemia, unspecified; N25.0 Renal osteodystrophy
CPT/HCPCS: 80069; 81000; 82436; 82570; 84100; 84133; 84156; 84300

== ENCOUNTER 2017-11-26 09:45 | Outpatient (RCR) | payer OTHER ==
[2017-10-11 12:20] LABS: BASOPHILS % (AUTO) 0 % (0-10); EOSINOPHILS # (AUTO) 0.1 10^3/uL (0.0-0.3); EOSINOPHILS % (AUTO) 1 % (0-10); HEMATOCRIT 34 % (40-54); HEMOGLOBIN 11.6 G/DL (13.3-17.7); LYMPHOCYTES # (AUTO) 0.6 X 10^3 (1.0-4.0); LYMPHOCYTES % (AUTO) 10 % (12-44); MEAN CORPUSCULAR HEMOGLOBIN 31 PG (25-34); MEAN CORPUSCULAR HGB CONC 34 G/DL (32-36); MEAN CORPUSCULAR VOLUME 91 FL (80-99); MEAN PLATELET VOLUME 12.3 FL (7.4-10.4); MONOCYTES # (AUTO) 0.5 X 10^3 (0.0-1.0); MONOCYTES % (AUTO) 9 % (0-12); NEUTROPHILS # (AUTO) 4.5 X 10^3 (1.8-7.8); NEUTROPHILS % (AUTO) 79 % (42-75); PLATELET COUNT 105 10^3/uL (130-400); RED BLOOD COUNT 3.72 10^6/uL (4.35-5.85); WHITE BLOOD COUNT 5.7 10^3/uL (4.3-11.0)
[2017-10-11 12:42] LABS: ALANINE AMINOTRANSFERASE 33 U/L (0-55); ALBUMIN 4.3 GM/DL (3.2-4.5); ALKALINE PHOSPHATASE 88 U/L (40-136); BILIRUBIN,TOTAL 0.8 MG/DL (0.1-1.0); BUN/CREATININE RATIO 24; CALCIUM 9.9 MG/DL (8.5-10.1); CARBON DIOXIDE 29 MMOL/L (21-32); CHLORIDE 97 MMOL/L (98-107); CREATININE SERUM 0.97 MG/DL (0.60-1.30); GFR ESTIMATED > 60; GLUCOSE 94 MG/DL (70-105); MAGNESIUM 2.1 MG/DL (1.8-2.4); POTASSIUM 6.1 MMOL/L (3.6-5.0); SODIUM 134 MMOL/L (135-145); TOTAL PROTEIN 6.8 GM/DL (6.4-8.2)
[2017-11-02 09:57] LABS: BASOPHILS % (AUTO) 1 % (0-10); EOSINOPHILS # (AUTO) 0.1 10^3/uL (0.0-0.3); EOSINOPHILS % (AUTO) 2 % (0-10); HEMATOCRIT 36 % (40-54); HEMOGLOBIN 11.9 G/DL (13.3-17.7); LYMPHOCYTES # (AUTO) 0.5 X 10^3 (1.0-4.0); LYMPHOCYTES % (AUTO) 13 % (12-44); MEAN CORPUSCULAR HEMOGLOBIN 30 PG (25-34); MEAN CORPUSCULAR HGB CONC 33 G/DL (32-36); MEAN CORPUSCULAR VOLUME 92 FL (80-99); MEAN PLATELET VOLUME 12.6 FL (7.4-10.4); MONOCYTES # (AUTO) 0.6 X 10^3 (0.0-1.0); MONOCYTES % (AUTO) 16 % (0-12); NEUTROPHILS # (AUTO) 2.7 X 10^3 (1.8-7.8); NEUTROPHILS % (AUTO) 68 % (42-75); PLATELET COUNT 120 10^3/uL (130-400); RED BLOOD COUNT 3.96 10^6/uL (4.35-5.85); RED CELL DISTRIBUTION WIDTH 13.4 % (10.0-14.5)
[2017-11-02 10:19] LABS: ALANINE AMINOTRANSFERASE 31 U/L (0-55); ALBUMIN 4.3 GM/DL (3.2-4.5); ALKALINE PHOSPHATASE 90 U/L (40-136); BILIRUBIN,TOTAL 0.8 MG/DL (0.1-1.0); BUN/CREATININE RATIO 22; CALCIUM 10.1 MG/DL (8.5-10.1); CARBON DIOXIDE 31 MMOL/L (21-32); CHLORIDE 96 MMOL/L (98-107); CREATININE SERUM 1.16 MG/DL (0.60-1.30); GFR ESTIMATED > 60; GLUCOSE 94 MG/DL (70-105); POTASSIUM 5.7 MMOL/L (3.6-5.0); SODIUM 135 MMOL/L (135-145); TOTAL PROTEIN 6.4 GM/DL (6.4-8.2)
[2017-11-23 10:12] LABS: BASOPHILS % (AUTO) 0 % (0-10); EOSINOPHILS % (AUTO) 0 % (0-10); HEMATOCRIT 35 % (40-54); HEMOGLOBIN 11.4 G/DL (13.3-17.7); LYMPHOCYTES # (AUTO) 0.3 X 10^3 (1.0-4.0); LYMPHOCYTES % (AUTO) 3 % (12-44); MEAN CORPUSCULAR HEMOGLOBIN 31 PG (25-34); MEAN CORPUSCULAR HGB CONC 33 G/DL (32-36); MEAN CORPUSCULAR VOLUME 95 FL (80-99); MEAN PLATELET VOLUME 12.9 FL (7.4-10.4); MONOCYTES # (AUTO) 0.8 X 10^3 (0.0-1.0); MONOCYTES % (AUTO) 8 % (0-12); NEUTROPHILS # (AUTO) 8.6 X 10^3 (1.8-7.8); NEUTROPHILS % (AUTO) 88 % (42-75); PLATELET COUNT 87 10^3/uL (130-400); RED BLOOD COUNT 3.66 10^6/uL (4.35-5.85); RED CELL DISTRIBUTION WIDTH 13.2 % (10.0-14.5); WHITE BLOOD COUNT 9.8 10^3/uL (4.3-11.0)
[2017-11-23 10:34] LABS: ALANINE AMINOTRANSFERASE 42 U/L (0-55); ALBUMIN 4.1 GM/DL (3.2-4.5); ALKALINE PHOSPHATASE 93 U/L (40-136); BILIRUBIN,TOTAL 0.7 MG/DL (0.1-1.0); BUN/CREATININE RATIO 38; CALCIUM 9.7 MG/DL (8.5-10.1); CARBON DIOXIDE 30 MMOL/L (21-32); CHLORIDE 101 MMOL/L (98-107); GFR ESTIMATED > 60; GLUCOSE 104 MG/DL (70-105); MAGNESIUM 2.3 MG/DL (1.8-2.4); POTASSIUM 5.7 MMOL/L (3.6-5.0); SODIUM 137 MMOL/L (135-145); TOTAL PROTEIN 6.4 GM/DL (6.4-8.2)
[2017-11-29 09:21] LABS: BASOPHILS % (AUTO) 1 % (0-10); EOSINOPHILS # (AUTO) 0.1 10^3/uL (0.0-0.3); EOSINOPHILS % (AUTO) 4 % (0-10); HEMATOCRIT 34 % (40-54); HEMOGLOBIN 10.8 G/DL (13.3-17.7); LYMPHOCYTES # (AUTO) 0.5 X 10^3 (1.0-4.0); LYMPHOCYTES % (AUTO) 17 % (12-44); MEAN CORPUSCULAR HEMOGLOBIN 30 PG (25-34); MEAN CORPUSCULAR HGB CONC 32 G/DL (32-36); MEAN CORPUSCULAR VOLUME 94 FL (80-99); MEAN PLATELET VOLUME 12.6 FL (7.4-10.4); MONOCYTES # (AUTO) 0.6 X 10^3 (0.0-1.0); MONOCYTES % (AUTO) 18 % (0-12); NEUTROPHILS # (AUTO) 1.9 X 10^3 (1.8-7.8); NEUTROPHILS % (AUTO) 61 % (42-75); PLATELET COUNT 106 10^3/uL (130-400); RED BLOOD COUNT 3.62 10^6/uL (4.35-5.85); WHITE BLOOD COUNT 3.2 10^3/uL (4.3-11.0)
[2017-11-29 09:58] LABS: ALANINE AMINOTRANSFERASE 32 U/L (0-55); ALBUMIN 3.8 GM/DL (3.2-4.5); ALKALINE PHOSPHATASE 81 U/L (40-136); BILIRUBIN,TOTAL 0.4 MG/DL (0.1-1.0); BUN/CREATININE RATIO 38; CALCIUM 9.4 MG/DL (8.5-10.1); CARBON DIOXIDE 34 MMOL/L (21-32); CHLORIDE 98 MMOL/L (98-107); CREATININE SERUM 0.77 MG/DL (0.60-1.30); GFR ESTIMATED > 60; GLUCOSE 99 MG/DL (70-105); POTASSIUM 4.9 MMOL/L (3.6-5.0); SODIUM 139 MMOL/L (135-145); TOTAL PROTEIN 6.2 GM/DL (6.4-8.2)
== END 2017-12-30 | disposition home or self-care (01) ==
LOC: ONC 09:45
PROVIDERS: ATTEND Internal Medicine Hematology & Oncology
DX: Z08 Encounter for follow-up examination after completed treatment for malignant neoplasm (principal); Z85.72 Personal history of non-Hodgkin lymphomas; K22.0 Achalasia of cardia; R13.10 Dysphagia, unspecified; E03.9 Hypothyroidism, unspecified; K21.9 Gastro-esophageal reflux disease without esophagitis; R63.4 Abnormal weight loss; Z92.21 Personal history of antineoplastic chemotherapy; Z92.3 Personal history of irradiation; Z79.899 Other long term (current) drug therapy
CPT/HCPCS: 36415; 80053; 82306; 82570; 82728; 83540; 83735; 83970; 84156; 84443; 85025; 87070; 87077; 87186; 87205; 99213

== ENCOUNTER → 2017-11-26 | Outpatient (CLI) | payer OTHER ==
[2017-11-26 09:28] LABS: PROTEIN URINE MG/DL 11 MG/DL (6-12); URINE CREAT 53 MG/DL (30-125)
[2017-11-26 09:34] LABS: PROTEIN 24 HOUR URINE 187 MG/24H (0-149); TOTAL VOLUME,URINE 1700 ML
[2017-11-26 09:39] LABS: CREATININE 24 HOUR,URINE 901 MG/24H (1000-1700)
== END ==
LOC: LAB 01:45
PROVIDERS: ATTEND Internal Medicine Nephrology
DX: N18.4 Chronic kidney disease, stage 4 (severe) (principal); E87.5 Hyperkalemia; R80.9 Proteinuria, unspecified
CPT/HCPCS: 82436; 82570; 83935; 84133; 84156; 84300

== ENCOUNTER 2018-02-21 08:45 | Outpatient (RCR) | payer OTHER | END 2018-03-22 12:50 | disposition home or self-care (01) | LOC: ONC 08:45 | PROVIDERS: ATTEND Internal Medicine Hematology & Oncology | DX: J18.9 Pneumonia, unspecified organism (principal); N19 Unspecified kidney failure | CPT/HCPCS: 87070; 87077; 87186; 87205 ==

== ENCOUNTER 2018-05-27 09:12 | Outpatient (RCR) | payer OTHER ==
[2018-03-24 09:24] LABS: BASOPHILS % (AUTO) 1 % (0-10); EOSINOPHILS # (AUTO) 0.2 10^3/uL (0.0-0.3); EOSINOPHILS % (AUTO) 5 % (0-10); HEMATOCRIT 35 % (40-54); HEMOGLOBIN 11.6 G/DL (13.3-17.7); LYMPHOCYTES # (AUTO) 0.5 X 10^3 (1.0-4.0); LYMPHOCYTES % (AUTO) 12 % (12-44); MEAN CORPUSCULAR HEMOGLOBIN 30 PG (25-34); MEAN CORPUSCULAR HGB CONC 33 G/DL (32-36); MEAN CORPUSCULAR VOLUME 92 FL (80-99); MEAN PLATELET VOLUME 13.7 FL (7.4-10.4); MONOCYTES # (AUTO) 0.5 X 10^3 (0.0-1.0); MONOCYTES % (AUTO) 14 % (0-12); NEUTROPHILS # (AUTO) 2.6 X 10^3 (1.8-7.8); NEUTROPHILS % (AUTO) 69 % (42-75); PLATELET COUNT 77 10^3/uL (130-400); RED CELL DISTRIBUTION WIDTH 13.5 % (10.0-14.5); WHITE BLOOD COUNT 3.8 10^3/uL (4.3-11.0)
[2018-03-24 09:50] LABS: ALANINE AMINOTRANSFERASE 27 U/L (0-55); ALBUMIN 3.9 GM/DL (3.2-4.5); ALKALINE PHOSPHATASE 78 U/L (40-136); BILIRUBIN,TOTAL 0.7 MG/DL (0.1-1.0); BUN/CREATININE RATIO 33; CALCIUM 9.6 MG/DL (8.5-10.1); CARBON DIOXIDE 33 MMOL/L (21-32); CHLORIDE 100 MMOL/L (98-107); CREATININE SERUM 0.91 MG/DL (0.60-1.30); GFR ESTIMATED > 60; GLUCOSE 63 MG/DL (70-105); POTASSIUM 5.3 MMOL/L (3.6-5.0); SODIUM 140 MMOL/L (135-145); TOTAL PROTEIN 6.1 GM/DL (6.4-8.2)
[2018-03-28 09:13] LABS: BASOPHILS % (AUTO) 1 % (0-10); EOSINOPHILS # (AUTO) 0.2 10^3/uL (0.0-0.3); EOSINOPHILS % (AUTO) 5 % (0-10); HEMATOCRIT 32 % (40-54); HEMOGLOBIN 10.4 G/DL (13.3-17.7); LYMPHOCYTES # (AUTO) 0.3 X 10^3 (1.0-4.0); LYMPHOCYTES % (AUTO) 10 % (12-44); MEAN CORPUSCULAR HEMOGLOBIN 30 PG (25-34); MEAN CORPUSCULAR HGB CONC 32 G/DL (32-36); MEAN CORPUSCULAR VOLUME 93 FL (80-99); MEAN PLATELET VOLUME 13.7 FL (7.4-10.4); MONOCYTES # (AUTO) 0.5 X 10^3 (0.0-1.0); MONOCYTES % (AUTO) 15 % (0-12); NEUTROPHILS # (AUTO) 2.3 X 10^3 (1.8-7.8); NEUTROPHILS % (AUTO) 69 % (42-75); PLATELET COUNT 70 10^3/uL (130-400); RED CELL DISTRIBUTION WIDTH 13.7 % (10.0-14.5); WHITE BLOOD COUNT 3.4 10^3/uL (4.3-11.0)
[2018-03-28 09:34] LABS: ALANINE AMINOTRANSFERASE 26 U/L (0-55); ALBUMIN 3.5 GM/DL (3.2-4.5); ALKALINE PHOSPHATASE 73 U/L (40-136); BILIRUBIN,TOTAL 0.8 MG/DL (0.1-1.0); BUN/CREATININE RATIO 31; CALCIUM 8.6 MG/DL (8.5-10.1); CARBON DIOXIDE 27 MMOL/L (21-32); CHLORIDE 102 MMOL/L (98-107); CREATININE SERUM 0.81 MG/DL (0.60-1.30); GFR ESTIMATED > 60; GLUCOSE 87 MG/DL (70-105); POTASSIUM 4.2 MMOL/L (3.6-5.0); SODIUM 137 MMOL/L (135-145); TOTAL PROTEIN 5.5 GM/DL (6.4-8.2)
[2018-04-08 09:07] LABS: BASOPHILS % (AUTO) 0 % (0-10); EOSINOPHILS % (AUTO) 1 % (0-10); HEMATOCRIT 33 % (40-54); HEMOGLOBIN 10.8 G/DL (13.3-17.7); LYMPHOCYTES # (AUTO) 0.5 X 10^3 (1.0-4.0); LYMPHOCYTES % (AUTO) 13 % (12-44); MEAN CORPUSCULAR HEMOGLOBIN 30 PG (25-34); MEAN CORPUSCULAR HGB CONC 32 G/DL (32-36); MEAN CORPUSCULAR VOLUME 92 FL (80-99); MEAN PLATELET VOLUME 12.4 FL (7.4-10.4); MONOCYTES # (AUTO) 0.4 X 10^3 (0.0-1.0); MONOCYTES % (AUTO) 11 % (0-12); NEUTROPHILS % (AUTO) 75 % (42-75); PLATELET COUNT 100 10^3/uL (130-400); RED CELL DISTRIBUTION WIDTH 13.3 % (10.0-14.5)
[2018-04-08 09:29] LABS: ALANINE AMINOTRANSFERASE 22 U/L (0-55); ALBUMIN 3.5 GM/DL (3.2-4.5); ALKALINE PHOSPHATASE 81 U/L (40-136); BILIRUBIN,TOTAL 0.5 MG/DL (0.1-1.0); BUN/CREATININE RATIO 33; CALCIUM 9.1 MG/DL (8.5-10.1); CARBON DIOXIDE 32 MMOL/L (21-32); CHLORIDE 99 MMOL/L (98-107); GFR ESTIMATED > 60; GLUCOSE 99 MG/DL (70-105); POTASSIUM 4.1 MMOL/L (3.6-5.0); SODIUM 138 MMOL/L (135-145); TOTAL PROTEIN 5.7 GM/DL (6.4-8.2)
[2018-04-12 16:14] LABS: BASOPHILS % (AUTO) 0 % (0-10); EOSINOPHILS % (AUTO) 0 % (0-10); HEMATOCRIT 35 % (40-54); HEMOGLOBIN 11.4 G/DL (13.3-17.7); LYMPHOCYTES # (AUTO) 0.2 X 10^3 (1.0-4.0); LYMPHOCYTES % (AUTO) 2 % (12-44); MEAN CORPUSCULAR HEMOGLOBIN 31 PG (25-34); MEAN CORPUSCULAR HGB CONC 33 G/DL (32-36); MEAN CORPUSCULAR VOLUME 93 FL (80-99); MEAN PLATELET VOLUME 11.9 FL (7.4-10.4); MONOCYTES # (AUTO) 0.8 X 10^3 (0.0-1.0); MONOCYTES % (AUTO) 6 % (0-12); NEUTROPHILS # (AUTO) 11.5 X 10^3 (1.8-7.8); NEUTROPHILS % (AUTO) 91 % (42-75); PLATELET COUNT 123 10^3/uL (130-400); RED CELL DISTRIBUTION WIDTH 13.9 % (10.0-14.5); WHITE BLOOD COUNT 12.5 10^3/uL (4.3-11.0)
[2018-04-12 16:33] LABS: ALANINE AMINOTRANSFERASE 24 U/L (0-55); ALKALINE PHOSPHATASE 84 U/L (40-136); BILIRUBIN,TOTAL 1.3 MG/DL (0.1-1.0); BUN/CREATININE RATIO 34; CALCIUM 9.2 MG/DL (8.5-10.1); CARBON DIOXIDE 25 MMOL/L (21-32); CHLORIDE 98 MMOL/L (98-107); CREATININE SERUM 0.87 MG/DL (0.60-1.30); GFR ESTIMATED > 60; GLUCOSE 97 MG/DL (70-105); POTASSIUM 3.8 MMOL/L (3.6-5.0); SODIUM 138 MMOL/L (135-145); TOTAL PROTEIN 6.5 GM/DL (6.4-8.2)
--- NOTE | 2018-04-13 08:15 | Diagnostic Imaging Report ---
EXAMINATION: PA and lateral Chest at 4:09 p.m. INDICATION: Chest pain. FINDINGS: The heart size is within normal limits and stable when compared to 04/14/2017. The perihilar markings are somewhat prominent, but there is no evidence for failure, pneumonia, or for a pleural effusion. The mediastinum is not widened. The osseous structures are intact. The distal tip of the right clavicle does seem more lucent than on the prior exam, but there is no clear evidence for a destructive lesion in this area. IMPRESSION: 1. There is no evidence for an acute cardiopulmonary abnormality. 2. If clinical concern regarding an underlying abnormality persists, then CT of the chest would be recommended for further evaluation. 3. These results were discussed with Dr. Robledo. Dictated by: Dictated on workstation # [id number]
[~2018-05-27 09:12] MED LIST changes: +CEFEPIME INJECTION 2,000 MG in NS (IVPB) 50 ML IV ONE; +CEFEPIME IV ONE; +FAMOTIDINE 20MG/2ML IV (CANCER CTR) ONE; +IN NS IV ONE; +NS IV 1000 ML (CANCER CTR) 1,000 ML ONE; +NS IV 500 ML (CANCER CENTER) 500 ML ONE; +NS IV ONE; +cefTRIAXone 2,000 MG/NS 50 ML IVPB (CANCER CTR) IV ONE
== END 2018-06-22 | disposition home or self-care (01) ==
LOC: ONC 09:12
PROVIDERS: ATTEND Internal Medicine Hematology & Oncology
DX: Z08 Encounter for follow-up examination after completed treatment for malignant neoplasm (principal); Z85.72 Personal history of non-Hodgkin lymphomas; D63.1 Anemia in chronic kidney disease; N18.4 Chronic kidney disease, stage 4 (severe); K22.0 Achalasia of cardia; R13.10 Dysphagia, unspecified; E46 Unspecified protein-calorie malnutrition; E03.9 Hypothyroidism, unspecified; K21.9 Gastro-esophageal reflux disease without esophagitis; Z92.21 Personal history of antineoplastic chemotherapy; Z92.3 Personal history of irradiation; Z79.899 Other long term (current) drug therapy; Z87.01 Personal history of pneumonia (recurrent)
CPT/HCPCS: 36415; 71046; 80053; 84443; 85025; 87070; 87077; 87184; 87186; 87205; 93005; 96360; 96361; 96365; 96375

== ENCOUNTER 2018-06-01 09:34 | Day surgery (SDC) | payer OTHER ==
[~2018-06-01] VITALS: Ht 177.8 cm; Wt 52.3 kg
[~2018-06-01 09:34] MED LIST changes: -CEFEPIME INJECTION 2,000 MG in NS (IVPB) 50 ML IV ONE; -CEFEPIME IV ONE; -FAMOTIDINE 20MG/2ML IV (CANCER CTR) ONE; -IN NS IV ONE; -NS IV 1000 ML (CANCER CTR) 1,000 ML ONE; -NS IV 500 ML (CANCER CENTER) 500 ML ONE; -NS IV ONE; -cefTRIAXone 2,000 MG/NS 50 ML IVPB (CANCER CTR) IV ONE
[2018-06-01] MEDS ORDERED: LACTATED RINGERS 1,000 ML IV STA (09:39)
[2018-06-01] MEDS ORDERED: HURRICAINE EXT TUBE (BENZOCAINE) XX PRN (09:45)
[2018-06-01] MEDS ORDERED: LIDOCAINE JELLY 2% 6 ML SYRINGE MM PRN (09:45)
[2018-06-01 09:50] VITALS: BP 130/80
--- OUTSIDE RECORDS SUMMARY | 2018-06-01 10:08 | XMS REPORT | Clinical Summary ---
Author Author [facility] Organization [facility] Address Unknown Phone Unavailable Care Team Providers Care Line Clearance Foreman Name Role Phone Muriel Robledo MD PCP Source Comments Some departments are not documenting in the electronic medical record. If you do not see the information that you expected, contact Release of Information in the Health Information Management department at [phone] for further assistance in locating additional records.[facility] Allergies Comments Active Allergy Reactions Severity Noted Date Acute renal failure Gentamicin SEE COMMENTS Low 05/07/2017 Medications End Date Status Medication Sig Dispensed Refills Start Date Active levothyroxine (SYNTHROID) Take 75 mcg 0 75 mcg tablet by mouth daily 30 minutes before breakfast. Active midodrine(+) (PROAMITINE) Take 10 mg by 0 10 mg tablet mouth three times daily. Active Problems Problem Noted Date Dysphonia 05/07/2017 Vocal cord paralysis, unilateral complete - right 05/07/2017 Vocal cord paralysis, unilateral partial - left 05/07/2017 Velopharyngeal insufficiency, acquired 05/07/2017 Pharyngoesophageal dysphagia 05/07/2017 Esophageal dysmotility 05/07/2017 H/O malignant neoplasm of tonsil - right 05/07/2017 History of external beam radiation therapy 05/07/2017 Family History Medical History Relation Name Comments Cancer Father Relation Name Status Comments Father Mother Sister Alive Social History Date Tobacco Use Types Packs/Day Years Used Former Smoker Smokeless Tobacco: Never Used Alcohol Use Drinks/Week oz/Week Comments No Sex Assigned at Date Recorded Not on file Industry Job Start Date Occupation Not on file Not on file Not on file Travel End Travel History Travel Start No recent travel history available. 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 Height 179.1 cm (5' 10.5") 05/07/2017 2:39 PM SEAMLESS T[employer] M[employer] OPERATOR Body Mass Index 17.4 Plan of Treatment Health Maintenance Due Date Last Done Comments PHYSICAL (COMPREHENSIVE) 1947 EXAM DTAP/TDAP VACCINES (1 - 01/03/1960 Tdap) SHINGLES RECOMBINANT 01/03/1992 VACCINE (1 of 2) PNEUMONIA (PCV13/PPSV23) 2007 VACCINES (1 of 2 - PCV13) INFLUENZA VACCINE 10/13/2017 Results Not on filefrom Last 3 Months Insurance Payer Benefit Subscriber ID Type Phone Address Plan / Group MEDICARE MEDICARE xxxxxxxxxx Medicare PART A BCBS [employer] xxxxxxxxxxxx PPO OUT OF STATE Advance Directives Patient has advance care planning documents on file. For more information, please contact: [facility] [address] [place] [address]
--- NOTE | 2018-06-01 10:48 | Conscious Sedation/ASA ---
Conscious Sedation Pre-Proced Time 10:00 ASA Score 2 For ASA 3 and 4: Consider anesthesia and medical clearance. Also, for patients with a history of failed moderate sedation consider anesthesia. Airway Lungs Heart ASA score ASA 1: a normal healthy patient ASA 2: a patient with a mild systemic disease (mid diabetes, controlled hypertension, obesity ASA 3: a patient with a severe systemic disease that limits activity (angina , COPD, prior Myocardial infarction) ASA 4: a patient with an incapacitating disease that is a constant threat to life (CHF, renal failure) ASA 5: a moribund patient not expected to survive 24 hrs. (ruptured aneurysm) ASA 6: a declared brain- patient whose organs are being harvested. For emergent operations, add the letter E after the classification Mallampati Classification Grade 2 Sedation Plan Analgesia, Amnesia, Plan communicated to team members, Discussed options with patient/fam, Discussed risks with patient/fam The patient is an appropriate candidate to undergo the planned procedure, sedation, and anesthesia. The patient immediately re-assessed prior to indication. GARRETT JOHNSON MD Jun 01, 2018 10:48
--- NOTE | 2018-06-01 10:50 | Progress Note-Pre Operative ---
Pre-Operative Progress Note H&P Reviewed The H&P was reviewed, patient examined and no changes noted. Date Seen by Provider: Jun 01, 2018 Time Seen by Provider: 10:00 Date H&P Reviewed: Jun 01, 2018 Time H&P Reviewed: 10:00 Pre-Operative Diagnosis: dysphagia GARRETT JOHNSON MD Jun 01, 2018 10:50
--- NOTE | 2018-06-01 10:53 | Discharge Inst-Surgical ---
D/C Lap Instructions-ELIZABETH Follow Up PRN Activity as tolerated High Fiber Diet 25g or more per day Avoid Alcohol, Caffeine, Spicy [place] and Acid foods. Drink 64 fluid oz or more of fluids per day. Symptoms to Report: Fever over 101 degree F, Nausea/Vomiting If any problems/questions: Contact your physician or go to Emergency Room GARRETT JOHNSON MD Jun 01, 2018 10:53
[2018-06-01] MEDS ORDERED: proPOfol 200 MG/20 ML (DIPRIVAN) VIAL IV ONE (10:54)
[2018-06-01] MEDS ORDERED: MIDAZOLAM 2 MG/2 ML (VERSED) VIAL ONE (10:54)
[2018-06-01] MEDS ORDERED: morphine INJ 10 MG/ML 1ML (SYR OR VIAL) IV PRN (11:00)
[2018-06-01] MEDS ORDERED: ACETAMINOPHEN 325 MG TABLET PO PRN (11:00)
[2018-06-01] MEDS ORDERED: ONDANSETRON 4 MG/2 ML (SDV) Z0FRAN IV PRN (11:00)
[2018-06-01] MEDS ORDERED: HYDROcodone/APAP 5 MG/325 MG (LORTAB) TAB PO PRN (11:00)
--- NOTE | 2018-06-01 12:04 | Progress Note-Post Operative ---
Post-Operative Progess Note Surgeon (s)/Vault Person (s) Surgeon GARRETT JOHNSON MD Vault Person: none Pre-Operative Diagnosis dysphagia Post-Operative Diagnosis proximal esophagus candidiasis, distal esophageal stricture. Procedure & Operative Findings Date of Procedure 06/01/18 Procedure Performed/Findings EGD with brushings, balloon dilatation, percutaneous endoscopic gastrostomy tube placement. Anesthesia Type MAC Estimated Blood Loss Estimated blood loss (mL): minimal Specimens/Packing Specimens Removed prox esoph brushings. GARRETT JOHNSON MD Jun 01, 2018 12:04
[2018-06-01 12:10] VITALS: BP 98/64
[2018-06-01] MEDS ORDERED: fentaNYL INJECTION 100 MCG/2 ML AMP ONE (12:25)
[2018-06-01] MEDS ORDERED: D5 LR IV SOLUTION 1,000 ML IV ONE (12:29)
[2018-06-01] MEDS ORDERED: ONDANSETRON 4 MG/2 ML (SDV) Z0FRAN ONE ×2 (12:29→14:42)
[2018-06-01] MEDS ORDERED: FAMOTIDINE 20MG/2ML IV (PEPCID) ONE (12:34)
[2018-06-01 12:40] VITALS: BP 100/82
[2018-06-01] MEDS ORDERED: FAMOTIDINE 20MG/2ML IV (PEPCID) IVP ONE (12:45)
[2018-06-01] MEDS ORDERED: fentaNYL INJECTION 100 MCG/2 ML AMP IVP ONE (12:45)
[2018-06-01] MEDS ORDERED: ONDANSETRON 4 MG/2 ML (SDV) Z0FRAN IVP ONE ×2 (12:45→15:00)
[2018-06-01] MEDS ORDERED: D5 NS 1000 ML IV SOLUTION 1,000 ML IV SCH (12:45)
[2018-06-01] MEDS ORDERED: HYDROcodone/APAP 7.5MG-325 MG/15 ML (LORTAB) UDC ONE (13:05)
[2018-06-01 13:10] VITALS: BP 99/66
[2018-06-01] MEDS ORDERED: HYDROcodone/APAP 7.5MG-325 MG/15 ML (LORTAB) UDC PO PRN (13:15)
[2018-06-01 14:10] VITALS: BP 85/56
--- NOTE | 2018-06-01 15:00 | NUR ---
PATIENT STILL EXPERIENCING NAUSEA. PATIENT WANTS BROTH INSTILLED INTO HIS PEG TUBE. DR. HARVINDER BARR WITH GIVING HIM A COUPLE OF OUNCES OF CHICKEN BROTH.
[2018-06-01 16:32] VITALS: BP 85/56
--- NOTE | 2018-06-01 20:09 | OPERATIVE REPORT ---
DATE OF SERVICE: 06/01/2018 PREOPERATIVE DIAGNOSES: Persistent dysphagia with dislodged gastrostomy tube. POSTPROCEDURE DIAGNOSES: Persistent dysphagia with dislodged gastrostomy tube with proximal esophageal candidiasis, distal esophageal stricture. PROCEDURE: EGD with brushings, balloon dilatation and percutaneous endoscopic gastrostomy tube placement. SURGEON: Garrett Johnson MD ANESTHESIA: Monitored anesthesia care. ESTIMATED BLOOD LOSS: Minimal. FINDINGS: The patient has limited movement of the jaw as well as phonation secondary to previous radiation for non-Hodgkin's lymphoma to the entire face and neck over 25 years ago. Proximal esophageal candidiasis, distal esophageal stricture, dislodged gastrostomy tube through the abdominal wall and skin. DISPOSITION: The patient tolerated the procedure well. INDICATIONS: The patient is a 78-year-old male with a longstanding history of dysphagia and weight loss. He was diagnosed with non-Hodgkin's lymphoma many years ago and underwent radiation throughout the face and neck and chest. Slowly over time, he has developed significant esophageal dysmotility, dysphagia, inability to swallow as well as loss of phonation. A gastrostomy tube was placed for alimentation and this has been changed several times. He reports that he developed redness and pain approximately 2 days prior; however, the pain worsened over time. Upon examination today, the gastrostomy tube appeared to be completely dislodged. Multiple attempts were made to place a NISHA gastrostomy tube; however, the tract had obliterated. DESCRIPTION OF PROCEDURE: The patient was brought to the endoscopy suite, laid in the left lateral decubitus position with head slightly elevated. After adequate IV pain and sedative medications and monitored anesthesia care administered by anesthesia, the jaw was stented with a sponge stick due to the limited mobility of the mandible. The endoscope was then placed in the mouth visualizing the pharynx and hypopharyngeal region. Vocal cords, epiglottis and vallecula identified and all appeared to be in stiff positioning. The endoscope was then gently intubated at the esophageal opening and esophagus insufflated. The endoscope was then advanced to the first portion of the esophagus where an esophageal candidiasis was identified. This was brushed and sent to cytology. The endoscope was then advanced to the second and third portion of esophagus. At the level of the GE junction, a significant distal esophageal stricture was identified. We could not get the scope through this initially and it was decided to proceed with a balloon dilatation due to the fact we could see the opening. A balloon was then placed through the GE junction into the stomach and then we first proceeded to 2 atmospheres of pressure with 10 mmHg with moderate pressure. We then proceeded to 4 atmospheres of pressure with 11 mmHg again with moderate pressure and left this in place for approximately 60 seconds. The balloon was then desufflated and removed. There was a small mucosal tear identified; however, small and linear and good hemostasis. After the balloon dilatation, we were able to place the scope through into the stomach. No significant gastritis or any distal obstructions identified. We then proceeded with placement of the percutaneous endoscopic gastrostomy tube. The abdominal wall was palpated and anesthetized after being prepped and draped in standard surgical fashion. 1% lidocaine was used to anesthetize the abdominal wall layers. A vertical skin incision was made using 11 blade and the trocar and sheath were then placed under direct visualization into the anterior body of the stomach. The trocar removed and the wire inserted and looped through the endoscope and pulled out through the mouth. The gastrostomy tube was placed on to the wire. The skin incision was slightly extended using a 11 blade and pulled through. Bacitracin was then placed on to the skin exit site and the rubber bolster placed on to the skin as well as drain sponges. Catheter was then cut down to size and the rubber stopper placed on the end. The patient tolerated the procedure well. We will recommend that he continue with his antibiotics. We will also await the brushings results for candidiasis, which he has had before in the past as well. We will also recommend just a clear liquid diet for the next 24 hours and slowly advance to tube feeds after that. He will also be instructed to do no heavy lifting or exertion and to keep the previous gastrostomy tube site covered with gauze and allowed to close by secondary intention and to also cover the new exit site with drain sponges on a daily basis as well as p.r.n. Job ID: [id number] DocumentID: [id number] Dictated Date: 06/01/2018 14:54:34 Entertainment & Media Correspondent Date: 06/01/2018 20:08:10 Dictated By: GARRETT JOHNSON MD
--- NOTE | 2018-06-14 19:41 | HISTORY AND PHYSICAL ---
DATE OF SERVICE: 06/01/2018 HISTORY OF PRESENT ILLNESS: The patient is a 78-year-old male known to us. He has a history of non-Hodgkin's lymphoma and did undergo radiation therapy and over time, did develop a significant dysphagia as well as protein calorie malnutrition. He eventually reached the threshold where he was unable to take in adequate amounts of liquids and a gastrostomy tube was placed. His gastrostomy tube was functioning well; however, over time, the tube had broke down and was changed on 11/18/2017. He and his , who is a physician reported that there was pain around the area of the gastrostomy tube exit site as well as increased pain. Upon examination, the tube appeared to have completely dislodged. An attempt was made to place a NISHA tube; however, the tract had closed. PAST MEDICAL HISTORY: Non-Hodgkin's lymphoma, hypothyroidism, severe dysphagia and reflux. PAST SURGICAL HISTORY: Appendectomy, gastrostomy tube placement and replacement. ALLERGIES: No known drug allergies. MEDICATIONS: 1. Levothyroxine 75 mcg daily. 2. Protonix 20 mg daily. 3. Calcium daily. SOCIAL HISTORY: Negative smoke, negative alcohol. FAMILY HISTORY: Noncontributory. REVIEW OF SYSTEMS: This looks thin appearing male in no acute distress. He is not experiencing any shortness of breath or difficulty breathing. No chest pain, palpitations, diaphoresis. No nausea, vomiting. His gastrostomy tube recently fell out. There is no leakage or redness around the area of the exit site. No diarrhea, constipation, no red blood per rectum or dark tarry stools. He has had some weight loss in the past several months. All other review of systems are negative. PHYSICAL EXAMINATION: VITAL SIGNS: Stable. Currently weight 110 pounds at 5 feet 10 inches. CHEST: A few scattered rales and rhonchi bilaterally. HEART: Regular, no murmurs. EXTREMITIES: No lower extremity edema. Negative Homans sign. HEENT: No scleral icterus. NECK: No cervical lymphadenopathy. ABDOMEN: Soft, nontender, nondistended. SKIN: Warm, dry. ASSESSMENT AND PLAN: A 78-year-old male with dislodged gastrostomy tube. Due to his severe dysphagia, we will proceed with EGD as well as replacement of a percutaneous endoscopic gastrostomy tube for fluids as well as alimentation and medications. Job ID: [id number] DocumentID: [id number] Dictated Date: 06/14/2018 19:28:15 Registered Land Surveyor Date: 06/14/2018 19:40:27 Dictated By: GARRETT JOHNSON MD
== END 2018-06-01 16:33 | disposition home or self-care (01) ==
LOC: SDC 09:34
PROVIDERS: ATTEND Surgery
DX: K94.23 Gastrostomy malfunction (principal); R13.10 Dysphagia, unspecified; K22.2 Esophageal obstruction; B37.81 Candidal esophagitis; E03.9 Hypothyroidism, unspecified; Z85.72 Personal history of non-Hodgkin lymphomas; Z92.21 Personal history of antineoplastic chemotherapy; Z92.3 Personal history of irradiation; Z79.899 Other long term (current) drug therapy
CPT/HCPCS: 87101

== ENCOUNTER 2018-06-23 09:45 | Outpatient (RCR) | payer OTHER ==
[2018-06-24 10:52] LABS: BASOPHILS % (AUTO) 0 % (0-10); EOSINOPHILS # (AUTO) 0.1 10^3/uL (0.0-0.3); EOSINOPHILS % (AUTO) 3 % (0-10); HEMATOCRIT 38 % (40-54); HEMOGLOBIN 12.4 G/DL (13.3-17.7); LYMPHOCYTES # (AUTO) 0.5 X 10^3 (1.0-4.0); LYMPHOCYTES % (AUTO) 11 % (12-44); MEAN CORPUSCULAR HEMOGLOBIN 30 PG (25-34); MEAN CORPUSCULAR HGB CONC 33 G/DL (32-36); MEAN CORPUSCULAR VOLUME 93 FL (80-99); MEAN PLATELET VOLUME 13.4 FL (7.4-10.4); MONOCYTES # (AUTO) 0.5 X 10^3 (0.0-1.0); MONOCYTES % (AUTO) 11 % (0-12); NEUTROPHILS # (AUTO) 3.5 X 10^3 (1.8-7.8); NEUTROPHILS % (AUTO) 74 % (42-75); PLATELET COUNT 95 10^3/uL (130-400); WHITE BLOOD COUNT 4.8 10^3/uL (4.3-11.0)
[2018-06-24 11:17] LABS: ALANINE AMINOTRANSFERASE 21 U/L (0-55); ALKALINE PHOSPHATASE 78 U/L (40-136); BILIRUBIN,TOTAL 0.7 MG/DL (0.1-1.0); BUN/CREATININE RATIO 32; CALCIUM 9.9 MG/DL (8.5-10.1); CARBON DIOXIDE 27 MMOL/L (21-32); CHLORIDE 106 MMOL/L (98-107); CREATININE SERUM 0.95 MG/DL (0.60-1.30); GFR ESTIMATED > 60; GLUCOSE 78 MG/DL (70-105); SODIUM 144 MMOL/L (135-145); TOTAL PROTEIN 6.4 GM/DL (6.4-8.2)
[2018-09-07 12:16] LABS: BASOPHILS % (AUTO) 1 % (0-10); EOSINOPHILS # (AUTO) 0.1 10^3/uL (0.0-0.3); EOSINOPHILS % (AUTO) 1 % (0-10); HEMATOCRIT 40 % (40-54); HEMOGLOBIN 12.9 G/DL (13.3-17.7); LYMPHOCYTES # (AUTO) 0.4 X 10^3 (1.0-4.0); LYMPHOCYTES % (AUTO) 8 % (12-44); MEAN CORPUSCULAR HEMOGLOBIN 30 PG (25-34); MEAN CORPUSCULAR HGB CONC 33 G/DL (32-36); MEAN CORPUSCULAR VOLUME 92 FL (80-99); MEAN PLATELET VOLUME 12.7 FL (7.4-10.4); MONOCYTES # (AUTO) 0.5 X 10^3 (0.0-1.0); MONOCYTES % (AUTO) 11 % (0-12); NEUTROPHILS # (AUTO) 3.9 X 10^3 (1.8-7.8); NEUTROPHILS % (AUTO) 80 % (42-75); PLATELET COUNT 135 10^3/uL (130-400); RED CELL DISTRIBUTION WIDTH 14.6 % (10.0-14.5); WHITE BLOOD COUNT 4.9 10^3/uL (4.3-11.0)
[2018-09-07 12:35] LABS: ALANINE AMINOTRANSFERASE 25 U/L (0-55); ALBUMIN 4.4 GM/DL (3.2-4.5); ALKALINE PHOSPHATASE 95 U/L (40-136); BILIRUBIN,TOTAL 0.7 MG/DL (0.1-1.0); BUN/CREATININE RATIO 30; CALCIUM 9.9 MG/DL (8.5-10.1); CARBON DIOXIDE 29 MMOL/L (21-32); CHLORIDE 100 MMOL/L (98-107); CREATININE SERUM 1.01 MG/DL (0.60-1.30); GFR ESTIMATED > 60; GLUCOSE 99 MG/DL (70-105); SODIUM 139 MMOL/L (135-145)
== END 2018-09-21 | disposition home or self-care (01) ==
LOC: ONC 09:45
PROVIDERS: ATTEND Internal Medicine Hematology & Oncology
DX: Z08 Encounter for follow-up examination after completed treatment for malignant neoplasm (principal); Z85.72 Personal history of non-Hodgkin lymphomas; D63.1 Anemia in chronic kidney disease; N18.4 Chronic kidney disease, stage 4 (severe); K22.0 Achalasia of cardia; R13.10 Dysphagia, unspecified; E46 Unspecified protein-calorie malnutrition; E03.9 Hypothyroidism, unspecified; K21.9 Gastro-esophageal reflux disease without esophagitis; Z92.21 Personal history of antineoplastic chemotherapy; Z92.3 Personal history of irradiation; Z79.899 Other long term (current) drug therapy; Z87.01 Personal history of pneumonia (recurrent)
CPT/HCPCS: 36415; 80053; 82728; 83540; 84403; 84443; 85025

== ENCOUNTER 2018-11-01 03:49 | Emergency (ER) | payer OTHER ==
[~2018-11-01] VITALS: Ht 180.3 cm; Wt 47.6 kg
[2018-11-01 04:13] LABS: BASOPHILS % (AUTO) 0 % (0-10); EOSINOPHILS # (AUTO) 0.1 10^3/uL (0.0-0.3); EOSINOPHILS % (AUTO) 0 % (0-10); HEMATOCRIT 38 % (40-54); HEMOGLOBIN 12.2 G/DL (13.3-17.7); LYMPHOCYTES # (AUTO) 0.5 X 10^3 (1.0-4.0); LYMPHOCYTES % (AUTO) 4 % (12-44); MEAN CORPUSCULAR HEMOGLOBIN 30 PG (25-34); MEAN CORPUSCULAR HGB CONC 32 G/DL (32-36); MEAN CORPUSCULAR VOLUME 92 FL (80-99); MEAN PLATELET VOLUME 11.4 FL (7.4-10.4); MONOCYTES # (AUTO) 0.8 X 10^3 (0.0-1.0); MONOCYTES % (AUTO) 6 % (0-12); NEUTROPHILS # (AUTO) 11.9 X 10^3 (1.8-7.8); NEUTROPHILS % (AUTO) 89 % (42-75); PLATELET COUNT 140 10^3/uL (130-400); RED CELL DISTRIBUTION WIDTH 13.6 % (10.0-14.5); WHITE BLOOD COUNT 13.3 10^3/uL (4.3-11.0)
[2018-11-01] MEDS ORDERED: PANTOPRAZOLE 40 MG (PROTONIX) VIAL IV ONE (04:15)
--- NOTE | 2018-11-01 04:15 | ED Abdominal Pain ---
General Chief Complaint: General Problems/Pain Stated Complaint: ABD,HIP & CP PAIN Nursing Triage Note: Pt presents to the ED via W/C with complaints of pain/cramping in abd, right hip that radiates down to toes x 2 days. Pt denies any SOB or chest pain at this time. Sepsis Screen: No Definite Risk Source of Information: Patient, Spouse Exam Limitations: No Limitations History of Present Illness Date Seen by Provider: Nov 01, 2018 Time Seen by Provider: 03:56 Initial Comments Patient presents to ER by private conveyance with chief complaint of a progressively worsening abdominal pain that is colicky in nature all over his abdomen cramping sharp and severe. Last night his gave him a hydrocodone which helped for a couple hours. He has been having difficulty passing a stool and didn't take some laxatives without significant results. He typically has a bowel movement every day. No fever but tonight is having his pain had some sweats so his brought him in by private vehicle. 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 For that reason he has PEG tube and receives tube feeds. Receiving the normal fluids and couple days ago he was diagnosed with pneumonia with Pseudomonas and started on cefepime through the outpatient infusion center. He also received 2 L of IV fluids 2 days ago. He's been doing very well with that and his was concerned that his bowel changes with difficulty having a bowel movement abdominal pain might be related to the antibiotic so she stopped them today. He's not had diarrhea or bloody diarrhea. Never had C. difficile colitis before. He is not on steroids. No recent colonoscopy. He denies nausea or vomiting. He t ook Tylenol earlier in the morning but said it did not help much. He's had his appendix out but no other abdominal surgery. He denies a history of IBS/IBD. His also noted today that he had some swelling in his feet which is new. He has a history of a severe acute kidney injury that resulted in temporary hemodialysis but he has recovered his kidney function and does not follow with nephrology. He is known to Dr. Wallace for primary care. He's also been experiencing pain in his right side lower back radiating down his buttock all the way to his toe. He denies a history of any pressure ulcers. History of hypothyroidism. Allergies and Home Medications Allergies Coded Allergies: No Known Drug Allergies (Unverified , 06/22/14) Home Medications Lactose-Reduced Food/Fiber 237 Ml Liquid, 237 ML PO DAILY 50cc/hr Prescribed by: JORGE FERGUSON on 01/06/17 0949 Levothyroxine Sodium 75 Mcg Tablet, 75 MCG PO DAILY, (Reported) Pantoprazole Sodium 40 Mg Tablet.dr, 40 MG PO DAILY, (Reported) Patient Home Medication List Home Medication List Reviewed: Yes Review of Systems Review of Systems Constitutional: No chills, No diaphoresis EENTM: No Blurred Vision, No Double Vision Respiratory: Denies Cough, Denies Shortness of Air Cardiovascular: Denies Chest Pain, Denies Lightheadedness Gastrointestinal: Denies Constipated, Denies Diarrhea Genitourinary: Denies Burning, Denies Discharge, Denies Drainage Musculoskeletal: back pain Past Znbzteh-Ocuxel-Ggrisx Hx Patient Social History Alcohol Use: Denies Use Recreational Drug Use: No Smoking Status: Never a Smoker 2nd Hand Smoke Exposure: No Recent Foreign Travel: No Contact w/Someone Who Travel: No Recent Infectious Disease Expo: No Recent Hopitalizations: No Immunizations Up To Date Date of Pneumonia Vaccine: August 08, 2009 Seasonal Allergies Seasonal Allergies: No Past Medical History Surgeries: Yes (PICC LINE, TRACH) Appendectomy Respiratory: Yes (ASPIRATION PNEUMONIA) Pneumonia Cardiac: Yes Atrial Fibrillation Neurological: No Genitourinary: Yes Renal Failure Gastrointestinal: Yes (severe dysphagia and acid reflux. Does not tolerate oral or tube feeds) Gastroesophageal Reflux Musculoskeletal: No Endocrine: Yes Hypothyroidsim HEENT: No Loss of Vision: Denies Hearing Impairment: Hard of Hearing Cancer: Yes Lymphoma Psychosocial: Yes Anxiety Integumentary: No Physical Exam Vital Signs Vital Signs - First Documented 11/01/18 03:50 Temp 97.2 Pulse 79 Resp 16 B/P (MAP) 128/81 (97) Pulse Ox 94 O2 Delivery Room Air Capillary Refill : Less Than 3 Seconds Height/Weight/BMI Height: 5'11.00" Weight: 105lbs. 5.0oz. 47.611245eg; 16.6 BMI Method:Stated General Appearance: WD/WN, no apparent distress HEENT: PERRL/EOMI, normal ENT inspection, pharynx normal (oral mucosa is moist), other (soft, hoarse voice is baseline) Respiratory: chest non-tender, lungs clear, normal breath sounds, no respiratory distress, no accessory muscle use Cardiovascular: normal peripheral pulses, regular rate, rhythm, other (1-2+ pitting edema bilateral lower ankles) Peripheral Pulses: 2+ Dorsalis Pedis (R), 2+ Left Dors-Pedis (L) Gastrointestinal: normal bowel sounds; No soft, No distended; tenderness (diffuse all 4 quadrants), other (firm abdomen) Rectal: normal exam Extremities: normal range of motion, normal capillary refill Back: normal inspection, no vertebral tenderness, other (tenderness in the paraspinous right sacral region to palpation. Does not re-create is radiating symptoms.) Neurologic/Psychiatric: alert, normal mood/affect, oriented x 3 Skin: warm/dry, other (stage I blanchable erythema pressure ulcer over the sacrum and coccyx approximately 6 cm diameter) Progress/Results/Core Measures Results/Orders Lab Results Laboratory Tests Test 11/01/18 04:03 11/01/18 05:09 Range/Units White Blood Count 13.3 H 4.3-11.0 10^3/uL Red Blood Count 4.13 L 4.35-5.85 10^6/uL Hemoglobin 12.2 L 13.3-17.7 G/DL Hematocrit 38 L 40-54 % Mean Corpuscular Volume 92 80-99 FL Mean Corpuscular Hemoglobin 30 25-34 PG Mean Corpuscular Hemoglobin Concent 32 32-36 G/DL Red Cell Distribution Width 13.6 10.0-14.5 % Platelet Count 140 130-400 10^3/uL Mean Platelet Volume 11.4 H 7.4-10.4 FL Neutrophils (%) (Auto) 89 H 42-75 % Lymphocytes (%) (Auto) 4 L 12-44 % Monocytes (%) (Auto) 6 0-12 % Eosinophils (%) (Auto) 0 0-10 % Basophils (%) (Auto) 0 0-10 % Neutrophils # (Auto) 11.9 H 1.8-7.8 X 10^3 Lymphocytes # (Auto) 0.5 L 1.0-4.0 X 10^3 Monocytes # (Auto) 0.8 0.0-1.0 X 10^3 Eosinophils # (Auto) 0.1 0.0-0.3 10^3/uL Basophils # (Auto) 0.0 0.0-0.1 10^3/uL Sodium Level 141 135-145 MMOL/L Potassium Level 4.6 3.6-5.0 MMOL/L Chloride Level 102 98-107 MMOL/L Carbon Dioxide Level 24 21-32 MMOL/L Anion Gap 15 H 5-14 MMOL/L Blood Urea Nitrogen 37 H 7-18 MG/DL Creatinine 0.93 0.60-1.30 MG/DL Estimat Glomerular Filtration Rate > 60 BUN/Creatinine Ratio 40 Glucose Level 109 H 70-105 MG/DL Calcium Level 9.9 8.5-10.1 MG/DL Corrected Calcium 10.1 8.5-10.1 MG/DL Total Bilirubin 0.7 0.1-1.0 MG/DL Aspartate Amino Transf (AST/SGOT) 33 5-34 U/L Alanine Aminotransferase (ALT/SGPT) 34 0-55 U/L Alkaline Phosphatase 109 40-136 U/L Troponin I < 0.028 <0.028 NG/ML B-Type Natriuretic Peptide 69.1 <100.0 PG/ML Total Protein 6.8 6.4-8.2 GM/DL Albumin 3.8 3.2-4.5 GM/DL Lipase < 4 L 8-78 U/L Urine Color YELLOW Urine Clarity CLEAR Urine pH 7 5-9 Urine Specific [place] 1.015 L 1.016-1.022 Urine Protein 2+ H NEGATIVE Urine Glucose (UA) NEGATIVE NEGATIVE Urine Ketones NEGATIVE NEGATIVE Urine Nitrite POSITIVE H NEGATIVE Urine Bilirubin NEGATIVE NEGATIVE Urine Urobilinogen NORMAL NORMAL MG/DL Urine Leukocyte Esterase NEGATIVE NEGATIVE Urine RBC (Auto) NEGATIVE NEGATIVE Urine RBC NONE /HPF Urine WBC NONE /HPF Urine Squamous Epithelial Cells 0-2 /HPF Urine Crystals NONE /LPF Urine Bacteria FEW H /HPF Urine Casts NONE /LPF Urine Mucus NEGATIVE /LPF Urine Culture Indicated YES My Orders Orders - NIDHI ALDRICH Cbc With Automated Diff (11/01/18 04:06) Comprehensive Metabolic Panel (11/01/18 04:06) BNP (11/01/18 04:06) Troponin I (11/01/18 04:06) Ekg Tracing (11/01/18 04:06) Continuous Ekg Monitoring (11/01/18 04:06) Chest 1 View, Ap/Pa Only (11/01/18 04:06) Ct Abdomen/Pelvis W (11/01/18 04:06) Ed Iv/Invasive Line Start (11/01/18 04:06) Pantoprazole Injection (Protonix Injecti (11/01/18 04:15) Lipase (11/01/18 04:08) Ua Culture If Indicated (11/01/18 04:09) Manual Differential (11/01/18 04:03) Ed Iv/Invasive Line Start (11/01/18 04:33) Ns Iv 500 Ml (Sodium Chloride 0.9%) (11/01/18 04:33) Urine Culture (11/01/18 05:09) Iohexol Injection (Omnipaque 350 Mg/Ml 1 (11/01/18 05:45) Received Contrast (Hold Metformin- Contr (11/01/18 05:45) Ns (Ivpb) (Sodium Chloride 0.9% Ivpb Bag (11/01/18 05:45) Medications Given in ED Current Medications Medications Dose Ordered Sig/Dalia Route Start Time Stop Time Status Last Admin Dose Admin Iohexol 100 ml ONCE ONCE IV 11/01/18 05:45 11/01/18 05:46 DC 11/01/18 05:42 66 ML Pantoprazole 40 mg ONCE ONCE IV 11/01/18 04:15 11/01/18 04:16 DC 11/01/18 04:12 40 MG Sodium Chloride 100 ml ONCE ONCE IV 11/01/18 05:45 11/01/18 05:46 DC 11/01/18 05:42 80 ML Sodium Chloride 500 ml @ 0 mls/hr Q0M ONCE IV 11/01/18 04:33 11/01/18 04:34 DC 11/01/18 04:38 0 MLS/HR Vital Signs/I&O 11/01/18 03:50 Temp 97.2 Pulse 79 Resp 16 B/P (MAP) 128/81 (97) Pulse Ox 94 O2 Delivery Room Air Blood Pressure Mean: 97 Progress Progress Note #1: Time: 04:18 Progress Note Suspect the firm abdomen might be consistent with colitis versus constipation. He has been on some big on antibiotics so C. difficile colitis is a possibility. We'll get labs. He is being treated for pneumonia outpatient and has aseptic vital signs not on beta blockers and appears to be oxygenating well and mentating appropriately. Labs, lipase and CT imaging of the abdomen and pelvis with IV contrast. X-ray chest Stage I sacral pressure ulcer can be addressed outpatient. Edema may be from acute renal injury the IV fluids he was given. His states the protein on his most recent labs was actually normal. BNP. Atypical angina? EKG and troponin. Low back pain with what appears to be sciatica either from pressure ulcer or osteoarthritis? We have offered something for pain and he has declined. CT of the abdomen pelvis will also capture the lumbar spine. The patient also noticed decreased urinary output tonight. Bladder obstruction versus neurogenic bladder? UTI? Planned a bladder scan him while setting up for a CT of the abdomen and pelvis. ELADIO [address] Bernstein: Normal cavity and ventricle size with EF of 55-60%. Progress Note #2: Time: 04:45 Progress Note Patient's BNP is not elevated and he is not in acute kidney failure so his IV fluids and gravity dependent edema of the source of his lower extremity swelling. Is having a difficult time producing urine and a bowel movement so a 10 cc/kg fluid bolus of 500 cc will help flush the contrast out. Initial ECG Impression Date: Nov 01, 2018 Initial ECG Impression Time: 04:18 Initial ECG Rate: 71 Initial ECG Rhythm: Normal Sinus Initial ECG Intervals: Normal Initial ECG Impression: Normal, Nonspecific Changes Initial ECG Comparisson: Unchanged Comment Normal sinus rhythm with PACs. No ST elevation or depression. Diagnostic Imaging Diagonstic Imaging: Xray Plain Films/CT/US/NM/MRI: chest (1v) Comments Elevated left hemidiaphragm which was seen in previous imaging from 2018. Possible faint infiltrate on the right lower lobe. Reviewed: Reviewed by Me Diagonstic Imaging: CT (with IV contrast) Plain Films/CT/US/NM/MRI: abdomen, pelvis Comments Moderately enlarged prostate gland. Mild bilateral hydronephrosis. Gastrostomy tube terminating in stomach. Layering conglomerate since her bladder measuring 1.6 cm and 2.0 cm actively in size. Bibasilar bronchiectasis entry in both opacity suggesting prior bronchitis/bronchiolitis. Reviewed: Reviewed Night [facility] Study, Reviewed by Me Departure Impression Primary Impression: Bladder calculi Additional Impressions: Pneumonia Qualified Codes: J18.9 - Pneumonia, unspecified organism Urinary retention Disposition: HOME, SELF-CARE Condition: Stable Departure-Patient Inst. Decision time for Depature: 06:22 Referrals: CHRISTIANO WITT MD, CHANG-QING MD (PCP/Family) Primary Care Physician Patient Instructions: Arreaga Catheter, Male, Kidney Stones in Adults, Urinary Obstruction (DC) Add. Discharge Instructions: You may continue the antibiotics previously initiated. This morning call Dr. Witt at his clinic and request follow-up for your bladder stones. Leave the Arreaga catheter in place until Dr. Witt instructs you differently. All discharge instructions reviewed with patient and/or family. Voiced unders tanding. Copy Copies To 1: CHRISTIANO WITT MD, TITUS J Nov 01, 2018 04:15
[2018-11-01 04:31] LABS: ALANINE AMINOTRANSFERASE 34 U/L (0-55); ALBUMIN 3.8 GM/DL (3.2-4.5); ALKALINE PHOSPHATASE 109 U/L (40-136); BILIRUBIN,TOTAL 0.7 MG/DL (0.1-1.0); BUN/CREATININE RATIO 40; CALCIUM 9.9 MG/DL (8.5-10.1); CARBON DIOXIDE 24 MMOL/L (21-32); CHLORIDE 102 MMOL/L (98-107); CREATININE SERUM 0.93 MG/DL (0.60-1.30); GFR ESTIMATED > 60; GLUCOSE 109 MG/DL (70-105); LIPASE < 4 U/L (8-78); POTASSIUM 4.6 MMOL/L (3.6-5.0); SODIUM 141 MMOL/L (135-145); TOTAL PROTEIN 6.8 GM/DL (6.4-8.2)
[2018-11-01] MEDS ORDERED: NS IV 500 ML 500 ML IV ONE (04:33)
--- NOTE | 2018-11-01 05:05 | NUR ---
Bladder scanned at this time, >1000 ml in bladder
[2018-11-01 05:13] LABS: BILIRUBIN,URINE NEGATIVE (NEGATIVE); CLARITY,URINE CLEAR; COLOR,URINE YELLOW; GLUCOSE, URINE (UA) NEGATIVE (NEGATIVE); KETONES,URINE NEGATIVE (NEGATIVE); LEUKOCYTE ESTERASE ,URINE NEGATIVE (NEGATIVE); NITRITE,URINE POSITIVE (NEGATIVE); PH,URINE 7 (5-9); PROTEIN,URINE 2+ (NEGATIVE); UROBILINOGEN,URINE NORMAL (NORMAL)
[2018-11-01 05:22] LABS: BACTERIA,URINE FEW /HPF; SQUAMOUS EPITHELIAL CELL,UR 0-2 /HPF
[2018-11-01] MEDS ORDERED: IOHEXOL 350 MG/ML 100 ML (OMNIPAQUE 350) VIAL IV ONE (05:45)
[2018-11-01] MEDS ORDERED: HOLD METFORMIN - RECEIVED CONTRAST 20 ML VIAL IV SCH (05:45)
[2018-11-01] MEDS ORDERED: NS 100 ML (IVPB) BAG IV ONE (05:45)
[2018-11-01 06:29] LABS: LYMPHOCYTES % (MANUAL) 2 %; MONOCYTES % (MANUAL) 2 %; NEUTROPHILS % (MANUAL) 96 %
[2018-11-01 06:44] VITALS: BP 125/83
--- NOTE | 2018-11-01 06:47 | Diagnostic Imaging Report ---
PROCEDURE: CT abdomen and pelvis with contrast. TECHNIQUE: Multiple contiguous axial images were obtained through the abdomen and pelvis after administration of intravenous contrast. Auto Exposure Controls were utilized during the CT exam to meet ALARA standards for radiation dose reduction. INDICATION: Abdominal pain and cramping for 2 days. History of non-Hodgkin's lymphoma. There are patchy tree in bud type of infiltrate seen in the right middle lobe and at both lung bases with no consolidations seen. No focal mass is evident. There is no effusion. This pattern is similar to an older CT from 08/15/2014 and the findings may be chronic versus recurrent. The liver, gallbladder and bile ducts are normal. The spleen, pancreas and adrenals are normal. There is a 2 cm cyst on the right kidney. No acute abnormality of either kidney is seen. There is a Arreaga catheter in the bladder. Prostate appears normal. No acute bowel abnormality is seen. There is a gastrostomy tube in the stomach. There is no free intraperitoneal air or fluid. There is no acute bony abnormality. Impression: There are chronic or recurrent infiltrates lower lungs. No acute abnormality in the abdomen or pelvis is seen. The findings are similar to a study from 08/15/2014. Dictated by: Dictated on workstation # [id number]
--- NOTE | 2018-11-01 07:39 | Diagnostic Imaging Report ---
INDICATION: Abdominal pain and cramping for 2 days The upright chest shows normal heart size and vascularity. There is mild elevation of the left hemidiaphragm. No mass or infiltrate is seen. There is no effusion or pneumothorax. There is no significant change from 04/12/2018. IMPRESSION: No acute abnormality is seen. Dictated by: Dictated on workstation # [id number]
== END 2018-11-01 06:44 | disposition home or self-care (01) ==
LOC: EDUNIT# 03:49 → ER 03:51
DX: N21.0 Calculus in bladder (principal); J18.9 Pneumonia, unspecified organism; R33.9 Retention of urine, unspecified; I48.91 Unspecified atrial fibrillation; K21.9 Gastro-esophageal reflux disease without esophagitis; E03.9 Hypothyroidism, unspecified; F41.9 Anxiety disorder, unspecified; Z85.72 Personal history of non-Hodgkin lymphomas; Z90.49 Acquired absence of other specified parts of digestive tract
CPT/HCPCS: 36415; 71045; 74177; 80053; 81000; 83690; 83880; 84484; 85007; 85027; 87088; 93005

== ENCOUNTER → 2018-11-02 | Outpatient (CLI) | payer OTHER ==
--- NOTE | 2018-11-02 13:48 | Diagnostic Imaging Report ---
INDICATION: Lymphoma, gastrostomy tube check. TECHNIQUE: KUB at 12:12 PM. FINDINGS: There is a gastrostomy tube projecting over the stomach. The bowel gas pattern is normal. There are several calcifications in the pelvis which are likely phleboliths. IMPRESSION: No acute abnormalities in the abdomen. Dictated by: Dictated on workstation # [id number]
== END ==
LOC: RAD 11:57
PROVIDERS: ATTEND Urology
DX: Z43.1 Encounter for attention to gastrostomy (principal); C85.90 Non-Hodgkin lymphoma, unspecified, unspecified site; N20.9 Urinary calculus, unspecified
CPT/HCPCS: 74018

== ENCOUNTER → 2018-11-11 | Outpatient (CLI) | payer OTHER ==
--- NOTE | 2018-11-11 17:12 | Diagnostic Imaging Report ---
EXAM: Nuclear medicine whole body bone scan. DATE: November 11, 2018. INDICATION: 78-year-old male, history of prostate cancer. COMPARISON: CT abdomen and pelvis, November 01, 2018. FINDINGS: 24.7 mCi of technetium labeled "MDP radiotracer" was administered. Delayed whole-body bone scan images were subsequently obtained. Additional projections at the level of the lower abdomen and pelvis were also obtained. There is right-sided hydronephrosis. There is distention of the urinary bladder on initial whole-body images. There is persistent radiotracer within the urinary bladder although less in extent on the targeted images of the lower abdomen and pelvis. The persistent urinary bladder activity does somewhat limit the exam. There is no clearly identified radiotracer avid lesion of the pelvis or otherwise identified. IMPRESSION: 1. No evidence of osteoblastic bone metastasis. 2. Right-sided hydronephrosis. Dictated by: Dictated on workstation # [id number]
== END ==
LOC: CARD 10:57
PROVIDERS: ATTEND Urology
DX: N13.30 Unspecified hydronephrosis (principal); Z85.46 Personal history of malignant neoplasm of prostate
CPT/HCPCS: 78306

== ENCOUNTER 2018-12-06 05:34 | Outpatient (CLI) | payer OTHER ==
[~2018-12-06] VITALS: Ht 177.8 cm; Wt 52.2 kg
[2018-12-06] MEDS ORDERED: LEVO100T7 PEG (10:01)
[2018-12-06] MEDS ORDERED: RANI300C PEG (10:01)
[2018-12-06] MEDS ORDERED: TAMS0.4C98 PEG (10:01)
== END 2018-12-06 10:15 | disposition home or self-care (01) ==
LOC: PREOP 05:34
PROVIDERS: ATTEND Surgery
DX: Z01.818 Encounter for other preprocedural examination (principal)

== ENCOUNTER 2018-12-08 08:57 | Day surgery (SDC) | payer OTHER ==
--- NOTE | 2018-12-05 17:18 | HISTORY AND PHYSICAL ---
DATE OF SERVICE: DATE OF SERVICE: 12/08/2018. ATTENDING PHYSICIAN: Dr. Wallace. HISTORY OF PRESENT ILLNESS: The patient is a 78-year-old male who is known to us. He does have a history of non-Hodgkin lymphoma and has underwent a radiation therapy over time and he did develop a significant dysphagia as well as protein-calorie malnutrition. He eventually reached a threshold where he was unable to take in adequate amounts of liquids and a gastrostomy tube was placed. This eventually over time broke down and was changed on 11/18/2017. He was then seen in 05/2018 by us for the persistent dysphagia as well as a dislodged gastrostomy tube. At that time, he did undergo an EGD with brushings as well as balloon dilatation and percutaneous endoscopic gastrostomy tube placement. Findings were the patient had limited movement of the jaw as well as pronation secondary to previous radiation for non-Hodgkin lymphoma of the entire face and neck over the past 25 years. He was also found at that time to have a proximal esophageal candidiasis as well as a distal esophageal stricture and has dislodged gastrostomy tube through the abdominal wall and skin. He was referred over to us at this point after being seen in the emergency room approximately one month ago for worsening abdominal pain that was diffuse and crampy, sharp in nature. He was also complaining of right hip pain that did radiate down to his toes as well as right-sided lower back as well as radiate down his buttocks. He did undergo imaging studies, which were unremarkable; however, underwent further lab testing and was found to have an elevated PSA recently of 129.17 and was found to have a prostate cancer and then was referred over to us to undergo a Groshong port for chemotherapy. PAST MEDICAL HISTORY: Non-Hodgkin lymphoma, hypothyroidism, severe dysphagia and reflux, prostate cancer. PAST SURGICAL HISTORY: Appendectomy, gastrostomy tube placement as well as replacement. ALLERGIES: No known drug allergies. MEDICATIONS: Levothyroxine 75 mcg daily, Protonix 20 mg daily, calcium daily. SOCIAL HISTORY: Negative for smoking, negative for alcohol. FAMILY HISTORY: Noncontributory. REVIEW OF SYSTEMS: This is a thin-appearing male, in no acute distress. He is not experiencing any shortness of breath or difficulty breathing. No chest pain, palpitations or diaphoresis. No nausea or vomiting. He does have a gastrostomy tube in place. No redness or leakage from the site. No diarrhea or constipation. No rectal pain. No dark tarry stools. No fever or chills. He has had some gradual weight loss over time. All other review of systems is negative. PHYSICAL EXAMINATION: CHEST: Clear. LUNGS: Good breath sounds bilaterally. HEART: Regular, no murmurs. EXTREMITIES: No lower extremity edema. Negative Homans sign. HEENT: Scleral icterus. NECK: No cervical lymphadenopathy. ABDOMEN: Soft, nontender, nondistended. There is a gastrostomy tube in place. SKIN: Warm, dry and pink. NEUROLOGIC: Awake, alert and oriented x3. ASSESSMENT AND PLAN: A 78-year-old male with an elevated PSA, he was found to have a prostate cancer. At this time, we will recommend proceeding with a Groshong catheter. The risks and benefits of the procedure as well as the procedure and home care instructions were explained to the patient. The patient verbalized understanding of instructions and agrees to this plan. At this time, we will proceed with scheduling the patient for a Groshong implantable catheter. Job ID: [id number] DocumentID: [id number] Dictated Date: 12/05/2018 15:54:12 Space Scheduler Date: 12/05/2018 17:17:52 Dictated By: JAYLON PINZNO APRN
[~2018-12-08] VITALS: Ht 177.8 cm; Wt 52.2 kg
[2018-12-08] VITALS (10 sets, daily range): BP systolic 89–150; BP diastolic 44–95
[~2018-12-08 08:57] MED LIST changes: +LEVO100T7 PEG; +RANI300C PEG; +TAMS0.4C98 PEG
--- NOTE | 2018-12-08 09:11 | Progress Note-Pre Operative ---
Pre-Operative Progress Note H&P Reviewed The H&P was reviewed, patient examined and no changes noted. Date Seen by Provider: Dec 08, 2018 Time Seen by Provider: 09:10 Date H&P Reviewed: Dec 08, 2018 Time H&P Reviewed: 09:10 Pre-Operative Diagnosis: prostate ca GARRETT JOHNSON MD Dec 08, 2018 09:11
[2018-12-08] MEDS ORDERED: HYDR-34 PO (09:14)
[2018-12-08] MEDS ORDERED: ACETAMINOPHEN 325 MG TABLET PO PRN (09:15)
[2018-12-08] MEDS ORDERED: morphine INJ 10 MG/ML 1ML (SYR OR VIAL) IVP PRN ×2 (09:15)
[2018-12-08] MEDS ORDERED: HYDROcodone/APAP 5 MG/325 MG (LORTAB) TAB PO ONE (09:15)
[2018-12-08] MEDS ORDERED: ONDANSETRON 4 MG/2 ML (SDV) Z0FRAN IVP PRN (09:15)
--- NOTE | 2018-12-08 09:15 | Discharge Inst-Surgical ---
D/C Lap Instructions-KIDO New, Converted, or Re-Newed RX: RX on Chart Follow Up PRN Activity as tolerated OK to access and use port at any time. Regular Diet Symptoms to Report: Fever over 101 degree F, Nausea/Vomiting Infection Signs and Symptoms to report: Increased redness, Foul odor of wound, Increased drainage Bathing instructions: May shower Operative Area Clean/Dry; Keep incision clean/dry If any problems/questions: Contact your physician or go to Emergency Room GARRETT JOHNSON MD Dec 08, 2018 09:15
[2018-12-08] MEDS ORDERED: LACTATED RINGERS 1,000 ML IV PRN (09:19)
[2018-12-08] MEDS ORDERED: ceFAZolin INJECTION 1,000 MG in WATER (STERILE) FOR INJECTION 10 ML IV ONE (09:30)
[2018-12-08 10:08] LABS: BASOPHILS % (AUTO) 0 % (0-10); EOSINOPHILS # (AUTO) 0.1 10^3/uL (0.0-0.3); EOSINOPHILS % (AUTO) 1 % (0-10); HEMATOCRIT 38 % (40-54); LYMPHOCYTES # (AUTO) 0.4 X 10^3 (1.0-4.0); LYMPHOCYTES % (AUTO) 7 % (12-44); MEAN CORPUSCULAR HEMOGLOBIN 29 PG (25-34); MEAN CORPUSCULAR HGB CONC 32 G/DL (32-36); MEAN CORPUSCULAR VOLUME 93 FL (80-99); MEAN PLATELET VOLUME 10.9 FL (7.4-10.4); MONOCYTES # (AUTO) 0.7 X 10^3 (0.0-1.0); MONOCYTES % (AUTO) 12 % (0-12); NEUTROPHILS # (AUTO) 4.4 X 10^3 (1.8-7.8); NEUTROPHILS % (AUTO) 80 % (42-75); PLATELET COUNT 151 10^3/uL (130-400); RED CELL DISTRIBUTION WIDTH 14.9 % (10.0-14.5); WHITE BLOOD COUNT 5.5 10^3/uL (4.3-11.0)
[2018-12-08 10:24] LABS: ALANINE AMINOTRANSFERASE 16 U/L (0-55); ALBUMIN 4.3 GM/DL (3.2-4.5); ALKALINE PHOSPHATASE 117 U/L (40-136); BILIRUBIN,TOTAL 0.7 MG/DL (0.1-1.0); BUN/CREATININE RATIO 23; CALCIUM 9.9 MG/DL (8.5-10.1); CARBON DIOXIDE 31 MMOL/L (21-32); CHLORIDE 100 MMOL/L (98-107); GFR ESTIMATED > 60; GLUCOSE 92 MG/DL (70-105); SODIUM 138 MMOL/L (135-145)
[2018-12-08] MEDS ORDERED: proPOfol 200 MG/20 ML (DIPRIVAN) VIAL IV ONE (10:52)
[2018-12-08] MEDS ORDERED: LIDOCAINE PF 2% 5 ML (XYLOCAINE) VIAL ONE (10:52)
[2018-12-08] MEDS ORDERED: MIDAZOLAM 2 MG/2 ML (VERSED) VIAL ONE (10:52)
[2018-12-08] MEDS ORDERED: fentaNYL INJECTION 100 MCG/2 ML AMP ONE (10:52)
[2018-12-08 11:02] LABS: BAND NEUTROPHILS 1 %; BASOPHILS % (MANUAL) 1 %; ELLIPT/OVALOCYTES SLIGHT; EOSINOPHILS % (MANUAL) 1 %; LYMPHOCYTES % (MANUAL) 10 %; MONOCYTES % (MANUAL) 12 %; NEUTROPHILS % (MANUAL) 75 %
[2018-12-08] MEDS ORDERED: 0.9% SODIUM CHLORIDE PF INJ 20 ML VIAL ONE (11:02)
[2018-12-08] MEDS ORDERED: HEParin (CENTRAL IV FLUSH) 500 UNIT/5 ML SYR ONE (11:02)
[2018-12-08] MEDS ORDERED: BUP/EPI 0.25% 1:200,000 (MARCAINE) 10 ML VIAL IJ ONE (11:02)
[2018-12-08] MEDS ORDERED: ceFAZolin INJECTION 1,000 MG ONE (11:48)
--- NOTE | 2018-12-08 12:39 | Progress Note-Post Operative ---
Post-Operative Progess Note Surgeon (s)/Air Defense Art[employer] Officer (s) Surgeon GARRETT JOHNSON MD [employer] Defense Art[employer] Officer: shireen oliva PRESIDENT AND [employer]ECUTIVE OFFICER Pre-Operative Diagnosis prostate ca Post-Operative Diagnosis same Procedure & Operative Findings Date of Procedure 12/08/18 Procedure Performed/Findings left sc groshong implantable catheter under flouroscopy. Anesthesia Type mac with local Estimated Blood Loss Estimated blood loss (mL): minimal Specimens/Packing Specimens Removed none GARRETT JOHNSON MD Dec 08, 2018 12:39
--- NOTE | 2018-12-08 13:05 | Diagnostic Imaging Report ---
Indication: Port-A-Cath placement. Intraoperative fluoroscopy views obtained during Port-A-Cath placement in surgery. Single view demonstrates Port-A-Cath catheter tip overlying the mid SVC. 2 seconds of fluoroscopy time was used in surgery. Impression: Intraoperative fluoroscopy demonstrates Port-A-Cath placement as above. Dictated by: Dictated on workstation # [id number]
--- NOTE | 2018-12-08 13:25 | Anesthesia-General Post-Op ---
MAC Patient Condition Mental Status/LOC: Same as Preop Cardiovascular: Satisfactory Nausea/Vomiting: Absent Respiratory: Satisfactory Pain: Controlled Complications: Absent Post Op Complications Complications None Follow Up Care/Instructions Patient Instructions None needed. Anesthesiology Discharge Order Discharge Order Patient is doing well, no complaints, stable vital signs, no apparent adverse anesthesia problems. No complications reported per nursing. KATY HOSKINS CRNA Dec 08, 2018 13:25
--- NOTE | 2018-12-08 13:33 | Diagnostic Imaging Report ---
Left Groshong catheter placement. TIME OF EXAM: 1:21 PM COMPARISON: Comparison is made with prior chest from 11/01/2018. FINDINGS: Left subclavian Groshong catheter placement is noted. The tip is in good position at the SVC right atrial junction. There is a left-sided pneumothorax primarily apical but does extend partially along the lateral portion of the chest wall. There is estimated to be approximately 15%. Left hemidiaphragm is chronically elevated. There is some atelectasis in the left base. Right lung is clear. IMPRESSION: 1. Groshong catheter placement, as described. There is a left-sided pneumothorax approximately 15%. Results were discussed with Dr. Tirado prior to this dictation. Dictated by: Dictated on workstation # [id number]
--- NOTE | 2018-12-08 19:21 | OPERATIVE REPORT ---
DATE OF SERVICE: 12/08/2018 ATTENDING PRIMARY CARE PHYSICIAN: Dr. Wallace. PREOPERATIVE DIAGNOSIS: Prostate cancer with history of non-Hodgkin's lymphoma. POSTOPERATIVE DIAGNOSIS: Prostate cancer with history of non-Hodgkin's lymphoma. PROCEDURE: Placement of left subclavian Groshong implantable catheter under fluoroscopy. SURGEON: Garrett Johnson MD. SHANK FAKER: Carrillo Galvan APRN ANESTHESIA: Monitored anesthesia care with local. ESTIMATED BLOOD LOSS: Minimal. FINDINGS: Catheter tip at superior vena cava - right atrial junction. DISPOSITION: The patient tolerated the procedure well. INDICATIONS: The patient is a 78-year-old male known to us. He has a history of non-Hodgkin's lymphoma and underwent radiation therapy and then did develop significant dysphagia as well as protein calorie malnutrition. He did have eventual placement of a gastrostomy tube. He was seen for abdominal pain and was found to have an elevated PSA and diagnosed with prostate cancer recently and he will undergo chemotherapy and will need a Groshong implantable catheter. DESCRIPTION OF PROCEDURE: The patient was brought to the operating room and laid supine on the table. After adequate IV pain and sedative medications and monitored anesthesia care, the chest and neck were prepped and draped in standard surgical fashion. A 1% lidocaine with epinephrine was used to anesthetize the subclavian region. The left subclavian vein was then cannulated with drawing of venous blood. The guidewire was then inserted under direct visualization using fluoroscopy. A skin incision was made using a 15 blade and the dilator and sheath were then placed under fluoroscopy. The guidewire and dilator were then removed and the Groshong implantable catheter was placed until the catheter tip was at the superior vena cava - right atrial junction and then the sheath was then removed. The inner wire within the catheter was then removed. The catheter was cut down to size and the port was placed onto the catheter. The skin incision was then extended laterally and the chest reservoir was created between the subcutaneous fat and the anterior pectoralis fascia using blunt dissection as well as electrocautery. The port was then placed into the reservoir and sutured to the anterior pectoralis fascia using interrupted 3-0 Vicryl suture. The subcutaneous tissue was then reapproximated using 3-0 Vicryl interrupted suture. Skin was closed using 4-0 Monocryl running subcuticular suture. Wound was then cleaned and covered with Dermabond. The catheter was then accessed and withdrawing the venous blood and heparinized saline pushed in without any resistance. The patient tolerated the procedure well. We will get a post-procedure chest x-ray once confirmation of placement of the port and the port may be accessed and used at any time. Job ID: [id number] DocumentID: [id number] Dictated Date: 12/08/2018 12:46:22 Senior Materials Scientist Date: 12/08/2018 19:20:38 Dictated By: GARRETT JOHNSON MD
== END 2018-12-08 16:00 | disposition home or self-care (01) ==
LOC: SDC 08:57
PROVIDERS: ATTEND Surgery
DX: C61 Malignant neoplasm of prostate (principal); E03.9 Hypothyroidism, unspecified; K21.9 Gastro-esophageal reflux disease without esophagitis; Z93.1 Gastrostomy status; Z79.899 Other long term (current) drug therapy; Z85.72 Personal history of non-Hodgkin lymphomas; Z88.1 Allergy status to other antibiotic agents
CPT/HCPCS: 36415; 71045; 80053; 84153; 84403; 85007; 85027; 87081; 94664

== ENCOUNTER 2019-01-24 14:10 | Outpatient (RCR) | payer OTHER ==
[2018-10-28 13:00] LABS: BASOPHILS % (AUTO) 0 % (0-10); EOSINOPHILS % (AUTO) 0 % (0-10); HEMATOCRIT 35 % (40-54); HEMOGLOBIN 11.2 G/DL (13.3-17.7); LYMPHOCYTES # (AUTO) 0.2 X 10^3 (1.0-4.0); LYMPHOCYTES % (AUTO) 2 % (12-44); MEAN CORPUSCULAR HEMOGLOBIN 30 PG (25-34); MEAN CORPUSCULAR HGB CONC 32 G/DL (32-36); MEAN CORPUSCULAR VOLUME 93 FL (80-99); MEAN PLATELET VOLUME 12.6 FL (7.4-10.4); MONOCYTES # (AUTO) 1.3 X 10^3 (0.0-1.0); MONOCYTES % (AUTO) 12 % (0-12); NEUTROPHILS # (AUTO) 9.3 X 10^3 (1.8-7.8); NEUTROPHILS % (AUTO) 85 % (42-75); PLATELET COUNT 127 10^3/uL (130-400); RED CELL DISTRIBUTION WIDTH 13.8 % (10.0-14.5); WHITE BLOOD COUNT 10.9 10^3/uL (4.3-11.0)
[2018-10-28 13:18] LABS: ALANINE AMINOTRANSFERASE 22 U/L (0-55); ALBUMIN 3.7 GM/DL (3.2-4.5); ALKALINE PHOSPHATASE 91 U/L (40-136); BILIRUBIN,TOTAL 0.8 MG/DL (0.1-1.0); BUN/CREATININE RATIO 32; CALCIUM 9.4 MG/DL (8.5-10.1); CARBON DIOXIDE 29 MMOL/L (21-32); CHLORIDE 101 MMOL/L (98-107); CREATININE SERUM 1.05 MG/DL (0.60-1.30); GFR ESTIMATED > 60; GLUCOSE 103 MG/DL (70-105); POTASSIUM 4.6 MMOL/L (3.6-5.0); SODIUM 139 MMOL/L (135-145); TOTAL PROTEIN 6.4 GM/DL (6.4-8.2)
[2018-11-11 11:28] LABS: BASOPHILS % (AUTO) 0 % (0-10); EOSINOPHILS % (AUTO) 0 % (0-10); HEMATOCRIT 38 % (40-54); HEMOGLOBIN 12.3 G/DL (13.3-17.7); LYMPHOCYTES # (AUTO) 0.3 X 10^3 (1.0-4.0); LYMPHOCYTES % (AUTO) 4 % (12-44); MEAN CORPUSCULAR HEMOGLOBIN 30 PG (25-34); MEAN CORPUSCULAR HGB CONC 32 G/DL (32-36); MEAN CORPUSCULAR VOLUME 92 FL (80-99); MEAN PLATELET VOLUME 11.2 FL (7.4-10.4); MONOCYTES # (AUTO) 0.5 X 10^3 (0.0-1.0); MONOCYTES % (AUTO) 6 % (0-12); NEUTROPHILS # (AUTO) 7.4 X 10^3 (1.8-7.8); NEUTROPHILS % (AUTO) 90 % (42-75); PLATELET COUNT 179 10^3/uL (130-400); RED CELL DISTRIBUTION WIDTH 14.5 % (10.0-14.5); WHITE BLOOD COUNT 8.2 10^3/uL (4.3-11.0)
[2018-11-11 11:45] LABS: ALBUMIN 4.3 GM/DL (3.2-4.5); BILIRUBIN,TOTAL 0.7 MG/DL (0.1-1.0); CALCIUM 10.3 MG/DL (8.5-10.1); CREATININE SERUM 1.35 MG/DL (0.60-1.30); TOTAL PROTEIN 7.2 GM/DL (6.4-8.2)
[2018-11-11 11:51] LABS: POTASSIUM 6.5 MMOL/L (3.6-5.0)
[2018-11-16 16:05] LABS: BASOPHILS % (AUTO) 0 % (0-10); EOSINOPHILS % (AUTO) 1 % (0-10); HEMATOCRIT 37 % (40-54); HEMOGLOBIN 11.8 G/DL (13.3-17.7); LYMPHOCYTES # (AUTO) 0.5 X 10^3 (1.0-4.0); LYMPHOCYTES % (AUTO) 8 % (12-44); MEAN CORPUSCULAR HEMOGLOBIN 30 PG (25-34); MEAN CORPUSCULAR HGB CONC 32 G/DL (32-36); MEAN CORPUSCULAR VOLUME 93 FL (80-99); MEAN PLATELET VOLUME 11.2 FL (7.4-10.4); MONOCYTES # (AUTO) 0.7 X 10^3 (0.0-1.0); MONOCYTES % (AUTO) 10 % (0-12); NEUTROPHILS # (AUTO) 5.4 X 10^3 (1.8-7.8); NEUTROPHILS % (AUTO) 81 % (42-75); PLATELET COUNT 139 10^3/uL (130-400); RED CELL DISTRIBUTION WIDTH 14.9 % (10.0-14.5); WHITE BLOOD COUNT 6.7 10^3/uL (4.3-11.0)
[2018-11-16 16:26] LABS: ALBUMIN 4.1 GM/DL (3.2-4.5); BILIRUBIN,TOTAL 0.6 MG/DL (0.1-1.0); CREATININE SERUM 1.32 MG/DL (0.60-1.30); POTASSIUM 5.6 MMOL/L (3.6-5.0); TOTAL PROTEIN 6.9 GM/DL (6.4-8.2)
[2018-11-25 11:04] LABS: BASOPHILS % (AUTO) 0 % (0-10); EOSINOPHILS # (AUTO) 0.1 10^3/uL (0.0-0.3); EOSINOPHILS % (AUTO) 1 % (0-10); HEMATOCRIT 37 % (40-54); HEMOGLOBIN 11.7 G/DL (13.3-17.7); LYMPHOCYTES # (AUTO) 0.5 X 10^3 (1.0-4.0); LYMPHOCYTES % (AUTO) 9 % (12-44); MEAN CORPUSCULAR HEMOGLOBIN 30 PG (25-34); MEAN CORPUSCULAR HGB CONC 32 G/DL (32-36); MEAN CORPUSCULAR VOLUME 94 FL (80-99); MEAN PLATELET VOLUME 11.4 FL (7.4-10.4); MONOCYTES # (AUTO) 0.6 X 10^3 (0.0-1.0); MONOCYTES % (AUTO) 11 % (0-12); NEUTROPHILS # (AUTO) 4.1 X 10^3 (1.8-7.8); NEUTROPHILS % (AUTO) 78 % (42-75); PLATELET COUNT 116 10^3/uL (130-400); WHITE BLOOD COUNT 5.3 10^3/uL (4.3-11.0)
[2018-11-25 11:25] LABS: ALBUMIN 4.2 GM/DL (3.2-4.5); BILIRUBIN,TOTAL 0.6 MG/DL (0.1-1.0); CALCIUM 9.9 MG/DL (8.5-10.1); CREATININE SERUM 1.57 MG/DL (0.60-1.30); POTASSIUM 5.9 MMOL/L (3.6-5.0); TOTAL PROTEIN 6.8 GM/DL (6.4-8.2)
[2018-12-01 11:36] LABS: BASOPHILS % (AUTO) 0 % (0-10); EOSINOPHILS % (AUTO) 1 % (0-10); HEMATOCRIT 36 % (40-54); HEMOGLOBIN 11.5 G/DL (13.3-17.7); LYMPHOCYTES # (AUTO) 0.3 X 10^3 (1.0-4.0); LYMPHOCYTES % (AUTO) 6 % (12-44); MEAN CORPUSCULAR HEMOGLOBIN 30 PG (25-34); MEAN CORPUSCULAR HGB CONC 32 G/DL (32-36); MEAN CORPUSCULAR VOLUME 94 FL (80-99); MEAN PLATELET VOLUME 10.9 FL (7.4-10.4); MONOCYTES # (AUTO) 0.5 X 10^3 (0.0-1.0); MONOCYTES % (AUTO) 10 % (0-12); NEUTROPHILS # (AUTO) 4.1 X 10^3 (1.8-7.8); NEUTROPHILS % (AUTO) 83 % (42-75); PLATELET COUNT 131 10^3/uL (130-400); RED CELL DISTRIBUTION WIDTH 14.8 % (10.0-14.5)
[2018-12-01 11:57] LABS: ALANINE AMINOTRANSFERASE 16 U/L (0-55); ALBUMIN 4.2 GM/DL (3.2-4.5); ALKALINE PHOSPHATASE 90 U/L (40-136); BILIRUBIN,TOTAL 0.5 MG/DL (0.1-1.0); BUN/CREATININE RATIO 28; CALCIUM 9.6 MG/DL (8.5-10.1); CARBON DIOXIDE 28 MMOL/L (21-32); CHLORIDE 101 MMOL/L (98-107); CREATININE SERUM 1.07 MG/DL (0.60-1.30); GFR ESTIMATED > 60; GLUCOSE 84 MG/DL (70-105); POTASSIUM 4.4 MMOL/L (3.6-5.0); SODIUM 139 MMOL/L (135-145); TOTAL PROTEIN 6.8 GM/DL (6.4-8.2)
[2018-12-30 10:40] LABS: BASOPHILS % (AUTO) 0 % (0-10); EOSINOPHILS # (AUTO) 0.1 10^3/uL (0.0-0.3); EOSINOPHILS % (AUTO) 1 % (0-10); HEMATOCRIT 38 % (40-54); HEMOGLOBIN 12.2 G/DL (13.3-17.7); LYMPHOCYTES # (AUTO) 0.6 X 10^3 (1.0-4.0); LYMPHOCYTES % (AUTO) 5 % (12-44); MEAN CORPUSCULAR HEMOGLOBIN 30 PG (25-34); MEAN CORPUSCULAR HGB CONC 32 G/DL (32-36); MEAN CORPUSCULAR VOLUME 93 FL (80-99); MEAN PLATELET VOLUME 11.7 FL (7.4-10.4); MONOCYTES # (AUTO) 1.3 X 10^3 (0.0-1.0); MONOCYTES % (AUTO) 11 % (0-12); NEUTROPHILS # (AUTO) 9.9 X 10^3 (1.8-7.8); NEUTROPHILS % (AUTO) 83 % (42-75); PLATELET COUNT 182 10^3/uL (130-400); RED CELL DISTRIBUTION WIDTH 14.6 % (10.0-14.5)
[2018-12-30 11:00] LABS: ALANINE AMINOTRANSFERASE 16 U/L (0-55); ALBUMIN 3.8 GM/DL (3.2-4.5); ALKALINE PHOSPHATASE 102 U/L (40-136); BILIRUBIN,TOTAL 0.6 MG/DL (0.1-1.0); BUN/CREATININE RATIO 28; CALCIUM 9.4 MG/DL (8.5-10.1); CARBON DIOXIDE 29 MMOL/L (21-32); CHLORIDE 98 MMOL/L (98-107); GFR ESTIMATED > 60; GLUCOSE 108 MG/DL (70-105); POTASSIUM 4.7 MMOL/L (3.6-5.0); SODIUM 136 MMOL/L (135-145); TOTAL PROTEIN 6.5 GM/DL (6.4-8.2)
[~2019-01-24 14:10] MED LIST changes: +HYDR-34 PO
[2019-01-24 14:29] LABS: BASOPHILS % (AUTO) 0 % (0-10); EOSINOPHILS % (AUTO) 0 % (0-10); HEMATOCRIT 34 % (40-54); HEMOGLOBIN 10.9 G/DL (13.3-17.7); LYMPHOCYTES # (AUTO) 0.5 X 10^3 (1.0-4.0); LYMPHOCYTES % (AUTO) 6 % (12-44); MEAN CORPUSCULAR HEMOGLOBIN 29 PG (25-34); MEAN CORPUSCULAR HGB CONC 32 G/DL (32-36); MEAN CORPUSCULAR VOLUME 91 FL (80-99); MEAN PLATELET VOLUME 10.8 FL (7.4-10.4); MONOCYTES # (AUTO) 1.1 X 10^3 (0.0-1.0); MONOCYTES % (AUTO) 12 % (0-12); NEUTROPHILS # (AUTO) 7.4 X 10^3 (1.8-7.8); NEUTROPHILS % (AUTO) 82 % (42-75); PLATELET COUNT 178 10^3/uL (130-400); RED CELL DISTRIBUTION WIDTH 14.1 % (10.0-14.5); WHITE BLOOD COUNT 9.1 10^3/uL (4.3-11.0)
[2019-01-24 15:02] LABS: BILIRUBIN,TOTAL 0.4 MG/DL (0.1-1.0); CALCIUM 9.6 MG/DL (8.5-10.1); CREATININE SERUM 1.25 MG/DL (0.60-1.30); POTASSIUM 4.7 MMOL/L (3.6-5.0); TOTAL PROTEIN 6.6 GM/DL (6.4-8.2)
== END 2019-01-26 | disposition home or self-care (01) ==
LOC: ONC 14:10
PROVIDERS: ATTEND Internal Medicine Hematology & Oncology
DX: Z08 Encounter for follow-up examination after completed treatment for malignant neoplasm (principal); Z85.72 Personal history of non-Hodgkin lymphomas; D63.1 Anemia in chronic kidney disease; N18.4 Chronic kidney disease, stage 4 (severe); K22.0 Achalasia of cardia; R13.10 Dysphagia, unspecified; E46 Unspecified protein-calorie malnutrition; E03.9 Hypothyroidism, unspecified; K21.9 Gastro-esophageal reflux disease without esophagitis; Z92.21 Personal history of antineoplastic chemotherapy; Z92.3 Personal history of irradiation; Z79.899 Other long term (current) drug therapy; Z87.01 Personal history of pneumonia (recurrent)
CPT/HCPCS: 36415; 36591; 80053; 84153; 84270; 84402; 84403; 84443; 85025; 87070; 87077; 87181; 87184; 87186; 87205

== ENCOUNTER → 2019-01-25 | Outpatient (CLI) | payer OTHER ==
[~2019-01-25] MED LIST changes: +CATHETER FLUSH 10 ML SYR IV PRN; +HOLD METFORMIN - RECEIVED CONTRAST 20 ML VIAL IV SCH; +IOHEXOL 350 MG/ML 100 ML (OMNIPAQUE 350) VIAL IV ONE; +NS 100 ML (IVPB) BAG IV ONE
--- NOTE | 2019-01-25 16:44 | Diagnostic Imaging Report ---
PROCEDURE: CT chest with contrast only. TECHNIQUE: Multiple contiguous axial images were obtained through the chest after administration of intravenous contrast. Auto Exposure Controls were utilized during the CT exam to meet ALARA standards for radiation dose reduction. INDICATION: Hemoptysis. COMPARISON: Radiographs dated 12/08/[address] dated 08/01/2016. FINDINGS: Left-sided Port-A-Cath is in place with the distal tip terminating near the cavoatrial junction. Mildly enlarged right hilar lymph node is present measuring 1.8 x 1.1 cm. Precarinal lymph node also appears enlarged measuring 2.1 x 1.5 cm. Chronic elevation of the left hemidiaphragm. The heart is within normal limits in size. 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 No aortic dissection. No pericardial effusion. No pleural effusion. No pneumothorax. Scattered tree-in-bud nodularity with associated bronchiectatic changes and mucous plugging is again noted within the bilateral lung bases, greatest within the lingula and right middle lobe. This is associated with peribronchial thickening. The majority of this tree-in-bud nodularity appears stable since 2017, with new tree in bud nodularity and groundglass opacification within the superior aspect of the right lower lobe. Biapical scarring is again noted, particularly medially. Enlarged right retrocrural lymph node is present measuring 1.5 x 1.1 cm. Percutaneous gastrostomy tube is present. Scattered hypodensities are noted within the liver, appearing similar to the prior exam. Nonobstructing left renal calculi. Remainder of the visualized upper abdomen appears stable. Scattered osseous degenerative changes without acute osseous abnormality. IMPRESSION: Extensive bilateral tree-in-bud nodularity and groundglass opacification. Although the majority of this appears stable, likely related to a chronic atypical infectious etiology, including mycobacterium avium intracellulare, new opacities are noted within the superior aspect of the right lower lobe concerning for acute active infiltrate. Mild right hilar, mediastinal, and retrocrural adenopathy. Although this may simply be reactive in nature, metastatic disease is not excluded, particularly given patient's history. Stable borderline aneurysmal dilatation of the ascending thoracic aorta measuring 4.0 cm. Additional stable findings as above. Dictated by: Dictated on workstation # [id number]
== END ==
LOC: RAD 15:33
PROVIDERS: ATTEND Otolaryngology Otolaryngology/Facial Plastic Surgery
DX: I77.810 Thoracic aortic ectasia (principal); R91.8 Other nonspecific abnormal finding of lung field; R04.2 Hemoptysis
CPT/HCPCS: 71260

== ENCOUNTER 2019-05-01 09:12 | Outpatient (RCR) | payer OTHER ==
[2019-02-20 13:13] LABS: BASOPHILS % (AUTO) 1 % (0-10); EOSINOPHILS # (AUTO) 0.1 10^3/uL (0.0-0.3); EOSINOPHILS % (AUTO) 2 % (0-10); HEMATOCRIT 37 % (40-54); HEMOGLOBIN 11.9 G/DL (13.3-17.7); LYMPHOCYTES # (AUTO) 0.4 X 10^3 (1.0-4.0); LYMPHOCYTES % (AUTO) 8 % (12-44); MEAN CORPUSCULAR HEMOGLOBIN 30 PG (25-34); MEAN CORPUSCULAR HGB CONC 32 G/DL (32-36); MEAN CORPUSCULAR VOLUME 91 FL (80-99); MONOCYTES # (AUTO) 0.5 X 10^3 (0.0-1.0); MONOCYTES % (AUTO) 10 % (0-12); NEUTROPHILS # (AUTO) 4.2 X 10^3 (1.8-7.8); NEUTROPHILS % (AUTO) 80 % (42-75); PLATELET COUNT 119 10^3/uL (130-400); RED CELL DISTRIBUTION WIDTH 14.5 % (10.0-14.5); WHITE BLOOD COUNT 5.2 10^3/uL (4.3-11.0)
[2019-02-20 13:55] LABS: ALBUMIN 4.4 GM/DL (3.2-4.5); BILIRUBIN,TOTAL 0.6 MG/DL (0.1-1.0); CALCIUM 9.4 MG/DL (8.5-10.1); CREATININE SERUM 1.18 MG/DL (0.60-1.30); POTASSIUM 4.5 MMOL/L (3.6-5.0); TOTAL PROTEIN 6.7 GM/DL (6.4-8.2)
[2019-03-23 13:31] LABS: BASOPHILS % (AUTO) 1 % (0-10); EOSINOPHILS % (AUTO) 1 % (0-10); HEMATOCRIT 37 % (40-54); LYMPHOCYTES # (AUTO) 0.5 X 10^3 (1.0-4.0); LYMPHOCYTES % (AUTO) 15 % (12-44); MEAN CORPUSCULAR HEMOGLOBIN 30 PG (25-34); MEAN CORPUSCULAR HGB CONC 33 G/DL (32-36); MEAN CORPUSCULAR VOLUME 92 FL (80-99); MEAN PLATELET VOLUME 11.4 FL (7.4-10.4); MONOCYTES # (AUTO) 0.5 X 10^3 (0.0-1.0); MONOCYTES % (AUTO) 13 % (0-12); NEUTROPHILS # (AUTO) 2.5 X 10^3 (1.8-7.8); NEUTROPHILS % (AUTO) 71 % (42-75); PLATELET COUNT 126 10^3/uL (130-400); RED CELL DISTRIBUTION WIDTH 14.1 % (10.0-14.5); WHITE BLOOD COUNT 3.6 10^3/uL (4.3-11.0)
[2019-03-23 13:54] LABS: ALBUMIN 4.3 GM/DL (3.2-4.5); BILIRUBIN,TOTAL 0.5 MG/DL (0.1-1.0); CALCIUM 9.5 MG/DL (8.5-10.1); CREATININE SERUM 1.25 MG/DL (0.60-1.30); POTASSIUM 4.6 MMOL/L (3.6-5.0); TOTAL PROTEIN 6.5 GM/DL (6.4-8.2)
[~2019-05-01 09:12] MED LIST changes: -CATHETER FLUSH 10 ML SYR IV PRN; -HOLD METFORMIN - RECEIVED CONTRAST 20 ML VIAL IV SCH; -IOHEXOL 350 MG/ML 100 ML (OMNIPAQUE 350) VIAL IV ONE; -NS 100 ML (IVPB) BAG IV ONE; -TAMS0.4C98 PEG; +TMSL.4C PEG
[2019-05-01 09:22] LABS: BASOPHILS % (AUTO) 0 % (0-10); EOSINOPHILS % (AUTO) 0 % (0-10); HEMATOCRIT 34 % (40-54); HEMOGLOBIN 10.5 G/DL (13.3-17.7); LYMPHOCYTES # (AUTO) 0.7 X 10^3 (1.0-4.0); LYMPHOCYTES % (AUTO) 13 % (12-44); MEAN CORPUSCULAR HEMOGLOBIN 30 PG (25-34); MEAN CORPUSCULAR HGB CONC 31 G/DL (32-36); MEAN CORPUSCULAR VOLUME 96 FL (80-99); MEAN PLATELET VOLUME 10.5 FL (7.4-10.4); MONOCYTES # (AUTO) 0.7 X 10^3 (0.0-1.0); MONOCYTES % (AUTO) 13 % (0-12); NEUTROPHILS # (AUTO) 3.9 X 10^3 (1.8-7.8); NEUTROPHILS % (AUTO) 73 % (42-75); PLATELET COUNT 127 10^3/uL (130-400); RED CELL DISTRIBUTION WIDTH 15.1 % (10.0-14.5); WHITE BLOOD COUNT 5.2 10^3/uL (4.3-11.0)
[2019-05-01 09:43] LABS: ALANINE AMINOTRANSFERASE 27 U/L (0-55); ALBUMIN 3.8 GM/DL (3.2-4.5); ALKALINE PHOSPHATASE 85 U/L (40-136); BILIRUBIN,TOTAL 0.4 MG/DL (0.1-1.0); BUN/CREATININE RATIO 37; CALCIUM 8.9 MG/DL (8.5-10.1); CARBON DIOXIDE 30 MMOL/L (21-32); CHLORIDE 100 MMOL/L (98-107); CREATININE SERUM 1.03 MG/DL (0.60-1.30); GFR ESTIMATED > 60; GLUCOSE 110 MG/DL (70-105); POTASSIUM 4.2 MMOL/L (3.6-5.0); SODIUM 136 MMOL/L (135-145); TOTAL PROTEIN 6.1 GM/DL (6.4-8.2)
== END 2019-05-21 | disposition home or self-care (01) ==
LOC: ONC 09:12
PROVIDERS: ATTEND Internal Medicine Hematology & Oncology
DX: Z08 Encounter for follow-up examination after completed treatment for malignant neoplasm (principal); Z85.72 Personal history of non-Hodgkin lymphomas; D63.1 Anemia in chronic kidney disease; N18.4 Chronic kidney disease, stage 4 (severe); K22.0 Achalasia of cardia; R13.10 Dysphagia, unspecified; E46 Unspecified protein-calorie malnutrition; E03.9 Hypothyroidism, unspecified; K21.9 Gastro-esophageal reflux disease without esophagitis; Z92.21 Personal history of antineoplastic chemotherapy; Z92.3 Personal history of irradiation; Z79.899 Other long term (current) drug therapy; Z87.01 Personal history of pneumonia (recurrent)
CPT/HCPCS: 80053; 84153; 84402; 84403; 84443; 85025

== ENCOUNTER → 2019-07-26 | Outpatient (CLI) | payer OTHER ==
[~2019-07-26] MED LIST changes: +IOHEXOL 240 MGI/ML 50 ML (OMNIPAQUE) VIAL IV ONE
--- NOTE | 2019-07-26 15:52 | Diagnostic Imaging Report ---
INDICATION: Malfunctioning left chest wall port. TECHNIQUE: The patient was brought to the fluoroscopy suite and placed on the table in the supine position. The left chest wall port was accessed. Approximately 20 cc of Omnipaque 240 contrast was injected under fluoroscopic observation. 50 seconds of fluoroscopic time was utilized. A preliminary radiograph over the chest demonstrates a left chest wall port. The tip is located at the SVC/right atrial junction. No definite kinking or interruption of the port is identified. There is flow of contrast from the catheter tip. No extravasation of contrast is identified. IMPRESSION: Unremarkable port patency check. No port fracture, kinking, or extravasation is seen. Dictated by: Dictated on workstation # [id number]
== END ==
LOC: RAD 13:27
PROVIDERS: ATTEND Internal Medicine Hematology & Oncology
DX: T82.598A Other mechanical complication of other cardiac and vascular devices and implants, initial encounter (principal); C61 Malignant neoplasm of prostate; C85.90 Non-Hodgkin lymphoma, unspecified, unspecified site; Z95.828 Presence of other vascular implants and grafts
CPT/HCPCS: 36598

== ENCOUNTER 2019-09-08 12:40 | Outpatient (RCR) | payer OTHER ==
[2019-06-19 14:05] LABS: BASOPHILS % (AUTO) 0 % (0-10); EOSINOPHILS # (AUTO) 0.1 10^3/uL (0.0-0.3); EOSINOPHILS % (AUTO) 1 % (0-10); HEMATOCRIT 38 % (40-54); HEMOGLOBIN 12.6 G/DL (13.3-17.7); LYMPHOCYTES # (AUTO) 0.7 X 10^3 (1.0-4.0); LYMPHOCYTES % (AUTO) 10 % (12-44); MEAN CORPUSCULAR HEMOGLOBIN 31 PG (25-34); MEAN CORPUSCULAR HGB CONC 33 G/DL (32-36); MEAN CORPUSCULAR VOLUME 93 FL (80-99); MEAN PLATELET VOLUME 10.5 FL (7.4-10.4); MONOCYTES # (AUTO) 0.7 X 10^3 (0.0-1.0); MONOCYTES % (AUTO) 10 % (0-12); NEUTROPHILS # (AUTO) 5.6 X 10^3 (1.8-7.8); NEUTROPHILS % (AUTO) 80 % (42-75); PLATELET COUNT 168 10^3/uL (130-400); WHITE BLOOD COUNT 7.1 10^3/uL (4.3-11.0)
[2019-06-19 14:23] LABS: ALANINE AMINOTRANSFERASE 13 U/L (0-55); ALBUMIN 4.6 GM/DL (3.2-4.5); ALKALINE PHOSPHATASE 95 U/L (40-136); BILIRUBIN,TOTAL 0.7 MG/DL (0.1-1.0); BUN/CREATININE RATIO 25; CALCIUM 9.6 MG/DL (8.5-10.1); CARBON DIOXIDE 25 MMOL/L (21-32); CHLORIDE 97 MMOL/L (98-107); CREATININE SERUM 1.22 MG/DL (0.60-1.30); GFR ESTIMATED 58; GLUCOSE 105 MG/DL (70-105); POTASSIUM 4.5 MMOL/L (3.6-5.0); SODIUM 134 MMOL/L (135-145); TOTAL PROTEIN 6.5 GM/DL (6.4-8.2)
[2019-07-26 13:26] LABS: BASOPHILS % (AUTO) 0 % (0-10); EOSINOPHILS % (AUTO) 1 % (0-10); HEMATOCRIT 37 % (40-54); HEMOGLOBIN 11.6 G/DL (13.3-17.7); LYMPHOCYTES # (AUTO) 0.4 X 10^3 (1.0-4.0); LYMPHOCYTES % (AUTO) 7 % (12-44); MEAN CORPUSCULAR HEMOGLOBIN 30 PG (25-34); MEAN CORPUSCULAR HGB CONC 32 G/DL (32-36); MEAN CORPUSCULAR VOLUME 95 FL (80-99); MEAN PLATELET VOLUME 10.5 FL (7.4-10.4); MONOCYTES # (AUTO) 0.6 X 10^3 (0.0-1.0); MONOCYTES % (AUTO) 10 % (0-12); NEUTROPHILS # (AUTO) 4.8 X 10^3 (1.8-7.8); NEUTROPHILS % (AUTO) 82 % (42-75); PLATELET COUNT 173 10^3/uL (130-400); RED CELL DISTRIBUTION WIDTH 13.5 % (10.0-14.5); WHITE BLOOD COUNT 5.8 10^3/uL (4.3-11.0)
[2019-07-26 13:53] LABS: ALANINE AMINOTRANSFERASE 12 U/L (0-55); ALBUMIN 4.2 GM/DL (3.2-4.5); ALKALINE PHOSPHATASE 130 U/L (40-136); BILIRUBIN,TOTAL 0.4 MG/DL (0.1-1.0); BUN/CREATININE RATIO 30; CALCIUM 9.4 MG/DL (8.5-10.1); CARBON DIOXIDE 30 MMOL/L (21-32); CHLORIDE 99 MMOL/L (98-107); GFR ESTIMATED > 60; GLUCOSE 104 MG/DL (70-105); POTASSIUM 4.3 MMOL/L (3.6-5.0); SODIUM 138 MMOL/L (135-145); TOTAL PROTEIN 6.7 GM/DL (6.4-8.2)
[~2019-09-08 12:40] MED LIST changes: +ALTEPLASE 2 MG (CATHFLO) CANCER CENTER IV ONE; +FERRIC CARBOXYMALTOSE (CANCER) 750 MG in NS (IVPB) CANCER CENTER 250 ML IV SCH; -IOHEXOL 240 MGI/ML 50 ML (OMNIPAQUE) VIAL IV ONE
[2019-09-08] MEDS ORDERED: LEUPROLIDE ACETATE 7.5 MG ELIGARD SQ SCH (14:15)
[2019-09-08 14:19] LABS: BASOPHILS % (AUTO) 0 % (0-10); EOSINOPHILS # (AUTO) 0.1 10^3/uL (0.0-0.3); EOSINOPHILS % (AUTO) 1 % (0-10); HEMATOCRIT 38 % (40-54); HEMOGLOBIN 12.5 G/DL (13.3-17.7); LYMPHOCYTES # (AUTO) 0.6 X 10^3 (1.0-4.0); LYMPHOCYTES % (AUTO) 8 % (12-44); MEAN CORPUSCULAR HEMOGLOBIN 31 PG (25-34); MEAN CORPUSCULAR HGB CONC 33 G/DL (32-36); MEAN CORPUSCULAR VOLUME 94 FL (80-99); MEAN PLATELET VOLUME 10.3 FL (7.4-10.4); MONOCYTES # (AUTO) 0.7 X 10^3 (0.0-1.0); MONOCYTES % (AUTO) 8 % (0-12); NEUTROPHILS # (AUTO) 6.5 X 10^3 (1.8-7.8); NEUTROPHILS % (AUTO) 83 % (42-75); PLATELET COUNT 154 10^3/uL (130-400); RED CELL DISTRIBUTION WIDTH 14.7 % (10.0-14.5); WHITE BLOOD COUNT 7.8 10^3/uL (4.3-11.0)
[2019-09-08 14:37] LABS: ALANINE AMINOTRANSFERASE 12 U/L (0-55); ALBUMIN 4.2 GM/DL (3.2-4.5); ALKALINE PHOSPHATASE 98 U/L (40-136); BILIRUBIN,TOTAL 0.5 MG/DL (0.1-1.0); BUN/CREATININE RATIO 22; CALCIUM 8.8 MG/DL (8.5-10.1); CARBON DIOXIDE 28 MMOL/L (21-32); CHLORIDE 100 MMOL/L (98-107); CREATININE SERUM 1.12 MG/DL (0.60-1.30); GFR ESTIMATED > 60; GLUCOSE 91 MG/DL (70-105); POTASSIUM 4.3 MMOL/L (3.6-5.0); SODIUM 134 MMOL/L (135-145); TOTAL PROTEIN 6.5 GM/DL (6.4-8.2)
== END 2019-09-17 | disposition home or self-care (01) ==
LOC: ONC 12:40
PROVIDERS: ATTEND Internal Medicine Hematology & Oncology
DX: Z08 Encounter for follow-up examination after completed treatment for malignant neoplasm (principal); Z85.72 Personal history of non-Hodgkin lymphomas; D63.1 Anemia in chronic kidney disease; N18.4 Chronic kidney disease, stage 4 (severe); K22.0 Achalasia of cardia; R13.10 Dysphagia, unspecified; E46 Unspecified protein-calorie malnutrition; E03.9 Hypothyroidism, unspecified; K21.9 Gastro-esophageal reflux disease without esophagitis; Z92.21 Personal history of antineoplastic chemotherapy; Z92.3 Personal history of irradiation; Z79.899 Other long term (current) drug therapy; Z87.01 Personal history of pneumonia (recurrent)
CPT/HCPCS: 80053; 82728; 83540; 83550; 84153; 84402; 84403; 84443; 85025; 96365; 96402; 99204

== ENCOUNTER → 2019-10-09 | Outpatient (CLI) | payer OTHER ==
[~2019-10-09] MED LIST changes: -ALTEPLASE 2 MG (CATHFLO) CANCER CENTER IV ONE; -FERRIC CARBOXYMALTOSE (CANCER) 750 MG in NS (IVPB) CANCER CENTER 250 ML IV SCH
--- NOTE | 2019-10-09 14:38 | NUR ---
PICC LINE PLACED BY THIS RN WITHOUT DIFFICULTY. PLACED IN RIGHT UPPER ARM. (DR BLANTON) HAS INSTRUCTIONS FOR USE/DRESSING CHANGE AT HOME AND VERBALIZED UNDERSTANDING. PLACEMENT CONFIRMED BY RADIOLOGIST.
--- NOTE | 2019-10-09 15:04 | NUR ---
DR MARX RADIOLOGIST CALLED AND STATED PICC LINE IS IN GOOD PLACEMENT AND OK FOR USE. PT DISCHARGED.
--- NOTE | 2019-10-09 16:21 | HISTORY AND PHYSICAL ---
DATE OF SERVICE: ATTENDING PRIMARY CARE PHYSICIAN: Muriel Robledo MD. HISTORY OF PRESENT ILLNESS: The patient is a 79-year-old male known to us. He has a history of non-Hodgkin lymphoma and did undergo a radiation therapy. He did develop significant dysphagia as well as protein-calorie malnutrition. He also does have a history of prostate cancer and is being treated for that as well. He has a gastrostomy tube in place as well as a previously placed Groshong implantable catheter in the left subclavian vein; however, the catheter has been nonfunctional and has eroded through the skin as well. He will need removal of the subcutaneous port and catheter and placement of a contralateral Groshong implantable catheter. PAST MEDICAL HISTORY: Non-Hodgkin lymphoma, prostate cancer, hypothyroid, severe dysphagia and gastroesophageal reflux disease. PAST SURGICAL HISTORY: Appendectomy, gastrostomy tube placement, and left subclavian Groshong implantable catheter placement in 11/2018. ALLERGIES: No known drug allergies. MEDICATIONS: Protonix 40 mg daily, levothyroxine 75 mcg daily, and calcium daily. SOCIAL HISTORY: Negative smoke, negative alcohol. FAMILY HISTORY: Noncontributory. REVIEW OF SYSTEMS: The patient is a thin-appearing male, in no acute distress. He is not experiencing any shortness of breath or difficulty breathing. No chest pain, palpitations or diaphoresis. He does have significant dysphagia and difficulty swallowing. He does not report any major issues with diarrhea nor constipation as well as no red blood per rectum nor any dark tarry stools. No fever, chills with some weight loss in the past several years. PHYSICAL EXAMINATION: VITAL SIGNS: Stable. Current weight 110 pounds, height at 5 feet 10 inches. CHEST: Good breath sounds bilaterally. HEART: Regular, no murmurs. EXTREMITIES: No lower extremity edema, negative Homans sign. HEENT: No scleral icterus. NECK: No cervical lymphadenopathy. ABDOMEN: Soft, nontender, and nondistended. SKIN: There is an eroded subcutaneous port to Groshong implantable catheter in the left subclavian region, which is also nonfunctional. There is no surrounding redness or erythema or any purulent drainage. ASSESSMENT AND PLAN: A 79-year-old male with a malfunctioning left subclavian Groshong implantable catheter. This will need to be removed and a contralateral Groshong implantable catheter will be placed simultaneously. Patient changed mind on day of procedure and wanted to proceed with PICC line instead and will be scheduled in day surgery. Job ID: [id number] DocumentID: [id number] Dictated Date: 10/08/2019 09:48:14 Field Reporter Date: 10/08/2019 10:17:43 Dictated By: GARRETT JOHNSON MD MTDD
--- NOTE | 2019-10-09 16:49 | Diagnostic Imaging Report ---
INDICATION: PICC PLACEMENT COMPARISON: 07/26/2019. FINDINGS: Single frontal radiographic view of the chest was obtained and demonstrates interval placement of right upper extremity PICC line, tip of which terminates in the SVC. Left-sided subclavian Port-A-Cath is also again identified with tip in the SVC. Lungs show persistent asymmetric elevation of left hemidiaphragm, but are otherwise clear. There is no large effusion or pneumothorax. Cardiac silhouette and pulmonary vasculature are within normal limits. Osseous structures show no acute abnormalities. IMPRESSION: 1. New right upper extremity PICC line with tip in the SVC. Otherwise, stable exam of the chest. Dictated by: Dictated on workstation # [id number]
== END ==
LOC: SDC 14:02
PROVIDERS: ATTEND Surgery
DX: C61 Malignant neoplasm of prostate (principal); C85.90 Non-Hodgkin lymphoma, unspecified, unspecified site; T82.598A Other mechanical complication of other cardiac and vascular devices and implants, initial encounter
CPT/HCPCS: 36569; 71045; 76937; C1751

== ENCOUNTER → 2019-11-07 | Outpatient (CLI) | payer OTHER | LOC: LAB 13:23 | PROVIDERS: ATTEND Urology | DX: C61 Malignant neoplasm of prostate (principal); E29.1 Testicular hypofunction | CPT/HCPCS: 36415; 84153; 84402; 84403 ==

== ENCOUNTER 2019-11-09 11:28 | Outpatient (CLI) | payer OTHER ==
[~2019-11-09] VITALS: Ht 177.8 cm; Wt 50.5 kg
[2019-11-09] MEDS ORDERED: PANT40TA2 PO (11:37)
[2019-11-09] MEDS ORDERED: LEVO150T6 PO (11:37)
[2019-11-09] MEDS ORDERED: MIDO10TA PO (11:37)
[2019-11-09 11:43] VITALS: BP 108/74
== END 2019-11-09 12:16 | disposition home or self-care (01) ==
LOC: PREOP 11:28
PROVIDERS: ATTEND Urology
DX: Z01.818 Encounter for other preprocedural examination (principal)
CPT/HCPCS: 87081

== ENCOUNTER 2019-11-14 07:44 | Day surgery (SDC) | payer OTHER ==
[~2019-11-14] VITALS: Ht 177 cm; Wt 50.5 kg
[~2019-11-14 07:44] MED LIST changes: +LEVO150T6 PO; +MIDO10TA PO; +PANT40TA2 PO
[2019-11-14 07:45] VITALS: BP 157/106
[2019-11-14] MEDS ORDERED: LACTATED RINGERS 1,000 ML IV PRN (07:51)
[2019-11-14] MEDS ORDERED: FAMOTIDINE 20MG/2ML IV (PEPCID) IV ONE (08:00)
[2019-11-14] MEDS ORDERED: cefTRIAXone FOR IV USE 1,000 MG in WATER (STERILE) FOR INJECTION 10 ML IV ONE (08:00)
--- NOTE | 2019-11-14 08:00 | Progress Note-Pre Operative ---
Pre-Operative Progress Note H&P Reviewed The H&P was reviewed, patient examined and no changes noted. Date Seen by Provider: Nov 14, 2019 Time Seen by Provider: 07:59 Date H&P Reviewed: Nov 14, 2019 Time H&P Reviewed: 07:59 Pre-Operative Diagnosis: CA PROSTATE CHRISTIANO WITT MD Nov 14, 2019 08:00
--- NOTE | 2019-11-14 08:04 | Progress Note-Post Operative ---
Post-Operative Progess Note Surgeon (s)/Speech Clinician (s) Surgeon CHRISTIANO WITT MD Speech Clinician: NONE Pre-Operative Diagnosis CA PROSTATE Post-Operative Diagnosis SAME Procedure & Operative Findings Date of Procedure 11/14/19 Procedure Performed/Findings SPACE OAR PLACEMENT Anesthesia Type GENERAL Estimated Blood Loss Estimated blood loss (mL): NONE Specimens/Packing Specimens Removed NONE Packing: NONE CHRISTIANO WITT MD Nov 14, 2019 08:03
--- NOTE | 2019-11-14 08:05 | Discharge Inst-Urology ---
Discharge Inst-Urology Reconcile Patient Problems Problems Reviewed?: Yes Final Diagnosis CA PROSTATE Patient Instructions/Follow Up Plan/Assessment/Instructions Please make appointment to been seen in office in 2 weeks. Rest for 48 hours Increase oral fluids for 48 hours and then as needed. Keep bowels soft and moving Diet as tolerated. If questions or concerns contact your physician Or seek help at emergency department. CHRISTIANO WITT MD Nov 14, 2019 08:05
[2019-11-14] MEDS ORDERED: KETAMINE/NaCl 50 MG/5 ML SYRINGE (ED ONLY) ONE (08:50)
[2019-11-14] MEDS ORDERED: MIDAZOLAM 2 MG/2 ML (VERSED) VIAL ONE (08:50)
[2019-11-14] MEDS ORDERED: proPOfol 200 MG/20 ML (DIPRIVAN) VIAL IV ONE (08:50)
[2019-11-14] MEDS ORDERED: LIDOCAINE PF 2% 5 ML (XYLOCAINE) VIAL ONE (08:50)
[2019-11-14 09:31] VITALS: BP 81/57
[2019-11-14 09:40] VITALS: BP 82/53
[2019-11-14] MEDS ORDERED: SULF1TAB35 PO (09:40)
[2019-11-14] MEDS ORDERED: ONDANSETRON 4 MG/2 ML (SDV) Z0FRAN IVP PRN (09:45)
[2019-11-14 09:50] VITALS: BP 92/70
[2019-11-14 10:00] VITALS: BP_SYST 107; BP_SYST 95; BP_DIAS 70; BP_DIAS 74
[2019-11-14 10:30] VITALS: BP 140/88
--- NOTE | 2019-11-14 10:35 | Anesthesia-General Post-Op ---
MAC Patient Condition Mental Status/LOC: Same as Preop Cardiovascular: Satisfactory Nausea/Vomiting: Absent Respiratory: Satisfactory Pain: Controlled Complications: Absent Post Op Complications Complications None Follow Up Care/Instructions Patient Instructions None needed. Anesthesiology Discharge Order Discharge Order Patient is doing well, no complaints, stable vital signs, no apparent adverse anesthesia problems. STACY SIM DO Nov 14, 2019 10:35
== END 2019-11-14 10:45 | disposition home or self-care (01) ==
LOC: SDC 07:44
PROVIDERS: ATTEND Urology
DX: C61 Malignant neoplasm of prostate (principal); Z88.1 Allergy status to other antibiotic agents; K21.9 Gastro-esophageal reflux disease without esophagitis; Z79.890 Hormone replacement therapy; Z87.891 Personal history of nicotine dependence; J43.9 Emphysema, unspecified; Z86.79 Personal history of other diseases of the circulatory system

== ENCOUNTER → 2019-12-05 | Outpatient (CLI) | payer OTHER, MEDICARE ==
[~2019-12-05] MED LIST changes: -PANT40TA3 PO; +PANT40TA52 PO; +SULF1TAB35 PO
--- NOTE | 2019-12-05 18:45 | Diagnostic Imaging Report ---
PROCEDURE: MRI pelvis without contrast. TECHNIQUE: Multiplanar, multisequence MRI of the pelvis was performed without contrast. INDICATION: Prostate cancer. COMPARISON: None available. FINDINGS: Please note that this examination does not meet prostate imaging reporting and data system (PI-RADS) guidelines to assess for prostate cancer, which would include multiparametric imaging (diffusion weighting and dynamic contrast enhancement). Allowing for limitations, there is a potential rounded 9 x 9 mm hypodense nodule in the peripheral zone in the right mid gland (image 19, series 11). Additionally, within the right mid gland anterior aspect, there is a rounded isointense 1.4 x 1.3 cm nodule (image 23, series 11). There does not appear to be tumor invasion at the base of the urinary bladder. There does appear to be some layering debris within the urinary bladder. This examination has limited assessment of the neurovascular bundle along the seminal vesicles. There is small amount of free pelvic fluid. Colonic diverticulosis. 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 IMPRESSION: 1. Please note that this examination does not meet criteria to utilize PI-RADS, as this does not contain dynamic contrast enhanced imaging or diffusion-weighted imaging. 2. Allowing for the significant limitations, there are potential nodules in the anterior and posterior aspect of the right mid gland. Dictated by: Dictated on workstation # [id number]
== END ==
LOC: RAD 14:00
PROVIDERS: ATTEND Radiology Radiation Oncology
DX: C61 Malignant neoplasm of prostate (principal)
CPT/HCPCS: 72195

== ENCOUNTER 2020-01-19 11:50 | Outpatient (RCR) | payer OTHER ==
[2019-11-07 13:33] LABS: BASOPHILS % (AUTO) 0 % (0-10); EOSINOPHILS # (AUTO) 0.1 10^3/uL (0.0-0.3); EOSINOPHILS % (AUTO) 1 % (0-10); HEMATOCRIT 35 % (40-54); HEMOGLOBIN 11.2 G/DL (13.3-17.7); LYMPHOCYTES # (AUTO) 0.6 X 10^3 (1.0-4.0); LYMPHOCYTES % (AUTO) 6 % (12-44); MEAN CORPUSCULAR HEMOGLOBIN 31 PG (25-34); MEAN CORPUSCULAR HGB CONC 32 G/DL (32-36); MEAN CORPUSCULAR VOLUME 98 FL (80-99); MEAN PLATELET VOLUME 10.8 FL (7.4-10.4); MONOCYTES # (AUTO) 0.8 X 10^3 (0.0-1.0); MONOCYTES % (AUTO) 9 % (0-12); NEUTROPHILS # (AUTO) 7.6 X 10^3 (1.8-7.8); NEUTROPHILS % (AUTO) 84 % (42-75); PLATELET COUNT 151 10^3/uL (130-400)
[2019-11-07 13:55] LABS: ALANINE AMINOTRANSFERASE 13 U/L (0-55); ALBUMIN 3.9 GM/DL (3.2-4.5); ALKALINE PHOSPHATASE 112 U/L (40-136); BILIRUBIN,TOTAL 0.5 MG/DL (0.1-1.0); BUN/CREATININE RATIO 21; CALCIUM 9.4 MG/DL (8.5-10.1); CARBON DIOXIDE 34 MMOL/L (21-32); CHLORIDE 98 MMOL/L (98-107); CREATININE SERUM 1.07 MG/DL (0.60-1.30); GFR ESTIMATED > 60; GLUCOSE 105 MG/DL (70-105); POTASSIUM 3.5 MMOL/L (3.6-5.0); SODIUM 140 MMOL/L (135-145); TOTAL PROTEIN 6.2 GM/DL (6.4-8.2)
[2020-01-05 09:31] LABS: BASOPHILS % (AUTO) 0 % (0-10)
[2020-01-05 09:33] LABS: EOSINOPHILS % (AUTO) 0 % (0-10); HEMATOCRIT 35 % (40-54); HEMOGLOBIN 10.8 g/dL (13.3-17.7); LYMPHOCYTES # (AUTO) 0.9 10^3/uL (1.0-4.0); LYMPHOCYTES % (AUTO) 10 % (12-44); MEAN CORPUSCULAR HEMOGLOBIN 30 pg (25-34); MEAN CORPUSCULAR HGB CONC 31 g/dL (32-36); MEAN CORPUSCULAR VOLUME 97 fL (80-99); MEAN PLATELET VOLUME 11.1 fL (9.0-12.2); MONOCYTES # (AUTO) 2.3 10^3/uL (0.0-1.0); MONOCYTES % (AUTO) 28 % (0-12); NEUTROPHILS % (AUTO) 61 % (42-75); PLATELET COUNT 114 10^3/uL (130-400); WHITE BLOOD COUNT 8.2 10^3/uL (4.3-11.0)
[2020-01-05 09:53] LABS: ALANINE AMINOTRANSFERASE 15 U/L (0-55); ALBUMIN 3.6 GM/DL (3.2-4.5); ALKALINE PHOSPHATASE 96 U/L (40-136); BILIRUBIN,TOTAL 0.7 MG/DL (0.1-1.0); BUN/CREATININE RATIO 32; CARBON DIOXIDE 29 MMOL/L (21-32); CHLORIDE 102 MMOL/L (98-107); CREATININE SERUM 0.82 MG/DL (0.60-1.30); GFR ESTIMATED > 60; GLUCOSE 101 MG/DL (70-105); POTASSIUM 3.2 MMOL/L (3.6-5.0); SODIUM 146 MMOL/L (135-145); TOTAL PROTEIN 5.9 GM/DL (6.4-8.2)
[~2020-01-19 11:50] MED LIST changes: +MIDO10TA PEG; -MIDO10TA PO
[2020-01-19 12:09] LABS: BASOPHILS % (AUTO) 0 % (0-10); EOSINOPHILS % (AUTO) 0 % (0-10); HEMATOCRIT 34 % (40-54); HEMOGLOBIN 10.1 g/dL (13.3-17.7); LYMPHOCYTES % (AUTO) 37 % (12-44); MEAN CORPUSCULAR HEMOGLOBIN 30 pg (25-34); MEAN CORPUSCULAR HGB CONC 30 g/dL (32-36); MEAN CORPUSCULAR VOLUME 99 fL (80-99); MEAN PLATELET VOLUME 11.8 fL (9.0-12.2); MONOCYTES # (AUTO) 0.9 10^3/uL (0.0-1.0); MONOCYTES % (AUTO) 12 % (0-12); NEUTROPHILS % (AUTO) 50 % (42-75)
[2020-01-19 12:10] LABS: PLATELET COUNT 92 10^3/uL (130-400)
[2020-01-19 12:12] LABS: ALANINE AMINOTRANSFERASE 24 U/L (0-55); ALBUMIN 3.3 GM/DL (3.2-4.5); ALKALINE PHOSPHATASE 83 U/L (40-136); BILIRUBIN,TOTAL 0.7 MG/DL (0.1-1.0); BUN/CREATININE RATIO 50; CALCIUM 9.2 MG/DL (8.5-10.1); CARBON DIOXIDE 29 MMOL/L (21-32); CHLORIDE 108 MMOL/L (98-107); CREATININE SERUM 1.07 MG/DL (0.60-1.30); GFR ESTIMATED > 60; GLUCOSE 92 MG/DL (70-105); POTASSIUM 4.5 MMOL/L (3.6-5.0); SODIUM 150 MMOL/L (135-145); TOTAL PROTEIN 5.4 GM/DL (6.4-8.2)
[2020-01-22 09:48] LABS: BASOPHILS % (AUTO) 0 % (0-10); EOSINOPHILS % (AUTO) 0 % (0-10); HEMATOCRIT 32 % (40-54); HEMOGLOBIN 9.9 g/dL (13.3-17.7); LYMPHOCYTES # (AUTO) 2.8 10^3/uL (1.0-4.0); LYMPHOCYTES % (AUTO) 26 % (12-44); MEAN CORPUSCULAR HEMOGLOBIN 30 pg (25-34); MEAN CORPUSCULAR HGB CONC 31 g/dL (32-36); MEAN CORPUSCULAR VOLUME 97 fL (80-99); MONOCYTES % (AUTO) 28 % (0-12); NEUTROPHILS # (AUTO) 4.8 10^3/uL (1.8-7.8); NEUTROPHILS % (AUTO) 45 % (42-75); PLATELET COUNT 102 10^3/uL (130-400); WHITE BLOOD COUNT 10.8 10^3/uL (4.3-11.0)
[2020-01-22 10:12] LABS: ALANINE AMINOTRANSFERASE 20 U/L (0-55); ALBUMIN 3.2 GM/DL (3.2-4.5); ALKALINE PHOSPHATASE 83 U/L (40-136); BILIRUBIN,TOTAL 0.8 MG/DL (0.1-1.0); BUN/CREATININE RATIO 47; CALCIUM 8.8 MG/DL (8.5-10.1); CARBON DIOXIDE 28 MMOL/L (21-32); CHLORIDE 98 MMOL/L (98-107); CREATININE SERUM 0.92 MG/DL (0.60-1.30); GFR ESTIMATED > 60; GLUCOSE 85 MG/DL (70-105); POTASSIUM 4.1 MMOL/L (3.6-5.0); SODIUM 141 MMOL/L (135-145); TOTAL PROTEIN 5.4 GM/DL (6.4-8.2)
[2020-01-24 13:02] LABS: BASOPHILS % (AUTO) 0 % (0-10); EOSINOPHILS % (AUTO) 0 % (0-10)
[2020-01-24 13:04] LABS: HEMATOCRIT 29 % (40-54); LYMPHOCYTES # (AUTO) 0.6 10^3/uL (1.0-4.0); LYMPHOCYTES % (AUTO) 6 % (12-44); MEAN CORPUSCULAR HEMOGLOBIN 30 pg (25-34); MEAN CORPUSCULAR HGB CONC 31 g/dL (32-36); MEAN CORPUSCULAR VOLUME 97 fL (80-99); MEAN PLATELET VOLUME 11.1 fL (9.0-12.2); MONOCYTES # (AUTO) 4.5 10^3/uL (0.0-1.0); MONOCYTES % (AUTO) 46 % (0-12); NEUTROPHILS # (AUTO) 4.7 10^3/uL (1.8-7.8); NEUTROPHILS % (AUTO) 47 % (42-75); PLATELET COUNT 114 10^3/uL (130-400); WHITE BLOOD COUNT 9.9 10^3/uL (4.3-11.0)
[2020-01-24 13:29] LABS: ALANINE AMINOTRANSFERASE 16 U/L (0-55); ALBUMIN 2.8 GM/DL (3.2-4.5); ALKALINE PHOSPHATASE 81 U/L (40-136); BILIRUBIN,TOTAL 0.6 MG/DL (0.1-1.0); BUN/CREATININE RATIO 29; CALCIUM 8.3 MG/DL (8.5-10.1); CARBON DIOXIDE 28 MMOL/L (21-32); CHLORIDE 97 MMOL/L (98-107); GFR ESTIMATED > 60; GLUCOSE 69 MG/DL (70-105); POTASSIUM 4.4 MMOL/L (3.6-5.0); SODIUM 136 MMOL/L (135-145); TOTAL PROTEIN 4.8 GM/DL (6.4-8.2)
[2020-01-29 09:40] LABS: HEMATOCRIT 28 % (40-54); MEAN PLATELET VOLUME 11.2 fL (9.0-12.2)
[2020-01-29 09:41] LABS: BASOPHILS % (AUTO) 1 % (0-10); EOSINOPHILS % (AUTO) 0 % (0-10); HEMOGLOBIN 8.8 g/dL (13.3-17.7); LYMPHOCYTES # (AUTO) 1.3 10^3/uL (1.0-4.0); LYMPHOCYTES % (AUTO) 23 % (12-44); MEAN CORPUSCULAR HEMOGLOBIN 30 pg (25-34); MEAN CORPUSCULAR HGB CONC 32 g/dL (32-36); MEAN CORPUSCULAR VOLUME 94 fL (80-99); MONOCYTES # (AUTO) 1.4 10^3/uL (0.0-1.0); MONOCYTES % (AUTO) 23 % (0-12); NEUTROPHILS # (AUTO) 3.1 10^3/uL (1.8-7.8); NEUTROPHILS % (AUTO) 53 % (42-75); PLATELET COUNT 104 10^3/uL (130-400); WHITE BLOOD COUNT 5.9 10^3/uL (4.3-11.0)
[2020-01-29 09:55] LABS: ALANINE AMINOTRANSFERASE 19 U/L (0-55); ALBUMIN 2.7 GM/DL (3.2-4.5); ALKALINE PHOSPHATASE 66 U/L (40-136); BILIRUBIN,TOTAL 0.5 MG/DL (0.1-1.0); BUN/CREATININE RATIO 45; CARBON DIOXIDE 26 MMOL/L (21-32); CHLORIDE 92 MMOL/L (98-107); CREATININE SERUM 0.67 MG/DL (0.60-1.30); GFR ESTIMATED > 60; GLUCOSE 86 MG/DL (70-105); POTASSIUM 4.5 MMOL/L (3.6-5.0); SODIUM 132 MMOL/L (135-145); TOTAL PROTEIN 4.5 GM/DL (6.4-8.2)
[2020-02-01 09:36] LABS: EOSINOPHILS % (AUTO) 0 % (0-10); MEAN CORPUSCULAR HEMOGLOBIN 30 pg (25-34); MEAN PLATELET VOLUME 11.6 fL (9.0-12.2)
[2020-02-01 09:38] LABS: BASOPHILS % (AUTO) 1 % (0-10); HEMATOCRIT 30 % (40-54); HEMOGLOBIN 9.4 g/dL (13.3-17.7); LYMPHOCYTES # (AUTO) 0.6 10^3/uL (1.0-4.0); LYMPHOCYTES % (AUTO) 7 % (12-44); MEAN CORPUSCULAR HGB CONC 31 g/dL (32-36); MEAN CORPUSCULAR VOLUME 95 fL (80-99); MONOCYTES # (AUTO) 3.8 10^3/uL (0.0-1.0); MONOCYTES % (AUTO) 43 % (0-12); NEUTROPHILS # (AUTO) 4.3 10^3/uL (1.8-7.8); NEUTROPHILS % (AUTO) 48 % (42-75); PLATELET COUNT 111 10^3/uL (130-400); WHITE BLOOD COUNT 8.9 10^3/uL (4.3-11.0)
[2020-02-01 09:50] LABS: ALANINE AMINOTRANSFERASE 20 U/L (0-55); ALKALINE PHOSPHATASE 79 U/L (40-136); BILIRUBIN,TOTAL 0.7 MG/DL (0.1-1.0); BUN/CREATININE RATIO 40; CALCIUM 8.4 MG/DL (8.5-10.1); CARBON DIOXIDE 27 MMOL/L (21-32); CHLORIDE 94 MMOL/L (98-107); CREATININE SERUM 0.75 MG/DL (0.60-1.30); GFR ESTIMATED > 60; GLUCOSE 73 MG/DL (70-105); POTASSIUM 4.5 MMOL/L (3.6-5.0); SODIUM 134 MMOL/L (135-145); TOTAL PROTEIN 4.8 GM/DL (6.4-8.2)
== END 2020-02-05 | disposition home or self-care (01) ==
LOC: ONC 11:50
PROVIDERS: ATTEND Internal Medicine Hematology & Oncology
DX: C61 Malignant neoplasm of prostate (principal); N18.4 Chronic kidney disease, stage 4 (severe); K22.0 Achalasia of cardia; R13.10 Dysphagia, unspecified; D63.1 Anemia in chronic kidney disease; E03.9 Hypothyroidism, unspecified; K21.9 Gastro-esophageal reflux disease without esophagitis; E46 Unspecified protein-calorie malnutrition; Z92.3 Personal history of irradiation; Z79.899 Other long term (current) drug therapy; Z87.01 Personal history of pneumonia (recurrent); Z92.21 Personal history of antineoplastic chemotherapy
CPT/HCPCS: 77300; 77301; 77334; 77336; 77338; 77385; 77386; 80053; 84134; 84153; 84402; 84403; 84443; 85025; 87070; 87077; 87184; 87186; 87205; 99212

== ENCOUNTER 2020-02-06 13:38 | Inpatient (IN) | payer OTHER, MEDICARE ==
[~2020-02-06] VITALS: Ht 180.3 cm; Wt 45.5 kg
[2020-02-06] MEDS ORDERED: LACTATED RINGERS 1,000 ML IV STA (14:02)
[2020-02-06] MEDS ORDERED: LACTATED RINGERS 1,000 ML IV ONE ×2 (14:05→15:44)
[2020-02-06 14:25] LABS: CHLORIDE 96 MMOL/L (98-107); SODIUM 134 MMOL/L (135-145)
[2020-02-06 14:26] LABS: CALCIUM 7.8 MG/DL (8.5-10.1)
[2020-02-06] MEDS ORDERED: WATER (STERILE) FOR INJECTION 10 ML ONE (14:26)
[2020-02-06 14:28] LABS: GLUCOSE 115 MG/DL (70-105); TOTAL PROTEIN 5.1 GM/DL (6.4-8.2)
--- NOTE | 2020-02-06 14:28 | ED General ---
General Chief Complaint: Neurological Problems Stated Complaint: WEAKNESS,SOB Nursing Triage Note: Pt to ED in wheelchair. reports pt has had increased weakness and SOB for two weeks. Pt c/o abdominal pain and high heart rate. Nursing Sepsis Screen: No Definite Risk Source of Information: Patient, Family Exam Limitations: Physical Impairments History of Present Illness Date Seen by Provider: Feb 06, 2020 Time Seen by Provider: 13:50 Initial Comments Here with report of markedly increased weakness, weight loss, high heart rate, low blood pressure and shortness of breath. 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 He takes all feeds via PEG tube. He has continued feedings but appears to be declining despite that. Recently started radiation therapy for prostate cancer. His , our oncologist, reports that his heart rate has been high for the last week or 2 and has not changed. Patient was reluctant to come to the hospital because he did not want to be from his . Patient is unable to vomit but denies some nausea. States that he does get burning in his stomach when it is empty and is currently on Protonix. No report of diarrhea or dysuria. No report of contact with COVID-19 positive persons. Lázaro mo has just completed 10-day treatment with cefepime for concerns for pneumonia a few days ago. Symptoms have been going on for a couple weeks now. Timing/Duration: 1 Week, Getting Worse Severity: Moderate, Severe Associated Systoms: No Chest Pain; Cough; No Fever/Chills, No Nausea/Vomiting; Shortness of Air, Weakness Allergies and Home Medications Allergies Coded Allergies: gentamicin (Verified Allergy, Severe, renal failure, 11/09/19) Home Medications Levothyroxine Sodium 100 Mcg Tablet, 100 MCG PEG Q48H, (Reported) Levothyroxine Sodium 150 Mcg Tablet, 150 MCG PO Q48H, (Reported) Midodrine HCl 10 Mg Tablet, 10 MG PO DAILY, (Reported) Pantoprazole Sodium 40 Mg Tablet.dr, 40 MG PO DAILY, (Reported) Sulfamethoxazole/Trimethoprim 1 Each Tablet, 1 EACH PO BID Prescribed by: DERICK DE JESUS on 11/14/19 0952 Patient Home Medication List Home Medication List Reviewed: Yes Review of Systems Review of Systems Constitutional: see HPI; No chills, No fever EENTM: see HPI, mouth pain, nose congestion Respiratory: cough, short of breath Cardiovascular: No chest pain, No edema Gastrointestinal: abdominal pain; No diarrhea Genitourinary: no symptoms reported Musculoskeletal: No back pain; muscle weakness Skin: no symptoms reported Psychiatric/Neurological: No Symptoms Reported Hematologic/Lymphatic: No Symptoms Reported All Other Systems Reviewed Negative Unless Noted: Yes Past Rhjsygf-Kyxhqg-Vlrlrr Hx Past Med/Social Hx: Reviewed Nursing Past Med/Soc Hx Patient Social History Alcohol Use: Denies Use Recreational Drug Use: No Smoking Status: Former Smoker Type Used: Cigarettes Former Smoker, Quit: Nov 08, 1972 2nd Hand Smoke Exposure: Yes Recent Foreign Travel: No Contact w/Someone Who Travel: No Recent Infectious Disease Expo: No Recent Hopitalizations: No Immunizations Up To Date Date of Pneumonia Vaccine: August 08, 2009 Seasonal Allergies Seasonal Allergies: No Past Medical History Surgeries: Yes (TRACH, peg tube) Appendectomy Respiratory: Yes Emphysema Cardiac: Yes (had a-fib once when dehydrated) Atrial Fibrillation Neurological: No Sexually Transmitted Disease: No HIV/AIDS: No Genitourinary: Yes (prostate cancer, bladder retention) Renal Failure Gastrointestinal: Yes (severe dysphagia and acid reflux. Does not tolerate oral, peg tube) Gastroesophageal Reflux Musculoskeletal: No Endocrine: Yes Hypothyroidsim HEENT: No (READING GLASSES) Loss of Vision: Denies Hearing Impairment: Hard of Hearing Cancer: Yes Prostate, Lymphoma Did You Recieve Any Treatments: Yes What Type of Treatment Did You: Chemotherapy, Radiation Psychosocial: Yes Anxiety Integumentary: No Blood Disorders: Yes (HX ANEMIA) Adverse Reaction/Blood Tranf: No (N/A) Family Medical History Reviewed Nursing Family Hx No Pertinent Family Hx Physical Exam-Suspected Sepsis Physical Exam Vital Signs Vital Signs - First Documented 02/06/20 13:45 Temp 36.3 Pulse 135 Resp 27 B/P (MAP) 113/87 (96) Pulse Ox 100 O2 Delivery Nasal Cannula O2 Flow Rate 5.00 Capillary Refill : Less Than 3 Seconds Blood Pressure Mean: 96 Height, Weight, BMI Height: 5'11.00" Weight: 105lbs. 5.0oz. [id number]; 13.00 BMI Method:Stated General Appearance: Chronically ill, Mild Distress HEENT: PERRL/EOMI, Other (Dry mucous membranes) Neck: Non Tender, Supple Respiratory: Lungs Clear, Normal Breath Sounds Cardiovascular: Regular Rate, Rhythm, No Murmur Gastrointestinal: Non Tender, Soft Back: Normal Inspection, No CVA Tenderness, No Vertebral Tenderness Extremity: Normal Range of Motion, Non Tender Neurologic/Psychiatric: Alert, Depressed Affect Skin: pallor; No rash Focused Exam Lactate Level 02/06/20 14:00: Lactic Acid Level 3.99*H Lactic Acid Level Laboratory Tests Test 02/06/20 14:00 Lactic Acid Level 3.99 MMOL/L (0.50-2.00) *H Progress/Results/Core Measures Suspected Sepsis Recent Fever Within 48 Hours: No Infection Criteria Present: None New/Unexplained Altered Menta: No Sepsis Screen: No Definite Risk SIRS Temperature: Pulse: 135 Respiratory Rate: 27 Laboratory Tests 02/06/20 14:54: White Blood Count 13.4H Blood Pressure 113 /87 Mean: 96 02/06/20 14:00: Lactic Acid Level 3.99*H Laboratory Tests 02/06/20 14:00: Creatinine 1.50H, INR Comment 1.5H, Total Bilirubin 0.7 02/06/20 14:54: Platelet Count 84L Results/Orders Lab Results Laboratory Tests Test 02/06/20 14:00 02/06/20 14:54 02/06/20 15:23 Range/Units Prothrombin Time 18.1 H 12.2-14.7 SEC INR Comment 1.5 H 0.8-1.4 Activated Partial Thromboplast Time 33 24-35 SEC D-Dimer 2.67 H 0.00-0.49 UG/ML Sodium Level 134 L 135-145 MMOL/L Potassium Level 6.0 H 3.6-5.0 MMOL/L Chloride Level 96 L 98-107 MMOL/L Carbon Dioxide Level 25 21-32 MMOL/L Anion Gap 13 5-14 MMOL/L Blood Urea Nitrogen 36 H 7-18 MG/DL Creatinine 1.50 H 0.60-1.30 MG/DL Estimat Glomerular Filtration Rate 45 BUN/Creatinine Ratio 24 Glucose Level 115 H 70-105 MG/DL Lactic Acid Level 3.99 *H 0.50-2.00 MMOL/L Calcium Level 7.8 L 8.5-10.1 MG/DL Corrected Calcium 8.6 8.5-10.1 MG/DL Total Bilirubin 0.7 0.1-1.0 MG/DL Aspartate Amino Transf (AST/SGOT) 85 H 5-34 U/L Alanine Aminotransferase (ALT/SGPT) 20 0-55 U/L Alkaline Phosphatase 87 40-136 U/L Lactate Dehydrogenase 936 H 125-220 U/L Troponin I < 0.028 <0.028 NG/ML C-Reactive Protein High Sensitivity 14.47 H 0.00-0.50 MG/DL B-Type Natriuretic Peptide 107.1 H <100.0 PG/ML Total Protein 5.1 L 6.4-8.2 GM/DL Albumin 3.0 L 3.2-4.5 GM/DL Procalcitonin 0.23 H <0.10 NG/ML White Blood Count 13.4 H 4.3-11.0 10^3/uL Red Blood Count 3.09 L 4.30-5.52 10^6/uL Hemoglobin 9.1 L 13.3-17.7 g/dL Hematocrit 30 L 40-54 % Mean Corpuscular Volume 96 80-99 fL Mean Corpuscular Hemoglobin 29 25-34 pg Mean Corpuscular Hemoglobin Concent 31 L 32-36 g/dL Red Cell Distribution Width 15.8 H 10.0-14.5 % Platelet Count 84 L 130-400 10^3/uL Mean Platelet Volume 10.2 9.0-12.2 fL Immature Granulocyte % (Auto) 1 % Neutrophils (%) (Auto) 47 42-75 % Lymphocytes (%) (Auto) 26 12-44 % Monocytes (%) (Auto) 26 H 0-12 % Eosinophils (%) (Auto) 0 0-10 % Basophils (%) (Auto) 0 0-10 % Neutrophils # (Auto) 6.3 1.8-7.8 10^3/uL Lymphocytes # (Auto) 3.5 1.0-4.0 10^3/uL Monocytes # (Auto) 3.5 H 0.0-1.0 10^3/uL Eosinophils # (Auto) 0.0 0.0-0.3 10^3/uL Basophils # (Auto) 0.0 0.0-0.1 10^3/uL Immature Granulocyte # (Auto) 0.1 0.0-0.1 10^3/uL Neutrophils % (Manual) 53 % Lymphocytes % (Manual) 15 % Prolymphocyte % 5 % Monocytes % (Manual) 5 % Eosinophils % (Manual) 0 % Basophils % (Manual) 0 % Band Neutrophils 8 % Atypical Lymphocytes 14 % Toxic Granulation 2+ Dohle Bodies SLIGHT Erythrocyte Sedimentation Rate 32 H 0-30 MM/HR Urine Color YELLOW Urine Clarity CLEAR Urine pH 6.0 5-9 Urine Specific [place] 1.020 1.016-1.022 Urine Protein TRACE H NEGATIVE Urine Glucose (UA) NEGATIVE NEGATIVE Urine Ketones NEGATIVE NEGATIVE Urine Nitrite NEGATIVE NEGATIVE Urine Bilirubin NEGATIVE NEGATIVE Urine Urobilinogen 0.2 < = 1.0 MG/DL Urine Leukocyte Esterase NEGATIVE NEGATIVE Urine RBC (Auto) NEGATIVE NEGATIVE Urine RBC RARE /HPF Urine WBC 0-2 /HPF Urine Squamous Epithelial Cells NONE /HPF Urine Crystals NONE /LPF Urine Bacteria NEGATIVE /HPF Urine Casts NONE /LPF Urine Mucus NEGATIVE /LPF Urine Culture Indicated NO My Orders Orders - ANGIE GARG MD Cbc With Automated Diff (02/06/20 14:02) Comprehensive Metabolic Panel (02/06/20 14:02) Blood Culture (02/06/20 14:02) Sputum Culture (02/06/20 14:02) Urinalysis (02/06/20 14:02) Urine Culture (02/06/20 14:02) Protime With Inr (02/06/20 14:02) Partial Thromboplastin Time (02/06/20 14:02) Chest 1 View, Ap/Pa Only (02/06/20 14:02) Ed Iv/Invasive Line Start (02/06/20 14:02) Vital Signs Adult Sepsis Patie Q15M (02/06/20 14:02) O2 (02/06/20 14:02) Remove Rings In Anticipation O (02/06/20 14:02) Lactic Acid Analyzer (02/06/20 14:02) Lactated Ringers (Lr 1000 Ml Iv Solution (02/06/20 14:02) BNP (02/06/20 14:02) Hs C Reactive Protein (02/06/20 14:02) Erythrocyte Sedimentation Rate (02/06/20 14:02) Fibrin Degradation Products (02/06/20 14:02) Troponin I (02/06/20 14:02) Ekg Tracing (02/06/20 14:02) Procalcitonin (Pct) (02/06/20 14:02) LDH (02/06/20 14:02) Lactated Ringers (Lr 1000 Ml Iv Solution (02/06/20 14:05) Alteplase (Cathflo) Injection (Cathflo (02/06/20 14:30) Water (Sterile) For Injection (Sterile W (02/06/20 14:26) Manual Differential (02/06/20 14:54) Lidocaine 2% (Urojet) (Xylocaine Urojet) (02/06/20 15:15) Lidocaine 2% (Urojet) (Xylocaine Urojet) (02/06/20 15:09) Ct Chest Wo (02/06/20 15:41) Lactated Ringers (Lr 1000 Ml Iv Solution (02/06/20 15:44) Piperacillin Sodium/Tazobactam (Zosyn Vi (02/06/20 16:30) Diltiazem Injection (Cardizem Injection) (02/06/20 16:30) Diltiazem Drip Pre-Mix (Cardizem Drip Pr (02/06/20 16:30) Coronavirus Sars-Cov-2 So 2019 (02/06/20 16:35) Covid 19 Inhouse Test (02/06/20 16:35) Enoxaparin Injection (Lovenox Injection) (02/06/20 16:45) Medications Given in ED Current Medications Medications Dose Ordered Sig/Dalia Route Start Time Stop Time Status Last Admin Dose Admin Alteplase, Recombinant 2 mg ONCE ONCE IV 02/06/20 14:30 02/06/20 14:31 DC 02/06/20 14:30 2 MG Lactated Ringer's 1,000 ml @ 0 mls/hr Q0M ONCE IV 02/06/20 15:44 02/06/20 15:45 DC 02/06/20 16:16 0 MLS/HR Lidocaine HCl 10 ml ONCE ONCE TOP 02/06/20 15:15 02/06/20 15:16 DC 02/06/20 15:18 10 ML Vital Signs/I&O 02/06/20 13:45 Temp 36.3 Pulse 135 Resp 27 B/P (MAP) 113/87 (96) Pulse Ox 100 O2 Delivery Nasal Cannula O2 Flow Rate 5.00 Capillary Refill : Less Than 3 Seconds Blood Pressure Mean: 96 Progress Note : Progress Note Seen and evaluated. IV ordered. Patient has PICC line in place that is full to draw from. Sepsis work-up initiated as well as EKG. LR 1 L bolus ordered. Mon itor patient. 1543: CT chest ordered due to concerning findings on chest x-ray. Repeat LR 1 L bolus due to elevated lactic acid which was exceeded 30 mL/kg IV. Monitor patient. 1645: CT results noted. Patient's heart rate remains 140. I do have concerns about underlying atrial fibrillation with rapid ventricular response. Cardizem 10 mg IV bolus ordered as well as drip to start at 10 mg an hour to be titrated. Fluids are continuing. PICC line did stop for a while but we were able to get that going again with Cathflo. We have ordered Zosyn 4.5 g IV as well as vancomycin 1 g IV. I did discuss the case with Dr. Kasper who ac cepts patient for admission, inpatient status to the ICU with request for cardiology consult. He is also requesting COVID-19 evaluation and rapid test as well as send out test ordered. We will give Lovenox 50 mg subcu now and continue at 1 mg/kg twice daily. This was discussed with Dr. Ralph who agrees and accepts patient in consult. We will initiate tube feedings at home dosing. Patient is full code. Patient and family agree with plan. ECG Initial ECG Impression Date: Feb 06, 2020 Initial ECG Impression Time: 14:14 Initial ECG Rate: 139 Initial ECG Rhythm: S.Tach Initial ECG Comparisson: Changed Comment Sinus or ectopic atrial rhythm with left axis deviation. No evidence of ST elevation LA. Change from previous of 04/12/2018 which was sinus rhythm. Interpreted by me. Diagnostic Imaging Diagonstic Imaging: Xray Plain Films/CT/US/NM/MRI: chest Comments [facility] [place], [place] NAME: DEONTE RANGEL [facility] REC#: [id number] PT STATUS: REG ER : 1940 PHYSICIAN: ANGIE GARG MD ADMIT DATE: 02/06/20/ER Draft Date of Exam:02/06/20 CHEST 1 VIEW, AP/PA ONLY HISTORY: Shortness of breath, weakness, sepsis. TECHNIQUE: Frontal view of the chest. COMPARISON: 10/09/2019. FINDINGS: There is a moderate right pleural effusion and a small left pleural effusion. There are bibasilar airspace opacities. Aeration is overall decreased since the prior exam. The cardiac silhouette is partially obscured. No pneumothorax is seen. The right PICC line tip is not well seen but appears to project over the SVC. IMPRESSION: 1. New bilateral pleural effusions, moderate on the right and small on the left. 2. Bibasilar airspace opacities may be due to atelectasis or infection. Dictated on workstation # [id number] Dict: 02/06/20 1455 Trans: 02/06/20 1458 [id number] Interpreted by: RADHA HAAS MD Electronically signed by: Diagonstic Imaging: CT Plain Films/CT/US/NM/MRI: chest Comments [facility] [place] [place] NAME: DEONTE RANGEL [facility] REC#: [id number] PT STATUS: REG ER : 1940 PHYSICIAN: ANGIE GARG MD ADMIT DATE: 02/06/20/ER Signed Date of Exam:02/06/20 CT CHEST WO PROCEDURE: CT chest without contrast. TECHNIQUE: Multiple contiguous axial images were obtained through the chest without the use of intravenous contrast. Auto Exposure Controls were utilized during the CT exam to meet ALARA standards for radiation dose reduction. INDICATION: Weakness and shortness of breath with abdominal pain and tachycardia. Comparison made to prior examination 01/25/2019. FINDINGS: There are bibasilar consolidations and moderately large bilateral pleural effusions right greater than left. There is no pneumothorax. The thoracic aorta is grossly normal in caliber. There is no obvious pathologically enlarged adenopathy in the chest. Overall examination is limited due to lack of intravenous contrast. Visualized intra-abdominal structures are unremarkable. There are degenerative changes in the spine as well as a lower thoracic compression fracture which is chronic. IMPRESSION: Bibasilar consolidations and moderately large bilateral pleural effusions right greater than left. Cardiomegaly. Chronic appearing lower thoracic compression fracture. Dictated by: Dictated on workstation # [id number] Dict: 02/06/20 1607 Trans: 02/06/[address] [facility] [id number] Interpreted by: MARY MANZO MD Electronically signed by: MARY MANZO MD 02/06/20 4384 Departure Communication (Admissions) Time/Spoke to Admitting Phy: 16:45 Time/Spoke to Consulting Phy: 16:55 Impression Primary Impression: Bilateral pneumonia Qualified Codes: J18.9 - Pneumonia, unspecified organism Additional Impressions: Atrial fibrillation with RVR Person under investigation for COVID-19 Disposition: ADMITTED INPATIENT Condition: Stable Admissions Decision to Admit Reason: Admit from ER (General) Decision to Admit/Date: Feb 06, 2020 Time/Decision to Admit Time: 16:45 Departure-Patient Inst. Referrals: LYNDA BLANTON MD (PCP/Family) Primary Care Physician ANGIE GARG MD Feb 06, 2020 14:28
[2020-02-06 14:29] LABS: BILIRUBIN,TOTAL 0.7 MG/DL (0.1-1.0); CARBON DIOXIDE 25 MMOL/L (21-32)
[2020-02-06] MEDS ORDERED: ALTEPLASE 2 MG (CATHFLO) IV ONE (14:30)
[2020-02-06 14:31] LABS: ALKALINE PHOSPHATASE 87 U/L (40-136); GFR ESTIMATED 45
[2020-02-06 14:32] LABS: BUN/CREATININE RATIO 24
[2020-02-06 14:34] LABS: ALANINE AMINOTRANSFERASE 20 U/L (0-55)
[2020-02-06 14:40] LABS: FIBRIN DEGRADATION PRODUCTS 2.67 UG/ML (0.00-0.49); INR 1.5 (0.8-1.4); PROTHROMBIN TIME PATIENT 18.1 SEC (12.2-14.7)
--- NOTE | 2020-02-06 14:58 | Diagnostic Imaging Report ---
HISTORY: Shortness of breath, weakness, sepsis. TECHNIQUE: Frontal view of the chest. COMPARISON: 10/09/2019. FINDINGS: There is a moderate right pleural effusion and a small left pleural effusion. There are bibasilar airspace opacities. Aeration is overall decreased since the prior exam. The cardiac silhouette is partially obscured. No pneumothorax is seen. The right PICC line tip is not well seen but appears to project over the SVC. IMPRESSION: 1. New bilateral pleural effusions, moderate on the right and small on the left. 2. Bibasilar airspace opacities may be due to atelectasis or infection. Dictated by: Dictated on workstation # [id number]
[2020-02-06 15:01] LABS: BASOPHILS % (AUTO) 0 % (0-10); EOSINOPHILS % (AUTO) 0 % (0-10); HEMATOCRIT 30 % (40-54); HEMOGLOBIN 9.1 g/dL (13.3-17.7); LYMPHOCYTES # (AUTO) 3.5 10^3/uL (1.0-4.0); LYMPHOCYTES % (AUTO) 26 % (12-44); MEAN CORPUSCULAR HEMOGLOBIN 29 pg (25-34); MEAN CORPUSCULAR HGB CONC 31 g/dL (32-36); MEAN CORPUSCULAR VOLUME 96 fL (80-99); MEAN PLATELET VOLUME 10.2 fL (9.0-12.2); MONOCYTES # (AUTO) 3.5 10^3/uL (0.0-1.0); MONOCYTES % (AUTO) 26 % (0-12); NEUTROPHILS # (AUTO) 6.3 10^3/uL (1.8-7.8); NEUTROPHILS % (AUTO) 47 % (42-75); PLATELET COUNT 84 10^3/uL (130-400); WHITE BLOOD COUNT 13.4 10^3/uL (4.3-11.0)
[2020-02-06] MEDS ORDERED: LIDOCAINE UROJET 2% GEL 10 ML PKG ONE (15:09)
[2020-02-06] MEDS ORDERED: LIDOCAINE UROJET 2% GEL 10 ML PKG TOP ONE (15:15)
[2020-02-06 15:29] LABS: BILIRUBIN,URINE NEGATIVE (NEGATIVE); CLARITY,URINE CLEAR; COLOR,URINE YELLOW; GLUCOSE, URINE (UA) NEGATIVE (NEGATIVE); KETONES,URINE NEGATIVE (NEGATIVE); LEUKOCYTE ESTERASE ,URINE NEGATIVE (NEGATIVE); NITRITE,URINE NEGATIVE (NEGATIVE); PROTEIN,URINE TRACE (NEGATIVE)
[2020-02-06 15:36] LABS: ERYTHROCYTE SEDIMENTATION RATE 32 MM/HR (0-30)
[2020-02-06 16:01] LABS: BAND NEUTROPHILS 8 %; NEUTROPHILS % (MANUAL) 53 %
[2020-02-06 16:02] LABS: ATYPICAL LYMPHOCYTES 14 %; BASOPHILS % (MANUAL) 0 %; EOSINOPHILS % (MANUAL) 0 %; LYMPHOCYTES % (MANUAL) 15 %; MONOCYTES % (MANUAL) 5 %; PROLYMPHOCYTE % 5 %
[2020-02-06 16:03] LABS: TOXIC GRANULATION/VACUOLAZATIO 2+
[2020-02-06 16:09] LABS: RBC,URINE RARE /HPF; WBC,URINE 0-2 /HPF
[2020-02-06 16:10] LABS: BACTERIA,URINE NEGATIVE /HPF
--- NOTE | 2020-02-06 16:11 | Diagnostic Imaging Report ---
PROCEDURE: CT chest without contrast. TECHNIQUE: Multiple contiguous axial images were obtained through the chest without the use of intravenous contrast. Auto Exposure Controls were utilized during the CT exam to meet ALARA standards for radiation dose reduction. INDICATION: Weakness and shortness of breath with abdominal pain and tachycardia. Comparison made to prior examination 01/25/2019. FINDINGS: There are bibasilar consolidations and moderately large bilateral pleural effusions right greater than left. There is no pneumothorax. The thoracic aorta is grossly normal in caliber. There is no obvious pathologically enlarged adenopathy in the chest. Overall examination is limited due to lack of intravenous contrast. Visualized intra-abdominal structures are unremarkable. There are degenerative changes in the spine as well as a lower thoracic compression fracture which is chronic. IMPRESSION: Bibasilar consolidations and moderately large bilateral pleural effusions right greater than left. Cardiomegaly. Chronic appearing lower thoracic compression fracture. Dictated by: Dictated on workstation # [id number]
[2020-02-06] MEDS ORDERED: PIPERACILLIN SODIUM/TAZOBACTAM 4.5 GM in NS (IVPB) 100 ML IV ONE (16:30)
[2020-02-06] MEDS ORDERED: dilTIAZem DRIP PRE-MIX 125 ML IV SCH (16:30)
[2020-02-06] MEDS ORDERED: ENOXAPARIN 60 MG/0.6 ML (LOVENOX) SYR SC ONE (16:45)
[2020-02-06] MEDS ORDERED: VANCOMYCIN INJECTION 1,000 MG in NS (IVPB) 250 ML IV ONE (17:00)
--- NOTE | 2020-02-06 18:50 | NUR ---
CR 1.5; CR CL ~26; WT 45.3 KG; VANCO 1000 MG IV GIVEN IN ER; CONTINUE WITH VANCO 750 MG IV Q24H X 2 MORE DAYS
[2020-02-06] MEDS ORDERED: EPINEPHrine 1 MG INJECTION 4 MG in NS (IVPB) 248 ML IV SCH (19:00)
[2020-02-06] MEDS: dilTIAZem DRIP 125 MG/125 ML DRIP IV SCH (19:40)
[2020-02-06] MEDS: LACTATED RINGERS 1,000 ML IV SCH (20:17)
[2020-02-06] MEDS: NOREPINEPHRINE 4 MG/250 ML 250 ML IV SCH (20:17)
[2020-02-06] MEDS: VASOPRESSIN INJECTION 20 UNIT in NS (IVPB) 100 ML IV SCH (20:18)
[2020-02-06] MEDS ORDERED: LACTATED RINGERS 1,000 ML IV SCH (22:00)
[2020-02-06 22:31] VITALS: BP 102/72
[2020-02-06] MEDS: PIPERACILLIN/TAZO 4.5 GM/NS 100 ML IV SCH ×2 (22:48)
[2020-02-07] MEDS: LACTATED RINGERS 1,000 ML IV SCH ×4 (00:39→21:19)
[2020-02-07] MEDS ORDERED: RT-ALBUTEROL INHALER HFA (VENTOLIN HFA) 18 GM IH SCH (02:00)
[2020-02-07] MEDS: dilTIAZem DRIP 125 MG/125 ML DRIP IV SCH ×2 (02:52→14:56)
[2020-02-07] MEDS: VASOPRESSIN INJECTION 20 UNIT in NS (IVPB) 100 ML IV SCH ×3 (03:15→20:55)
[2020-02-07 03:19] LABS: BASOPHILS % (AUTO) 0 % (0-10); EOSINOPHILS % (AUTO) 0 % (0-10); HEMATOCRIT 30 % (40-54); HEMOGLOBIN 9.1 g/dL (13.3-17.7); LYMPHOCYTES # (AUTO) 4.3 10^3/uL (1.0-4.0); LYMPHOCYTES % (AUTO) 27 % (12-44); MEAN CORPUSCULAR HEMOGLOBIN 30 pg (25-34); MEAN CORPUSCULAR HGB CONC 31 g/dL (32-36); MEAN CORPUSCULAR VOLUME 98 fL (80-99); MONOCYTES # (AUTO) 3.9 10^3/uL (0.0-1.0); MONOCYTES % (AUTO) 25 % (0-12); NEUTROPHILS # (AUTO) 7.4 10^3/uL (1.8-7.8); NEUTROPHILS % (AUTO) 47 % (42-75); PLATELET COUNT 80 10^3/uL (130-400); WHITE BLOOD COUNT 15.8 10^3/uL (4.3-11.0)
[2020-02-07 03:30] LABS: ALBUMIN 2.8 GM/DL (3.2-4.5)
[2020-02-07 03:31] LABS: CHLORIDE 96 MMOL/L (98-107); POTASSIUM 4.9 MMOL/L (3.6-5.0); SODIUM 135 MMOL/L (135-145)
[2020-02-07 03:32] LABS: CALCIUM 7.9 MG/DL (8.5-10.1)
[2020-02-07 03:33] LABS: GLUCOSE 114 MG/DL (70-105); TOTAL PROTEIN 4.6 GM/DL (6.4-8.2)
[2020-02-07 03:34] LABS: CARBON DIOXIDE 27 MMOL/L (21-32)
[2020-02-07 03:35] LABS: BILIRUBIN,TOTAL 0.7 MG/DL (0.1-1.0)
[2020-02-07 03:36] LABS: ALKALINE PHOSPHATASE 86 U/L (40-136); PHOSPHORUS 3.7 MG/DL (2.3-4.7)
[2020-02-07 03:37] LABS: CREATININE SERUM 0.82 MG/DL (0.60-1.30); GFR ESTIMATED > 60
[2020-02-07 03:38] LABS: BUN/CREATININE RATIO 38
[2020-02-07 03:39] LABS: MAGNESIUM 1.9 MG/DL (1.6-2.4)
[2020-02-07 03:40] LABS: ALANINE AMINOTRANSFERASE 16 U/L (0-55)
[2020-02-07] MEDS: PIPERACILLIN/TAZO 4.5 GM/NS 100 ML IV SCH ×2 (06:50)
[2020-02-07] MEDS: RT-ALBUTEROL INHALER HFA (VENTOLIN HFA) 18 GM IH SCH ×5 (07:27→21:42)
[2020-02-07] MEDS: NOREPINEPHRINE 4 MG/250 ML 250 ML IV SCH (09:30)
[2020-02-07] MEDS ORDERED: ADENOSINE 6 MG/2 ML (ADENOCARD) VIAL IV ONE ×2 (11:42→12:00)
--- NOTE | 2020-02-07 11:51 | NUR ---
DR JUNE AT BEDSIDE, 6 MG ADENOSINE ORDERED, PT HEART RATE SLOWED, ATRIAL FLUTTER NOTED. HEART RATE RESUMED BACK TO 140S.
[2020-02-07] MEDS ORDERED: DIGOXIN 0.25 MG/ML (LANOXIN) 2 ML AMP ONE (11:52)
--- NOTE | 2020-02-07 13:56 | NUR ---
Note pt is currently receiving TF of Pulmocare 1.5 at rate of 30ml/hr with 30ml water flushes q2h for hydration. Pt would likely benefit from switching from Pulmocare to Jevity 1.5, as Pulmocare is specialized for vent pts as Jevity is a more all-purpose formula. Would recommend increases of 10ml q8h as tolerated, toward goal rate of 45ml/hr. At goal rate, provides 1440 kcal (31 kcal/kg); and 60 g Pro (1.3 g Pro/kg). Will continue to follow and reassess as pt needs, intake, and status change. Ana Beckwith, MS RD LD [phone] cell
--- NOTE | 2020-02-07 14:00 | NUR ---
family at bedside, called into room, due to when patient sat up in bed, L arm iv came out while spouse was sitting patient up on side of bed.
--- NOTE | 2020-02-07 14:26 | NUR ---
SPOKE WITH DR HASKINS, AFTER TALKING WITH DR BLANTON; THAT HE IS OKAY WITH PATIENT CONTINUING HIS GARGLE OF WATER HE DOES AT HOME, AND HAS DONE AT HOME FOR THE LAST 10 YEARS.
[2020-02-07] MEDS: CEFEPIME INJECTION 1,000 MG in WATER (STERILE) FOR INJECTION 10 ML IV SCH ×2 (14:55→21:19)
[2020-02-07] MEDS: metroNIDAZOLE 500MG/100ML IVPB 100 ML IV SCH ×2 (14:55→21:19)
--- NOTE | 2020-02-07 15:54 | Consultation-Cardiology ---
HPI-Cardiology Cardiology Consultation Date of Consultation 02/07/20 Date of Admission Time Seen by Provider: 11:45 Indication: Tachycardia HPI Patient is a 80 y/o male with history of PAD, nonHodgkins lymphoma, prostate CA, Hypotension. Presented to the ER with c/o increased weakness, dyspnea, weight loss and tachycardia over the past week. Hx of radiation therapy that has caused dysmotility of the esophagus, take feeds via PEG tube. Recently started radiation for prostate CA. , who is an oncologist here, reports patient has had tachycardia for the past 2 weeks. Denies any chest pain. Home Medications & Allergies Allergies: Coded Allergies: gentamicin (Verified Allergy, Severe, renal failure, 11/09/19) Home Medication List Reviewed: Yes AQO-Hzjffg-Aqqorw Hx Patient Social History Marital Status: Employed/Student: retired Alcohol Use: Denies Use Recreational Drug Use: No Smoking Status: Former Smoker Former smoker/When Quit: August 08, 1984 Type Used: Cigarettes 2nd Hand Smoke Exposure: Yes Recent Foreign Travel: No Recent Infectious Disease Expo: No Recent Hopitalizations: No Immunizations Up To Date Date of Pneumonia Vaccine: August 08, 2009 Past Medical History lymphoma, prostate CA, PAF Family Medical History Significant Family History: No Pertinent Family Hx Review of Systems-General Review of Systems Constitutional: see HPI; No chills, No fever; malaise, weakness EENTM: see HPI, blurred vision, mouth pain, nose congestion; No double vision Respiratory: see HPI, cough, dyspnea on exertion, short of breath Cardiovascular: see HPI; No chest pain, No edema Gastrointestinal: abdominal pain; No diarrhea Genitourinary: no symptoms reported Musculoskeletal: No back pain; muscle weakness Skin: no symptoms reported Psychiatric/Neurological: No Symptoms Reported All Other Systems Reviewed Negative Unless Noted: Yes Reviewed Test Results Reviewed Test Results Lab Laboratory Tests 02/06/20 17:15: 02/06/20 17:35: Lactic Acid Level 2.98*H 02/06/20 17:40: Coronavirus 2019 ([facility]) Negative 02/06/20 20:05: Lactic Acid Level 3.36*H 02/07/20 02:50: White Blood Count 15.8H, Red Blood Count 3.03L, Hemoglobin 9.1L, Hematocrit 30L, Mean Corpuscular Volume 98, Mean Corpuscular Hemoglobin 30, Mean Corpuscular Hemoglobin Concent 31L, Red Cell Distribution Width 15.9H, Platelet Count 80L, Mean Platelet Volume 10.0, Immature Granulocyte % (Auto) 1, Neutrophils (%) (Auto) 47, Lymphocytes (%) (Auto) 27, Monocytes (%) (Auto) 25H, Eosinophils (%) (Auto) 0, Basophils (%) (Auto) 0, Neutrophils # (Auto) 7.4, Lymphocytes # (Auto) 4.3H, Monocytes # (Auto) 3.9H, Eosinophils # (Auto) 0.0, Basophils # (Auto) 0.0, Immature Granulocyte # (Auto) 0.2H, Sodium Level 135, Potassium Level 4.9, Chloride Level 96L, Carbon Dioxide Level 27, Anion Gap 12, Blood Urea Nitrogen 31H, Creatinine 0.82, Estimat Glomerular Filtration Rate > 60, BUN/Creatinine Ratio 38, Glucose Level 114H, Lactic Acid Level 2.61*H, Calcium Level 7.9L, Corrected Calcium 8.9, Phosphorus Level 3.7, Magnesium Level 1.9, Total Bilirubin 0.7, Aspartate Amino Transf (AST/SGOT) 58H, Alanine Aminotransferase (ALT/SGPT) 16, Alkaline Phosphatase 86, Total Protein 4.6L, Albumin 2.8L, Procalcitonin 0.20H 02/07/20 06:44: Lactic Acid Level 2.84*H 02/07/20 09:20: Lactic Acid Level 2.96*H 02/07/20 11:33: Lactic Acid Level 2.90*H 02/07/20 13:10: Lactic Acid Level 3.48*H Microbiology 02/06/20 Urine Culture - Final, Complete NO GROWTH ECG Impression ECG Initial ECG Impression: Atrial Fibrillation w/RVR Physical Exam Physical Exam Vital Signs Vital Signs - First Documented 02/06/20 02/06/20 13:45 22:31 Temp 36.3 Pulse 135 Resp 27 B/P (MAP) 113/87 (96) Pulse Ox 100 O2 Delivery Nasal Cannula O2 Flow Rate 5.00 FiO2 40 Capillary Refill : Less Than 3 Seconds Height, Weight, BMI Height: 5'11.00" Weight: 105lbs. 5.0oz. 47.308338na; 13.00 BMI Method:Stated General Appearance: Chronically ill, Mild Distress HEENT: PERRL/EOMI, Other (Dry mucous membranes) Neck: Non Tender, Supple Respiratory: Lungs Clear, Normal Breath Sounds Cardiovascular: Regular Rate, Rhythm, No Murmur Gastrointestinal: Non Tender, Soft Back: Normal Inspection, No CVA Tenderness, No Vertebral Tenderness Extremity: Normal Range of Motion, Non Tender Neurologic/Psychiatric: Alert, Depressed Affect A/P-Cardiology Admission Diagnosis AFib/flutter with RVR Pneumonia Dyspnea Hypotension Assessment/Plan Pneumonia, on IV antibiotics, COVID-19 PUI, rapid negative, PCR pending. Management per medical services Afib/flutter with RVR, hx of PAF. Gave Adenosine IV revealing underlying atrial flutter. Continue on Lovenox. I will add digoxin and continue to monitor. Hypotension, continue supportive care. Echo of 12/31/16: LVEF 60-65%, no pericard eff, PASP 30-35 mmHg Anemia and mild thrombocytopenia, apparently chronic, managed by the [facility] [place], recently started radiation therapy H/o of non-Hodgkin's lymphoma 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 Chronically on TPN S/p PEG placement on 01/05/17 Thank you for allowing us to participate in the management of Mr. Shaver. This is Marito Callejas PA-C, as a scribe for Dr. Ralph. Patient was seen and evaluated with Marito, examination performed, management plan was discussed, agree with the current scribed note, I made few changes to the note using Italic font Patient was seen at bedside, lethargic, generalized fatigue and shortness of breath Still tachycardic with heart rate 140. I proceeded with giving him Adenosine 6 mg IV which caused a positive in his conduction showing underlying atrial flutter. Continue on current treatment and I will add digoxin and evaluate tolerance and response. Clinical Quality Measures DVT/VTE Risk/Contraindication: Risk Factor Score Per Nursin RFS Level Per Nursing on Admit: 3=High MARITO DAVID Feb 07, 2020 3:54 pm TOBY RALPH MD Feb 07, 2020 4:48 pm
[2020-02-07] MEDS ORDERED: ENOXAPARIN 60 MG/0.6 ML (LOVENOX) SYR SC SCH (17:00)
[2020-02-07] MEDS ORDERED: VANCOMYCIN 750 MG/NS 250 ML IVPB IV SCH ×2 (17:00)
--- NOTE | 2020-02-07 17:39 | History & Physical-Hospitalist ---
History of Present Illness HPI/Chief Complaint Masood Shaver is a 80-year-old male with past medical history of non-Hodgkin lymphoma, dysphagia due to radiation therapy, PEG tube dependent, prostate cancer, hypothyroidism, who presented with weakness. It is difficult to obtain history as he is nonverbal and must respond by writing. I spoke with his who provided the majority of the history. He had been feeling short of breath. He had a recent pneumonia and was being treated at home with IV antibiotics, cefepime. The culture had grown 2 strains of Pseudomonas. He had initially gotten better but then had been getting worse lately. He is been having rapid heart rate. His had been encouraging him to come into the hospital but he was reluctant. His main concern upon my examination was thick sputum. He is requesting to gargle water to alleviate this symptom. Source: patient, family Exam Limitations: physical impairment Date Seen 02/07/20 Time Seen by a Provider: 09:35 Attending Physician Sadie Haskins MD PCP Deja Wallace DO Referring Physician Date of Admission Feb 06, 2020 at 16:54 Home Medications & Allergies Home Medications Reviewed patient Home Medication Reconciliation performed by pharmacy medication reconciliations ground control approach technician and/or nursing. Patients Allergies have been reviewed. Allergies Allergies Coded Allergies gentamicin (Verified Allergy, Severe, renal failure, 11/09/19) Past Jyfceea-Mkmlsi-Llsytc Hx Past Med/Social Hx: Reviewed Nursing Past Med/Soc Hx Patient Social History Marrital Status: Employed/Student: retired Alcohol Use: Denies Use Recreational Drug Use: No Smoking Status: Former Smoker Former Smoker, Quit: Nov 08, 1972 Type Used: Cigarettes 2nd Hand Smoke Exposure: Yes Recent Foreign Travel: No Contact w/other who traveled: No Recent Hopitalizations: No Recent Infectious Disease Expo: No Immunizations Up To Date Date of Pneumonia Vaccine: August 08, 2009 Seasonal Allergies Seasonal Allergies: No Past Medical History Surgeries: Appendectomy Respiratory: Pneumonia Cardiac: Atrial Fibrillation Sexually Transmitted Disease: No HIV/AIDS: No Genitourinary: Renal Failure Gastrointestinal: Gastroesophageal Reflux Endocrine: Hypothyroidsim Loss of Vision: Denies Hearing Impairment: Hard of Hearing Cancer: Prostate, Lymphoma Did You Recieve Any Treatments: Yes What Type of Treatment Did You: Chemotherapy, Radiation Psychosocial: Anxiety History of Blood Disorders: Yes (HX ANEMIA) Adverse Reaction to Blood Rodriguez: No (N/A) Family History Reviewed Nursing Family Hx No Pertinent Family Hx Review of Systems Constitutional: malaise, weakness, weight loss EENTM: other (thick secretions) Respiratory: short of breath Cardiovascular: no symptoms reported Gastrointestinal: no symptoms reported Genitourinary: no symptoms reported Musculoskeletal: no symptoms reported Skin: no symptoms reported Psychiatric/Neurological: No Symptoms Reported Physical Exam Physical Exam Vital Signs Vital Signs - First Documented 02/06/20 02/06/20 13:45 22:31 Temp 36.3 Pulse 135 Resp 27 B/P (MAP) 113/87 (96) Pulse Ox 100 O2 Delivery Nasal Cannula O2 Flow Rate 5.00 FiO2 40 Capillary Refill : Less Than 3 Seconds Height, Weight, BMI Height: 5'11.00" Weight: 105lbs. 5.0oz. 47.667256md; 13.00 BMI Method:Stated General Appearance: No Apparent Distress, Chronically ill, Cachetic HEENT: PERRL/EOMI, Other (dry mucous membranes) Neck: Normal Inspection, Supple Respiratory: No Respiratory Distress, Other (coarse breath sounds bilaterally, wearing Vapotherm) Cardiovascular: Regular Rate, Rhythm, No Edema, No Murmur Gastrointestinal: Normal Bowel Sounds, Non Tender, Soft Extremity: Normal Inspection, Non Tender, No Pedal Edema Neurologic/Psychiatric: Alert, Motor Weakness Skin: Warm/Dry, Pallor Results Results/Procedures Labs Laboratory Tests 02/06/20 14:00 02/06/20 14:54 02/07/20 02:50 Patient resulted labs reviewed. Imaging: Reviewed Imaging Report Assessment/Plan Admission Diagnosis Severe sepsis due to pneumonia Admission Status: Inpatient Order (span 2 midnights) Reason for Inpatient Admission: PNA requiring IV antibiotics and fluids Assessment and Plan Severe sepsis due to pneumonia Acute respiratory failure with hypoxia Acute kidney injury Lactic acidosis Acute respiratory failure with hypoxia Person under investigation for COVID-19 SIRS+ with tachycardia, tachypnea, and leukocytosis Chest CT revealed bilateral pneumonia Creatinine elevated on arrival 1.5, improved this morning Lactic acid elevated 3.99 on arrival, trending down Continue IV fluids Started on Vancomycin and Zosyn Recent sputum culture with Pseudomonas with intermediate Zosyn sensitivity and carbapenem-resistant Transition to Cefepime Add Flagyl Continue IV fluids Continue Vapotherm Does not want to be intubated, DNI Atrial flutter with RVR Cardiology consulted, appreciate assistance IV Cardizem Digoxin Therapeutic Lovenox History of non-Hodgkin's lymphoma Prostate cancer Currently undergoing radiation for prostate cancer Hypothyroidism GERD Continue home meds Severe protein calorie malnutrition Continue PEG tube feeds DVT Prophylaxis: already receiving therapeutic anticoagulation Diagnosis/Problems Diagnosis/Problems (1) Severe sepsis Status: Acute (2) Bilateral pneumonia Status: Acute Qualifiers: Pneumonia type: due to unspecified organism Lung location: lower lobe of lung Qualified Codes: J18.9 - Pneumonia, unspecified organism (3) Person under investigation for COVID-19 Status: Acute (4) Atrial fibrillation with RVR Status: Acute (5) Prostate cancer Status: Chronic (6) Lymphoma Status: Chronic Qualifiers: Lymphoma type: non-Hodgkin (7) DNI (do not intubate) Status: Acute Clinical Quality Measures DVT/VTE Risk/Contraindication: Risk Factor Score Per Nursin RFS Level Per Nursing on Admit: 3=High SADIE HASKINS MD Feb 07, 2020 17:39
[2020-02-08] MEDS: NOREPINEPHRINE 4 MG/250 ML 250 ML IV SCH (00:58)
[2020-02-08] MEDS ORDERED: PANTOPRAZOLE 40 MG (PROTONIX) TAB PO ONE (01:30)
[2020-02-08] MEDS: RT-ALBUTEROL INHALER HFA (VENTOLIN HFA) 18 GM IH SCH ×6 (02:12→21:15)
[2020-02-08] MEDS ORDERED: PANTOPRAZOLE 40 MG (PROTONIX) VIAL IV ONE (02:15)
[2020-02-08] MEDS: VASOPRESSIN INJECTION 20 UNIT in NS (IVPB) 100 ML IV SCH ×2 (04:50→12:29)
[2020-02-08] MEDS: LACTATED RINGERS 1,000 ML IV SCH ×2 (04:51→10:07)
[2020-02-08] MEDS: dilTIAZem DRIP 125 MG/125 ML DRIP IV SCH ×2 (04:52→22:13)
[2020-02-08 05:49] LABS: BASOPHILS % (AUTO) 0 % (0-10); EOSINOPHILS % (AUTO) 0 % (0-10); HEMATOCRIT 30 % (40-54); HEMOGLOBIN 9.1 g/dL (13.3-17.7); LYMPHOCYTES # (AUTO) 5.8 10^3/uL (1.0-4.0); LYMPHOCYTES % (AUTO) 32 % (12-44); MEAN CORPUSCULAR HEMOGLOBIN 30 pg (25-34); MEAN CORPUSCULAR HGB CONC 30 g/dL (32-36); MEAN CORPUSCULAR VOLUME 98 fL (80-99); MEAN PLATELET VOLUME 9.8 fL (9.0-12.2); MONOCYTES % (AUTO) 28 % (0-12); NEUTROPHILS # (AUTO) 7.1 10^3/uL (1.8-7.8); NEUTROPHILS % (AUTO) 39 % (42-75); PLATELET COUNT 79 10^3/uL (130-400); WHITE BLOOD COUNT 18.1 10^3/uL (4.3-11.0)
[2020-02-08 06:29] LABS: CHLORIDE 96 MMOL/L (98-107); POTASSIUM 4.6 MMOL/L (3.6-5.0); SODIUM 136 MMOL/L (135-145)
[2020-02-08 06:30] LABS: CALCIUM 7.9 MG/DL (8.5-10.1)
[2020-02-08 06:31] LABS: GLUCOSE 108 MG/DL (70-105)
[2020-02-08 06:32] LABS: CARBON DIOXIDE 28 MMOL/L (21-32)
[2020-02-08 06:34] LABS: PHOSPHORUS 3.8 MG/DL (2.3-4.7)
[2020-02-08 06:35] LABS: GFR ESTIMATED > 60
[2020-02-08 06:36] LABS: BUN/CREATININE RATIO 41
[2020-02-08 06:37] LABS: MAGNESIUM 1.8 MG/DL (1.6-2.4)
[2020-02-08] MEDS: CEFEPIME INJECTION 1,000 MG in WATER (STERILE) FOR INJECTION 10 ML IV SCH ×3 (06:44→17:36)
[2020-02-08] MEDS: metroNIDAZOLE 500MG/100ML IVPB 100 ML IV SCH ×2 (06:44→22:15)
[2020-02-08] MEDS: DIGOXIN 0.125 MG (LANOXIN) TAB PO SCH (08:46)
[2020-02-08] MEDS ORDERED: AMIODARONE INJECTION 150 MG in D5W 100 ML IVPB 100 ML IV NR (09:15)
--- NOTE | 2020-02-08 09:50 | Cardiology Progress Note ---
Subjective Date Seen by Provider: Feb 08, 2020 Time Seen by Provider: 09:48 Subjective/Events-last exam Patient was seen at bedside laying down comfortably, complaining of fatigue and loss of energy Review of Systems General: No Chills, No Night Sweats; Fatigue, Malaise; No Appetite, No Other HEENT: No Head Aches, No Visual Changes, No Eye Pain, No Ear Pain, No Dysp hasia, No Sinus Congestion, No Post Nasal Drip, No Sore Throat, No Other Pulmonary: Dyspnea; No Cough, No Pleuritic Chest Pain, No Other Cardiovascular: No: Chest Pain, Palpitations, Orthopnea, Paroxysmal Noc. Dyspnea, Edema, Lt Headedness, Other Focused Exam Lactate Level 02/07/20 13:10: Lactic Acid Level 3.48*H 02/07/20 19:49: Lactic Acid Level 2.98*H 02/08/20 05:38: Lactic Acid Level 3.75*H Objective-Cardiology Exam Last Set of Vital Signs Vital Signs 02/08/20 02/08/20 07:17 09:00 Pulse 141 Resp 16 B/P (MAP) 116/87 Pulse Ox 93 O2 Delivery Vapotherm O2 Flow Rate 30.00 75.00 FiO2 75 Capillary Refill : Less Than 3 Seconds I&O Intake and Output 02/08/20 00:00 Intake Total 1520 ml Output Total 1500 ml Balance 20 ml Intake Oral 0 ml IV Total 1220 ml Tube Feeding 300 ml Output Urine Total 1500 ml General: Alert, Oriented X3, Cooperative HEENT: Atraumatic, PERRLA Neck: Supple, No JVD, No Thyromegaly Lungs: Normal Air Movement, Other (bilateral rhonchi) Heart: Normal S1, Normal S2, No Murmurs, Other (tachycardia, irregular) Abdomen: Normal Bowel Sounds, Soft, No Tenderness, No Hepatosplenomegaly, No Masses Extremities: No Clubbing, No Cyanosis, No Edema, Normal Pulses, No Tenderness/Swelling Skin: No Rashes, No Breakdown, No Significant Lesion Neuro: Normal Speech, Sensation Intact Psych/Mental Status: Mental Status NL, Mood NL Results Lab Laboratory Tests 02/08/20 05:37 A/P-Cardiology Admission Diagnosis AFib/flutter with RVR Pneumonia Dyspnea Hypotension Assessment/Plan Pneumonia, on IV antibiotics, managed by primary care team Afib/flutter with RVR, hx of PAF. Still borderline tachycardic, hypotensive, cannot tolerate any additional calcium channel blockers or beta blockers. I started Glen yesterday, I will add amiodarone and monitor tolerance and response Hypotension, continue supportive care. Echo of 12/31/16: LVEF 60-65%, no pericard eff, PASP 30-35 mmHg Anemia and mild thrombocytopenia, apparently chronic, managed by the [facility] [place], recently started radiation therapy H/o of non-Hodgkin's lymphoma 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 Chronically on TPN S/p PEG placement on 01/05/17 Clinical Quality Measures DVT/VTE Risk/Contraindication: Risk Factor Score Per Nursin RFS Level Per Nursing on Admit: 3=High TOBY JUNE MD Feb 08, 2020 9:50 am
[2020-02-08] MEDS: ENOXAPARIN 60 MG/0.6 ML (LOVENOX) SYR SC SCH ×2 (10:05→22:14)
[2020-02-08] MEDS: AMIODARONE INJECTION 450 MG in D5W IV SOLUTION (EXCEL) 250 ML IV SCH ×2 (10:20→17:46)
--- NOTE | 2020-02-08 14:15 | NUR ---
Pt attempted to come to bedside. This RN notified that visitors are not allowed at this time. Dr. Kasper called et will come up to speak to outside of ICU
--- NOTE | 2020-02-08 14:30 | NUR ---
et Dr. Kasper at bedside. stated she is now primary care/attending doc on this pt and no longer Dr. Kasper. , Dr. Pedersen, giving verbal orders for fluid changes, abx changes, et imaging. Dr. Pedersen informed to place orders in computer so this is no miscommunication
--- NOTE | 2020-02-08 14:40 | NUR ---
Dr. Pedersen stated to keep pt's sat around 88% et BPs 80s/50s. Asked Dr. Pedersen to put in an order and communication for this.
--- NOTE | 2020-02-08 14:44 | Progress Note ---
Progress Note Patient care transferred to RADHA Tee MD Feb 08, 2020 14:44
--- NOTE | 2020-02-08 15:40 | NUR ---
, Dr. Pedersen in room, et pt O2 sat in 50s. Dr. Pedersen stated she took VapoTherm off et placed EasyPap on pt, connected to 10L at wall becuase she thought pt breathing through his mouth would help. RT called to bedside.
--- NOTE | 2020-02-08 15:45 | NUR ---
RT CALLED TO PT'S ROOM DUE TO OXYGEN SATURATIONS IN THE "50'S". STATES VAPOTHERM HAD A RED LIGHT SO SHE HIT THE BUTTON AND IT WENT OFF. SHE PUSHED THE BUTTON TO COME BACK ON AND IT WENT OFF AGAIN. UPON ARRIVAL OXYGEN SATURATION WAS 71% AND HAD GIVEN THE PATIENT THE EZPAP (ON AT 10 L/M) TO HOLD IN HIS MOUTH TO TRY AND IMPROVE SATURATIONS, BECAUSE SHE HAD INFORMED ME SHE TRIED TO PUT A DIFFERENT OXYGEN CANNULA ON HIM BUT IT BECAME DISCONNECTED FROM THE WALL (SHE HAD STATED SHE COULDN'T GET THE "OXYGEN ON" SO SHE PUSH "THIS BUTTON" (WHICH WAS THE FLOWMETER RELEASE BUTTON). RT TURNED VAPOTHERM FIO2 UP TO 70% WITH LITTLE IMPROVEMENT, THEN 80%, AND FINALLY 90% AND INCREASED TO FLOW TO 30 L/M. AFTER A FEW MINUTES THE PATIENT'S OXYGEN LEVELS CLIMBED TO 92%. FIO2 DECREASED DOWN TO 70% AND FLOW BACK DOWN TO 25 L/M. RN NOTIFIED OF CHANGES. Addendum: 02/08/20 at 1600 by OMI KEENAN RT Amended: Links added.
--- NOTE | 2020-02-08 15:56 | NUR ---
START ZOSYN 4.5 GM IV BOLUS THEN Q8H RBTO PER DR BLANTON 1555 02-08-20
[2020-02-08] MEDS ORDERED: PIPERACILLIN/TAZO 4.5 GM/NS 100 ML IV NR ×2 (16:00)
--- NOTE | 2020-02-08 16:06 | Diagnostic Imaging Report ---
HISTORY: Pleural effusions. COMPARISON: 02/06/2020. TECHNIQUE: Frontal view of the chest. FINDINGS: Lung volumes are decreased compared to the prior exam. There are moderate bilateral pleural effusions. These appear mildly increased compared to the prior study. There are airspace opacities in the lung bases, most likely atelectasis. The cardiac silhouette is obscured. The right PICC line tip projects over the cavoatrial junction. There is no pneumothorax. IMPRESSION: Moderate bilateral pleural effusions, appear mildly increased compared to the prior exam. Dictated by: Dictated on workstation # [id number]
[2020-02-08 16:30] LABS: ALBUMIN 2.6 GM/DL (3.2-4.5)
--- NOTE | 2020-02-08 16:32 | Progress Note ---
Progress Note Assessment/Plan Date Seen by Provider: Feb 08, 2020 Time Seen by Provider: 16:26 Events since last exam Assume care from Dr Kasper. Pt is very weak, not able to hold up his head. Hypoxia requires 90-100% FiO2 on Vapotherm. T max 38. General edema. Bilateral upper extremity wiping and skin breakdown due to the edema. Bilateral lung sound coarse Abdomen soft, no tender PEG tube function. Assessment/Plan 1. Bilateral pneumonia, consolidation on CXR and CT. 2. Bilateral pleural effusion, large on the right and mod on the left. 3. Dysphagia on PEG tube. Pt has been on PEG tube at home for over 5 years. 4. Afib due to #1 with rapid ventricular response. HR 130-140s/min 5. Thrombocytopenia 2nd to infection. 6. Hypertensive. 7. 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 8. H/o prostate cancer, stage II. s/p external beam radiation. Plan: 1.Continue IV Cefepime, Flagyl and Zosyn. 2. Continue cardizem and amiodoeron per engineering faculty 3. f/u culture from the repeat sputum here and sensitivities 4. Keep O2 sat 88% 5. Repeat CBC, CMP, CXR in the AM lab. Vitals Last set of Vitals Signs Vital Signs Date Time Temp Pulse Resp B/P (MAP) Pulse Ox O2 Delivery O2 Flow Rate FiO2 02/08/20 15:06 91 Vapotherm 25.00 55 02/08/20 15:00 134 17 93/63 02/08/20 12:00 37.1 I&O I&O Intake and Output 02/08/20 00:00 Intake Total 1520 ml Output Total 1500 ml Balance 20 ml Intake Oral 0 ml IV Total 1220 ml Tube Feeding 300 ml Output Urine Total 1500 ml Labs Laboratory Tests 02/07/20 19:49: Lactic Acid Level 2.98*H 02/08/20 05:37: White Blood Count 18.1H, Red Blood Count 3.08L, Hemoglobin 9.1L, Hematocrit 30L, Mean Corpuscular Volume 98, Mean Corpuscular Hemoglobin 30, Mean Corpuscular Hemoglobin Concent 30L, Red Cell Distribution Width 16.1H, Platelet Count 79L, Mean Platelet Volume 9.8, Immature Granulocyte % (Auto) 1, Neutrophils (%) (Auto) 39L, Lymphocytes (%) (Auto) 32, Monocytes (%) (Auto) 28H, Eosinophils (%) (Auto) 0, Basophils (%) (Auto) 0, Neutrophils # (Auto) 7.1, Lymphocytes # (Auto) 5.8H, Monocytes # (Auto) 5.0H, Eosinophils # (Auto) 0.0, Basophils # (Auto) 0.0, Immature Granulocyte # (Auto) 0.2H, Sodium Level 136, Potassium Level 4.6, Chloride Level 96L, Carbon Dioxide Level 28, Anion Gap 12, Blood Urea Nitrogen 29H, Creatinine 0.70, Estimat Glomerular Filtration Rate > 60, BUN/Creatinine Ratio 41, Glucose Level 108H, Calcium Level 7.9L, Phosphorus Level 3.8, Magnesium Level 1.8 02/08/20 05:38: Lactic Acid Level 3.75*H Microbiology 02/06/20 MRSA Screen - Final, Complete MRSA not isolated 02/06/20 Urine Culture - Final, Complete NO GROWTH 02/06/20 Blood Culture - Preliminary, Resulted No growth Focused Exam Lactate Level 02/07/20 13:10: Lactic Acid Level 3.48*H 02/07/20 19:49: Lactic Acid Level 2.98*H 02/08/20 05:38: Lactic Acid Level 3.75*H Clinical Quality Measures DVT/VTE Risk/Contraindication: Risk Factor Score Per Nursin RFS Level Per Nursing on Admit: 3=High LYNDA BLANTON MD Feb 08, 2020 16:32
[2020-02-08 16:33] LABS: TOTAL PROTEIN 4.3 GM/DL (6.4-8.2)
[2020-02-08 16:34] LABS: BILIRUBIN,TOTAL 0.6 MG/DL (0.1-1.0)
[2020-02-08 16:35] LABS: ALKALINE PHOSPHATASE 78 U/L (40-136)
[2020-02-08 16:38] LABS: BILIRUBIN,DIRECT 0.3 MG/DL (0.0-0.3); BILIRUBIN,INDIRECT 0.3 MG/DL
[2020-02-08 16:39] LABS: ALANINE AMINOTRANSFERASE 15 U/L (0-55)
--- NOTE | 2020-02-08 17:00 | NUR ---
, Dr. Pedersen at bedside massaging pt's feet. Denies needs
[2020-02-08] MEDS: CHLORHEXIDINE 0.12% SOLN 15 ML (PERIDEX) UDC PO SCH ×2 (17:36→22:14)
--- NOTE | 2020-02-08 18:20 | NUR ---
, Dr. Pedersen, at bedside. Pt sats down to 63%. Pt sitting up at bedside with gargling warm water. , Dr. Pedersen, styates "he is fine" and they do not need help.
--- NOTE | 2020-02-08 22:00 | NUR ---
2000hrs. Dr Robledo () at bedside. Order clarification regarding Tube feeding order. Dr. Robledo states, "pulmcare @ 60 ml/hr s water flushes. This RN verbalizes understanding.
[2020-02-08] MEDS: PIPERACILLIN/TAZO 4.5 GM/NS 100 ML IV SCH ×2 (22:15)
--- NOTE | 2020-02-09 00:15 | NUR ---
0000 hrs. This RN sees that tube feed rate has been decreased to 40 ml/hr on TF pump. Dr Robledo is no longer at bedside at this time. This RN increases rate of TF to 60 ml/hr per previous order from Dr Robledo. Will continue to monitor. Pt continues to refuse repositioning despite multiple attempts to educate on risk for skin breakdown.
[2020-02-09] MEDS ORDERED: CEFEPIME 1 GM/10 ML (MAXIPIME) VIAL ONE ×4 (00:32→19:43)
[2020-02-09] MEDS ORDERED: WATER (STERILE) FOR INJECTION 10 ML ONE ×4 (00:32→19:42)
[2020-02-09] MEDS: CEFEPIME INJECTION 1,000 MG in WATER (STERILE) FOR INJECTION 10 ML IV SCH ×4 (00:37→19:50)
[2020-02-09] MEDS: RT-ALBUTEROL INHALER HFA (VENTOLIN HFA) 18 GM IH SCH ×6 (01:58→22:17)
[2020-02-09 04:47] LABS: BASOPHILS % (AUTO) 0 % (0-10); EOSINOPHILS % (AUTO) 0 % (0-10); HEMATOCRIT 30 % (40-54); HEMOGLOBIN 9.2 g/dL (13.3-17.7); LYMPHOCYTES # (AUTO) 2.8 10^3/uL (1.0-4.0); LYMPHOCYTES % (AUTO) 16 % (12-44); MEAN CORPUSCULAR HEMOGLOBIN 30 pg (25-34); MEAN CORPUSCULAR HGB CONC 31 g/dL (32-36); MEAN CORPUSCULAR VOLUME 98 fL (80-99); MONOCYTES # (AUTO) 6.2 10^3/uL (0.0-1.0); MONOCYTES % (AUTO) 35 % (0-12); NEUTROPHILS # (AUTO) 8.7 10^3/uL (1.8-7.8); NEUTROPHILS % (AUTO) 49 % (42-75); PLATELET COUNT 72 10^3/uL (130-400); WHITE BLOOD COUNT 17.9 10^3/uL (4.3-11.0)
[2020-02-09 05:00] LABS: ALBUMIN 2.5 GM/DL (3.2-4.5); CHLORIDE 95 MMOL/L (98-107); POTASSIUM 4.7 MMOL/L (3.6-5.0); SODIUM 136 MMOL/L (135-145)
[2020-02-09 05:01] LABS: CALCIUM 7.8 MG/DL (8.5-10.1)
[2020-02-09 05:02] LABS: GLUCOSE 106 MG/DL (70-105)
[2020-02-09 05:03] LABS: TOTAL PROTEIN 4.2 GM/DL (6.4-8.2)
[2020-02-09 05:04] LABS: BILIRUBIN,TOTAL 0.8 MG/DL (0.1-1.0); CARBON DIOXIDE 27 MMOL/L (21-32)
[2020-02-09 05:06] LABS: ALKALINE PHOSPHATASE 86 U/L (40-136); CREATININE SERUM 0.71 MG/DL (0.60-1.30); GFR ESTIMATED > 60; PHOSPHORUS 4.3 MG/DL (2.3-4.7)
[2020-02-09 05:07] LABS: BUN/CREATININE RATIO 44
[2020-02-09 05:09] LABS: ALANINE AMINOTRANSFERASE 15 U/L (0-55); MAGNESIUM 1.9 MG/DL (1.6-2.4)
[2020-02-09] MEDS: PIPERACILLIN/TAZO 4.5 GM/NS 100 ML IV SCH ×8 (05:11→22:04)
[2020-02-09] MEDS: metroNIDAZOLE 500MG/100ML IVPB 100 ML IV SCH ×3 (05:12→22:03)
[2020-02-09] MEDS: PANTOPRAZOLE 40 MG (PROTONIX) VIAL IV SCH (06:05)
--- NOTE | 2020-02-09 06:35 | NUR ---
[address] BLANTON AT BEDSIDE. CLARIFICATION FOR TUBE FEEDING, CODE STATUS, AND BP PARAMETERS OBTAINED BY THIS RN. PLEASE SEE ORDERS FOR FURTHER DETAILS.
--- NOTE | 2020-02-09 07:49 | Diagnostic Imaging Report ---
INDICATION: Dyspnea 0647 Since study of one day earlier, bilateral airspace disease has not significantly changed. There is continued blunting of both costophrenic sulci. There is no evidence of pneumothorax. Right upper extremity PICC is in stable position. IMPRESSION: Extensive bilateral airspace disease with a basilar predominance and associated bilateral pleural fluid. Overall appearance of the chest is stable or slightly worsened compared to previous study. Dictated by: Dictated on workstation # [id number]
--- NOTE | 2020-02-09 07:52 | NUR ---
Met wit pt and , Dr. Robledo for nutrition follow-up. Pt is tolerating TF well, per Dr. Robledo. Dr Robledo states that pt has been on TF for the last 5 years. Note pt is receiving Pulmocare 1.5 kcal (for COPD) at rate of 60ml/hr between 2107-3124; and at 40ml/hr between 9870-3044. Note there were no flushes ordered, per chart review. Current TF regimen provides 1860 kcal (26 kcal/kg); 78 g Pro (1.1 g Pro/kg); and 973ml free water. Discussed with importance of having water flushes and keeping the tube from clogging. Recommend adding 25ml free water flushes q4h. With flushes, provides 1123ml free water. Will continue to follow and reassess pt needs, intake, and status change. Ana Beckwith, MS RD LD [phone] cell
[2020-02-09] MEDS: DIGOXIN 0.125 MG (LANOXIN) TAB PO SCH (08:49)
[2020-02-09] MEDS: ENOXAPARIN 60 MG/0.6 ML (LOVENOX) SYR SC SCH (08:50)
[2020-02-09] MEDS: CHLORHEXIDINE 0.12% SOLN 15 ML (PERIDEX) UDC PO SCH ×3 (08:52→20:04)
--- NOTE | 2020-02-09 11:14 | Cardiology Progress Note ---
Subjective Date Seen by Provider: Feb 09, 2020 Time Seen by Provider: 11:13 Subjective/Events-last exam Patient was seen at bedside, appeared to be improving slowly. No new complaint. Review of Systems General: No Chills, No Night Sweats; Fatigue, Malaise; No Appetite, No Other HEENT: No Head Aches, No Visual Changes, No Eye Pain, No Ear Pain, No Dysphasia, No Sinus Congestion, No Post Nasal Drip, No Sore Throat, No Other Pulmonary: Dyspnea; No Cough, No Pleuritic Chest Pain, No Other Cardiovascular: No: Chest Pain, Palpitations, Orthopnea, Paroxysmal Noc. Dyspnea, Edema, Lt Headedness, Other Focused Exam Lactate Level 02/07/20 13:10: Lactic Acid Level 3.48*H 02/07/20 19:49: Lactic Acid Level 2.98*H 02/08/20 05:38: Lactic Acid Level 3.75*H Objective-Cardiology Exam Last Set of Vital Signs Vital Signs 02/08/20 02/09/20 02/09/20 02/09/20 21:00 04:00 10:00 10:41 Temp 37.2 Pulse 128 Resp 24 B/P (MAP) 99/68 Pulse Ox 91 O2 Delivery High Flow N/C O2 Flow Rate 15.00 FiO2 75 Capillary Refill : Less Than 3 Seconds I&O Intake and Output 02/09/20 00:00 Intake Total 2963 ml Output Total 1750 ml Balance 1213 ml IV Total 1823 ml Tube Feeding 1080 ml Other 60 ml Output Urine Total 1750 ml General: Alert, Oriented X3, Cooperative HEENT: Atraumatic, PERRLA Neck: Supple, No JVD, No Thyromegaly Lungs: Normal Air Movement, Other (bilateral rhonchi) Heart: Normal S1, Normal S2, No Murmurs, Other (tachycardia, irregular) Abdomen: Normal Bowel Sounds, Soft, No Tenderness, No Hepatosplenomegaly, No Masses Extremities: No Clubbing, No Cyanosis, No Edema, Normal Pulses, No Tenderness/Swelling Skin: No Rashes, No Breakdown, No Significant Lesion Neuro: Normal Speech, Sensation Intact Psych/Mental Status: Mental Status NL, Mood NL Results Lab Laboratory Tests 02/09/20 04:30 A/P-Cardiology Admission Diagnosis AFib/flutter with RVR Pneumonia Dyspnea Hypotension Assessment/Plan Bilateral pneumonia, receiving antibiotics, managed and followed by primary care team Afib/flutter with RVR, hx of PAF. Still borderline tachycardic, hypotensive, cannot tolerate any additional calcium channel blockers or beta blockers. Tolerating amiodarone and digoxin well. Continue to monitor Hypotension, his baseline blood pressure at home is in the 90s, continue to monitor closely Echo of 12/31/16: LVEF 60-65%, no pericard eff, PASP 30-35 mmHg Anemia and mild thrombocytopenia, apparently chronic, managed by the 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 Chronically on TPN S/p PEG placement on 01/05/17 Clinical Quality Measures DVT/VTE Risk/Contraindication: Risk Factor Score Per Nursin RFS Level Per Nursing on Admit: 3=High TOBY JUNE MD Feb 09, 2020 11:14
[2020-02-09] MEDS: AMIODARONE 200 MG (CORDARONE) TAB PO SCH ×2 (12:10→20:04)
[2020-02-09] MEDS ORDERED: ALBUMIN 25% 25 GM/100 ML 100 ML IV ONE (12:45)
--- NOTE | 2020-02-09 12:47 | Progress Note ---
Progress Note Assessment/Plan Date Seen by Provider: Feb 09, 2020 Time Seen by Provider: 12:47 Events since last exam Pt is still very weak, not able to hold up his head up. Hypoxia was better last night. He was on NC O2 10-15L last night, but returned back to 90-100% FiO2 on Vapotherm during the day. T max 37. General edema. Bilateral upper extremity wiping and skin breakdown due to the edema. Bilateral lung sound coarse Abdomen soft, no tender PEG tube function. Laboratory Tests 02/09/20 04:30 Assessment/Plan Assessment/Plan 1. Bilateral pneumonia, consolidation on CXR and CT. 2. Bilateral pleural effusion, large on the right and mod on the left. 3. Dysphagia on PEG tube. Pt has been on PEG tube at home for over 5 years. 4. Afib due to #1 with rapid ventricular response. HR 120-130s/min. on Lovenox in preparation for possible cardiac conversion. Cardizem drip was only at 2.5 /min due to low BP 5. Thrombocytopenia 2nd to infection. 6. Hypotensive. 7. 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 H/o prostate cancer, stage II. s/p recent external beam radiation. 9. Hypoalbuminemia Plan: 1.Continue IV Cefepime, Flagyl and Zosyn. 2. Continue cardizem and amiodoeron per senior applications analyst. 3. f/u culture from the repeat sputum here and sensitivities 4. Keep O2 sat >88% 5. Repeat CBC, CMP, CXR in the AM lab. 6. Consult Dr Hi for thoracentasis of the right large pleural effusion. Change Lovenox to Heparin tonight in preparation for the procedure tomorrow. Hold off the Heparin gtt for 2 hrs during the procedure per Dr Ralph. 7. Albumin IV 8. One RBC today Vitals Last set of Vitals Signs Vital Signs Date Time Temp Pulse Resp B/P (MAP) Pulse Ox O2 Delivery O2 Flow Rate FiO2 02/09/20 10:41 91 High Flow N/C 15.00 02/09/20 10:00 128 24 99/68 02/09/20 04:00 37.2 02/08/20 21:00 75 I&O I&O Intake and Output 02/09/20 00:00 Intake Total 2963 ml Output Total 1750 ml Balance 1213 ml IV Total 1823 ml Tube Feeding 1080 ml Other 60 ml Output Urine Total 1750 ml Labs Laboratory Tests 02/09/20 04:30: White Blood Count 17.9H, Red Blood Count 3.07L, Hemoglobin 9.2L, Hematocrit 30L, Mean Corpuscular Volume 98, Mean Corpuscular Hemoglobin 30, Mean Corpuscular Hemoglobin Concent 31L, Red Cell Distribution Width 16.1H, Platelet Count 72L, Mean Platelet Volume 11.0, Immature Granulocyte % (Auto) 1, Neutrophils (%) (Auto) 49, Lymphocytes (%) (Auto) 16, Monocytes (%) (Auto) 35H, Eosinophils (%) (Auto) 0, Basophils (%) (Auto) 0, Neutrophils # (Auto) 8.7H, Lymphocytes # (Auto) 2.8, Monocytes # (Auto) 6.2H, Eosinophils # (Auto) 0.0, Basophils # (Auto) 0.0, Immature Granulocyte # (Auto) 0.2H, Sodium Level 136, Potassium Level 4.7, Chloride Level 95L, Carbon Dioxide Level 27, Anion Gap 14, Blood Urea Nitrogen 31H, Creatinine 0.71, Estimat Glomerular Filtration Rate > 60, BUN/Creatinine Ratio 44, Glucose Level 106H, Calcium Level 7.8L, Corrected Calcium 9.0, Phosphorus Level 4.3, Magnesium Level 1.9, Total Bilirubin 0.8, Aspartate Amino Transf (AST/SGOT) 90H, Alanine Aminotransferase (ALT/SGPT) 15, Alkaline Phosphatase 86, Total Protein 4.2L, Albumin 2.5L, Digoxin Level 0.52L Microbiology 02/06/20 MRSA Screen - Final, Complete MRSA not isolated 02/06/20 Urine Culture - Final, Complete NO GROWTH 02/06/20 Blood Culture - Preliminary, Resulted No growth Focused Exam Lactate Level 02/07/20 13:10: Lactic Acid Level 3.48*H 02/07/20 19:49: Lactic Acid Level 2.98*H 02/08/20 05:38: Lactic Acid Level 3.75*H Clinical Quality Measures DVT/VTE Risk/Contraindication: Risk Factor Score Per Nursin RFS Level Per Nursing on Admit: 3=High LYNDA BLANTON MD Feb 09, 2020 12:47
[2020-02-09] MEDS ORDERED: NS IV 500 ML 500 ML IV SCH (15:30)
[2020-02-09] MEDS ORDERED: NS IV 500 ML 500 ML ONE (17:15)
[2020-02-09 17:26] VITALS: BP 130/88
--- NOTE | 2020-02-09 17:43 | NUR ---
Pt's , Dr. Robledo, asked this RN to not start another IV on pt due to his edema. Pt's , Dr. Robledo, wants heparin started tonight after blood is finished, but cardizem and heparin are not compatable along with his zosyn not being compatable with either as well. Dr. Robledo, pt's , stated to hold the zosyn while pt is on heparin drip and then restart when procedure is done in am and pt is off heparin drip.
[2020-02-09 17:45] VITALS: BP 114/72
[2020-02-09 18:06] LABS: HEMOGLOBIN 8.3 g/dL (13.3-17.7); MEAN PLATELET VOLUME 10.4 fL (9.0-12.2); WHITE BLOOD COUNT 18.2 10^3/uL (4.3-11.0)
[2020-02-09 18:22] LABS: INR 1.2 (0.8-1.4); PROTHROMBIN TIME PATIENT 15.1 SEC (12.2-14.7)
[2020-02-09] MEDS ORDERED: FUROSEMIDE 40 MG/4 ML INJ (LASIX) IVP NR (19:07)
--- NOTE | 2020-02-09 19:15 | NUR ---
Dr. Robledo, Pt's , asked this RN to turn off blood transfusing due to pt sats decreasing. Blood turned off at this time. Pt not in distress, new orders from Dr. Robledo.
[2020-02-09] MEDS: MIDODRINE 10 MG (PROAMATINE) TAB PO SCH (20:01)
[2020-02-09] MEDS ORDERED: HEParin 1000 UNIT/ML (10ML VIAL) FOR BOLUS IV PRN (21:00)
[2020-02-09] MEDS ORDERED: HEParin DRIP 25000 UNIT/500ML 500 ML IV SCH (21:00)
--- NOTE | 2020-02-09 21:39 | Diagnostic Imaging Report ---
EXAMINATION: Chest 1 view. HISTORY: Respiratory distress. COMPARISON: Chest radiograph 02/09/2020. FINDINGS: Heart size and pulmonary vasculature are stable. Unchanged bilateral pleural effusions with adjacent patchy airspace opacities in the lung bases. No pneumothorax. Stable right-sided PICC line. Osseous structures are intact. IMPRESSION: Stable bilateral pleural effusions with bilateral mid and lower lung airspace opacities. Dictated by: Dictated on workstation # [id number]
[2020-02-09] MEDS ORDERED: diphenhydrAMINE 50 MG/ML INJ (BENADRYL) IM ONE (22:30)
[2020-02-09] MEDS ORDERED: diphenhydrAMINE 50 MG/ML INJ (BENADRYL) IVP PRN (23:30)
[2020-02-10] MEDS ORDERED: KETOROLAC 15 MG/ML VIAL IVP PRN
[2020-02-10] MEDS ORDERED: KETOROLAC 15 MG/ML VIAL IVP ONE
[2020-02-10] MEDS ORDERED: KETOROLAC 15 MG/ML VIAL ONE (00:07)
[2020-02-10] MEDS ORDERED: WATER (STERILE) FOR INJECTION 10 ML ONE ×2 (00:08→05:33)
[2020-02-10] MEDS ORDERED: CEFEPIME 1 GM/10 ML (MAXIPIME) VIAL ONE ×2 (00:08→05:33)
[2020-02-10] MEDS: CEFEPIME INJECTION 1,000 MG in WATER (STERILE) FOR INJECTION 10 ML IV SCH ×4 (00:17→20:55)
[2020-02-10] MEDS ORDERED: ACETAMINOPHEN 325 MG TABLET PO ONE (01:00)
[2020-02-10] MEDS ORDERED: APAP 325 MG/10.15 ML LIQ (TYLENOL) UDC ONE (01:01)
[2020-02-10] MEDS ORDERED: APAP 325 MG/10.15 ML LIQ (TYLENOL) UDC PO ONE (01:15)
[2020-02-10] MEDS: RT-ALBUTEROL INHALER HFA (VENTOLIN HFA) 18 GM IH SCH ×4 (01:41→13:35)
[2020-02-10] MEDS ORDERED: morphine INJ 4 MG/ML 1 ML (VIAL/SYRINGE) ONE (02:43)
[2020-02-10 02:50] LABS: BASOPHILS % (AUTO) 0 % (0-10); EOSINOPHILS % (AUTO) 0 % (0-10); HEMATOCRIT 31 % (40-54); HEMOGLOBIN 9.2 g/dL (13.3-17.7); LYMPHOCYTES % (AUTO) 23 % (12-44); MEAN CORPUSCULAR HEMOGLOBIN 30 pg (25-34); MEAN CORPUSCULAR HGB CONC 30 g/dL (32-36); MEAN CORPUSCULAR VOLUME 99 fL (80-99); MEAN PLATELET VOLUME 10.7 fL (9.0-12.2); MONOCYTES # (AUTO) 4.6 10^3/uL (0.0-1.0); MONOCYTES % (AUTO) 22 % (0-12); NEUTROPHILS # (AUTO) 11.4 10^3/uL (1.8-7.8); NEUTROPHILS % (AUTO) 54 % (42-75); PLATELET COUNT 71 10^3/uL (130-400); WHITE BLOOD COUNT 21.3 10^3/uL (4.3-11.0)
[2020-02-10 02:57] LABS: ALBUMIN 2.6 GM/DL (3.2-4.5); CHLORIDE 95 MMOL/L (98-107); POTASSIUM 4.9 MMOL/L (3.6-5.0); SODIUM 136 MMOL/L (135-145)
[2020-02-10 02:58] LABS: CALCIUM 7.9 MG/DL (8.5-10.1)
[2020-02-10 03:00] LABS: GLUCOSE 101 MG/DL (70-105); TOTAL PROTEIN 4.2 GM/DL (6.4-8.2)
[2020-02-10 03:01] LABS: BILIRUBIN,TOTAL 0.8 MG/DL (0.1-1.0); CARBON DIOXIDE 28 MMOL/L (21-32)
[2020-02-10 03:03] LABS: ALKALINE PHOSPHATASE 76 U/L (40-136); CREATININE SERUM 0.84 MG/DL (0.60-1.30); GFR ESTIMATED > 60; PHOSPHORUS 4.9 MG/DL (2.3-4.7)
[2020-02-10 03:04] LABS: BUN/CREATININE RATIO 52
[2020-02-10 03:06] LABS: ALANINE AMINOTRANSFERASE 14 U/L (0-55)
[2020-02-10 03:18] LABS: INR 1.1 (0.8-1.4); PROTHROMBIN TIME PATIENT 14.9 SEC (12.2-14.7)
[2020-02-10] MEDS ORDERED: morphine INJ 10 MG/ML 1ML (SYR OR VIAL) IVP STA (03:27)
[2020-02-10 04:09] LABS: SMEAR SCAN COMMENT YES
--- NOTE | 2020-02-10 05:14 | NUR ---
THIS RN CONTACTED LAB TO NOTIFY THAT DR. BLANTON IS REQUESTING THE UNIT OF BLOOD PATIENT RECEIVED ON 02/09/20 TO BE TESTED, DR. BLANTON IS CONCERNED PATIENT MAY HAVE HAD A REACTION. THIS RN SENT REMAINING BLOOD TO LAB AT THIS TIME.
[2020-02-10] MEDS: PIPERACILLIN/TAZO 4.5 GM/NS 100 ML IV SCH ×2 (05:51)
[2020-02-10] MEDS: dilTIAZem DRIP 125 MG/125 ML DRIP IV SCH (05:52)
[2020-02-10] MEDS: LEVOTHYROXINE 100 MCG (LEVOTHROID) TAB PO SCH (05:53)
[2020-02-10] MEDS: CLINDAMYCIN 600 MG/50 ML IVPB 50 ML IV SCH ×3 (05:53→22:28)
[2020-02-10] MEDS: PANTOPRAZOLE 40 MG (PROTONIX) VIAL IV SCH (05:53)
--- NOTE | 2020-02-10 06:00 | NUR ---
DR. BLANTON STATES PATIENT IS "100 LBS" AND TO USE PREVIOUSLY CHARTED WEIGHT OF 45.5 KG, CURRENTLY BUILT IN [facility] IS READING 75.5 KG.
[2020-02-10] MEDS ORDERED: ALBUMIN 25% 25 GM/100 ML 50 ML IV ONE ×3 (06:45→22:15)
--- NOTE | 2020-02-10 07:11 | NUR ---
RECEVIED A CALL FROM DR BLANTON TO REVIEW ANTIBIOTICS. RECOMMENDED D/C ZOSYN AND CONTINUE CEFEPIME. DISCUSSED RISKS OF INHALED TOBRAMYCIN VS LEVOFLOXACIN. RECEIVED ORDER TO D/C ZOSYN, AND START TOBRAMYCIN 80MG INHALED TID WITH CLOSE MONITORING OF KIDNEY FXN. MD AWARE OF ALLERGY TO GENTAMICIN (HAD ACUTE RENAL FAILURE WITH GENTAMICIN-REQUIRING DIALYSIS) - SHE WANTED TO PROCEED WITH TOBRAMYCIN.
[2020-02-10] MEDS ORDERED: NS (IVPB) 250 ML ONE ×3 (07:34→14:10)
[2020-02-10] MEDS ORDERED: PHENYLEPHRINE INJ 10 MG/ML (FOR DRIP KITS ONLY) ONE (07:34)
[2020-02-10] MEDS ORDERED: PHENYLEPHRINE INJECTION 20 MG in NS (IVPB) 250 ML IV SCH (07:45)
--- NOTE | 2020-02-10 08:46 | NUR ---
TIMELINE NOTE BELOW: 02/09/20 @ 1945 THIS RN AT BEDSIDE TO ASSESS PATIENT, DR. BLANTON PATIENT'S ALSO AT BEDSIDE AT THIS TIME. PATIENT ON MAX SETTING OF VAPOTHERM 40L 100%, SA02 89%. ЕКАТЕРИНА, RESPIRATORY THERAPIST, INFORMED THIS RN THAT DR. BLANTON HAD REFUSED BIPAP AT THIS TIME. WILL CONTINUE TO MONITOR. * @ 2041 PATIENT'S SA02 78% ON MAX SETTINGS OF VAPOTHERM. THIS RN CALLED ЕКАТЕРИНА, RT, AT THIS TIME. PATIENT'S DR. BLANTON ALSO AT BEDSIDE. THIS RN SUCTIONED PATIENTS MOUTH WITH YAUNKER. PATIENT'S BREATH SOUNDS WET BILATERALLY, PATIENT HAVING DIFFICULTY CLEARING SECRETIONS. THIS RN REQUESTED BIPAP. ORDER RECEIVED FOR BIPAP AT THIS TIME FROM DR. BLANTON. RT AT BEDSIDE AND PLACED PATIENT ON BIPAP ON FI02 OF 100%, SA02 INCREASING TO LOW 90'S AT THIS TIME. * @ 2330 PATIENT TEMPERATURE 38.7 CELSIUS TYMPANICALLY. THIS RN REPORTED TO DR. BLANTON AT BEDSIDE, NO NEW ORDERS RECEIVED AT THIS TIME. THIS RN REMOVED PATIENT'S BLANKETS AND LOWERED THE THERMOSTAT TO COOL ROOM. * @ 2354 PATIENT TEMPERATURE 38.2 CELSIUS TYMPANICALLY AND HEART RATE SUSTAINING IN 130'S DESPITE CARDIZEM GTT CURRENTLY INFUSING. ORDERS RECEIVED AT THIS TIME FROM DR. BLANTON, SEE EMAR AND ORDER HX. 02/10/20 @ 0058 PATIENT'S TEMPERATURE 38.3 CELSIUS TYMPANICALLY AND HEART RATE SUSTAINING IN 130'S DESPITE CARDIZEM GTT CURRENTLY INFUSING. THIS RN REPORTED TO DR. BLANTON AT BEDSIDE. THIS RN REQUESTED TO COOL PATIENT WITH FAN OR ICE PACKS, DR. BLANTON REFUSED AT THIS TIME. NEW ORDER RECEIVED FOR TYLENOL, SEE EMAR AND ORDER HX. @ [address] BLANTON AT BEDSIDE OF PATIENT'S DECREASED BLOOD PRESSURE WITH SBP IN 70'S, THIS RN PUT CARDIZEM GTT ON HOLD PER PROTOCOL. NO NEW ORDERS AT THIS TIME. @ 0636 NEW ORDER RECEIVED AT THIS TIME FOR ALBUMIN, SEE ORDER HX. @ 0735 NEW ORDER RECEIVED AT THIS TIME FOR ALBUMIN, SEE ORDER HX.
[2020-02-10] MEDS ORDERED: ALBUMIN 25% 25 GM/100 ML 100 ML IV STA (09:29)
[2020-02-10] MEDS ORDERED: D5 LR IV SOLUTION 1,000 ML IV STA (09:30)
--- NOTE | 2020-02-10 09:37 | Progress Note ---
Progress Note Assessment/Plan Date Seen by Provider: Feb 10, 2020 Time Seen by Provider: 09:33 Events since last exam Pt spike fever last night Tmax 38.3 Repeat blood culture 1x last night Pt had blood transfusion 2 hrs before the fever spike Hypotensive and desat. Pt was put on bypap last night Pt is very weak and general edema, able to understand and follow the commends. Abd soff. Peg tube working Laboratory Tests 02/09/20 17:57 02/10/20 02:30 Assessment/Plan Assessment/Plan 1. Bilateral pneumonia, consolidation on CXR and CT. 2. Bilateral pleural effusion, large on the right and mod on the left. 3. Dysphagia on PEG tube. Pt has been on PEG tube at home for over 5 years. 4. Afib due to #1 with rapid ventricular response. HR 110-120s/min. Cardizem drip was on hold due to low BP. 5. Thrombocytopenia 2nd to infection. 6. Hypotensive. 7. 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 H/o prostate cancer, stage II. s/p recent external beam radiation. 9. Hypoalbuminemia 10. Fever spike last night, blood culture 1x, ?blood transfusion reaction. Plan: 1.Continue IV Cefepime, D/C Flagyl and Zosyn. Change to Clindamycin IV and add Tobramycin to the inhale. 2. Continue digoxin and amiodoeron per [facility]. Stay on Heparin gtt per Dr Ralph. 3. f/u culture from the repeat sputum here and sensitivities 4. Keep O2 sat >88% 5. Repeat CBC, CMP, CXR in the AM lab. 6. Hold off thoracentasis of the right large pleural effusion. 7. Albumin IV 8. One RBC today Vitals Last set of Vitals Signs Vital Signs Date Time Temp Pulse Resp B/P (MAP) Pulse Ox O2 Delivery O2 Flow Rate FiO2 02/10/20 08:30 120 86/56 02/10/20 08:00 23 99 NIV Bilevel 75.00 02/10/20 05:00 37.1 02/09/20 21:00 75 I&O I&O Intake and Output 02/10/20 00:00 Intake Total 1540 ml Output Total 975 ml Balance 565 ml Intake Oral 0 ml IV Total 340 ml Tube Feeding 1080 ml Other 120 ml Output Urine Total 975 ml Labs Laboratory Tests 02/09/20 17:57: White Blood Count 18.2H, Red Blood Count 2.80L, Hemoglobin 8.3L, Hematocrit 28L, Mean Corpuscular Volume 100H, Mean Corpuscular Hemoglobin 30, Mean Corpuscular Hemoglobin Concent 30L, Red Cell Distribution Width 16.0H, Platelet Count 61L, Mean Platelet Volume 10.4, Prothrombin Time 15.1H, INR Comment 1.2, Activated Partial Thromboplast Time 44H 02/10/20 02:30: White Blood Count 21.3H, Red Blood Count 3.09L, Hemoglobin 9.2L, Hematocrit 31L, Mean Corpuscular Volume 99, Mean Corpuscular Hemoglobin 30, Mean Corpuscular Hemoglobin Concent 30L, Red Cell Distribution Width 16.1H, Platelet Count 71L, Mean Platelet Volume 10.7, Prothrombin Time 14.9H, INR Comment 1.1, Activated Partial Thromboplast Time 66H, Immature Granulocyte % (Auto) 1, Neutrophils (%) (Auto) 54, Lymphocytes (%) (Auto) 23, Monocytes (%) (Auto) 22H, Eosinophils (%) (Auto) 0, Basophils (%) (Auto) 0, Neutrophils # (Auto) 11.4H, Lymphocytes # (Auto) 5.0H, Monocytes # (Auto) 4.6H, Eosinophils # (Auto) 0.0, Basophils # (Auto) 0.0, Immature Granulocyte # (Auto) 0.2H, Sodium Level 136, Potassium Level 4.9, Chloride Level 95L, Carbon Dioxide Level 28, Anion Gap 13, Blood Urea Nitrogen 44H, Creatinine 0.84, Estimat Glomerular Filtration Rate > 60, BUN/Creatinine Ratio 52, Glucose Level 101, Lactic Acid Level 3.17*H, Calcium Level 7.9L, Corrected Calcium 9.0, Phosphorus Level 4.9H, Magnesium Level 2.0, Total Bilirubin 0.8, Aspartate Amino Transf (AST/SGOT) 86H, Alanine Aminotransferase (ALT/SGPT) 14, Alkaline Phosphatase 76, Total Protein 4.2L, Albumin 2.6L, Smear Scan YES Microbiology 02/06/20 MRSA Screen - Final, Complete MRSA not isolated 02/06/20 Urine Culture - Final, Complete NO GROWTH 02/06/20 Blood Culture - Preliminary, Resulted No growth Focused Exam Lactate Level 02/07/20 19:49: Lactic Acid Level 2.98*H 02/08/20 05:38: Lactic Acid Level 3.75*H 02/10/20 02:30: Lactic Acid Level 3.17*H Clinical Quality Measures DVT/VTE Risk/Contraindication: Risk Factor Score Per Nursin RFS Level Per Nursing on Admit: 3=High LYNDA BLANTON MD Feb 10, 2020 09:37
[2020-02-10] MEDS: AMIODARONE 200 MG (CORDARONE) TAB PO SCH ×2 (09:58→20:55)
[2020-02-10] MEDS: MIDODRINE 10 MG (PROAMATINE) TAB PO SCH ×3 (09:58→18:38)
[2020-02-10] MEDS: DIGOXIN 0.125 MG (LANOXIN) TAB PO SCH (09:58)
[2020-02-10] MEDS: CHLORHEXIDINE 0.12% SOLN 15 ML (PERIDEX) UDC PO SCH ×3 (10:00→20:55)
[2020-02-10] MEDS: TOBRAMYCIN (NEBCIN) 80 MG/2 ML VIAL IH SCH ×2 (10:40→19:10)
--- NOTE | 2020-02-10 11:03 | NUR ---
Dr Robledo at bedside and notified by this RN of decreased urine output. 75mL since 0600. Verbal orders given for a 200mL bolus.
[2020-02-10] MEDS ORDERED: NS IV 1000 ML 1,000 ML IV SCH (11:15)
--- NOTE | 2020-02-10 11:28 | NUR ---
notified Dr Robledo of patients current B/P. Received verbal orders to give other half of albumin.
[2020-02-10] MEDS ORDERED: NS (IVPB) 250 ML IV ONE (11:30)
--- NOTE | 2020-02-10 12:16 | Cardiology Progress Note ---
Subjective Date Seen by Provider: Feb 10, 2020 Time Seen by Provider: 12:13 Subjective/Events-last exam Patient is laying down in bed, lethargic. No new complaint, had a rough night Review of Systems General: Fatigue, Malaise Pulmonary: Dyspnea Focused Exam Lactate Level 02/07/20 19:49: Lactic Acid Level 2.98*H 02/08/20 05:38: Lactic Acid Level 3.75*H 02/10/20 02:30: Lactic Acid Level 3.17*H Objective-Cardiology Exam Last Set of Vital Signs Vital Signs 02/10/20 02/10/20 02/10/20 05:00 10:00 10:40 Temp 37.1 Pulse 114 Resp 28 B/P (MAP) 90/58 Pulse Ox 87 O2 Delivery Vapotherm O2 Flow Rate 40.00 FiO2 100 Capillary Refill : Less Than 3 Seconds I&O Intake and Output 02/10/20 00:00 Intake Total 1540 ml Output Total 975 ml Balance 565 ml Intake Oral 0 ml IV Total 340 ml Tube Feeding 1080 ml Other 120 ml Output Urine Total 975 ml General: Alert, Oriented X3, Cooperative HEENT: Atraumatic, PERRLA Neck: Supple, No JVD, No Thyromegaly Lungs: Normal Air Movement, Other (bilateral rhonchi) Heart: Normal S1, Normal S2, No Murmurs, Other (tachycardia) Abdomen: Normal Bowel Sounds, Soft, No Tenderness, No Hepatosplenomegaly, No Masses Extremities: No Clubbing, No Cyanosis, Normal Pulses, No Tenderness/Swelling, Other (peripheral edema) Skin: No Rashes, No Breakdown, No Significant Lesion Neuro: Normal Speech, Sensation Intact Psych/Mental Status: Mental Status NL, Mood NL Results Lab Laboratory Tests 02/09/20 17:57 02/10/20 02:30 A/P-Cardiology Admission Diagnosis AFib/flutter with RVR Pneumonia Dyspnea Hypotension Assessment/Plan Bilateral pneumonia, receiving antibiotics, managed and followed by primary care team Afib/flutter with RVR, hx of PAF. Still borderline tachycardic, hypotensive, cannot tolerate any additional calcium channel blockers or beta blockers. Tolerating amiodarone and digoxin well. Continue to monitor Bilateral pleural effusion, had a long discussion with Dr. 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 Chronically on TPN S/p PEG placement on 01/05/17 Clinical Quality Measures DVT/VTE Risk/Contraindication: Risk Factor Score Per Nursin RFS Level Per Nursing on Admit: 3=High TOBY JUNE MD Feb 10, 2020 12:16 pm
[2020-02-10 12:45] VITALS: BP 86/56
[2020-02-10 13:00] VITALS: BP 83/57
--- NOTE | 2020-02-10 14:38 | NUR ---
Dr Robledo at bedside. 0mL output. Verbal orders received for another 200mL bolus.
[2020-02-10 14:39] VITALS: BP 84/57
[2020-02-10] MEDS ORDERED: NS 100 ML (IVPB) BAG IV ONE (14:45)
[2020-02-10] MEDS ORDERED: FUROSEMIDE 40 MG/4 ML INJ (LASIX) IVP STA (15:16)
[2020-02-10 15:41] VITALS: BP 117/89
[2020-02-10] MEDS: RT-ALBUTEROL/IPRATROPIUM 3 ML (DUONEB) VIAL INH SCH ×2 (19:09→23:57)
[2020-02-10 19:10] VITALS: BP 111/79
[2020-02-10] MEDS ORDERED: ALBUMIN 25% 25 GM/100 ML 100 ML IV ONE (22:50)
--- NOTE | 2020-02-10 23:00 | NUR ---
THIS RT WAS NOTIFIED BY RN THAT PT HAD PLACED PT ON BIPAP WELL THE VAPOTHERM. THIS RT WENT AND EDUCATED THE AND VOICED THE CONCERNS I WAS HAVING REGARDING THE HIGH CHANCE OF THIS CAUSING A PNEUMOTHORAX. PT'S STATED THAT HE WAS WANTING HUMIDIFICATION FOR HIS DRY MOUTH. RT EXPLAINED THE WAY HUMIDIFICATION THROUGH THE VAPOTHERM WORKED AND THAT IT WASN'T GOING TO HELP HIS DRY MOUTH. ADVISED THAT HE WAS MORE COMFORTABLE NOW AND WANTED BOTH LEFT ON. RT AGAIN VOICED HER CONCERNS REGUARDING THE INCREASED FLOW AND PRESSURE. THEN LOWERED THE FLOW OF THE VAPOTHERM RT LEFT THE ROOM. RT ADVISED HOUSE SUP OF MY CONCERNS WELL.
[2020-02-11] MEDS ORDERED: ALBUMIN 25% 25 GM/100 ML 50 ML IV ONE
[2020-02-11] MEDS ORDERED: POTASSIUM CL 10MEQ/50ML IVPB 0 ML IV ONE (02:21)
[2020-02-11 03:08] VITALS: BP 131/84
[2020-02-11] MEDS: RT-ALBUTEROL/IPRATROPIUM 3 ML (DUONEB) VIAL INH SCH ×6 (03:08→22:10)
[2020-02-11] MEDS: CEFEPIME INJECTION 1,000 MG in WATER (STERILE) FOR INJECTION 10 ML IV SCH ×4 (03:17→21:17)
[2020-02-11 03:37] LABS: BASOPHILS % (AUTO) 0 % (0-10); EOSINOPHILS % (AUTO) 0 % (0-10); HEMATOCRIT 32 % (40-54); HEMOGLOBIN 9.5 g/dL (13.3-17.7); LYMPHOCYTES # (AUTO) 4.1 10^3/uL (1.0-4.0); LYMPHOCYTES % (AUTO) 26 % (12-44); MEAN CORPUSCULAR HEMOGLOBIN 29 pg (25-34); MEAN CORPUSCULAR HGB CONC 30 g/dL (32-36); MEAN CORPUSCULAR VOLUME 98 fL (80-99); MEAN PLATELET VOLUME 11.2 fL (9.0-12.2); MONOCYTES # (AUTO) 4.5 10^3/uL (0.0-1.0); MONOCYTES % (AUTO) 29 % (0-12); NEUTROPHILS # (AUTO) 6.7 10^3/uL (1.8-7.8); NEUTROPHILS % (AUTO) 43 % (42-75); PLATELET COUNT 52 10^3/uL (130-400); WHITE BLOOD COUNT 15.5 10^3/uL (4.3-11.0)
[2020-02-11 04:10] LABS: ALBUMIN 3.3 GM/DL (3.2-4.5); CHLORIDE 97 MMOL/L (98-107)
[2020-02-11 04:11] LABS: POTASSIUM 5.1 MMOL/L (3.6-5.0); SODIUM 138 MMOL/L (135-145)
[2020-02-11 04:12] LABS: CALCIUM 8.2 MG/DL (8.5-10.1)
[2020-02-11 04:13] LABS: GLUCOSE 102 MG/DL (70-105); TOTAL PROTEIN 4.8 GM/DL (6.4-8.2)
[2020-02-11 04:14] LABS: CARBON DIOXIDE 26 MMOL/L (21-32)
[2020-02-11 04:16] LABS: ALKALINE PHOSPHATASE 75 U/L (40-136)
[2020-02-11 04:17] LABS: CREATININE SERUM 1.13 MG/DL (0.60-1.30); GFR ESTIMATED > 60
[2020-02-11 04:18] LABS: BUN/CREATININE RATIO 54
[2020-02-11 04:19] LABS: ALANINE AMINOTRANSFERASE 12 U/L (0-55)
[2020-02-11] MEDS: LEVOTHYROXINE 100 MCG (LEVOTHROID) TAB PO SCH (06:16)
[2020-02-11] MEDS: CLINDAMYCIN 600 MG/50 ML IVPB 50 ML IV SCH (06:16)
[2020-02-11] MEDS: PANTOPRAZOLE 40 MG (PROTONIX) VIAL IV SCH (06:16)
[2020-02-11 07:22] VITALS: BP 122/82
--- NOTE | 2020-02-11 07:26 | Cardiology Progress Note ---
Subjective Date Seen by Provider: Feb 11, 2020 Time Seen by Provider: 07:23 Subjective/Events-last exam Patient is laying down in bed on C Pap. High flow oxygen. Review of Systems General: Fatigue, Malaise Pulmonary: Dyspnea Focused Exam Lactate Level 02/10/20 02:30: Lactic Acid Level 3.17*H Objective-Cardiology Exam Last Set of Vital Signs Vital Signs 02/10/20 02/11/20 02/11/20 15:41 03:08 06:00 Temp 37.1 Pulse 115 Resp 32 B/P (MAP) 127/85 Pulse Ox 97 O2 Delivery NIV Bilevel O2 Flow Rate 90.00 FiO2 75 Capillary Refill : Less Than 3 Seconds I&O Intake and Output 02/11/20 00:00 Intake Total 2432 ml Output Total 575 ml Balance 1857 ml Intake Oral 0 ml IV Total 744 ml Tube Feeding 808 ml Other 880 ml Output Urine Total 575 ml General: Alert, Cooperative HEENT: Atraumatic, PERRLA Neck: Supple, No JVD, No Thyromegaly Lungs: Normal Air Movement, Other (bilateral rhonchi) Heart: Normal S1, Normal S2, No Murmurs, Other (tachycardia) Abdomen: Normal Bowel Sounds, Soft, No Tenderness, No Hepatosplenomegaly, No Masses Extremities: No Clubbing, No Cyanosis, Normal Pulses, No Tenderness/Swelling, Other (peripheral edema) Skin: No Rashes, No Breakdown, No Significant Lesion Neuro: Normal Speech, Sensation Intact Psych/Mental Status: Mental Status NL, Mood NL Results Lab Laboratory Tests 02/11/20 03:13 A/P-Cardiology Admission Diagnosis AFib/flutter with RVR Pneumonia Dyspnea Hypotension Assessment/Plan Bilateral pneumonia, receiving antibiotics, managed and followed by primary care team Afib/flutter with RVR, hx of PAF. Still borderline tachycardic, hypotensive, cannot tolerate any additional calcium channel blockers or beta blockers. Tolerating amiodarone and digoxin well. I discussed the management plan with Dr. Robledo regarding anticoagulation. Patient is currently on heparin drip and his platelet are dropping. If he is not going for thoracentesis I will switch him back to Lovenox Bilateral pleural effusion, currently on heparin drip may hold heparin for 2 hours prior to thoracentesis if needed otherwise if no thoracentesis is planned I recommend putting him back on Lovenox Thrombocytopenia, worsening today. Followed by Dr. 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 Chronically on TPN S/p PEG placement on 01/05/17 Clinical Quality Measures DVT/VTE Risk/Contraindication: Risk Factor Score Per Nursin RFS Level Per Nursing on Admit: 3=High TOBY JUNE MD Feb 11, 2020 07:26
[2020-02-11] MEDS ORDERED: HEParin 1000 UNIT/ML (10ML VIAL) FOR BOLUS IV SCH (08:00)
--- NOTE | 2020-02-11 08:11 | Progress Note ---
Progress Note Assessment/Plan Date Seen by Provider: Feb 11, 2020 Time Seen by Provider: 08:08 Events since last exam No fever, still on bipap Plt drop to 50k Low urine out put Plan thoracetasis today Assessment/Plan Assessment/Plan 1. Bilateral pneumonia, consolidation on CXR and CT. 2. Bilateral pleural effusion, large on the right and mod on the left. 3. Dysphagia on PEG tube. Pt has been on PEG tube at home for over 5 years. 4. Afib due to #1 with rapid ventricular response. HR 110-120s/min. Cardizem drip was on hold due to low BP. 5. Thrombocytopenia 2nd to infection. 6. Hypotensive. 7. 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 H/o prostate cancer, stage II. s/p recent external beam radiation. 9. Hypoalbuminemia 10. Fever spike last night, blood culture 1x, ?blood transfusion reaction. Plan: 1.Continue IV Cefepime, D/C Flagyl and Zosyn. Change to Clindamycin IV and add Tobramycin to the inhale. 2. Continue digoxin and amiodoeron per silverware etcher. Stay on Heparin gtt per Dr Ralph. 3. f/u culture from the repeat sputum here and sensitivities 4. Keep O2 sat >88% 5. Repeat CBC, CMP, CXR in the AM lab. 6. Hold off thoracentasis of the right large pleural effusion. 7. Albumin IV 8. One RBC today Vitals Last set of Vitals Signs Vital Signs Date Time Temp Pulse Resp B/P (MAP) Pulse Ox O2 Delivery O2 Flow Rate FiO2 02/11/20 07:22 112 28 95.00 02/11/20 06:00 127/85 97 NIV Bilevel 02/10/20 15:41 37.1 75 I&O I&O Intake and Output 02/11/20 00:00 Intake Total 2432 ml Output Total 575 ml Balance 1857 ml Intake Oral 0 ml IV Total 744 ml Tube Feeding 808 ml Other 880 ml Output Urine Total 575 ml Labs Laboratory Tests 02/10/20 13:00: Activated Partial Thromboplast Time 60H 02/11/20 03:13: Activated Partial Thromboplast Time 42H, White Blood Count 15.5H, Red Blood Count 3.23L, Hemoglobin 9.5L, Hematocrit 32L, Mean Corpuscular Volume 98, Mean Corpuscular Hemoglobin 29, Mean Corpuscular Hemoglobin Concent 30L, Red Cell Distribution Width 16.4H, Platelet Count 52L, Mean Platelet Volume 11.2, Immature Granulocyte % (Auto) 1, Neutrophils (%) (Auto) 43, Lymphocytes (%) (Auto) 26, Monocytes (%) (Auto) 29H, Eosinophils (%) (Auto) 0, Basophils (%) (Auto) 0, Neutrophils # (Auto) 6.7, Lymphocytes # (Auto) 4.1H, Monocytes # (Aut o) 4.5H, Eosinophils # (Auto) 0.0, Basophils # (Auto) 0.0, Immature Granulocyte # (Auto) 0.2H, Sodium Level 138, Potassium Level 5.1H, Chloride Level 97L, Carbon Dioxide Level 26, Anion Gap 15H, Blood Urea Nitrogen 61H, Creatinine 1.13, Estimat Glomerular Filtration Rate > 60, BUN/Creatinine Ratio 54, Glucose Level 102, Calcium Level 8.2L, Corrected Calcium 8.8, Total Bilirubin 1.0, Aspartate Amino Transf (AST/SGOT) 60H, Alanine Aminotransferase (ALT/SGPT) 12, Alkaline Phosphatase 75, Total Protein 4.8L, Albumin 3.3 Microbiology 02/06/20 MRSA Screen - Final, Complete MRSA not isolated 02/06/20 Urine Culture - Final, Complete NO GROWTH 02/06/20 Blood Culture - Preliminary, Resulted No growth Focused Exam Lactate Level 02/10/20 02:30: Lactic Acid Level 3.17*H Clinical Quality Measures DVT/VTE Risk/Contraindication: Risk Factor Score Per Nursin RFS Level Per Nursing on Admit: 3=High LYNDA BLANTON MD Feb 11, 2020 08:11
[2020-02-11] MEDS ORDERED: ALBUMIN 25% 25 GM/100 ML 100 ML IV STA (08:17)
--- NOTE | 2020-02-11 08:26 | NUR ---
TIME LINE NOTE BELOW 2156 DR BLANTON AT BEDSIDE VOICED CONCERN ABOUT PATIENTS DRY MOUTH, THIS RN ASKED RT IF ANY HEATED CIRCUITS WERE AVAILABLE. THERE WERE NOT ANY AVAILABLE AT THIS TIME. THIS RN OFFERED ALTERNATIVES OF USING ORAL SWABS WITH ORAL GEL TO RELIEVE DRYNESS, WHEN THIS RN RETURNED TO THE ROOM WITH ORAL GEL AND SWABS DR BLANTON WANTED TO TRIAL PATIENT ON VAPOTHERM IN HOPES OF RELIEVING DRY MOUTH. UPON REMOVAL OF THE BIPAP A SMALL SKIN TEAR WAS NOTED ON THE BRIDGE OF THE NOSE. THE PATIENTS OXYGEN DROPPED INTO THE UPPER 70% WITHIN 3 MINUTES,THIS RN TRIED TO REMOVE VAPOTHERM, BIPAP REAPPLIED AT 100% TO RAISE O2 LEVELS. THIS RN VOICED CONCERNS ABOUT HIGH PRESSURE AND POSSIBLE OVER OXYGENATION TO DOCTOR AT BEDSIDE, THE RESPONSE WAS THAT "HE LOOKS MORE COMFORTABLE." DR BLANTON PLACED A VERBAL ORDER AT THE BEDSIDE TO THIS RN SEE HX. 2300 THIS RN WITH RT WENT TO PATIENTS ROOM TO DISCUSS CONCERNS INVOLVED WITH BOTH VAPOTHERM AND BIPAP BEING WORN CONCURRENTLY. DR BLANTON AT BEDSIDE VOICED CONCERNS ABOUT HUMIDITY AND PATIENT COMFORT. DR BLANTON TURNED VAPOTHERM PRESSURE DOWN WHILE THIS RN WAS IN THE ROOM. 0000 THIS RN RECEIVED ADDITIONAL VERBAL ORDER AT BEDSIDE SEE HX 0100 THIS RN NOTICED THAT THE VAPOTHERM AND BIPAP HAD BEEN ADJUSTED, UNABLE TO DOCUMENT BOTH O2 SOURCES IN VITALS. IV PUMP ALSO TURNED OFF, THIS RN CHECKED WITH OTHER STAFF; OTHER STAFF DENIED TURNING OFF ANY PUMPS IN THE ROOM. 0700 O2 SOURCES FOLLOW AT THIS TIME VAPOTHERM AT 15L 21%, BIPAP 18/10 AT 95%
--- NOTE | 2020-02-11 08:36 | Diagnostic Imaging Report ---
INDICATION: Pleural effusion. Comparison is made with prior examination from 02/09/2020. FINDINGS: There are bibasilar infiltrates. There are bilateral pleural effusions. There is venous congestion. There is no pneumothorax. Mediastinum is unremarkable. IMPRESSION: Bibasilar pulmonary infiltrates and bilateral pleural effusions. Moderately severe central pulmonary venous congestion Dictated by: Dictated on workstation # [id number]
[2020-02-11] MEDS: DIGOXIN 0.125 MG (LANOXIN) TAB PO SCH (09:24)
[2020-02-11] MEDS: MIDODRINE 10 MG (PROAMATINE) TAB PO SCH (09:25)
[2020-02-11] MEDS: AMIODARONE 200 MG (CORDARONE) TAB PO SCH ×2 (09:25→21:17)
[2020-02-11] MEDS: CHLORHEXIDINE 0.12% SOLN 15 ML (PERIDEX) UDC PO SCH (09:26)
[2020-02-11] MEDS: D5 LR IV SOLUTION 1,000 ML IV SCH (09:27)
[2020-02-11] MEDS ORDERED: FUROSEMIDE 40 MG/4 ML INJ (LASIX) ONE (10:55)
[2020-02-11] MEDS ORDERED: polyethylene glycoL POWDER 17 GM (MIRALAX) PACK PO ONE (11:00)
[2020-02-11] MEDS ORDERED: FUROSEMIDE 40 MG/4 ML INJ (LASIX) IVP ONE (11:00)
[2020-02-11 11:03] VITALS: BP 122/82
--- NOTE | 2020-02-11 11:04 | NUR ---
Verbal orders received for Lasix 10mg, Miralax, and to stop Midodrine. Patients /Dr at bedside. Orders placed.
[2020-02-11] MEDS ORDERED: NS (IVPB) 100 ML ONE (12:19)
--- NOTE | 2020-02-11 14:13 | Consultation - Surgery ---
CLARI NOWAK MED STUDENT 02/11/20 1413: History of Present Illness History of Present Illness Patient Consulted On(kari/time) 02/11/20 14:08 Date Seen by Provider: Feb 11, 2020 Time Seen by Provider: 12:00 Reason for Visit: Tachycardia History of Present Illness Consulted by Dr. Robledo for thoracentesis. This is a 80 YO male who came to the ER for weakness and SOB. Pt was recovering from a recent pneumonia, but began to worsen. Pt was admitted and is being treated for respiratory failure and Afib with RVR. Pt undergoing radiation for prostate cancer. CXR this morning showed bilateral pleural effusion and central pulmonary venous congestion. Allergies and Home Medications Allergies Coded Allergies: gentamicin (Verified Allergy, Severe, renal failure, 11/09/19) Home Medications Levothyroxine Sodium 100 Mcg Tablet, 100 MCG PEG Q48H, (Reported) Levothyroxine Sodium 150 Mcg Tablet, 150 MCG PO Q48H, (Reported) Midodrine HCl 10 Mg Tablet, 10 MG PO DAILY, (Reported) Pantoprazole Sodium 40 Mg Tablet.dr, 40 MG PO DAILY, (Reported) Sulfamethoxazole/Trimethoprim 1 Each Tablet, 1 EACH PO BID Prescribed by: DERICK DE JESUS on 11/14/19 0940 Past Xpvrtna-Opzwmu-Gokybc Hx Patient Social History Alcohol Use: Denies Use Recreational Drug Use: No Smoking Status: Former Smoker Former Smoker, Quit: Nov 08, 1972 Type Used: Cigarettes 2nd Hand Smoke Exposure: Yes Recent Foreign Travel: No Contact w/Someone Who Travel: No Recent Infectious Disease Expo: No Recent Hopitalizations: No Immunizations Up To Date Date of Pneumonia Vaccine: August 08, 2009 Seasonal Allergies Seasonal Allergies: No Surgeries History of Surgeries: Yes (TRACH, peg tube) Surgeries: Appendectomy Respiratory History of Respiratory Disorde: Yes Respiratory Disorders: Emphysema Cardiovascular History of Cardiac Disorders: Yes (had a-fib once when dehydrated) Cardiac Disorders: Atrial Fibrillation Neurological History of Neurological Disord: No Reproductive System Sexually Transmitted Disease: No HIV/AIDS: No Genitourinary History of Genitourinary Disor: Yes (prostate cancer, bladder retention) Genitourinary Disorders: Renal Failure Gastrointestinal History of Gastrointestinal Di: Yes (severe dysphagia and acid reflux. Does not tolerate oral, peg tube) Gastrointestinal Disorders: Gastroesophageal Reflux Musculoskeletal History of Musculoskeletal Dis: No Endocrine History of Endocrine Disorders: Yes Endocrine Disorders: Hypothyroidsim HEENT History of HEENT Disorders: No (READING GLASSES) Loss of Vision: Denies Hearing Impairment: Hard of Hearing Cancer History of Cancer: Yes Cancer: Prostate, Lymphoma Psychosocial History of Psychiatric Problem: Yes Behavioral Health Disorders: Anxiety Integumentary History of Skin or Integumenta: No Blood Transfusions History of Blood Disorders: Yes (HX ANEMIA) Adverse Reaction to a Blood Tr: No (N/A) Family Medical History Significant Family History: No Pertinent Family Hx Review of Systems-General ROS-Unable to Obtain: Unable to obtain due to clinical condition Physical Exam-General Problems Physical Exam Vital Signs Vital Signs - First Documented 02/06/20 02/06/20 13:45 22:31 Temp 36.3 Pulse 135 Resp 27 B/P (MAP) 113/87 (96) Pulse Ox 100 O2 Delivery Nasal Cannula O2 Flow Rate 5.00 FiO2 40 Capillary Refill : Less Than 3 Seconds General Appearance: cachetic, thin Eyes: Bilateral Eye Normal Inspection, Bilateral Eye EOMI HEENT: PERRL/EOMI, other (on BIPAP) Neck: non-tender, normal inspection Respiratory: chest non-tender, other (On BIPAP) Cardiovascular: tachycardia, other (bilateral UE edema) Gastrointestinal: No distended Rectal: deferred Back: normal inspection, no CVA tenderness Extremities: normal inspection, other (UE edema bilaterally) Neurologic/Psychiatric: no motor/sensory deficits, alert Skin: normal color, warm/dry Lymphatic: no adenopathy Data Review Labs Laboratory Tests 02/11/20 03:13: White Blood Count 15.5H, Red Blood Count 3.23L, Hemoglobin 9.5L, Hematocrit 32L, Mean Corpuscular Volume 98, Mean Corpuscular Hemoglobin 29, Mean Corpuscular Hemoglobin Concent 30L, Red Cell Distribution Width 16.4H, Platelet Count 52L, Mean Platelet Volume 11.2, Immature Granulocyte % (Auto) 1, Neutrophils (%) (Auto) 43, Lymphocytes (%) (Auto) 26, Monocytes (%) (Auto) 29H, Eosinophils (%) (Auto) 0, Basophils (%) (Auto) 0, Neutrophils # (Auto) 6.7, Lymphocytes # (Auto) 4.1H, Monocytes # (Auto) 4.5H, Eosinophils # (Auto) 0.0, Basophils # (Auto) 0.0, Immature Granulocyte # (Auto) 0.2H, Activated Partial Thromboplast Time 42H, Sodium Level 138, Potassium Level 5.1H, Chloride Level 97L, Carbon Dioxide Level 26, Anion Gap 15H, Blood Urea Nitrogen 61H, Creatinine 1.13, Estimat Glomerular Filtration Rate > 60, BUN/Creatinine Ratio 54, Glucose Level 102, Calcium Level 8.2L, Corrected Calcium 8.8, Total Bilirubin 1.0, Aspartate Amino Transf (AST/SGOT) 60H, Alanine Aminotransferase (ALT/SGPT) 12, Alkaline Phosphatase 75, Total Protein 4.8L, Albumin 3.3 02/11/20 12:50: Microbiology 02/06/20 MRSA Screen - Final, Complete MRSA not isolated 02/06/20 Urine Culture - Final, Complete NO GROWTH 02/06/20 Blood Culture - Preliminary, Resulted No growth Assessment/Plan Assessment/Plan Assessment/Plan bilateral pleural effusion right thoracentesis performed acute respiratory failure pneumonia Afib with RVR prostate cancer Pt consented to ultrasound-guided thoracentesis of the right chest. Ultrasound was used to isolate largest pocket for ease of catheter placement. Pt was prepped with betadine and 5 ml of 1% lidocaine was injected for local anesthetic. 11 blade was used to make incision and needle was advanced until there was return of dark yellow fluid. [id number]-[id number]-[id number] catheter was advanced and needle was removed. 1800 mL was drained and catheter was removed. Sterile bandage applied to incision site. Pt tolerated well and noted improvement in symptoms. Repeat CXR shows decreased right pleural effusion and stable small left pleural effusion with overlying atelectasis. No PTX. Pleural fluid sent to lab for cytology Clinical Quality Measures DVT/VTE Risk/Contraindication: Risk Factor Score Per Nursin RFS Level Per Nursing on Admit: 3=High KYUNG JI DO 02/11/201956: History of Present Illness History of Present Illness History of Present Illness Consult for right thoracentesis due to bilateral pleural effusions. Patient is a 80-year-old male who was admitted for weakness and shortness of breath and having bilateral pneumonia. Patient breathing has continued to decline through hospital stay. Patient had a CT scan of the chest which demonstrated a right greater than left pleural effusion. Chest x-ray continues to demonstrate effusions. Patient currently on BiPAP. Patient has been on atrial fibrillation and is on anticoagulation. Nothing is made his breathing better yet. Nothing seems to make it worse. Patient's activity level has been primarily laying in bed. Patient currently denies fever sweats chills or chest pain. Allergies and Home Medications Allergies Coded Allergies: gentamicin (Verified Allergy, Severe, renal failure, 11/09/19) Home Medications Levothyroxine Sodium 100 Mcg Tablet, 100 MCG PEG Q48H, (Reported) Levothyroxine Sodium 150 Mcg Tablet, 150 MCG PO Q48H, (Reported) Midodrine HCl 10 Mg Tablet, 10 MG PO DAILY, (Reported) Pantoprazole Sodium 40 Mg Tablet.dr, 40 MG PO DAILY, (Reported) Sulfamethoxazole/Trimethoprim 1 Each Tablet, 1 EACH PO BID Prescribed by: DERICK DE JESUS on 11/14/19 0917 Patient Home Medication List Home Medication List Reviewed: Yes Past Oiayjgu-Afceti-Wezyvt Hx Reviewed Nursing Assessment Reviewed/Agree w Nursing PMH: Yes Family Medical History Significant Family History: No Pertinent Family Hx Review of Systems-General ROS-Unable to Obtain: on bipap unable to obtain Physical Exam-General Problems Physical Exam General Appearance: cachetic, thin, other (appears slightly uncomfortable) HEENT: PERRL/EOMI, other (thin) Neck: non-tender, normal inspection Respiratory: chest non-tender, other (On BIPAP, labored breathing) Cardiovascular: tachycardia, other (bilateral UE edema) Gastrointestinal: soft; No distended; other (gastrostomy tube abdomen) Rectal: deferred Back: normal inspection, no CVA tenderness Extremities: non-tender, other (UE edema bilaterally) Neurologic/Psychiatric: no motor/sensory deficits, alert Skin: warm/dry, other (multiple brusies and area of early skin breakdown with protective barriers in place) Lymphatic: no adenopathy Assessment/Plan Assessment/Plan Assessment/Plan bilateral pneumonia bilateral pleural effusion acute respiratory failure Afib with RVR prostate cancer hx tonsil lymphoma Paitnet on anticoagulation, discussed with Dr. Ralph and has been given okay to stop Heparin for 2 hrs prior to thoracentesis. This does increase risk of bleeding which patient and family understand. If do feel with the right chest having large pleural effusion this is causing some of his respiratory issues. They understand risk and benefits of thoracentesis and wishes to proceed. PROCEDURE: Pt consented to ultrasound-guided thoracentesis of the right chest. Ultrasound was used to isolate largest pocket for ease of catheter placement. Pt was prepped with Chloraprep and 5 ml of 1% lidocaine was injected for local anesthetic. 11 blade was used to make incision and Safetycentesis needle and catheter was advanced until there was return of dark yellow fluid. Lopd-K-aaxeghfu catheter was advanced and needle was removed. 1800 mL was drained and catheter was removed. Sterile bandage applied to incision site. Pt tolerated well and noted improvement in symptoms. Repeat CXR shows decreased right pleural effusion and stable small left pleural effusion with overlying atelectasis. No PTX. Pleural fluid sent to lab Will sign off, call if needed. CLARI NOWAK MED STUDENT Feb 11, 2020 14:13 KYUNG JI DO Feb 11, 2020 19:57
[2020-02-11 14:29] LABS: GLUCOSE,BODY FLUID 72 MG/DL; TOTAL PROTEIN,BODY FLUID 2.2 G/DL
--- NOTE | 2020-02-11 14:38 | Diagnostic Imaging Report ---
EXAMINATION: Chest 1 view. HISTORY: Pleural effusion. COMPARISON: 02/11/2020. FINDINGS: Right pleural effusion has decreased in size and is now small. Small moderate left pleural effusion is stable. No pneumothorax is seen. Right upper extremity peripherally inserted central venous catheter tip terminates in the superior vena cava.. Left mid and lower zone airspace opacities may represent atelectasis or pneumonia. IMPRESSION: 1. Decreased size of right pleural effusion now small, no pneumothorax. 2. Stable small left pleural effusion with overlying atelectasis or pneumonia. Dictated by: Dictated on workstation # [id number]
[2020-02-11] MEDS: TOBRAMYCIN (NEBCIN) 80 MG/2 ML VIAL IH SCH ×3 (14:52→18:53)
[2020-02-11 14:55] VITALS: BP 103/72
[2020-02-11 14:59] LABS: BODY FLUID APPEARENCE SLT CLDY; BODY FLUID COLOR YELLOW; BODY FLUID RBC COUNT 2800 /uL; BODY FLUID SOURCE PLEURAL; BODY FLUID WBC TOTAL COUNT 3908 /uL
[2020-02-11 15:00] LABS: BF OTHER CELLS 6 %; LYMPHOCYTES,BODY FLUID 90 %
--- NOTE | 2020-02-11 15:34 | NUR ---
VERBAL ORDERS TO STOP CLINDAMYCIN RECEIVED AND PLACED WITH DR BLANTON AT BEDSIDE.
[2020-02-11] MEDS: ENOXAPARIN 60 MG/0.6 ML (LOVENOX) SYR SC SCH (16:08)
[2020-02-11] MEDS: dilTIAZem DRIP PRE-MIX 125 ML IV SCH (17:06)
--- NOTE | 2020-02-11 19:51 | NUR ---
PATIENT CHARTED VITALS MAY NOT HAVE CORRECT OXYGEN ADMINISTRATION CHARTED. /DR AT BEDSIDE TITRATES AND CHANGES BETWEEN BIPAP AND VAPOTHERM /DR FEELS THEY ARE NEEDED.
[2020-02-11 20:39] VITALS: BP 126/85
[2020-02-11] MEDS: metroNIDAZOLE 500MG/100ML IVPB 100 ML IV SCH (21:17)
[2020-02-12] VITALS (8 sets, daily range): BP systolic 76–99; BP diastolic 42–68
--- NOTE | 2020-02-12 00:19 | NUR ---
DR. DOUGHERTY, ALSO PATIENT'S , AT BEDSIDE AND ORDERED 5MG LASIX X1 NOW AND 2MG MORPHINE X1 NOW. THIS RN PLACED VERBAL ORDER WITH DR. DOUGHERTY HERE IN ROOM AT BEDSIDE AT THIS TIME.
[2020-02-12] MEDS ORDERED: morphine INJ 10 MG/ML 1ML (SYR OR VIAL) IVP STA ×2 (00:20→00:27)
[2020-02-12] MEDS: morphine INJ 4 MG/ML 1 ML (VIAL/SYRINGE) ONE ×2 (00:25→00:27)
[2020-02-12] MEDS ORDERED: FUROSEMIDE 40 MG/4 ML INJ (LASIX) IVP ONE (00:30)
[2020-02-12] MEDS: RT-ALBUTEROL/IPRATROPIUM 3 ML (DUONEB) VIAL INH SCH ×6 (02:21→21:14)
[2020-02-12] MEDS: ENOXAPARIN 60 MG/0.6 ML (LOVENOX) SYR SC SCH ×2 (02:28→15:14)
[2020-02-12] MEDS: CEFEPIME INJECTION 1,000 MG in WATER (STERILE) FOR INJECTION 10 ML IV SCH ×2 (02:28→08:47)
[2020-02-12 02:53] LABS: BASOPHILS % (AUTO) 0 % (0-10); HEMOGLOBIN 9.7 g/dL (13.3-17.7); LYMPHOCYTES # (AUTO) 1.6 10^3/uL (1.0-4.0); LYMPHOCYTES % (AUTO) 7 % (12-44); MEAN CORPUSCULAR HEMOGLOBIN 30 pg (25-34)
[2020-02-12 02:55] LABS: EOSINOPHILS % (AUTO) 0 % (0-10); HEMATOCRIT 33 % (40-54); MEAN CORPUSCULAR HGB CONC 29 g/dL (32-36); MEAN CORPUSCULAR VOLUME 101 fL (80-99); MEAN PLATELET VOLUME 10.9 fL (9.0-12.2); MONOCYTES # (AUTO) 12.6 10^3/uL (0.0-1.0); MONOCYTES % (AUTO) 55 % (0-12); NEUTROPHILS # (AUTO) 8.4 10^3/uL (1.8-7.8); NEUTROPHILS % (AUTO) 37 % (42-75); PLATELET COUNT 84 10^3/uL (130-400); WHITE BLOOD COUNT 22.9 10^3/uL (4.3-11.0)
[2020-02-12 03:09] LABS: ALBUMIN 3.3 GM/DL (3.2-4.5)
[2020-02-12 03:10] LABS: POTASSIUM 5.2 MMOL/L (3.6-5.0)
[2020-02-12 03:11] LABS: CALCIUM 8.1 MG/DL (8.5-10.1)
[2020-02-12 03:12] LABS: TOTAL PROTEIN 4.9 GM/DL (6.4-8.2)
[2020-02-12 03:14] LABS: BILIRUBIN,TOTAL 0.6 MG/DL (0.1-1.0)
[2020-02-12 03:15] LABS: PHOSPHORUS 6.3 MG/DL (2.3-4.7)
[2020-02-12 03:16] LABS: CREATININE SERUM 1.21 MG/DL (0.60-1.30)
[2020-02-12 03:19] LABS: MAGNESIUM 2.5 MG/DL (1.6-2.4)
--- NOTE | 2020-02-12 04:43 | NUR ---
DR. BLANTON/PATIENT'S WOULD LIKE DR. HEBERT CONSULTED AT THIS TIME. DR. BLANTON AT THIS RN'S SIDE ORDER PLACED. SEE ORDER HX.
[2020-02-12] MEDS: D5 LR IV SOLUTION 1,000 ML IV SCH (05:15)
[2020-02-12] MEDS: LEVOTHYROXINE 100 MCG (LEVOTHROID) TAB PO SCH (06:15)
[2020-02-12] MEDS: metroNIDAZOLE 500MG/100ML IVPB 100 ML IV SCH ×3 (06:15→22:49)
[2020-02-12] MEDS: PANTOPRAZOLE 40 MG (PROTONIX) VIAL IV SCH (06:15)
--- NOTE | 2020-02-12 06:30 | NUR ---
THIS RN CHANGED PATIENT'S DRESSING TO LEFT ARM WITH XEROFORM, TEFLA, AND KERLEX. PT RESTING COMFORTABLY AT THIS TIME.
--- NOTE | 2020-02-12 06:45 | Diagnostic Imaging Report ---
Indication: Dyspnea Portable AP view of chest is obtained with comparison made to study of 02/11/2020. There has been further increase in bilateral airspace disease in the perihilar regions and increasing left basilar infiltrate and pleural fluid. No pneumothorax is identified. Right upper extremity PICC is in stable position. IMPRESSION: Findings indicate worsening bilateral pulmonary edema and/or pneumonitis with increasing moderate left pleural effusion. Dictated by: Dictated on workstation # [id number]
[2020-02-12] MEDS: TOBRAMYCIN (NEBCIN) 80 MG/2 ML VIAL IH SCH ×3 (07:08→18:22)
--- NOTE | 2020-02-12 07:34 | Pulmonary Consultation ---
History of Present Illness History of Present Illness Date Seen by Provider: Feb 12, 2020 Time Seen by Provider: 07:31 Date of Admission Reason for Visit: Tachycardia Allergies and Home Medications Allergies Coded Allergies: gentamicin (Verified Allergy, Severe, renal failure, 11/09/19) Home Medications Levothyroxine Sodium 100 Mcg Tablet, 100 MCG PEG Q48H, (Reported) Levothyroxine Sodium 150 Mcg Tablet, 150 MCG PO Q48H, (Reported) Midodrine HCl 10 Mg Tablet, 10 MG PO DAILY, (Reported) Pantoprazole Sodium 40 Mg Tablet.dr, 40 MG PO DAILY, (Reported) Sulfamethoxazole/Trimethoprim 1 Each Tablet, 1 EACH PO BID Prescribed by: DERICK DE JESUS on 11/14/19 0940 Past Dzbzpeg-Pmtkcf-Vhtmyy Hx Past Med/Social Hx: Reviewed Nursing Past Med/Soc Hx Patient Social History Alcohol Use: Denies Use Recreational Drug Use: No Smoking Status: Former Smoker Type Used: Cigarettes Former Smoker, Quit: Nov 08, 1972 2nd Hand Smoke Exposure: Yes Recent Foreign Travel: No Contact w/Someone Who Travel: No Recent Infectious Disease Expo: No Recent Hopitalizations: No Immunizations Up To Date Date of Pneumonia Vaccine: August 08, 2009 Seasonal Allergies Seasonal Allergies: No Past Medical History Surgeries: Yes (TRACH, peg tube) Appendectomy Respiratory: Yes Emphysema Cardiac: Yes (had a-fib once when dehydrated) Atrial Fibrillation Neurological: No Sexually Transmitted Disease: No HIV/AIDS: No Genitourinary: Yes (prostate cancer, bladder retention) Renal Failure Gastrointestinal: Yes (severe dysphagia and acid reflux. Does not tolerate oral, peg tube) Gastroesophageal Reflux Musculoskeletal: No Endocrine: Yes Hypothyroidsim HEENT: No (READING GLASSES) Loss of Vision: Denies Hearing Impairment: Hard of Hearing Cancer: Yes Prostate, Lymphoma Did You Recieve Any Treatments: Yes What Type of Treatment Did You: Chemotherapy, Radiation Psychosocial: Yes Anxiety Integumentary: No Blood Disorders: Yes (HX ANEMIA) Adverse Reaction/Blood Tranf: No (N/A) Family Medical History Reviewed Nursing Family Hx No Pertinent Family Hx Sepsis Event Evaluation Height, Weight, BMI Height: 5'11.00" Weight: 105lbs. 5.0oz. 47.101007ks; 13.00 BMI Method:Stated Exam Exam Vital Signs Date Time Temp Pulse Resp B/P (MAP) Pulse Ox O2 Delivery O2 Flow Rate FiO2 02/12/20 07:24 Vapotherm 40.00 50.00 02/12/20 07:07 93 Vapotherm 25.00 60 02/12/20 06:00 105 41 93/63 89 NIV Bilevel 45.00 02/12/20 05:00 110 43 112/72 91 NIV Bilevel 45.00 02/12/20 04:34 36.9 02/12/20 04:00 111 20 98/64 92 NIV Bilevel 45.00 02/12/20 03:00 111 17 94/64 95 NIV Bilevel 45.00 02/12/20 02:21 107 26 92 45.00 02/12/20 02:00 108 19 96/66 92 NIV Bilevel 45.00 02/12/20 01:00 110 02/12/20 01:00 110 20 89/60 95 NIV Bilevel 45.00 02/12/20 00:00 111 27 115/73 92 NIV Bilevel 45.00 02/11/20 23:49 36.3 94 NIV Bilevel 45.00 02/11/20 23:01 36.2 97 NIV Bilevel 50.00 02/11/20 23:00 110 18 135/82 97 NIV Bilevel 80.00 02/11/20 22:20 112 23 116/80 96 NIV Bilevel 80.00 02/11/20 22:10 110 23 95 75.00 02/11/20 21:34 96 NIV Bilevel 80.00 02/11/20 21:00 110 24 118/77 96 NIV Bilevel 100.00 02/11/20 21:00 94 NIV Bilevel 100 02/11/20 20:39 111 26 95 100.00 02/11/20 20:00 36.2 NIV Bilevel 100.00 02/11/20 20:00 112 26 114/79 90 NIV Bilevel 100.00 02/11/20 19:00 115 12 115/70 94 NIV Bilevel 90.00 02/11/20 19:00 115 02/11/20 18:53 94 Vapotherm 30.00 90 02/11/20 18:46 94 Vapotherm 30.00 90 02/11/20 18:00 129 94 NIV Bilevel 90.00 02/11/20 17:00 116 132/96 97 NIV Bilevel 90.00 02/11/20 16:00 118 24 125/87 99 NIV Bilevel 90.00 02/11/20 15:00 116 22 119/82 98 NIV Bilevel 90.00 02/11/20 14:55 117 21 100 40.00 02/11/20 14:00 116 18 103/72 100 NIV Bilevel 90.00 02/11/20 13:00 114 27 116/78 100 NIV Bilevel 90.00 02/11/20 12:56 114 02/11/20 12:00 114 33 128/90 100 NIV Bilevel 90.00 02/11/20 11:03 114 44 80.00 100 02/11/20 11:00 115 130/88 100 NIV Bilevel 90.00 02/11/20 10:00 113 107/91 100 NIV Bilevel 90.00 02/11/20 09:00 113 123/88 99 NIV Bilevel 90.00 02/11/20 09:00 94 NIV Bilevel 100 02/11/20 08:00 114 106/72 92 NIV Bilevel 90.00 I & O 02/12/20 07:00 Intake Total 1978 ml Output Total 1220 ml Balance 758 ml Height & Weight Height: 5'11.00" Weight: 105lbs. 5.0oz. 47.749805bv; 13.00 BMI Method:Stated General Appearance: No Apparent Distress, Chronically ill, Cachetic HEENT: PERRL/EOMI, Other (dry mucous membranes) Neck: Normal Inspection, Supple Respiratory: No Respiratory Distress, Other (coarse breath sounds bilaterally, wearing Vapotherm) Cardiovascular: Regular Rate, Rhythm, No Edema, No Murmur Capillary Refill: Less Than 3 Seconds Gastrointestinal: No distended Extremity: Normal Inspection, Non Tender, No Pedal Edema Neurologic/Psychiatric: Alert, Motor Weakness Skin: Warm/Dry, Pallor Results Lab Laboratory Tests 02/11/20 03:13 02/12/20 02:30 Assessment/Plan Assessment/Plan Right > left pleural effusions -s/p right thoracentesis -Repeat CXR this AM Bilateral pneumonia with pseudomonus -Currently on Cefepime and Flagyl (secondary to diarrhea -Continue Minesh SVNs -Start Levaquin secondary to worseing leukocytosis Afib RVR -Currently on Cardizem and ammiodarone ROSA HEBERT DO Feb 12, 2020 07:34
--- NOTE | 2020-02-12 07:49 | NUR ---
THIS RN NOTIFIED DR. HEBERT OF HYPOTENSION, CARDIZEM GTT WAS STOPPED AT 0640 DUE TO DECREASING SBP IN 80-90'S. PATIENT SBP NOW IN 70'S. DR. HEBERT WOULD LIKE OTHER EXTREMITIES TRIED FOR BP. THIS RN REPORTED ORDER TO [facility] RN, MACK. DR. HEBERT WOULD LIKE TO BE CALLED IF HYPOTENSION CONTINUES.
[2020-02-12] MEDS ORDERED: NS IV 500 ML 500 ML IV SCH (08:45)
[2020-02-12] MEDS: CALCIUM ACETATE 667 MG CAP (PHOSLO) PO SCH ×3 (08:47→18:08)
[2020-02-12] MEDS: DIGOXIN 0.125 MG (LANOXIN) TAB PO SCH (08:47)
[2020-02-12] MEDS: AMIODARONE 200 MG (CORDARONE) TAB PO SCH ×2 (08:48→21:12)
[2020-02-12] MEDS ORDERED: LEVOFLOXACIN 750 MG/150 ML IV 150 ML IV SCH (09:00)
--- NOTE | 2020-02-12 09:57 | Progress Note ---
Progress Note Assessment/Plan Date Seen by Provider: Feb 12, 2020 Time Seen by Provider: 09:56 Events since last exam No fever, Respiratory improved after thoracentasis yesterday Still Low urine out put over night due to hypotensive WBC went up Consult Dr Begum Cardiac ECHO Assessment/Plan Assessment/Plan Assessment/Plan 1. Bilateral pneumonia, consolidation on CXR and CT. 2. Bilateral pleural effusion, large on the right and mod on the left. 3. Dysphagia on PEG tube. Pt has been on PEG tube at home for over 5 years. 4. Afib due to #1 with rapid ventricular response. 5. Thrombocytopenia 2nd to infection. 6. Hypotensive. 7. 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 H/o prostate cancer, stage II. s/p recent external beam radiation. 9. Hypoalbuminemia 10. Fever spike last night, blood culture 1x, ?blood transfusion reaction. Plan: 1. Change antibiotics per Dr Begum recommendation. 2. F/u Dr Ralph for cardiac issues. 3. f/u culture from the repeat sputum here and sensitivities 4. Keep O2 sat >88% 5. Repeat CBC, CMP, CXR in the AM lab. 6. One unit of RBC today 7. Albumin IV for hypotension 8. One RBC today Vitals Last set of Vitals Signs Vital Signs Date Time Temp Pulse Resp B/P (MAP) Pulse Ox O2 Delivery O2 Flow Rate FiO2 02/12/20 08:22 37.0 02/12/20 07:24 Vapotherm 40.00 50.00 02/12/20 07:07 93 60 02/12/20 06:45 110 02/12/20 06:00 41 93/63 I&O I&O Intake and Output 02/12/20 00:00 Intake Total 2018 ml Output Total 1350 ml Balance 668 ml Intake Oral 0 ml IV Total 870 ml Tube Feeding 968 ml Other 180 ml Output Urine Total 1350 ml Labs Laboratory Tests 02/11/20 12:50: Body Fluid Source PLEURAL, Body Fluid Color YELLOW, Body Fluid Appearance SLT CLDY, Body Fluid WBC 3908, Body Fluid RBC 2800, Body Fluid Polynuclear WBCs 4, Body Fluid Mononuclear WBCs , Body Fluid Lymphocytes 90, Body Fluid Other Cells 6, Body Fluid Glucose 72, Body Fluid Total Protein 2.2 02/12/20 02:30: White Blood Count 22.9H, Red Blood Count 3.27L, Hemoglobin 9.7L, Hematocrit 33L, Mean Corpuscular Volume 101H, Mean Corpuscular Hemoglobin 30, Mean Corpuscular Hemoglobin Concent 29L, Red Cell Distribution Width 16.4H, Platelet Count 84L, Mean Platelet Volume 10.9, Immature Granulocyte % (Auto) 2, Neutrophils (%) (Auto) 37L, Lymphocytes (%) (Auto) 7L, Monocytes (%) (Auto) 55H, Eosinophils (%) (Auto) 0, Basophils (%) (Auto) 0, Neutrophils # (Auto) 8.4H, Lymphocytes # (Auto) 1.6, Monocytes # (Auto) 12.6H, Eosinophils # (Auto) 0.0, Basophils # (Auto) 0.0, Immature Granulocyte # (Auto) 0.4H, Sodium Level 140, Potassium Level 5.2H, Chloride Level 98, Carbon Dioxide Level 28, Anion Gap 14, Blood Urea Nitrogen 71H, Creatinine 1.21, Estimat Glomerular Filtration Rate 58, BUN/Creatinine Ratio 59, Glucose Level 125H, Calcium Level 8.1L, Corrected Calcium 8.7, Phosphorus Level 6.3H, Magnesium Level 2.5H, Total Bilirubin 0.6, Aspartate Amino Transf (AST/SGOT) 72H, Alanine Aminotransferase (ALT/SGPT) 11, Alkaline Phosphatase 89, B-Type Natriuretic Peptide 191.2H, Total Protein 4.9L, Albumin 3.3 02/12/20 05:01: Procalcitonin 2.22H Microbiology 02/11/20 C. difficile GDH Antigen & Toxins - Final, Complete 02/10/20 Blood Culture - Preliminary, Resulted No growth 02/06/20 MRSA Screen - Final, Complete MRSA not isolated 02/06/20 Urine Culture - Final, Complete NO GROWTH Focused Exam Lactate Level 02/10/20 02:30: Lactic Acid Level 3.17*H Clinical Quality Measures DVT/VTE Risk/Contraindication: Risk Factor Score Per Nursin RFS Level Per Nursing on Admit: 3=High LYNDA BLANTON MD Feb 12, 2020 09:57
--- NOTE | 2020-02-12 10:00 | Cardiology Progress Note ---
Subjective Date Seen by Provider: Feb 12, 2020 Time Seen by Provider: 09:58 Subjective/Events-last exam Patient is laying down in bed, lethargic, still tachycardic. Breathing is slightly better Review of Systems General: No Chills, No Night Sweats; Fatigue, Malaise; No Appetite, No Other HEENT: No Head Aches, No Visual Changes, No Eye Pain, No Ear Pain, No Dysphasi a, No Sinus Congestion, No Post Nasal Drip, No Sore Throat, No Other Pulmonary: Dyspnea; No Cough, No Pleuritic Chest Pain, No Other Cardiovascular: No: Chest Pain, Palpitations, Orthopnea, Paroxysmal Noc. Dyspnea, Edema, Lt Headedness, Other Focused Exam Lactate Level 02/10/20 02:30: Lactic Acid Level 3.17*H Objective-Cardiology Exam Last Set of Vital Signs Vital Signs 02/12/20 02/12/20 02/12/20 02/12/20 02/12/20 06:00 06:45 07:07 07:24 08:22 Temp 37.0 Pulse 110 Resp 41 B/P (MAP) 93/63 Pulse Ox 93 O2 Delivery Vapotherm O2 Flow Rate 40.00 50.00 FiO2 60 Capillary Refill : Less Than 3 Seconds I&O Intake and Output 02/12/20 00:00 Intake Total 2018 ml Output Total 1350 ml Balance 668 ml Intake Oral 0 ml IV Total 870 ml Tube Feeding 968 ml Other 180 ml Output Urine Total 1350 ml General: Alert, Cooperative HEENT: Atraumatic, PERRLA Neck: Supple, No JVD, No Thyromegaly Lungs: Normal Air Movement, Other (bilateral rhonchi) Heart: Normal S1, Normal S2, No Murmurs, Other (tachycardia) Abdomen: Normal Bowel Sounds, Soft, No Tenderness, No Hepatosplenomegaly, No Masses Extremities: No Clubbing, No Cyanosis, Normal Pulses, No Tenderness/Swelling, Other (peripheral edema) Skin: No Rashes, No Breakdown, No Significant Lesion Neuro: Normal Speech, Sensation Intact Psych/Mental Status: Mental Status NL, Mood NL Results Lab Laboratory Tests 02/12/20 02:30 A/P-Cardiology Admission Diagnosis AFib/flutter with RVR Pneumonia Dyspnea Hypotension Assessment/Plan Bilateral pneumonia, receiving antibiotics, managed and followed by primary care team Afib/flutter with RVR, hx of PAF. Still borderline tachycardic, hypotensive, cannot tolerate any additional calcium channel blockers or beta blockers. Tolerating amiodarone and digoxin well. I discussed the management plan with Dr. Robledo, continue with the rate control and monitor. We can switch him to oral anticoagulation at this point Bilateral pleural effusion, status post thoracentesis, doing better. Still having some shortness of breath. Thrombocytopenia, worsening today. Followed by Dr. 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 Chronically on TPN S/p PEG placement on 01/05/17 Clinical Quality Measures DVT/VTE Risk/Contraindication: Risk Factor Score Per Nursin RFS Level Per Nursing on Admit: 3=High TOBY JUNE MD Feb 12, 2020 10:00
--- NOTE | 2020-02-12 12:47 | NUR ---
Torin NIETO RN AT BEDSIDE DURING FIRST 15 MIN OF TRANSFUSION. NO S/S OF DISTRESS
[2020-02-12] MEDS ORDERED: FUROSEMIDE 40 MG/4 ML INJ (LASIX) IVP NR (13:15)
--- NOTE | 2020-02-12 13:16 | NUR ---
I SPOKE WITH THE PATIENT'S ON THE PHONE, CALLED [facility] AND [facility] AND WENT THROUGH THE EXTERNAL MED HISTORY TO COMPLETE THIS MED REC. PT'S SAYS THAT HE TAKES LEVOTHYROXINE 100MCG DAILY AND GETS IT FILLED AT [facility]. I CALLED [facility] AND [facility] TO SEE IF ANYWHERE HAD FILLED THIS MEDICATION FOR HIM AND NONE OF THEM HAD. PTS IS ADAMANT THAT HE TAKES LEVOTHYROXINE THEREFORE I INCLUDED IT ON THE MED REC HOWEVER I COULD NOT LOCATE WHERE THIS MED IS BEING FILLED
[2020-02-12] MEDS: dilTIAZem DRIP PRE-MIX 125 ML IV SCH (14:30)
[2020-02-12] MEDS ORDERED: CEFEPIME INJECTION 1,000 MG in WATER (STERILE) FOR INJECTION 10 ML IV SCH (16:00)
[2020-02-12 16:02] LABS: BILIRUBIN,TOTAL 0.6 MG/DL (0.1-1.0); CALCIUM 8.3 MG/DL (8.5-10.1); CREATININE SERUM 1.54 MG/DL (0.60-1.30); POTASSIUM 5.7 MMOL/L (3.6-5.0); TOTAL PROTEIN 4.6 GM/DL (6.4-8.2)
[2020-02-12] MEDS ORDERED: inSUlin (REGULAR) HUMAN 1 UNIT/0.01 ML (CHARGE PER UNIT) IV NR (16:30)
[2020-02-12] MEDS ORDERED: DEXTROSE 50% 50 ML (IMS) SYR IV NR (16:30)
[2020-02-12] MEDS ORDERED: ALBUMIN 25% 25 GM/100 ML 100 ML IV ONE (16:30)
[2020-02-12] MEDS ORDERED: SODIUM BICARB 8.4% 50 MEQ/50 ML (ABBOTT) SYR IV NR (16:30)
--- NOTE | 2020-02-12 16:56 | NUR ---
"TF FOLLOW-UP Est kcal needs: 3333-9807 kcal | 30-35 kcal/kg (for COPD) Est Pro needs: 55-64 g Pro | 1.2-1.4 g Pro/kg Note recent TF order of Pulmocare 1.5 at following rates: 0351-7898 @ 80ml/hr; 8344-8472 @ 40ml/hr. with 60ml free water flushes q8h. This TF order provides 2280 kcal (50 kcal/kg); and 95 g Pro (2.1 g Pro/kg), which is overfeeding the pt. Would make the following recommendation: Pulmocare 1.5 at 40ml/hr, with 60ml flushes q8h. This rate will provide 1440 kcal (32 kcal/kg); and 60 g Pro (1.3 g Pro/kg). Will continue to follow and reassess as pt needs, intake, and status change. Ana Beckwith MS RD [phone] cell"
[2020-02-12] MEDS ORDERED: SODIUM BICARB 8.4% 50 MEQ/50 ML VIAL ONE (16:57)
[2020-02-12] MEDS ORDERED: NS INJ SCH (17:00)
[2020-02-12] MEDS ORDERED: NS IV ONE (18:53)
[2020-02-12] MEDS ORDERED: AVIBACTAM IV ONE (18:53)
[2020-02-12] MEDS ORDERED: CEFTAZIDIME IV ONE (18:53)
[2020-02-12] MEDS ORDERED: LINEZOLID IVPB 300 ML IV SCH (21:00)
--- NOTE | 2020-02-12 21:10 | NUR ---
This RN to bedside at request of Jair Dutton RN to check patient orientation status. Per Jair patient unresponsive with sluggish pupils. Patients at bedside, states he has been this way since approximately "6-7pm." Patient pupils are responsive, but sluggish. Patient blinks with touch and light to eyes. patient unable to squeeze hand, bipap in place so unable to verbalize. states he is "in a deep sleep and comfortable." This RN asked at beside if the patients heart were to stop, if she would want us to do CPR. She does not wish for us to do CPR at this time. Jair at bedside when conversation with took place, all agreeable to make patient a DNR. patients asks if we are still able to do the rapid response protocol when a DNR and this RN informed her that we can still do OBSERVER HELPER which would be labs, abg, chest xray and CT if Dr. Robledo were to order. New order placed for DNR code status.
[2020-02-12] MEDS ORDERED: NS IV 500 ML 250 ML IV ONE (22:00)
[2020-02-12] MEDS ORDERED: dexAMETHasone INJECTION 20 MG in NS (IVPB) 50 ML IV STA (22:30)
[2020-02-12] MEDS ORDERED: NS (IVPB) 50 ML ONE (22:33)
--- NOTE | 2020-02-13 | NUR ---
THIS RN CALLED FATHER SHADI, OF [facility] AT REQUEST OF PATIENT'S , DR. BLANTON. FATHER IS ON HIS WAY AT THIS TIME.
--- NOTE | 2020-02-13 02:00 | NUR ---
TIMELINE NOTE BELOW: 02/12/20 @ 2100- THIS RN AT BEDSIDE, DR. BLANTON ALSO PRESENT AT BEDSIDE. THIS RN TRYING TO WAKE PATIENT AND DR. BLANTON STATES "HE'S UNRESPONSIVE AND HAS BEEN THIS WAY SINCE 6-7PM". THIS RN ATTEMPTS TO STERNAL RUB PATIENT WITH NO RESPONSE, PUPILS EQUAL AND REACTIVE BUT SLUGGISH. THIS RN ASKS DR. BLANTON IF SHE WOULD LIKE TO TAKE EMERGENT MEASURES, SHE SAYS TO "LET HIM REST. HE IS FADING AWAY". THIS RN ASKS SHIRLEY MCALLISTER/DIVISION MANAGER TO ALSO ASSESS PATIENT. * @ 0- ESVIN, RN, DIVISION MANAGER AT BEDSIDE AT THIS TIME TO ASSESS PATIENT. PATIENT BLINKS WITH TOUCH AND LIGHT TO EYES, OTHERWISE NON RESPONSIVE. CODE STATUS DISCUSSED AT THIS TIME WITH DR. BLANOTN AT BEDSIDE. DR. BLANTON, ESVIN RN/DIVISION MANAGER, AND THIS RN ALL AGREEABLE TO MAKE PATIENT DNR AT THIS TIME. RAPID RESPONSE ALSO DISCUSSED, AND ESVIN EXPLAINED IT CAN STILL BE ACTIVATED FOR PATIENT. NO NEW ORDER RECEIVED AT THIS TIME FOR RAPID RESPONSE. * @ 2200- PATIENT'S SBP HAS BEEN SUSTAINING IN 70-80'S, DR. BLANTON AT BEDSIDE AND NOTIFIED. NEW ORDER RECEIVED FOR 250ML BOLUS OF NS AND DECADRON (SEE ORDER HX). * @ 2330- PATIENT'S HR DECREASED TO 40'S, THIS RN AT BEDSIDE WITH DR. BLANTON. THIS RN ASKED IF DR. BLANTON WOULD LIKE ANYTHING DONE, DR. BLANTON STATED "LET'S KEEP HIM COMFORTABLE. HE'S SLIPPING AWAY". THIS RN STAYED AT BEDSIDE WITH DR. BLANTON. * @ [address] BLANTON IF SHE WOULD LIKE HER AIRCRAFT DESIGN ENGINEER NOTIFIED, SHE SAID YES AND REQUESTED FATHER SHADI FROM [facility]. THIS RN NOTIFIED FATHER SHADI AT THIS TIME. * @ 0018 PATIENT'S HEART RATE ON MONITOR SHOWED ASYSTOLE. THIS RN AT BEDSIDE AT THIS TIME AND CONFIRMED PATIENT IS PULSELESS. SHIRLEY MYERS, AT BEDSIDE TO CONFIRMED ASYSTOLE WELL. DR. BLANTON AT BEDSIDE AND REQUESTED BIPAP BE LEFT ON TILL FATHER SHADI ARRIVED. * @ 0020 FATHER SHADI AT BEDSIDE, THIS RN AND SHIRLEY MYERS, CONFIRMED NO BREATH SOUNDS OR PULSE AT THIS TIME. * [facility] OF [facility]13/2020 AT 0018. CONFIRMATION NUMBER [id number]. * @ 0054 DR. BLANTON WOULD LIKE BODY TAKEN TO [facility], SHE WOULD LIKE FOR THEM TO HOLD BODY FOR 72 HOURS BEFORE CREMATION. THIS RN NOTIFIED [facility] AT THIS TIME. * @ 0103 THIS RN SPOKE WITH PARADISE FROM [facility], HE IS IN ROUTE FOR TRANSPORT OF THE PATIENT'S BODY. * @ 0105 THIS RN AND SHIRLEY MYERS, PROVIDED POST MORTEM CARE TO PATIENT'S BODY. * @ 0130 DR. BLANTON AT BEDSIDE. * @ 0200 PARADISE FROM [facility] TRANSPORTED PATIENT'S BODY OUT OF HOSPITAL.
[2020-02-13] MEDS: D5 LR IV SOLUTION 1,000 ML IV SCH (03:42)
[2020-02-13] MEDS ORDERED: CEFTAZIDIME IV SCH (19:00)
[2020-02-13] MEDS ORDERED: AVIBACTAM IV SCH (19:00)
[2020-02-13] MEDS ORDERED: NS IV SCH (19:00)
[2020-02-14] MEDS ORDERED: LEVOFLOXACIN 750 MG/150 ML IV 150 ML IV SCH (09:00)
== END 2020-02-13 02:00 | disposition expired | DRG 871 ==
LOC: EDUNIT# 13:38 → ER 13:40 → ICU 16:54 → CSD 02-08 20:29
PROVIDERS: ADMIT Internal Medicine; ATTEND Internal Medicine Hematology & Oncology
PROC: 5A09457 Assistance with Respiratory Ventilation, 24-96 Consecutive Hours, Continuous Positive Airway Pressure (ICD-10-PCS; 2020-02-09)
PROC: 0W993ZZ Drainage of Right Pleural Cavity, Percutaneous Approach (ICD-10-PCS; principal; 2020-02-11)
DX: A41.52 Sepsis due to Pseudomonas (principal); J96.01 Acute respiratory failure with hypoxia; J15.1 Pneumonia due to Pseudomonas; E43 Unspecified severe protein-calorie malnutrition; J90 Pleural effusion, not elsewhere classified; N17.9 Acute kidney failure, unspecified; Z68.1 Body mass index [BMI] 19.9 or less, adult; E87.2 Acidosis; Z66 Do not resuscitate; Z20.828 Contact with and (suspected) exposure to other viral communicable diseases; R65.20 Severe sepsis without septic shock; C61 Malignant neoplasm of prostate; Z92.3 Personal history of irradiation; T66.XXXS Radiation sickness, unspecified, sequela; R13.10 Dysphagia, unspecified; Z85.72 Personal history of non-Hodgkin lymphomas; I48.0 Paroxysmal atrial fibrillation; I95.9 Hypotension, unspecified; K22.4 Dyskinesia of esophagus; J43.9 Emphysema, unspecified; D69.59 Other secondary thrombocytopenia; E88.09 Other disorders of plasma-protein metabolism, not elsewhere classified; K21.9 Gastro-esophageal reflux disease without esophagitis; E03.9 Hypothyroidism, unspecified; F41.9 Anxiety disorder, unspecified; I73.9 Peripheral vascular disease, unspecified; D64.9 Anemia, unspecified; D69.6 Thrombocytopenia, unspecified; R60.9 Edema, unspecified; Z93.1 Gastrostomy status; Z87.891 Personal history of nicotine dependence; Z90.49 Acquired absence of other specified parts of digestive tract
CPT/HCPCS: 36415; 51702; 71045; 71250; 80048; 80053; 80076; 80162; 81000; 82945; 83605; 83615; 83735; 83880; 84100; 84145; 84157; 84484; 85007; 85025; 85027; 85379; 85610; 85652; 85730; 86141; 86850; 86900; 86901; 86920; 87040; 87070; 87077; 87081; 87088; 87205; 87324; 87449; 87635; 89051; 93005; 93306; 94640; 94660; 94760